=== PATIENT | male | born 1940 | race Caucasian/White ===

== ENCOUNTER → 2016-06-08 | Outpatient (CLI) | payer MEDICARE ==
[~2016-06-08] MED LIST: AC325T PO; ACET-2469 PO; ACHD5005 PO; AMOX-358 PO; ART3.5OO OU; ASCO-262 PO; ASCO500T5 PO; ASP81TEC PO; ASPI-983 PO; Aspirin PO; BSC10SU PR; CARV12.53 PO; CARV3.122 PO; CARV6.252 PO; CEFD300C PO; CEPH250C PO; CETI10TA20 PO; CHOL100045 PO; CLPD75T PO; CRV6.25T PO; DCS100C PO; DICL75TA2 PO; DIPH25TA29 PO; Diphenhydramine Hcl PO; ENXP40I.4 SC; FAMO1TAB21 PO; FLUT9.9S NS; FRSM40T PO; FURO10VI IV; FURO80TA3 PO; Fentanyl Citrate IV; HCA25SU PR; HCT25T PO; HYDR-34 PO; HYDR-3714 PO; INSR1U SC; IPRA3AMP11 IH; IPRA3AMP11 INH; KCL10CCR PO; KCL20TCR PO; LACT1CAP57 PO; LATA2.5D5 OU; LISI10TA PO; LISI10TA2 PO; LORA0.5T PO; LOSA25TA2 PO; Latanoprost OU; MAGN400T39 PO; MENT71OI TOP; METO5TAB2 PO; MISO200T4 PO; Magnesium Oxide PO; Melatonin PO; Non Medication Item PO; ONDA2VIA IV; OXYC-12 PO; OXYC-465 PO; PNT40TEC PO; POLY17PO23 PO; POTA10TA17 PO; POTA20TA8 PO; Polyethylene Glycol PO; RANI-425 PO; Simethicone PO; Sodium Chloride IV; TRAV0.004S OU; TRAV5DRO OU; Temazepam PO
--- OUTSIDE RECORDS SUMMARY | 2016-06-08 11:33 | XMS REPORT | Continuity of Care Document ---
Author Author [facility] Organization [facility] Address Unknown Phone Unavailable Care Team Providers Care Physician'S Assistant Name Role Phone SAMUEL FERNANDEZ MD PCP Insurance Providers Payer Name Policy Number Subscriber Name Relationship Wps Medicare [id number] Jenna Ortega 16 Self / Same As Patient Blue Cross [facility] Supp [id number] Jenna Ortega 16 Self / Same As Patient Advance Directives Directive Response Recorded Date/Time Advance Directives No 05/11/16 11:14am Health Care Power of Special Education Resource Room Teacher No 05/11/16 11:14am Organ Donor Yes 05/11/16 11:14am Resuscitation Status Full Code 05/11/16 11:14am Problems Active Problems Medical Problem Onset Date Status Rupture of right plantaris tendon Unknown Acute Rupture of right plantaris tendon Unknown Acute Medications Current Home Medications Medication Dose Units Route Directions Days/Qty Instructions Start Date Latanoprost 2.5 Ml 1 Drop Each Eye Bedtime 05/11/16 Carvedilol 6.25 Mg 6.25 Mg Oral Twice A Day 05/11/16 Potassium Chloride 20 Meq 20 Meq Oral As Directed TAKES 2 TIMES PER WEEK WITH FUROSEMIDE 05/11/16 Losartan Potassium 25 Mg 25 Mg Oral Daily 05/11/16 Furosemide 80 Mg 80 Mg Oral As Directed TAKES TWICE WEEKLY WITH KLOR- CON AND MAGNESIUM 05/11/16 Magnesium Oxide 400 Mg 400 Mg Oral As Directed TAKES TWICE WEEKLY WITH FUROSEMIDE AND KLOR-CON 05/11/16 Ascorbate Calcium 500 Mg 500 Mg Oral Bedtime 05/11/16 Aspirin 81 Mg 81 Mg Oral Daily 05/11/16 Oxycodone Hcl/Acetaminophen 1 Each 0.5 Tab Oral Twice A Day as needed for Pain 05/11/16 Diphenhydramine Hcl 25 Mg 25-50 Mg Oral Bedtime as needed for Sleep TAKES 1-2 (25 MG) TABLETS 05/11/16 Past Home Medications Medication Directions Ordered Status Potassium Citrate 10 Meq Tablet.sa, 10 Meq Oral Daily 03/29/12 Discontinued Lisinopril 10 Mg Tablet, 10 Mg Oral Daily 03/29/12 Discontinued Hydrochlorothiazide 25 Mg Tablet, 25 Mg Oral Daily 03/29/12 Discontinued Diclofenac Sodium 75 Mg Tablet.dr, 75 Mg Oral as needed 03/29/12 Discontinued Misoprostol 200 Mcg Tablet, 200 Mcg Oral Daily 03/29/12 Discontinued Travoprost 2.5 Ml Drops, 1 Drop Each Eye Bedtime 03/29/12 Discontinued Oxycodone Hcl/Acetaminophen 1 Each Tablet, 1 - 2 Tab Oral Every 4HRS Discontinued Famotidine/Calcium Carb/Mag 1 Each Tab.chew, 1 Tab.chew Oral Bedtime Discontinued Aspirin 81 Mg Tabec, 81 Mg Oral Daily 11/27/12 Discontinued Carvedilol (Coreg) 3.125 Mg Tablet, 3.125 Mg Oral Twice A Day 11/27/12 Discontinued Carvedilol (Coreg) 12.5 Mg Tablet, 12.5 Mg Oral Twice A Day 06/14/14 Discontinued Lisinopril 10 Mg Tablet, 10 Mg Oral Twice A Day 06/14/14 Discontinued Travoprost 5 Ml Drops, 1 Drop Each Eye Bedtime 06/14/14 Discontinued Acetaminophen/Hydrocodone Bitart 1 Each Tablet, 1 Tab Oral Every 4HRS as needed for Pain 06/20/14 Discontinued Docusate Sodium 100 Mg Cap, 200 Mg Oral Daily as needed for Constipation Discontinued Polyethylene Glycol 17 Gm Pack, 17 Gm Oral Daily as needed for Constipation 06/20/14 Discontinued Acetaminophen 325 Mg Tab, 650 Mg Oral Give Every 6 Hr On Schedule as needed for Temperature Greater Than 101 07/21/14 Discontinued Albuterol/Ipratropium 3 Ml Nebu, 3 Ml Inhalation Respiratory Every Six Hours 07/21/14 Discontinued [Aspirin] 81 Mg Tabec, 81 Mg Oral Daily 07/21/14 Discontinued Carvedilol 6.25 Mg Tab, 6.25 Mg Oral Twice A Day 07/21/14 Discontinued Cefdinir 300 Mg Capsule, 300 Mg Oral Twice A Day 07/21/14 Discontinued Clopidogrel Bisulfate 75 Mg Tab, 75 Mg Oral Daily 07/21/14 Discontinued Docusate Sodium 100 Mg Cap, 200 Mg Oral Daily as needed for Constipation Discontinued Docusate Sodium 100 Mg Cap, 100 Mg Oral Twice A Day 07/21/14 Discontinued Enoxaparin Sodium 40 Mg/0.4 Ml Soln, 40 Mg Subcutaneously Every 24 Hours Discontinued [Fentanyl Citrate] 100 Mcg/2 Ml Soln, 25 Mcg Intraven Every 30 Minutes as needed for Pain 07/21/14 Discontinued Furosemide 40 Mg/4 Ml Soln, 40 Mg Intraven Daily 07/21/14 Discontinued Acetaminophen/Hydrocodone Bitart ([place]) 1 Ea Tablet, 1 Ea Oral Every 4HRS as needed for Pain 07/21/14 Discontinued Acetaminophen/Hydrocodone Bitart (Hydrocodone/Apap 5/325MG) 1 Tab Tab, 1 Tab Oral Every 4HRS as needed for Pain 07/21/14 Discontinued Hydrocortisone Acetate 1 Ea Supp, 1 Ea Rectal Every 8HRS as needed for Pain 07/21/14 Discontinued [Latanoprost] 1 Drop Soln, 0 Drop Each Eye Bedtime 07/21/14 Discontinued Metoclopramide Hcl 5 Mg Tab, 5 Mg Oral Twice A Day 07/21/14 Discontinued Mineral Oil/Petrolatum,White 3.5 Gm Oint, 0 Gm Each Eye Three Times A Day as needed for Dry Eyes 07/21/14 Discontinued [Magnesium Oxide] 400 Mg Tab, 400 Mg Oral Daily@0700 07/21/14 Discontinued Menthol/Lanolin/Calamine/Znox 113 Gm Oint, 0 Gm Topically Twice A Day Discontinued [Non Medication Item] 1 Each Misc, 0 Each Oral As Directed 07/21/14 Discontinued Ondansetron Hcl 4 Mg/2 Ml Soln, 4 Mg Intraven Every 8HRS as needed for Nausea/ Vomiting 07/21/14 Discontinued Pantoprazole Sod 40 Mg Tab, 40 Mg Oral Daily@0700 07/21/14 Discontinued [Polyethylene Glycol] 17 Gm Pack, 17 Gm Oral Daily as needed for Constipation 07/21/14 Discontinued Potassium Chloride 20 Meq Tab, 20 Meq Oral Daily@0700 07/21/14 Discontinued Acetaminophen 325 Mg Tab, 650 Mg Oral Give Every 6 Hr On Schedule as needed for Temperature Greater Than 101 08/01/14 Discontinued Albuterol/Ipratropium 3 Ml Nebu, 3 Ml Inhalation Respiratory Every Six Hours 08/01/14 Discontinued [Aspirin] 81 Mg Tabec, 81 Mg Oral Daily 08/01/14 Discontinued Bisacodyl 10 Mg Supp, 10 Mg Rectal Daily 08/01/14 Discontinued Carvedilol 6.25 Mg Tab, 6.25 Mg Oral Twice A Day 08/01/14 Discontinued [Diphenhydramine Hcl] 25 Mg Tab, 25 Mg Oral Every 6 Hours as needed for Sleep 08/01/14 Discontinued Docusate Sodium 100 Mg Cap, 200 Mg Oral Daily as needed for Constipation Discontinued Enoxaparin Sodium 40 Mg/0.4 Ml Soln, 40 Mg Subcutaneously Daily@0900 Discontinued [Fentanyl Citrate] 100 Mcg/2 Ml Soln, 25 Mcg Intraven Every 30 Minutes as needed for Severe Pain 08/01/14 Discontinued Furosemide 40 Mg/4 Ml Soln, 40 Mg Intraven Twice A Day 08/01/14 Discontinued Acetaminophen/Hydrocodone Bitart (Hydrocodone/Apap 5/325MG) 1 Tab Tab, 1 Tab Oral Every 4HRS as needed for Pain 08/01/14 Discontinued Insulin Human Regular 1 Unit/0.01 Ml Soln, 0 Unit Subcutaneously Fasting & 2 Hrs Post Prandial 08/01/14 Discontinued [Latanoprost] 1 Drop Soln, 0 Drop Each Eye Bedtime 08/01/14 Discontinued Metoclopramide Hcl 5 Mg Tab, 5 Mg Oral Twice A Day 08/01/14 Discontinued Mineral Oil/Petrolatum,White 3.5 Gm Oint, 0 Gm Each Eye Three Times A Day as needed for Dry Eyes 08/01/14 Discontinued [Magnesium Oxide] 400 Mg Tab, 400 Mg Oral Twice A Day 08/01/14 Discontinued [Melatonin] 3 Mg Tablet, 6 Mg Oral Bedtime as needed for Sleep 08/01/14 Discontinued Menthol/Lanolin/Calamine/Znox 113 Gm Oint, 0 Gm Topically Twice A Day Discontinued Pantoprazole Sod 40 Mg Tab, 40 Mg Oral Daily@0700 08/01/14 Discontinued Potassium Chloride 10 Meq Capcr, 20 Meq Oral Twice A Day With Meals 08/01/14 Discontinued [Simethicone] 80 Mg Chew, 80 Mg Oral After Meals And At Bedtime 08/01/14 Discontinued [Sodium Chloride] 10 Ml Soln, 10-40 Ml Intraven As Needed as needed for Line Flush 08/01/14 Discontinued [Temazepam] 7.5 Mg Capsule, 7.5 Mg Oral Bedtime as needed for Sleep 08/01/14 Discontinued Cephalexin Monohydrate 250 Mg Cap, 500 Mg Oral Four Times Daily 08/22/14 Discontinued Furosemide 40 Mg Tab, 80 Mg Oral Daily 08/22/14 Discontinued Potassium Chloride 10 Meq Capcr, 20 Meq Oral Twice A Day With Meals 08/22/14 Discontinued Social History Social History Problem Response Recorded Date/Time Alcohol Use Denies Use 08/01/2014 4:00pm Recreational Drug Use No 08/01/2014 4:00pm Recent Foreign Travel No 07/12/2012 8:45am Recent Infectious Disease Exposure No 07/12/2012 8:45am Hospitalization with Isolation Denies 07/15/2012 1:45pm Sexually Transmitted Disease No 08/01/2014 4:00pm HIV/AIDS No 08/01/2014 4:00pm Sexually Transmitted Disease No 08/01/2014 4:00pm Hospitalization with Isolation Denies 07/15/2012 1:45pm Hospital Discharge Instructions Patient Instructions Physician Instructions Follow Up/Plan F/u with Dr oHpkins next week CARDIAC CATH DISCHARGE INSTRUCTIONS *Hold Metformin for 48 hours post heart cath. ACTIVITY * Go Home directly and rest. * Limit activity of the leg (or wrist if it was used) for 7 days including aerobics, swimming, jogging, bicycling, etc. * Restrict stair-climbing for 7 days if possible, if not, climb up with your non-cath leg, then bring together on the same step. * Avoid lifting, pushing, pulling or excessive movement of the affected extremity for 7 days. * Customary sexual activity may be resumed after 2 days-use caution not to use a position that strains or causes pain to the affected extremity. * No driving for 24 hours. * NO SMOKING. * Avoid straining for bowel movements for 7 days. * Gentle walking on level ground is allowed. * Returning to work will depend on the type of procedure and the results. Your doctor will discuss this with you. CALL YOUR DOCTOR FOR ANY OF THE FOLLOWING: *If bleeding from the puncture site occurs- Apply gentle pressure to site with clean cloth and call your doctor or EMS. * If a knot or lump forms under the skin, increases in size, or causes pain. * If bruising appears to be worsening or moving further down your leg instead of disappearing. * Temperature above 101 F. CARE OF YOUR GROIN INCISION; * Bruising or purple discoloration of the skin near the puncture site is common. * You may shower only, no bathtub bathing for 5 days. Be careful to avoid slipping as your leg may feel stiff. * If a closure device was used on your femoral artery, please see the attached guide regarding care of the device and your leg. * REMOVE the dressing from your groin the next day after your procedure in the shower. CARE OF YOUR WRIST INCISION; * Bruising or purple discoloration of the skin near the puncture site is common. * You may shower. * DO NOT submerge wrist. * Remove dressing in 24 hours. Plan of Care Discharge Date 05/11/16 5:35pm Instructions/Education Provided CARDIAC CATH DISCHARGE INSTRUC Prescriptions See Medication Section Functional Status Query Response Date Recorded Patient Orientation Person Place Time Situation Eyes Open May 11, 2016 5:44pm Allergies, Adverse Reactions, Alerts No known allergies. Immunizations Name Given Type FLU TRIvalent 5 years - Adult 05/11/16 Administered Vital Signs Acute Vital Signs Vital Response Date/Time Temperature (Fahrenheit) 96.9 degrees F (97.6 - 99.5) 05/11/2016 3:10pm Temperature (Calculated Celsius) 36.98646 degrees C (36.4 - 37.5) 05/11/2016 3:10pm Temperature Source Tympanic 05/11/2016 3:10pm Pulse Rate (adult) 75 bpm (60 - 90) 05/11/2016 5:15pm Respiratory Rate 18 bpm (12 - 24) 05/11/2016 5:15pm O2 Sat by Pulse Oximetry 98 % (88 - 100) 05/11/2016 5:15pm Blood Pressure 148/93 mm Hg 05/11/2016 5:15pm Blood Pressure Mean 111 mm Hg 05/11/2016 5:15pm Pain Numeric Pain Scale 0-No Pain 05/11/2016 5:35pm Height (Feet) 6 feet 05/11/2016 11:13am Height (Inches) 0.00 inches 05/11/2016 11:13am Height (Calculated Centimeters) 182.248778 cm 05/11/2016 11:13am Weight (Pounds) 256 pounds 05/11/2016 11:13am Weight (Ounces) 0.0 oz 05/11/2016 11:13am Weight (Calculated Grams) 666857.65 gm 05/11/2016 11:13am Weight (Calculated Kilograms) 116.208584 kilograms 05/11/2016 11:13am Calculated BMI 34.7 05/11/2016 11:13am Results Pending Laboratory Results Test Name Collection Date/Time Procedures Procedure Status Date Provider(s) Color Doppler echocardiography Active 04/22/16 ROSA HOPKINS MDP FACC CCDS Encounters Encounter Location Arrival/Admit Date Discharge/Depart Date Attending Provider Departed [facility] 05/11/16 10:44am 05/11/16 5:35pm JOEL VILLALPANDO Registered Recurring [facility] 05/10/16 11:08am SAMUEL FERNANDEZ MD Registered Clinic [facility] 04/22/16 7:50am ROSA HOPKINS FACP, MD, FACC Registered Clinic [facility] 04/21/16 1:58pm ROSA HOPKINS FACP, MD, FACC
--- NOTE | 2016-06-08 12:18 | Diagnostic Imaging Report ---
PROCEDURE: CT chest without contrast. TECHNIQUE: Multiple contiguous axial images were obtained through the chest without the use of intravenous contrast. INDICATION: Followup pulmonary nodule. Shortness of breath. COMPARISON: CT chest of 05/05/2015. FINDINGS: Lungs and airway: Stable 3 mm nodule in the right lung apex. No additional and/or new pulmonary nodules. No pulmonary mass or consolidation. No endoluminal lesion within the trachea or central bronchi. Pleura: No pleural effusion or pneumothorax. Heart and mediastinum: Visualized thyroid is normal. No supraclavicular or axillary lymphadenopathy. No mediastinal, hilar, or juxtaphrenic lymphadenopathy. Normal heart size without pericardial effusion. Coronary artery calcifications and/or stents are unchanged. Thoracic aorta is normal in caliber with mild atherosclerotic disease. Stable small hiatus hernia. Upper abdomen: Visualized upper abdomen is grossly normal by non contrast imaging, which limits evaluation of the abdominal viscera. There are atherosclerotic calcifications of the upper abdominal aorta and its branches. Musculoskeletal: No concerning osseous lesions. IMPRESSION: 1. Stable 4 mm nodule in the right upper lobe. Given small size and stability, this is of benign etiology and requires no additional followup imaging. 2. No acute cardiopulmonary process. 3. No intrathoracic lymphadenopathy. 4. Stable small hiatus hernia. Dictated by: Dictated on workstation # [id number]
== END ==
LOC: RAD 11:30
PROVIDERS: ATTEND Nurse Practitioner Family
DX: R06.02 Shortness of breath (principal); R91.1 Solitary pulmonary nodule; R09.89 Other specified symptoms and signs involving the circulatory and respiratory systems; E66.9 Obesity, unspecified; Z82.49 Family history of ischemic heart disease and other diseases of the circulatory system
CPT/HCPCS: 71250

== ENCOUNTER 2016-06-17 01:37 | Inpatient (IN) | payer MEDICARE ==
[~2016-06-17] VITALS: Ht 182.9 cm; Wt 108.9 kg
[~2016-06-17 01:37] MED LIST changes: -ACET-2469 PO; -AMOX-358 PO; -ASCO500T5 PO; -CETI10TA20 PO; -CHOL100045 PO; -FLUT9.9S NS; -LACT1CAP57 PO; -LORA0.5T PO; -RANI-425 PO
--- OUTSIDE RECORDS SUMMARY | 2016-06-17 01:43 | XMS REPORT | Continuity of Care Document ---
Author Author [facility] Organization [facility] Address Unknown Phone Unavailable Care Team Providers Care Machine Clothing Replacer Name Role Phone SAMUEL FERNANDEZ MD PCP Insurance Providers Payer Name Policy Number Subscriber Name Relationship Wps Medicare [id number] Jenna Ortega 16 Self / Same As Patient Blue Cross [facility] Supp [id number] Jenna Ortega 16 Self / Same As Patient Advance Directives Directive Response Recorded Date/Time Advance Directives No 05/11/16 11:14am Health Care Power of Writing Tutor No 05/11/16 11:14am Organ Donor Yes 05/11/16 [...] Mg Intraven Daily 07/21/14 Discontinued Acetaminophen/Hydrocodone Bitart ([place]) 1 Ea Tablet, 1 Ea Oral Every [...] Physician Instructions Follow Up/Plan F/u with Dr Hopkins next week CARDIAC CATH DISCHARGE INSTRUCTIONS *Hold [...] - 99.5) 05/11/2016 3:10pm Temperature (Calculated Celsius) 36.84944 degrees C (36.4 - 37.5) 05/11/2016 3:10pm [...] 0.00 inches 05/11/2016 11:13am Height (Calculated Centimeters) 182.327905 cm 05/11/2016 11:13am Weight (Pounds) 256 pounds 05/11/2016 11:13am Weight (Ounces) 0.0 oz 05/11/2016 11:13am Weight (Calculated Grams) 041234.65 gm 05/11/2016 11:13am Weight (Calculated Kilograms) 116.251457 kilograms 05/11/2016 11:13am Calculated BMI 34.7 05/11/2016 11:13am Results Pending Laboratory Results Test Name Collection Date/Time Procedures Procedure Status Date Provider(s) Color Doppler echocardiography Active 04/22/16 ROSA HOPKINS MDP FACC CCDS Encounters Encounter Location Arrival/Admit Date Discharge/Depart Date Attending Provider Departed [facility] 05/11/16 10:44am 05/11/16 5:35pm JOEL VILLALPANDO Registered Recurring [facility] 05/10/16 11:08am SAMUEL FERNANDEZ MD Registered Clinic [facility] 04/22/16 7:50am ROSA HOPKINS FACP, MD, FACC Registered Clinic [facility] 04/21/16 1:58pm ROSA HOPKINS FACP, MD, FACC
[2016-06-17] MEDS ORDERED: fentaNYL INJECTION 100 MCG/2 ML AMP IVP STA ×3 (02:26→04:04)
[2016-06-17] MEDS ORDERED: NS IV 1000 ML 1,000 ML IV ONE (02:26)
--- NOTE | 2016-06-17 02:28 | ED Abdominal Pain ---
General Chief Complaint: Abdominal/GI Problems Stated Complaint: ABD PAIN Nursing Triage Note: LOWER ABD PAIN SINCE 2100, HAS HAD A COUPLE BM'S ON 06/16/16 Sepsis Screen: No Definite Risk Source of Information: Patient Exam Limitations: No Limitations History of Present Illness Time Seen By Provider: 02:10 Initial Comments Here with report of lower abdominal pain since about 9 p.m. last night. Denies vomiting or diarrhea but has been belching. He did have a bowel movement yesterday. Denies blood in vomit or stool. Denies fever or chills. Pain seems more related to left lower quadrant. Timing/Duration: 12-24 Hours Severity/Quality: Moderate, Aching, Cramping Location: RLQ, LLQ Radiation: No Radiation Activities at Onset: None Modifying Factors: Worsens With Eating, Worsens With Movement Associated Symptoms: No Back Pain, No Chest Pain, No Fever/Chills Allergies and Home Medications Allergies Coded Allergies: No Known Drug Allergies (Unverified , 03/29/12) Home Medications Ascorbate Calcium 500 Mg Tablet 500 MG PO HS (Reported) Aspirin 81 Mg Tablet.dr 81 MG PO DAILY (Reported) Carvedilol 6.25 Mg Tablet 6.25 MG PO BID (Reported) Diphenhydramine HCl 25 Mg Tablet 25-50 MG PO HS PRN PRN SLEEP (Reported) TAKES 1-2 (25 MG) TABLETS Furosemide 80 Mg Tablet 80 MG PO UD (Reported) TAKES TWICE WEEKLY WITH KLOR-CON AND MAGNESIUM Latanoprost 2.5 Ml Drops 1 DROP OU HS (Reported) Losartan Potassium 25 Mg Tablet 25 MG PO DAILY (Reported) Magnesium Oxide 400 Mg Tablet 400 MG PO UD (Reported) TAKES TWICE WEEKLY WITH FUROSEMIDE AND KLOR-CON Oxycodone HCl/Acetaminophen 1 Each Tablet 0.5 TAB PO BID PRN PRN PAIN (Reported ) Potassium Chloride 20 Meq Tab.er.prt 20 MEQ PO UD (Reported) TAKES 2 TIMES PER WEEK WITH FUROSEMIDE Review of Systems Constitutional: see HPINo chills, No fever EENTM: No Symptoms Reported Respiratory: No Symptoms ReportedDenies Cough, Denies SOA at Rest Cardiovascular: No Symptoms ReportedDenies Chest Pain, Denies Edema Gastrointestinal: Abdominal PainDenies Diarrhea, NauseaDenies Rectal Bleeding , Denies Vomiting Genitourinary: No Symptoms Reported Musculoskeletal: no symptoms reported Skin: no symptoms reported All Other Systems Reviewed Negative Unless Noted: Yes Past Wtoyhsm-Hbjkcm-Kkyaew Hx Patient Social History Alcohol Use: Past History Recreational Drug Use: No Smoking Status: Never a Smoker Recent Foreign Travel: No Contact w/Someone Who Travel: No Recent Infectious Disease Expo: No Recent Hopitalizations: Yes (KIDNEY STONES [place] 1982) Physical Abuse Screen: No Sexual Abuse: No Immunizations Up To Date Tetanus Booster (TDap): Less than 5yrs Date of Pneumonia Vaccine: Jun 01, 2016 Date of Influenza Vaccine: Jun 01, 2016 Seasonal Allergies Seasonal Allergies: No Surgeries HX Surgeries: Yes (TOTAL KNEE, HERNIA, CATARACTS, R AKA) Surgeries: Abdominal, Amputation, Joint Replacement, Orthopedic, Tonsillectomy Respiratory Hx Respiratory Disorders: No Cardiovascular Hx Cardiac Disorders: Yes Cardiac Disorders: Hypertension Neurological Hx Neurological Disorders: No Reproductive System Hx Reproductive Disorders: No Sexually Transmitted Disease: No HIV/AIDS: No Genitourinary Hx Genitourinary Disorders: Yes (HX OF RENAL ) Genitourinary Disorders: Renal Failure Gastrointestinal Hx Gastrointestinal Disorders: No Gastrointestinal Disorders: Gastroesophageal Reflux, Hemorrhoids Musculoskeletal Hx Musculoskeletal Disorders: Yes (LEFT KNEE OSTEOARTHRITIS, 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) Musculoskeletal Disorders: Arthritis Endocrine Hx Endocrine Disorders: No HEENT HX ENT Disorders: Yes (READING GLASSES) HEENT Disorders: Cataract, Glaucoma Loss of Vision: Denies Hearing Impairment: Hard of Hearing Cancer Hx Cancer: No Psychosocial Hx Psychiatric Problems: No Integumentary Skin/Integumentary Disorders: Recent Skin Changes Blood Transfusions Hx Blood Disorders: No Adverse Reaction to a Blood Tr: No Family Medical History Family Medial History: Alcoholism 19 FATHER, , Age:48, Onset:Unknown Bone cancer G8 BROTHER, , Onset:Unknown Colon cancer G8 SISTER, Onset:Unknown Heart valve abnormality 19 MOTHER, , Age:95, Onset:Unknown G8 SISTER, Onset:Unknown Physical Exam Vital Signs VS - Last 72 Hours, by Label 06/17/16 06/17/16 06/17/16 01:44 02:32 03:02 Temp 97.1 97.1 97.1 Pulse 53 Resp 20 B/P 179/89 Pulse Ox 96 O2 Delivery Room Air Capillary Refill : Less Than 3 Seconds General Appearance: WD/WN no apparent distress Neck: full range of motion supple Respiratory: lungs clear normal breath sounds Cardiovascular: regular rate, rhythm no murmur Gastrointestinal: soft tenderness (left lower quadrant and midabdomen) Extremities: non-tender other (right lower extremity amputation) Back: normal inspection no CVA tenderness no vertebral tenderness Neurologic/Psychiatric: alert oriented x 3 Skin: normal color warm/dry Progress/Results/Core Measures Results/Orders Lab Results Laboratory Tests Test 06/17/16 02:23 06/17/16 03:34 Range/Units Alanine Aminotransferase (ALT/SGPT) 23 0-55 U/L Albumin 4.0 3.2-4.5 G/DL Alkaline Phosphatase 86 40-136 U/L Anion Gap 12 5-14 MMOL/L Aspartate Amino Transf (AST/SGOT) 23 5-34 U/L BUN/Creatinine Ratio 20 Basophils # (Auto) 0.1 0.0-0.1 10^3/uL Basophils (%) (Auto) 1 0-10 % Blood Urea Nitrogen 26 H 7-18 MG/DL Calcium Level 9.3 8.5-10.1 MG/DL Carbon Dioxide Level 19 L 21-32 MMOL/L Chloride Level 111 H 98-107 MMOL/L Creatinine 1.33 H 0.60-1.30 MG/DL Eosinophils # (Auto) 0.1 0.0-0.3 10^3/uL Eosinophils (%) (Auto) 1 0-10 % Estimat Glomerular Filtration Rate 52 Glucose Level 117 H 70-105 MG/DL Hematocrit 43 40-54 % Hemoglobin 14.8 13.3-17.7 G/DL Lymphocytes # (Auto) 1.6 1.0-4.0 X 10^3 Lymphocytes (%) (Auto) 19 12-44 % Magnesium Level 2.1 1.8-2.4 MG/DL Mean Corpuscular Hemoglobin 30 25-34 PG Mean Corpuscular Hemoglobin Concent 34 32-36 G/DL Mean Corpuscular Volume 86 80-99 FL Mean Platelet Volume 10.0 7.4-10.4 FL Monocytes # (Auto) 0.6 0.0-1.0 X 10^3 Monocytes (%) (Auto) 7 0-12 % Neutrophils # (Auto) 6.1 1.8-7.8 X 10^3 Neutrophils (%) (Auto) 72 42-75 % Platelet Count 137 130-400 10^3/uL Potassium Level 3.9 3.6-5.0 MMOL/L Red Blood Count 4.99 4.35-5.85 10^6/uL Red Cell Distribution Width 12.9 10.0-14.5 % Sodium Level 142 135-145 MMOL/L Total Bilirubin 0.7 0.1-1.0 MG/DL Total Protein 6.7 6.4-8.2 G/DL White Blood Count 8.5 4.3-11.0 10^3/uL Urine Bacteria NEGATIVE /HPF Urine Bilirubin NEGATIVE NEGATIVE Urine Casts NONE /LPF Urine Clarity CLEAR Urine Color YELLOW Urine Crystals NONE /LPF Urine Culture Indicated NO Urine Glucose (UA) NEGATIVE NEGATIVE Urine Ketones 3+ H NEGATIVE Urine Leukocyte Esterase NEGATIVE NEGATIVE Urine Mucus NEGATIVE /LPF Urine Nitrite NEGATIVE NEGATIVE Urine Protein NEGATIVE NEGATIVE Urine RBC NONE /HPF Urine RBC (Auto) 1+ H NEGATIVE Urine Specific [place] 1.010 L 1.016-1.022 Urine Squamous Epithelial Cells 0-2 /HPF Urine Urobilinogen NORMAL NORMAL MG/DL Urine WBC NONE /HPF Urine pH 6 5-9 My Orders Orders-GENA VELASCO MD Cbc With Automated Diff (06/17/16 02:26) Comprehensive Metabolic Panel (06/17/16 02:26) Magnesium (06/17/16 02:26) Ua Culture If Indicated (06/17/16 02:26) Fentanyl Injection (Sublimaze Injection (06/17/16 02:26) Saline Lock/Iv-Start (06/17/16 02:26) Ns Iv 1000 Ml (Sodium Chloride 0.9%) (06/17/16 02:26) Ct Abdomen/Pelvis W (06/17/16 02:54) Fentanyl Injection (Sublimaze Injection (06/17/16 02:58) Iohexol Injection (Omnipaque 350 Mg/Ml 1 (06/17/16 03:30) Ns (Ivpb) (Sodium Chloride 0.9% Ivpb Bag (06/17/16 03:30) Fentanyl Injection (Sublimaze Injection (06/17/16 04:04) Blood Culture (06/17/16 04:18) Lactic Acid Analyzer (06/17/16 04:18) Levofloxacin 750 Mg/150 Ml Iv (Levaquin (06/17/16 04:18) Medications Given in ED Current Medications Medications Dose Ordered Sig/Lillian Route Start Time Stop Time Status Last Admin Dose Admin Iohexol 100 ml ONCE ONCE IV 06/17/16 03:30 06/17/16 03:31 DC 06/17/16 03:19 100 ML Sodium Chloride 100 ml ONCE ONCE IV 06/17/16 03:30 06/17/16 03:31 DC 06/17/16 03:19 80 ML Sodium Chloride 1,000 ml @ 0 mls/hr Q0M ONCE IV 06/17/16 02:26 06/17/16 02:29 DC 06/17/16 02:32 999 MLS/HR Vital Signs/I&O Vital Sign - Last 12Hours 06/17/16 06/17/16 06/17/16 01:44 02:32 03:02 Temp 97.1 97.1 97.1 Pulse 53 Resp 20 B/P 179/89 Pulse Ox 96 O2 Delivery Room Air Blood Pressure Mean: 119 Progress Note : Progress Note Seen and evaluated. IV, labs, normal saline 1 L bolus and fentanyl [address] abdomen and pelvis. Repeat fentanyl [address] abdomen pelvis ordered. CT abdomen and pelvis shows diverticulitis. Patient has persistent pain. 0407: Fentanyl 75 g IV ordered. I did discuss case with Dr. Yan Fernandez. Patient will get blood cultures and lactic acid and then have Levaquin initiated for the diverticulitis. Patient to be admitted due to persistent pain. Patient and agreement with plan. Admit, inpatient status. Diagnostic Imaging Diagonstic Imaging: CT Plain Films/CT/US/NM/MRI: abdomen, pelvis Comments Very mild increased density of fat adjacent to the diverticulum at the distal descending colon suggesting possible mild diverticulitis. Extensive sigmoid colon diverticulosis with likely muscular hypertrophy. Hypodensity of the gallbladder fundus likely calcified gallstone. Borderline splenomegaly. Small sliding hiatal hernia. Moderate compression deformity of L1 with large Schmorl' s node at its superior endplate, age indeterminate but no findings to suggest acute fracture. Multilevel degenerative changes of the lumbar spine. Atherosclerotic calcification of the aorta and its branches. Large uterine enlargement. Right renal cyst. Minimal dependent atelectasis at lung bases. Fat filled umbilical hernia. Reviewed: Reviewed [place] Study, Reviewed by Me Departure Communication Time/Spoke to Admitting Phy: 04:07 Impression Impression: Primary Impression: Diverticulitis of intestine Qualified Code: K57.32 - Diverticulitis of large intestine without perforation or abscess without bleeding Disposition: 09 ADMITTED INPATIENT Condition: Stable Decision to Admit Reason: Admit from ER (General) Decision to Admit/Date: Jun 17, 2016 Time/Decision to Admit Time: 04:07 Departure-Patient Inst. Referrals: YAN FERNANDEZ MD (PCP/Family) Primary Care Physician GENA VELASCO MD Jun 17, 2016 02:28
[2016-06-17 02:32] LABS: BASOPHILS # (AUTO) 0.1 10^3/uL (0.0-0.1); BASOPHILS % (AUTO) 1 % (0-10); EOSINOPHILS # (AUTO) 0.1 10^3/uL (0.0-0.3); EOSINOPHILS % (AUTO) 1 % (0-10); LYMPHOCYTES # (AUTO) 1.6 X 10^3 (1.0-4.0); LYMPHOCYTES % (AUTO) 19 % (12-44); MEAN CORPUSCULAR HEMOGLOBIN 30 PG (25-34); MEAN CORPUSCULAR HGB CONC 34 G/DL (32-36); MEAN CORPUSCULAR VOLUME 86 FL (80-99); MONOCYTES # (AUTO) 0.6 X 10^3 (0.0-1.0); MONOCYTES % (AUTO) 7 % (0-12); NEUTROPHILS # (AUTO) 6.1 X 10^3 (1.8-7.8); NEUTROPHILS % (AUTO) 72 % (42-75); PLATELET COUNT 137 10^3/uL (130-400); RED BLOOD COUNT 4.99 10^6/uL (4.35-5.85); RED CELL DISTRIBUTION WIDTH 12.9 % (10.0-14.5); WHITE BLOOD COUNT 8.5 10^3/uL (4.3-11.0)
[2016-06-17 02:48] LABS: BILIRUBIN,TOTAL 0.7 MG/DL (0.1-1.0); CALCIUM 9.3 MG/DL (8.5-10.1); CREATININE SERUM 1.33 MG/DL (0.60-1.30); MAGNESIUM 2.1 MG/DL (1.8-2.4); POTASSIUM 3.9 MMOL/L (3.6-5.0); TOTAL PROTEIN 6.7 G/DL (6.4-8.2)
[2016-06-17] MEDS ORDERED: IOHEXOL 350 MG/ML 100 ML (OMNIPAQUE 350) VIAL IV ONE (03:30)
[2016-06-17] MEDS ORDERED: NS 100 ML (IVPB) BAG IV ONE (03:30)
[2016-06-17 03:42] LABS: BILIRUBIN,URINE NEGATIVE (NEGATIVE); KETONES,URINE 3+ (NEGATIVE); LEUKOCYTE ESTERASE ,URINE NEGATIVE (NEGATIVE); NITRITE,URINE NEGATIVE (NEGATIVE); PH,URINE 6 (5-9); PROTEIN,URINE NEGATIVE (NEGATIVE); UROBILINOGEN,URINE NORMAL (NORMAL)
[2016-06-17 03:51] LABS: SQUAMOUS EPITHELIAL CELL,UR 0-2 /HPF
[2016-06-17] MEDS ORDERED: LEVOFLOXACIN 750 MG/150 ML IV 150 ML IV STA (04:18)
[2016-06-17 05:20] VITALS: BP 139/95
[2016-06-17] MEDS ORDERED: fentaNYL INJECTION 100 MCG/2 ML AMP IV PRN (06:00)
[2016-06-17] MEDS ORDERED: CATHETER FLUSH 10 ML SYR IV PRN (06:15)
[2016-06-17] MEDS: metroNIDAZOLE 500 MG/100 ML IVPB (PRE-MIX) IV SCH ×4 (06:18→23:35)
[2016-06-17] MEDS: NS IV 1000 ML 1,000 ML IV SCH ×3 (06:18→16:55)
--- NOTE | 2016-06-17 07:18 | Diagnostic Imaging Report ---
PROCEDURE: CT abdomen and pelvis with contrast. TECHNIQUE: Multiple contiguous axial images were obtained through the abdomen and pelvis after administration of intravenous contrast. INDICATION: Left lower quadrant abdominal pain Comparison is made to study of 06/13/2014. There is mild low-density throughout the liver indicating fatty infiltration. Note is made of high-density material within the lumen of the gallbladder which may represent cholelithiasis, however, no associated inflammation is identified. No pancreatic, splenic or adrenal gland lesion is detected. Several exophytic cysts are present in the right kidney. There is no evidence of renal calculus, solid mass or hydronephrosis. Gallbladder has a normal appearance. There is fat-containing umbilical hernia similar to previous study. Numerous sigmoid diverticula are noted. There is mild localized pericolonic inflammation at the junction of descending colon and sigmoid colon which may represent mild developing focal diverticulitis. No abscess is identified. Partially opacified urinary bladder is unremarkable. No other significant change is detected. IMPRESSION: Sigmoid diverticular disease with possible focal developing diverticulitis without evidence of abscess or perforation. Dictated by: Dictated on workstation # [id number]
[2016-06-17 08:00] VITALS: BP 166/83
--- NOTE | 2016-06-17 08:10 | History & Physicial ---
History of Present Illness History of Present Illness Reason for visit/HPI 75-year-old male admitted overnight for abdominal pain. Patient reports he went to taoist last night and afterwards ate some peanuts around 2100 hours started having abdominal pain. He reports about a week ago he had a similar episode. He sat at home and monitored the abdominal pain which resolved within 30 minutes to 1 hour. Of note he mentioned it was very similar to this current abdominal pain. But this abdominal pain did not go away. Last bowel movement was earlier in the day he did have 3, none of which were constipation or diarrhea. Patient denies any issues breathing. He denies any fevers or headaches. he reports been doing pretty well. Patient has even recently been discharged from physical therapy and is not even using a cane or a walker. Has new right leg prosthesis is feeling great. This a.m. patient's abdominal pain is mostly gone as the fentanyl is working. Patient would like to try to transition to by mouth Percocet. Patient also complains of not sleeping well and has tried a 0.5 mg lorazepam in the past and would like to try this for insomnia. Patient has no other issues to address at this time. ER course CT of the abdomen was obtained demonstrating diverticulitis. Patient was put on clear liquid diet and started on IV fluids. He also was started on Levaquin and metronidazole. Blood cultures were obtained. White blood cells are not elevated and patient has been afebrile. Admitted for further evaluation and treatment. Date of Admission Jun 17, 2016 at 04:10 I consulted on this patient on 06/17/16 08:05 Attending Physician Yan Fernandez MD Admitting Physician Yan Fernandez MD Consult Allergies and Home Medications Allergies Coded Allergies: No Known Drug Allergies (Unverified , 03/29/12) Home Medications Ascorbate Calcium 500 Mg Tablet 500 MG PO HS (Reported) Aspirin 81 Mg Tablet.dr 81 MG PO DAILY (Reported) Carvedilol 6.25 Mg Tablet 6.25 MG PO BID (Reported) Diphenhydramine HCl 25 Mg Tablet 25-50 MG PO HS PRN PRN SLEEP (Reported) TAKES 1-2 (25 MG) TABLETS Furosemide 80 Mg Tablet 80 MG PO UD (Reported) TAKES TWICE WEEKLY WITH KLOR-CON AND MAGNESIUM Latanoprost 2.5 Ml Drops 1 DROP OU HS (Reported) Losartan Potassium 25 Mg Tablet 25 MG PO DAILY (Reported) Magnesium Oxide 400 Mg Tablet 400 MG PO UD (Reported) TAKES TWICE WEEKLY WITH FUROSEMIDE AND KLOR-CON Oxycodone HCl/Acetaminophen 1 Each Tablet 0.5 TAB PO BID PRN PRN PAIN (Reported ) Potassium Chloride 20 Meq Tab.er.prt 20 MEQ PO UD (Reported) TAKES 2 TIMES PER WEEK WITH FUROSEMIDE Past Yrpuwwk-Gruvid-Nezkxi Hx Patient Social History Marrital Status: Alcohol Use: Past History Recreational Drug Use: No Smoking Status: Never a Smoker Physical Abuse Screen: No Sexual Abuse: No Recent Foreign Travel: No Contact w/other who traveled: No Recent Hopitalizations: No Recent Infectious Disease Expo: No Immunizations Up To Date Tetanus Booster (TDap): Less than 5yrs Date of Pneumonia Vaccine: Jun 01, 2016 Date of Influenza Vaccine: Jun 01, 2016 Seasonal Allergies Seasonal Allergies: No Surgeries HX Surgeries: Yes (TOTAL KNEE, HERNIA, CATARACTS, R AKA) Surgeries: Abdominal, Amputation, Joint Replacement, Orthopedic, Tonsillectomy Respiratory Hx Respiratory Disorders: No Cardiovascular Hx Cardiovascular Disorders: Yes Cardiac Disorders: Hypertension Neurological Hx Neurological Disorders: No Reproductive System Hx Reproductive Disorders: No Sexually Transmitted Disease: No HIV/AIDS: No Genitourinary Hx Genitourinary Disorders: Yes (HX OF RENAL ) Genitourinary Disorders: Renal Failure Gastrointestinal Hx Gastrointestinal Disorders: No Gastrointestinal Disorders: Gastroesophageal Reflux, Hemorrhoids Musculoskeletal Hx Musculoskeletal Disorders: Yes (LEFT KNEE OSTEOARTHRITIS, 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) Musculoskeletal Disorders: Arthritis Endocrine Hx Endocrine Disorders: No HEENT HX ENT Disorders: Yes (READING GLASSES) HEENT Disorders: Cataract, Glaucoma Loss of Vision: Denies Hearing Impairment: Hard of Hearing Cancer Hx Cancer: No Cancer: Skin Psychosocial Hx Psychiatric Problems: No Integumentary Skin/Integumentary Disorders: Recent Skin Changes Blood Transfusions Hx Blood Disorders: No Adverse Reaction to a Blood Tr: No Family Medical History Family Hx: Alcoholism 19 FATHER, , Age:48, Onset:Unknown Bone cancer G8 BROTHER, , Onset:Unknown Colon cancer G8 SISTER, Onset:Unknown Heart valve abnormality 19 MOTHER, , Age:95, Onset:Unknown G8 SISTER, Onset:Unknown No Family History of: AIDS Abdominal aortic aneurysm [place]'s disease Alzheimer's disease Aphasia Arthritis Asthma Cancer of mouth Cardiovascular disease Cataracts Completed stroke Congenital disease Congenital heart disease Coronary thrombosis Cystic fibrosis Deafness or hearing loss Dementia Diabetes mellitus Drug abuse Dysphasia Fibrocystic disease of breast Gastroenteritis Glaucoma Headache disorder Hypercholesterolemia Hypertension Infertility Kidney disease Myocardial infarction Neoplasm Not obtainable due to adoption Osteoporosis Parkinson's disease Prostate cancer Psychosocial problem Respiratory disorder Seizure disorder Severe allergy Thyroid disease Tuberculosis Visual disorder Constitutional: No chills, No diaphoresis, No fever EENTM: No blurred vision (he will), No ear pain, No hearing loss Respiratory: No cough, No dyspnea on exertion Gastrointestinal: RUQ LUQ RLQ LLQ abdominal painNo constipation, No diarrhea, No hematemesis, No heartburn, No loss of appetite, No nausea, No vomiting Genitourinary: No dysuria, No frequency, No hematuria Musculoskeletal: No back pain, joint pain Skin: No change in color, No change in hair/nails Psychiatric/Neurological: Denies Anxiety, Denies Depressed, Other (difficulty sleeping) Physical Exam Vital Signs Vital Sign - Last 12Hours 06/17/16 01:44 Temp 97.1 Pulse 53 Resp 20 B/P 179/89 Pulse Ox 96 O2 Delivery Room Air Capillary Refill : Less Than 3 Seconds General Appearance: No Apparent Distress WD/WN HEENT: PERRL/EOMI Neck: Full Range of Motion Non Tender Supple Respiratory: Chest Non Tender Lungs Clear Normal Breath Sounds No Accessory Muscle Use No Respiratory Distress Cardiovascular: Regular Rate, Rhythm No Edema Gastrointestinal: Normal Bowel Sounds Non Tender Soft Rectal: Deferred Back: No CVA Tenderness No Vertebral Tenderness Extremity: Other (moves both lower extremities- Right below knee stump- looks good. no skin breakdown) Neurologic/Psychiatric: Alert Oriented x3 No Motor/Sensory Deficits Normal Mood/Affect Skin: Warm/Dry Assessment/Plan Assessment and Plan 75 yo M * abdominal pain- due to diverticulitis, will switch fentanyl to po percocet- monitor for worsening abdominal pain adding stool softner. *diverticulitis- levofloxacin, metronidazole - monitor abdominal exam. *chronic kidney disease- at baseline Cr level- IVF, avoid contrast, NSAIDS *Insomnia- will add 0.5mg lorazepam qhs DVT ppx: SCDs Dispo: may advance diet this afternoon. Continue flagyl levofloxacin x 14 days - switch to po 06/18/16. Plan to d/c to home 06/18/16 Clinical Quality Measures DVT/VTE Risk/Contraindication: Risk Factor Score Per Nursin RFS Level Per Nursing on Admit: 4+=Very High YAN FERNANDEZ MD Jun 17, 2016 08:10
[2016-06-17] MEDS ORDERED: oxyCODONE/APAP 5/325MG (PERCOCET 5) TABLET PO PRN (08:15)
[2016-06-17] MEDS: DOCUSATE SODIUM 100 MG (COLACE) CAP PO SCH ×2 (08:38→20:14)
[2016-06-17] MEDS ORDERED: ASCO500T5 PO (09:10)
[2016-06-17] MEDS ORDERED: ACET-2469 PO (09:10)
[2016-06-17 12:00] VITALS: BP 134/68
[2016-06-17] MEDS ORDERED: MAGNESIUM OXIDE (MAG-OX)400 MG TAB PO SCH (12:00)
[2016-06-17] MEDS ORDERED: oxyCODONE/APAP 10/325MG (PERCOCET 10) TABLET PO PRN ×2 (12:00→14:00)
[2016-06-17] MEDS ORDERED: NON-FORMULARY MEDICATION 1 EA EA (Furosemide 80 MG) PO SCH (12:00)
[2016-06-17] MEDS ORDERED: KCL 20 MEQ TAB (K-DUR) PO SCH (12:00)
[2016-06-17] MEDS: fentaNYL INJECTION 100 MCG/2 ML AMP IV PRN (12:25)
[2016-06-17] MEDS ORDERED: PATIENT MAY USE OWN MEDS, ALL MC SCH (13:30)
[2016-06-17] MEDS: CATHETER FLUSH 10 ML SYR IV SCH ×2 (14:00→20:16)
[2016-06-17 16:00] VITALS: BP 126/64
[2016-06-17] MEDS: ONDANSETRON 4 MG/2 ML (SDV) Z0FRAN IV PRN (18:53)
[2016-06-17 19:52] VITALS: BP 136/65
[2016-06-17] MEDS: LORazepam 0.5 MG (ATIVAN) TABLET PO SCH (20:14)
[2016-06-17] MEDS: CARVEDILOL 6.25 MG (COREG) TAB PO SCH (20:14)
[2016-06-17] MEDS: LATANOPROST 0.005% (XALATAN) OPHTH SOLN 2.5 ML OU SCH (20:15)
[2016-06-18] VITALS: BP 117/59
[2016-06-18] MEDS: fentaNYL INJECTION 100 MCG/2 ML AMP IV PRN (00:20)
[2016-06-18] MEDS: ONDANSETRON 4 MG/2 ML (SDV) Z0FRAN IV PRN ×2 (02:10→15:10)
[2016-06-18] MEDS: NS IV 1000 ML 1,000 ML IV SCH ×4 (02:10→21:35)
[2016-06-18 04:00] VITALS: BP 129/64
[2016-06-18] MEDS ORDERED: PROMETHAZINE INJ 25 MG/ML (PHENERGAN) AMP IVP PRN (04:30)
[2016-06-18] MEDS: CATHETER FLUSH 10 ML SYR IV SCH ×3 (04:59→21:35)
[2016-06-18] MEDS ORDERED: LEVOFLOXACIN 750 MG/D5W 150 ML PRE-MIX IV SCH (05:00)
[2016-06-18 05:05] LABS: BASOPHILS % (AUTO) 0 % (0-10); EOSINOPHILS % (AUTO) 0 % (0-10); LYMPHOCYTES # (AUTO) 1.1 X 10^3 (1.0-4.0); LYMPHOCYTES % (AUTO) 8 % (12-44); MEAN CORPUSCULAR HEMOGLOBIN 30 PG (25-34); MEAN CORPUSCULAR HGB CONC 35 G/DL (32-36); MEAN CORPUSCULAR VOLUME 87 FL (80-99); MEAN PLATELET VOLUME 10.6 FL (7.4-10.4); MONOCYTES # (AUTO) 1.1 X 10^3 (0.0-1.0); MONOCYTES % (AUTO) 8 % (0-12); NEUTROPHILS # (AUTO) 11.3 X 10^3 (1.8-7.8); NEUTROPHILS % (AUTO) 83 % (42-75); PLATELET COUNT 114 10^3/uL (130-400); RED BLOOD COUNT 4.38 10^6/uL (4.35-5.85); WHITE BLOOD COUNT 13.5 10^3/uL (4.3-11.0)
[2016-06-18 05:31] LABS: ALBUMIN 3.4 G/DL (3.2-4.5); ANION GAP 12 MMOL/L (5-14); BLOOD UREA NITROGEN 18 MG/DL (7-18); BUN/CREATININE RATIO 16; CALCIUM 8.2 MG/DL (8.5-10.1); CARBON DIOXIDE 18 MMOL/L (21-32); CHLORIDE 109 MMOL/L (98-107); CREATININE SERUM 1.14 MG/DL (0.60-1.30); GFR ESTIMATED > 60; GLUCOSE 124 MG/DL (70-105); PHOSPHORUS 2.8 MG/DL (2.3-4.7); POTASSIUM 3.7 MMOL/L (3.6-5.0); SODIUM 139 MMOL/L (135-145)
[2016-06-18] MEDS ORDERED: PIPERACILLIN SODIUM/TAZOBACTAM 4.5 GM in NORMAL SALINE (BAXTER MINI) 100 ML IV ONE ×2 (06:00→18:45)
[2016-06-18] MEDS ORDERED: PIPERACILLIN/TAZO 4.5 GM VIAL (ZOSYN) IV ONE (06:05)
[2016-06-18] MEDS ORDERED: NORMAL SALINE (BAXTER MINI) 100 ML IV ONE (06:05)
--- NOTE | 2016-06-18 06:43 | Progress Note (SOAP) ---
Subjective Subjective/Events-last exam 75 yo M- last night pt reported feeling well and was hoping to go home today before weather got to bad- Overnight though 1 episode of emesis- Had 1 fever 100.4F- Phenergan given with improvement in nausea, Pt fell asleep thereafter. This AM pt endorses lower abdominal pain- feeling better from last night after vomiting. He would like to try eating breakfast this AM. Endorses belching and passing gas. No bowel movements Review of Systems General: No Chills, No Night Sweats, Fatigue Malaise HEENT: No Head Aches, No Visual Changes Pulmonary: No Dyspnea, No Cough Cardiovascular: No: Chest Pain, Palpitations Gastrointestinal: : Abdominal Pain: Nausea: Vomiting Genitourinary: No Dysuria, No Frequency Musculoskeletal: No: neck pain Neurological: No: Weakness Objective Exam Vital Signs Date Time Temp Pulse Resp B/P Pulse Ox O2 Delivery O2 Flow Rate FiO2 06/18/16 04:00 99.9 83 17 129/64 94 Room Air 06/18/16 00:00 99.6 82 18 117/59 94 Room Air 06/17/16 19:52 100.4 89 20 136/65 97 Room Air 06/17/16 16:00 100.2 85 20 126/64 98 Room Air 06/17/16 12:00 98.8 90 20 134/68 96 Room Air 06/17/16 08:00 97.0 63 20 166/83 98 Room Air I & O 06/18/16 06:59 Intake Total 3675 ml Output Total 575 ml Balance 3100 ml Capillary Refill : Less Than 3 Seconds General Appearance: No Apparent Distress WD/WN HEENT: Other (EOMI) Neck: Supple Respiratory: Chest Non Tender Lungs Clear Normal Breath Sounds No Accessory Muscle Use No Respiratory Distress Cardiovascular: Other (regular rate- irregular rhythm- skipped beats.) Gastrointestinal: normal bowel sounds soft Extremity: Normal Inspection Non Tender Other (R below knee amp) Neurologic/Psychiatric: Alert Oriented x3 No Motor/Sensory Deficits Skin: Warm/Dry Results Lab Laboratory Tests 06/18/16 04:48: Albumin 3.4, Anion Gap 12, BUN/Creatinine Ratio 16, Basophils # (Auto) 0.0, Basophils (%) (Auto) 0, Blood Urea Nitrogen 18, Calcium Level 8.2L, Carbon Dioxide Level 18L, Chloride Level 109H, Creatinine 1.14, Eosinophils # (Auto) 0.0, Eosinophils (%) (Auto) 0, Estimat Glomerular Filtration Rate > 60, Glucose Level 124H, Hematocrit 38L, Hemoglobin 13.3, Lymphocytes # (Auto) 1.1, Lymphocytes (%) (Auto) 8L, Mean Corpuscular Hemoglobin 30, Mean Corpuscular Hemoglobin Concent 35, Mean Corpuscular Volume 87, Mean Platelet Volume 10.6H, Monocytes # (Auto) 1.1H, Monocytes (%) (Auto) 8, Neutrophils # (Auto) 11.3H, Neutrophils (%) (Auto) 83H, Phosphorus Level 2.8, Platelet Count 114L, Potassium Level 3.7, Red Blood Count 4.38, Red Cell Distribution Width 13.0, Sodium Level 139, White Blood Count 13.5H Assessment/Plan Assessment/Plan Assess & Plan/Chief Complaint 75 yo M * abdominal pain- due to diverticulitis, pain control with po percocet- monitor for worsening abdominal pain adding stool softner. -pt to request opioid prn- *sepsis secondary to diverticulitis- levofloxacin, metronidazole d/c'd 06/18/16 - stepped up abx- zosyn q6hr iv - monitor abdominal exam. *chronic kidney disease stage III- monitor Cr- IVF, avoid contrast, NSAIDS *nausea/vomiting- zofran, phenergan *Insomnia- 0.5mg lorazepam qhs DVT ppx: SCDs Dispo: Obtained blood cultures- monitor today- pt has worsened with fever, leukocytosis, nausea/vomiting- Will not be going home today. Changed abx to zosyn. Diagnosis/Problems: Clinical Quality Measures DVT/VTE Risk/Contraindication: Risk Factor Score Per Nursin RFS Level Per Nursing on Admit: 4+=Very High SAMUEL FERNANDEZ MD Jun 18, 2016 06:43
[2016-06-18] MEDS ORDERED: METOCLOPRAMIDE INJ 10 MG/2 ML (REGLAN) IV NR (07:00)
[2016-06-18 08:00] VITALS: BP 116/58
[2016-06-18] MEDS: CARVEDILOL 6.25 MG (COREG) TAB PO SCH ×2 (08:42→21:34)
[2016-06-18] MEDS: LOSARTAN 25 MG (COZAAR) TAB PO SCH (08:43)
[2016-06-18] MEDS: ASPIRIN E.C. 81 MG (ECOTRIN) TAB PO SCH (08:44)
[2016-06-18] MEDS: DOCUSATE SODIUM 100 MG (COLACE) CAP PO SCH ×2 (08:48→21:33)
[2016-06-18 12:00] VITALS: BP 140/64
[2016-06-18 16:38] VITALS: BP 138/70
[2016-06-18] MEDS: ACETAMINOPHEN 500 MG TAB (TYLENOL) PO PRN (16:48)
[2016-06-18] MEDS ORDERED: PIPERACILLIN SODIUM/TAZOBACTAM 4.5 GM in NORMAL SALINE (BAXTER MINI) 100 ML IV NR (18:45)
[2016-06-18 20:12] VITALS: BP 115/67
[2016-06-18] MEDS: LATANOPROST 0.005% (XALATAN) OPHTH SOLN 2.5 ML OU SCH (21:33)
[2016-06-18] MEDS: LORazepam 0.5 MG (ATIVAN) TABLET PO SCH (21:33)
[2016-06-19 00:03] VITALS: BP 148/70
[2016-06-19] MEDS: ACETAMINOPHEN 500 MG TAB (TYLENOL) PO PRN (00:14)
[2016-06-19] MEDS: PIPERACILLIN SODIUM/TAZOBACTAM 4.5 GM in NORMAL SALINE (BAXTER MINI) 100 ML IV SCH ×2 (00:15→08:28)
[2016-06-19 04:05] VITALS: BP 135/65
[2016-06-19 05:25] LABS: BASOPHILS % (AUTO) 0 % (0-10); EOSINOPHILS % (AUTO) 0 % (0-10); LYMPHOCYTES # (AUTO) 0.9 X 10^3 (1.0-4.0); LYMPHOCYTES % (AUTO) 8 % (12-44); MEAN CORPUSCULAR HEMOGLOBIN 30 PG (25-34); MEAN CORPUSCULAR HGB CONC 34 G/DL (32-36); MEAN CORPUSCULAR VOLUME 88 FL (80-99); MEAN PLATELET VOLUME 10.9 FL (7.4-10.4); MONOCYTES # (AUTO) 0.9 X 10^3 (0.0-1.0); MONOCYTES % (AUTO) 8 % (0-12); NEUTROPHILS % (AUTO) 84 % (42-75); PLATELET COUNT 110 10^3/uL (130-400); RED BLOOD COUNT 4.31 10^6/uL (4.35-5.85); RED CELL DISTRIBUTION WIDTH 13.2 % (10.0-14.5); WHITE BLOOD COUNT 10.8 10^3/uL (4.3-11.0)
[2016-06-19 05:44] LABS: ANION GAP 8 MMOL/L (5-14); BLOOD UREA NITROGEN 18 MG/DL (7-18); BUN/CREATININE RATIO 17; CARBON DIOXIDE 19 MMOL/L (21-32); CHLORIDE 111 MMOL/L (98-107); CREATININE SERUM 1.06 MG/DL (0.60-1.30); GFR ESTIMATED > 60; GLUCOSE 116 MG/DL (70-105); PHOSPHORUS 1.7 MG/DL (2.3-4.7); POTASSIUM 3.4 MMOL/L (3.6-5.0); SODIUM 138 MMOL/L (135-145)
[2016-06-19] MEDS: NS IV 1000 ML 1,000 ML IV SCH (05:49)
[2016-06-19] MEDS: CATHETER FLUSH 10 ML SYR IV SCH (05:50)
[2016-06-19 08:00] VITALS: BP 129/77
[2016-06-19] MEDS: LOSARTAN 25 MG (COZAAR) TAB PO SCH (08:27)
[2016-06-19] MEDS: CARVEDILOL 6.25 MG (COREG) TAB PO SCH (08:27)
[2016-06-19] MEDS: ASPIRIN E.C. 81 MG (ECOTRIN) TAB PO SCH (08:27)
[2016-06-19] MEDS: DOCUSATE SODIUM 100 MG (COLACE) CAP PO SCH (08:28)
[2016-06-19] MEDS ORDERED: AMOX-358 PO (08:33)
[2016-06-19] MEDS ORDERED: LORA0.5T PO (08:33)
[2016-06-19] MEDS ORDERED: LACT1CAP57 PO (08:34)
--- NOTE | 2016-06-19 08:38 | Discharge Inst-Simple/Standard ---
Discharge Inst-Standard Discharge Medications New, Converted or Re-Newed RX: Other (lorazepam on chart, augmentin, probiotics at [facility]) Patient Instructions/Follow Up Plan of Care/Instructions/FU: Advance diet as tolerated- minimal residual diet- bland to start and advance. Consider colonoscopy in 6 weeks from resolution of diverticulitis. High fiber diet 20-30grams/day Activity as Tolerated: Yes Discharge Diet: Eat Small Frequent Meals (see above) Return to [facility] For: reoccurence, fever, new concerns. SAMUEL FERNANDEZ MD Jun 19, 2016 08:38
--- NOTE | 2016-06-20 08:29 | Discharge Summary ---
Diagnosis/Chief Complaint Date of Admission Jun 18, 2016 at 11:10 am Date of Discharge Jun 19, 2016 at 1:05 pm Discharge Date: Jun 19, 2016 Admission Diagnosis Admission Diagnosis 75 yo M * abdominal pain- due to diverticulitis, will switch fentanyl to po percocet- monitor for worsening abdominal pain adding stool softner. *diverticulitis- levofloxacin, metronidazole - monitor abdominal exam. *chronic kidney disease- at baseline Cr level- IVF, avoid contrast, NSAIDS *Insomnia- will add 0.5mg lorazepam qhs DVT ppx: SCDs Dispo: may advance diet this afternoon. Continue flagyl levofloxacin x 14 days - switch to po 06/18/16. Plan to d/c to home 06/18/16 Discharge Diagnosis * abdominal pain- due to diverticulitis. *sepsis secondary to acute sigmoidal diverticulitis without perforation or abscess- *chronic kidney disease- stable *nausea and vomiting- resolved *Insomnia- Reason Hospital Visit 75-year-old male admitted overnight for abdominal pain. Patient reports he went to [place] last night and afterwards ate some peanuts around 2100 hours started having abdominal pain. He reports about a week ago he had a similar episode. He sat at home and monitored the abdominal pain which resolved within 30 minutes to 1 hour. Of note he mentioned it was very similar to this current abdominal pain. But this abdominal pain did not go away. Last bowel movement was earlier in the day he did have 3, none of which were constipation or diarrhea. Patient denies any issues breathing. He denies any fevers or headaches. he reports been doing pretty well. Patient has even recently been discharged from physical therapy and is not even using a cane or a walker. Has new right leg prosthesis is feeling great. This a.m. patient's abdominal pain is mostly gone as the fentanyl is working. Patient would like to try to transition to by mouth Percocet. Patient also complains of not sleeping well and has tried a 0.5 mg lorazepam in the past and would like to try this for insomnia. Patient has no other issues to address at this time. ER course CT of the abdomen was obtained demonstrating diverticulitis. Patient was put on clear liquid diet and started on IV fluids. He also was started on Levaquin and metronidazole. Blood cultures were obtained. White blood cells are not elevated and patient has been afebrile. Admitted for further evaluation and treatment. Discharge Summary Hospital Course Hospital Course 75 yo male admitted for abdominal pain caused form diverticulitis- supported by physical exam and CT abdomen. Patient was started on Levaquin and metronidazole. On day 2 patient developed fever nausea and vomiting with elevation of leukocytes. Patient was switched to Zosyn IV and steadily improved throughout his hospital stay. Patient was given IV fluids and started on a clear liquid diet and was able to be advanced as tolerated. This is patient's first occurrence of diverticulitis. As for patient's chronic kidney disease stage III, his creatinine was at baseline and actually improved with IV fluids. For patient's nausea and vomiting he was given Zofran and a one-time dose of Reglan. Patient was also given Phenergan a few times that seemed to be more effective than the Zofran. Patient was deemed stable for discharge on June 19, 2016. Patient was switched to po Augmentin and tolerated his first dose. Patient complained of insomnia so he was started on 0.5 mg of lorazepam. I do not plan on this being a long-term solution. Patient will follow up in 1 -2 weeks with [facility]. He is to continue low residual diet and advance as tolerated with small meals. Patient also to increase his fiber 20- 30 g per day and also while on antibiotics he should be taking a probiotic. We' ll consider a colonoscopy 6 weeks after this diverticulitis episode is over. Labs Laboratory Tests 06/18/16 04:48: Calcium Level 8.2L, Carbon Dioxide Level 18L, Chloride Level 109H, Glucose Level 124H, Hematocrit 38L, Lymphocytes (%) (Auto) 8L, Mean Platelet Volume 10.6H, Monocytes # (Auto) 1.1H, Neutrophils # (Auto) 11.3H, Neutrophils (%) ( Auto) 83H, Platelet Count 114L, White Blood Count 13.5H 06/19/16 04:25: Calcium Level 8.0L, Carbon Dioxide Level 19L, Chloride Level 111H, Glucose Level 116H, Hematocrit 38L, Lymphocytes (%) (Auto) 8L, Mean Platelet Volume 10.9H, Neutrophils # (Auto) 9.0H, Neutrophils (%) (Auto) 84H, Platelet Count 110L, Albumin 3.0L, Hemoglobin 12.9L, Lymphocytes # (Auto) 0.9L, Phosphorus Level 1.7L, Potassium Level 3.4L, Red Blood Count 4.31L Procedures None. 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 Clinical Quality Measures DVT/VTE Risk/Contraindication: Risk Factor Score Per Nursin RFS Level Per Nursing on Admit: 4+=Very High SAMUEL FERNANDEZ MD Jun 20, 2016 8:29 am
== END 2016-06-19 13:05 | disposition home or self-care (01) | DRG 872 ==
LOC: EDUNIT# 01:37 → ER 01:39 → UNDOADMOB 04:10 → 4TH 04:10 → INTOOBSV 04:10 → 4TH 10:20 → INTOOBSV 11:14 → OBSVTOIN 11:14
PROVIDERS: ADMIT Family Medicine; ATTEND Family Medicine
DX: A41.9 Sepsis, unspecified organism (principal); K57.32 Diverticulitis of large intestine without perforation or abscess without bleeding; I12.9 Hypertensive chronic kidney disease with stage 1 through stage 4 chronic kidney disease, or unspecified chronic kidney disease; N18.3 Chronic kidney disease, stage 3 (moderate); G47.00 Insomnia, unspecified; K21.9 Gastro-esophageal reflux disease without esophagitis; H40.9 Unspecified glaucoma; Z89.611 Acquired absence of right leg above knee; Z96.652 Presence of left artificial knee joint
CPT/HCPCS: 36415; 74177; 80053; 80069; 81000; 83605; 83735; 85025; 87040; 94760; 96361; 96374; 96375; 96376; G0378

== ENCOUNTER 2016-07-26 05:51 | Outpatient (CLI) | payer MEDICARE ==
[~2016-07-26] VITALS: Ht 182.9 cm; Wt 108.9 kg
[~2016-07-26 05:51] MED LIST changes: +ACET-2469 PO; +AMOX-358 PO; +ASCO500T5 PO; +LACT1CAP57 PO; +LORA0.5T PO
--- OUTSIDE RECORDS SUMMARY | 2016-07-26 05:55 | XMS REPORT | Continuity of Care Document ---
Author Author [facility] Organization [facility] Address Unknown Phone Unavailable Care Team Providers Care High Speed Printer Operator Name Role Phone SAMUEL FERNANDEZ MD PCP Insurance Providers Payer Name Policy Number Subscriber Name Relationship Wps Medicare [id number] Jenna Ortega 18 Self / Same As Patient Blue Cross [facility] Supp [id number] Jenna Ortega 18 Self / Same As Patient Advance Directives Directive Response Recorded Date/Time Advance Directives No 05/11/16 11:14am Health Care Power of Minister Assistant No 05/11/16 11:14am Organ Donor Yes 05/11/16 [...] Mg Intraven Daily 07/21/14 Discontinued Acetaminophen/Hydrocodone Bitart ([place]) 1 Ea Tablet, 1 Ea Oral Every [...] - 99.5) 05/11/2016 3:10pm Temperature (Calculated Celsius) 36.82129 degrees C (36.4 - 37.5) 05/11/2016 3:10pm [...] 0.00 inches 05/11/2016 11:13am Height (Calculated Centimeters) 182.938600 cm 05/11/2016 11:13am Weight (Pounds) 256 pounds 05/11/2016 11:13am Weight (Ounces) 0.0 oz 05/11/2016 11:13am Weight (Calculated Grams) 442372.65 gm 05/11/2016 11:13am Weight (Calculated Kilograms) 116.540021 kilograms 05/11/2016 11:13am Calculated BMI 34.7 05/11/2016 11:13am Results Pending Laboratory Results Test Name Collection Date/Time Procedures Procedure Status Date Provider(s) Color Doppler echocardiography Active 04/22/16 ROSA HOPKINS MDP FACC CCDS Encounters Encounter Location Arrival/Admit Date Discharge/Depart Date Attending Provider Departed [facility] Day [facility] 05/11/16 10:44am 05/11/16 5:35pm JOEL VILLALPANDO Registered Recurring [facility] 05/10/16 11:08am SAMUEL FERNANDEZ MD Registered Clinic [facility] 04/22/16 7:50am ROSA HOPKINS FACP, MD, FACC Registered Clinic [facility] 04/21/16 1:58pm ROSA HOPKINS FACP, MD, FACC
[2016-07-26] MEDS ORDERED: FLUT9.9S NS (10:35)
[2016-07-26] MEDS ORDERED: CETI10TA20 PO (10:35)
[2016-07-26] MEDS ORDERED: CHOL100045 PO (10:35)
[2016-07-26] MEDS ORDERED: RANI-425 PO (10:39)
== END 2016-07-26 10:42 ==
LOC: PREOP 05:51
PROVIDERS: ATTEND Surgery Pediatric Surgery
DX: Z01.818 Encounter for other preprocedural examination (principal); K57.92 Diverticulitis of intestine, part unspecified, without perforation or abscess without bleeding

== ENCOUNTER 2016-07-28 09:14 | Day surgery (SDC) | payer MEDICARE ==
[~2016-07-28] VITALS: Ht 182.9 cm; Wt 108.9 kg
[~2016-07-28 09:14] MED LIST changes: +CETI10TA20 PO; +CHOL100045 PO; +FLUT9.9S NS; +RANI-425 PO
--- OUTSIDE RECORDS SUMMARY | 2016-07-28 09:18 | XMS REPORT | Continuity of Care Document ---
Author Author [facility] Organization [facility] Address Unknown Phone Unavailable Care Team Providers Care Tank Stave Assembler Name Role Phone SAMUEL FERNANDEZ MD PCP Insurance Providers Payer Name Policy Number Subscriber Name Relationship Wps Medicare [id number] Jenna Ortega 18 Self / Same As Patient Blue Cross [facility] Supp [id number] Jenna Ortega 18 Self / Same As Patient Advance Directives Directive Response Recorded Date/Time Advance Directives No 05/11/16 11:14am Health Care Power of Inside Sales Consultant No 05/11/16 11:14am Organ Donor Yes 05/11/16 [...] Mg Intraven Daily 07/21/14 Discontinued Acetaminophen/Hydrocodone Bitart ([place]) 1 Ea Tablet, 1 Ea Oral Every [...] - 99.5) 05/11/2016 3:10pm Temperature (Calculated Celsius) 36.21719 degrees C (36.4 - 37.5) 05/11/2016 3:10pm [...] 0.00 inches 05/11/2016 11:13am Height (Calculated Centimeters) 182.256398 cm 05/11/2016 11:13am Weight (Pounds) 256 pounds 05/11/2016 11:13am Weight (Ounces) 0.0 oz 05/11/2016 11:13am Weight (Calculated Grams) 777977.65 gm 05/11/2016 11:13am Weight (Calculated Kilograms) 116.809820 kilograms 05/11/2016 11:13am Calculated BMI 34.7 05/11/2016 11:13am Results Pending Laboratory Results Test Name Collection Date/Time Procedures Procedure Status Date Provider(s) Color Doppler echocardiography Active 04/22/16 ROSA HOPKINS MDP FACC CCDS Encounters Encounter Location Arrival/Admit Date Discharge/Depart Date Attending Provider Departed [facility] Day [facility] 05/11/16 10:44am 05/11/16 5:35pm JOEL VILLALPANDO Registered Recurring [facility] 05/10/16 11:08am SAMUEL FERNANDEZ MD Registered Clinic [facility] 04/22/16 7:50am ROSA HOPKINS FACP, MD, FACC Registered Clinic [facility] 04/21/16 1:58pm ROSA HOPKINS FACP, MD, FACC
--- OUTSIDE RECORDS SUMMARY | 2016-07-28 09:19 | XMS REPORT | Continuity of Care Document ---
Author Author [facility] Organization [facility] Address Unknown Phone Unavailable Care Team Providers Care Core Cutter Name Role Phone SAMUEL FERNANDEZ MD PCP Insurance Providers Payer Name Policy Number Subscriber Name Relationship Wps Medicare [id number] Jenna Ortega 18 Self / Same As Patient Blue Cross [facility] Supp [id number] Jenna Ortega 18 Self / Same As Patient Advance Directives Directive Response Recorded Date/Time Advance Directives No 05/11/16 11:14am Health Care Power of Cataloging Assistant No 05/11/16 11:14am Organ Donor Yes [...] Mg Intraven Daily 07/21/14 Discontinued Acetaminophen/Hydrocodone Bitart ([place]) 1 Ea Tablet, 1 Ea Oral Every [...] - 99.5) 05/11/2016 3:10pm Temperature (Calculated Celsius) 36.46195 degrees C (36.4 - 37.5) 05/11/2016 3:10pm [...] 0.00 inches 05/11/2016 11:13am Height (Calculated Centimeters) 182.990462 cm 05/11/2016 11:13am Weight (Pounds) 256 pounds 05/11/2016 11:13am Weight (Ounces) 0.0 oz 05/11/2016 11:13am Weight (Calculated Grams) 198049.65 gm 05/11/2016 11:13am Weight (Calculated Kilograms) 116.822627 kilograms 05/11/2016 11:13am Calculated BMI 34.7 05/11/2016 11:13am Results Pending Laboratory Results Test Name Collection Date/Time Procedures Procedure Status Date Provider(s) Color Doppler echocardiography Active 04/22/16 ROSA HOPKINS MDP FACC CCDS Encounters Encounter Location Arrival/Admit Date Discharge/Depart Date Attending Provider Departed Surgical Day [facility] 05/11/16 10:44am 05/11/16 5:35pm JOEL VILLALPANDO Registered Recurring [facility] 05/10/16 11:08am SAMUEL FERNANDEZ MD Registered Clinic [facility] 04/22/16 7:50am ROSA HOPKINS FACP, MD, FACC Registered Clinic [facility] 04/21/16 1:58pm ROSA HOPKINS FACP, MD, FACC
[2016-07-28] MEDS ORDERED: NS IV 500 ML 500 ML IV SCH (09:45)
[2016-07-28] MEDS ORDERED: LIDOCAINE JELLY 2% (XYLOCAINE) 5 ML TUBE MM PRN (09:45)
[2016-07-28] MEDS ORDERED: NALOXONE 0.4 MG/ML 1 ML (NARCAN) VIAL IVP PRN (09:45)
[2016-07-28] MEDS ORDERED: FLUMAZENIL (ROMAZICON) 0.1 MG/ML 5 ML VIAL INJ PRN (09:45)
[2016-07-28 09:54] VITALS: BP 129/82
[2016-07-28] MEDS ORDERED: fentaNYL INJECTION 100 MCG/2 ML AMP ONE ×2 (10:06)
[2016-07-28] MEDS ORDERED: MIDAZOLAM 2 MG/2 ML (VERSED) VIAL ONE ×3 (10:06)
[2016-07-28] MEDS ORDERED: LIDOCAINE JELLY 2% (XYLOCAINE) 5 ML TUBE ONE (10:07)
--- NOTE | 2016-07-28 10:14 | Progress Note-Pre Operative ---
Pre-Operative Progress Note H&P Reviewed The H&P was reviewed, patient examined and no changes noted. Date H&P Reviewed: Jul 28, 2016 Time H&P Reviewed: 09:45 Pre-Operative Diagnosis: hx diverticulitis ROSA DOMINGUEZ MD Jul 28, 2016 10:14 am
--- NOTE | 2016-07-28 10:14 | Conscious Sedation/ASA ---
Conscious Sedation Pre-Proced Time Reviewed: 09:45 ASA Class: 2 Airway Mallampati Classification: ([place] appropriate class) I. II. III, IV Lungs Heart ASA score ASA 1: a normal healthy patient ASA 2: a patient with a mild systemic disease (mid diabetes, controlled hypertension, obesity ASA 3: a patient with a severe systemic disease that limits activity (angina , COPD, prior Myocardial infarction) ASA 4: a patient with an incapacitating disease that is a constant threat to life (CHF, renal failure) ASA 5: a moribund patient not expected to survive 24 hrs. (ruptured aneurysm) ASA 6: a declared brain patient whose organs are being harvested. For emergent operations, add the letter E after the classification Grade 2 Sedation Plan: Analgesia, Amnesia, Plan communicated to team members, Discussed options with patient/fam, Discussed risks with patient/fam Note The patient is an appropriate candidate to undergo the planned procedure, sedation, and anesthesia. The patient immediately re-assessed prior to indication. ROSA DOMINGUEZ MD Jul 28, 2016 10:14 am
[2016-07-28] MEDS ORDERED: morphine INJ 10 MG/ML 1ML (SYR OR VIAL) IV PRN (10:15)
[2016-07-28] MEDS ORDERED: ONDANSETRON 4 MG/2 ML (SDV) Z0FRAN IV PRN (10:15)
[2016-07-28] MEDS ORDERED: HYDROcodone/APAP 5 MG/325 MG (LORTAB) TAB PO PRN (10:15)
[2016-07-28] MEDS ORDERED: ACETAMINOPHEN 325 MG TABLET/CAPLET (TYLENOL) PO PRN (10:15)
[2016-07-28] MEDS: fentaNYL INJECTION 100 MCG/2 ML AMP IVP PRN ×3 (10:15→10:40)
[2016-07-28] MEDS: MIDAZOLAM 2 MG/2 ML (VERSED) VIAL IVP PRN ×3 (10:17→10:44)
[2016-07-28 11:15] VITALS: BP 110/66
--- NOTE | 2016-07-28 11:15 | Progress Note-Post Operative ---
Post-Operative Progess Note Pre-Operative Diagnosis hx diverticulitis Post-Operative Diagnosis mild chronic stage 2 ext and int hemorrhoids, moderate sigmoid diverticulosis, descending colon A-V malformation. Post-Op Procedure Note Date of Procedure: Jul 28, 2016 Name of Procedure: Colonoscopy Anesthesia Type CS Estimated blood loss (mL): minimal ROSA DOMINGUEZ MD Jul 28, 2016 11:14 am
--- NOTE | 2016-07-28 11:16 | Discharge Inst-Surgical ---
D/C Lap Instructions-ANGELICA Follow Up 10 years Activity as tolerated High Fiber Diet 25g or more per day Avoid Alcohol, Caffeine, Spicy [place] and Acid foods. Drink 64 fluid oz or more of fluids per day. Symptoms to Report: Fever over 101 degree F, Nausea/Vomiting If any problems/questions: Contact your physician or go to Emergency Room ROSA DOMINGUEZ MD Jul 28, 2016 11:16 am
[2016-07-28 11:45] VITALS: BP 128/82
[2016-07-28 12:00] VITALS: BP 128/82
--- NOTE | 2016-07-29 11:24 | OPERATIVE REPORT ---
PROCEDURE PHYSICIAN: ROSA DOMINGUEZ DATE OF PROCEDURE: 07/28/2016 ATTENDING PRIMARY CARE PHYSICIAN: Dr. Yan Leon. PREOPERATIVE DIAGNOSIS: History of acute diverticulitis. POSTOPERATIVE DIAGNOSES: 1. Chronic, stage II external and internal hemorrhoids. 2. Moderate sigmoid diverticulosis with no active inflammation. 3. 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 PROCEDURE: Colonoscopy. SURGEON: Dr. Dominguez. ANESTHESIA: Conscious sedation. ESTIMATED BLOOD LOSS: Minimal. FINDINGS: 1. Chronic, stage II external and internal hemorrhoids. 2. Prostate gland was palpable and appeared normal. 3. There was a moderate sigmoid diverticulosis with no mucosal inflammatory changes to indicate any active diverticulitis. 4. There is also an arteriovenous malformation of the descending colon with no active bleeding. DISPOSITION: The patient tolerated the procedure well. Mr. Gallito Garcia is a 75-year-old male who we have seen before in the past. We had done a colonoscopy on him in 2013, which did show chronic, stage II external and internal hemorrhoids as well as mild sigmoid diverticulosis. He reports that in June 2016 he developed significant pain in the left lower abdominal quadrant. He was seen and underwent a CT scan, which was consistent with sigmoid diverticulitis. He did not report any issues with weight loss, as well as no rectal bleeding. He also does not report any family history of colon cancer. PROCEDURE: The patient was brought to the endoscopy suite, laid in the left lateral decubitus position. After adequate IV pain and sedative medications and conscious sedation anesthesia, a digital rectal examination was performed. Mild chronic stage II external and internal hemorrhoids were identified which were not actively edematous or inflamed and no bleeding. Normal sphincter tone was felt and there were no palpable masses. Prostate gland was palpable and appeared normal. The endoscope was then intubated into the anus and rectum gently insufflated. There were also no abnormal masses. We then proceeded to advance the scope through the descending colon where an arteriovenous malformation was identified, however, there was no active inflammation or bleeding. The endoscope was then advanced through the remainder of the transverse, and ascending colon of the cecum. These segments were normal. The endoscope was then slowly withdrawn while taking a second look and suctioning residual air with no additional findings. The patient tolerated the procedure well. We will have him continue with medical management with a high fiber diet with at least 30 grams of fiber per day, as well as copious amounts of water to promote soft stools on a daily basis. There were no polyps identified. He does not have any family history of colon cancer so he may wait another 10 years for his next follow-up colonoscopy; however, sooner if problems arise. Job ID: [id number] Dictated Date: 07/28/2016 11:14:41 Freezing Machine Operator Date: 07/29/2016 11:16:28 / christiano
== END 2016-07-28 12:00 | disposition home or self-care (01) ==
LOC: ENDO 09:14
PROVIDERS: ATTEND Surgery Pediatric Surgery
DX: K57.90 Diverticulosis of intestine, part unspecified, without perforation or abscess without bleeding (principal); K64.1 Second degree hemorrhoids; Q27.33 Arteriovenous malformation of digestive system vessel

== ENCOUNTER 2016-12-16 22:24 | Inpatient (IN) | payer MEDICARE ==
[~2016-12-16] VITALS: Ht 180.3 cm; Wt 108.4 kg
--- OUTSIDE RECORDS SUMMARY | 2016-12-16 22:40 | XMS REPORT | Continuity of Care Document ---
Author Author [facility] Organization 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 04/08/2012 Ot 401.9 HYPERTENSION NOS 04/08/2012 Ot 715.36 LOC OSTEOARTH NOS-L/LEG 04/08/2012 Ot V04.81 ND FOR PROPHYLACTIC VACCIN AND INOCULATI 05/18/2012 Ot V43.65 KNEE JOINT REPLACEMENT STATUS 05/18/2012 Ot V54.81 AFTERCARE FOLLOWING JOINT REPLACEMENT 05/18/2012 Ot V57.1 PHYSICAL THERAPY NEC 07/15/2012 Ot 401.9 HYPERTENSION NOS 07/15/2012 Ot 715.36 LOC OSTEOARTH NOS-L/LEG 08/25/2012 Ot V43.65 KNEE JOINT REPLACEMENT STATUS 08/25/2012 Ot V54.81 AFTERCARE FOLLOWING JOINT REPLACEMENT 08/25/2012 Ot V57.1 PHYSICAL THERAPY NEC 11/27/2012 ЕКАТЕРИНА SCHNEIDER FACC, ROSA FACP CCDS Ot 401.9 HYPERTENSION NOS 11/27/2012 ЕКАТЕРИНА SCHNEIDER FACC, ROSA FACP CCDS Ot 414.01 CORONARY ATHEROSCLEROSIS OF [place] CORON 11/27/2012 ROSA WILLAMS MD, FACCP CCDS Ot 427.69 PREMATURE BEATS NEC 11/27/2012 ЕКАТЕРИНА SCHNEIDER FACC, ROSA FACP CCDS Ot 530.81 ESOPHAGEAL REFLUX 11/27/2012 ЕКАТЕРИНА SCHNEIDER FACC, ROSA FACP CCDS Ot V13.01 PERSONAL HISTORY OF URINARY CALCULI 11/27/2012 ЕКАТЕРИНА SCHNEIDER FACC, ROSA ALLENP CCDS Ot V17.49 FAMILY HISTORY OF OTHER CARDIOVASCULAR D 11/27/2012 ROSA WILLAMS MD, FACCP CCDS Ot V43.65 KNEE JOINT REPLACEMENT STATUS 11/27/2012 ЕКАТЕРИНА SCHNEIDER [facility], ALI FACP CCDS Ot V58.69 OTH MED,LT,CURRENT USE 06/27/2013 ROSA DOMINGUEZ MD Ot 455.0 INT HEMORRHOID W/O COMPL 06/27/2013 ROSA DOMINGUEZ MD, Ot 455.3 EXT HEMORRHOID W/O COMPL 06/27/2013 ROSA DOMINGUEZ MD Ot 562.10 DIVERTICULOSIS COLON (W/O MENT OF HEMORR 06/27/2013 ROSA DOMINGUEZ MD Ot V76.51 SCREEN MAL NEOP-COLON 01/13/2014 TORY SCHNEIDER, SOL Black Ot 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 05/10/2014 ЕКАТЕРИНА SCHNEIDER FAC, [facility] FACP CCDS Ot 278.00 05/10/2014 ЕКАТЕРИНА SCHNEIDER FAC, ALI FACP CCDS Ot 414.00 05/10/2014 ЕКАТЕРИНА SCHNEIDER FAC, ALI FACP CCDS Ot 425.4 05/10/2014 ЕКАТЕРИНА SCHNEIDER [facility], ALI FACP CCDS Ot 785.9 05/10/2014 ЕКАТЕРИНА SCHNEIDER [facility], ALI FACP CCDS Ot V17.49 06/15/2014 RON CAMARENA MD Ot 365.9 GLAUCOMA NOS 06/15/2014 RON CAMARENA MD Ot 401.9 HYPERTENSION NOS 06/15/2014 RON CAMARENA MD Ot 443.9 PERIPH VASCULAR DIS NOS 06/15/2014 RON CAMARENA MD Ot 715.36 LOC OSTEOARTH NOS-L/LEG 06/15/2014 RON CAMARENA MD Ot 718.86 JT DERANGEMENT NEC-L/LEG 06/15/2014 RON CAMARENA MD Ot 844.9 SPRAIN OF KNEE LEG NOS 06/15/2014 RON CAMARENA MD Ot 924.11 CONTUSION OF KNEE 06/15/2014 RON CAMARENA MD Ot E016.1 ACTIVITIES INVOLVING GARDENING AND LANDS 06/15/2014 RNO CAMARENA MD Ot E016.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 MAINT, BUILD 06/15/2014 RON CAMARENA MD Ot E849.0 ACCIDENT IN HOME 06/15/2014 MIGUE MD, RON S Ot E883.9 FALL INTO OTHER HOLE 06/15/2014 MIGUE SCHNEIDER, RON S Ot E927.0 OVEREXERTION FROM SUDDEN STRENUOUS MOVEM 06/15/2014 MIGUE SCHNEIDER, RON S Ot V43.65 KNEE JOINT REPLACEMENT STATUS 06/28/2014 MIGUE SCHNEIDER, RON S Ot 038.9 06/28/2014 MIGUE SCHNEIDER, RON S Ot 263.9 06/28/2014 MIGUE SCHNEIDER, RON S Ot 276.0 06/28/2014 MIGUE SCHNEIDER, RON S Ot 276.50 06/28/2014 MIGUE SCHNEIDER, RON S Ot 365.9 06/28/2014 MIGUE SCHNEIDER, RON S Ot 366.9 06/28/2014 MIGUE SCHNEIDER, RON S Ot 401.9 06/28/2014 MIGUE SCHNEIDER, RON S Ot 427.69 06/28/2014 MIGUE SCHNEIDER, RON S Ot 427.89 06/28/2014 MIGUE SCHNEIDER, RON S Ot 443.29 06/28/2014 MIGUE SCHNEIDER, RON S Ot 518.81 06/28/2014 MIGUE SCHNEIDER, RON S Ot 530.81 06/28/2014 MIGUE SCHNEIDER, RON S Ot 584.9 06/28/2014 MIGUE SCHNEIDER, RON S Ot 715.36 06/28/2014 MIGUE SCHNEIDER, RON S Ot 784.7 06/28/2014 MIGUE SCHNEIDER, RON S Ot 785.52 06/28/2014 MIGUE SCHNEIDER, RON S Ot 788.20 06/28/2014 MIGUE SCHNEIDER, RON S Ot 905.8 06/28/2014 MIGUE SCHNEIDER, RON S Ot 958.92 06/28/2014 MIGUE SCHNEIDER, RON S Ot 995.92 06/28/2014 MIGUE SCHNEIDER, RON S Ot E929.3 06/28/2014 MIGUE SCHNEIDER, RON S Ot E929.8 06/29/2014 MIGUE SCHNEIDER, RON S Ot 038.9 06/29/2014 MIGUE SCHNEIDER, RON S Ot 263.9 06/29/2014 MIGUE SCHNEIDER, RON S Ot 276.0 06/29/2014 MIGUE SCHNEIDER, RON S Ot 276.50 06/29/2014 MIGUE SCHNEIDER, RON S Ot 365.9 06/29/2014 MIGUE SCHNEIDER, RON S Ot 366.9 06/29/2014 MIGUE SCHNEIDER, RON S Ot 401.9 06/29/2014 MIGUE SCHNEIDER, RON S Ot 427.69 06/29/2014 MIGUE SCHNEIDER, RON S Ot 427.89 06/29/2014 MIGUE SCHNEIDER, RON S Ot 443.29 06/29/2014 MIGUE SCHNEIDER, RON S Ot 518.81 06/29/2014 MIGUE SCHNEIDER, RON S Ot 530.81 06/29/2014 MIGUE SCHNEIDER, RON S Ot 584.9 06/29/2014 MIGUE SCHNEIDER, RON S Ot 715.36 06/29/2014 MIGUE SCHNEIDER, RON S Ot 784.7 06/29/2014 MIGUE SCHNEIDER, RON S Ot 785.52 06/29/2014 MIGUE SCHNEIDER, RON S Ot 788.20 06/29/2014 MIGUE SCHNEIDER, RON S Ot 905.8 06/29/2014 MIGUE SCHNEIDER, RON S Ot 958.92 06/29/2014 MIGUE SCHNEIDER, RON S Ot 995.92 06/29/2014 MIGUE SCHNEIDER, RON S Ot E929.3 06/29/2014 MIGUE SCHNEIDER, RON S Ot E929.8 06/30/2014 MIGUE SCHNEIDER, RON S Ot 038.9 06/30/2014 MIGUE SCHNEIDER, RON S Ot 263.9 06/30/2014 MIGUE SCHNEIDER, RON S Ot 276.0 06/30/2014 MIGUE SCHNEIDER, RON S Ot 276.50 06/30/2014 MIGUE SCHNEIDER, RON S Ot 365.9 06/30/2014 MIGUE SCHNEIDER, RON S Ot 366.9 06/30/2014 MIGUE SCHNEIDER, RON S Ot 401.9 06/30/2014 MIGUE SCHNEIDER, RON S Ot 427.69 06/30/2014 MIGUE SCHNEIDER, RON S Ot 427.89 06/30/2014 MIGUE SCHNEIDER, RON S Ot 443.29 06/30/2014 MIGUE SCHNEIDER, RON S Ot 518.81 06/30/2014 MIGUE SCHNEIDER, RON S Ot 530.81 06/30/2014 MIGUE SCHNEIDER, RON S Ot 584.9 06/30/2014 MIGUE SCHNEIDER, RON S Ot 715.36 06/30/2014 MIGUE SCHNEIDER, RON S Ot 784.7 06/30/2014 MIGUE SCHNEIDER, RNO S Ot 785.52 06/30/2014 MIGUE SCHNEIDER, RON S Ot 788.20 06/30/2014 MIGUE SCHNEIDER, RON S Ot 905.8 06/30/2014 MIGUE SCHNEIDER, RON S Ot 958.92 06/30/2014 MIGUE SCHNEIDER, RON S Ot 995.92 06/30/2014 MIGUE SCHNEIDER, RON S Ot E929.3 06/30/2014 MIGUE SCHNEIDER, RON S Ot E929.8 06/30/2014 MIGUE SCHNEIDER, RON S Ot 038.9 06/30/2014 MIGUE SCHNEIDER, RON S Ot 263.9 06/30/2014 MIGUE SCHNEIDER, RON S Ot 276.0 06/30/2014 MIGUE SCHNEIDER, RON S Ot 276.50 06/30/2014 MIGUE SCHNEIDER, RON S Ot 365.9 06/30/2014 MIGUE SCHNEIDER, RON S Ot 366.9 06/30/2014 MIGUE SCHNEIDER, RON S Ot 401.9 06/30/2014 MIGUE SCHNEIDER, RON S Ot 427.69 06/30/2014 MIGUE SCHNEIDER, RON S Ot 427.89 06/30/2014 MIGUE SCHNEIDER, RON S Ot 443.29 06/30/2014 MIGUE SCHNEIDER, RON S Ot 518.81 06/30/2014 MIGUE SCHNEIDER, RON S Ot 530.81 06/30/2014 MIGUE SCHNEIDER, RON S Ot 584.9 06/30/2014 MIGUE SCHNEIDER, RON S Ot 715.36 06/30/2014 MIGUE SCHNEIDER, RON S Ot 784.7 06/30/2014 MIGUE SCHNEIDER, RON S Ot 785.52 06/30/2014 MIGUE SCHNEIDER, RON S Ot 788.20 06/30/2014 MIGUE SCHNEIDER, RON S Ot 905.8 06/30/2014 MIGUE SCHNEIDER, RON S Ot 958.92 06/30/2014 MIGUE SCHNEIDER, RON S Ot 995.92 06/30/2014 MIGUE SCHNEIDER, RON S Ot E929.3 06/30/2014 MIGUE SCHNEIDER, RON S Ot E929.8 07/01/2014 MIGUE SCHNEIDER, RON S Ot 038.9 07/01/2014 MIGUE SCHNEIDER, RON S Ot 263.9 07/01/2014 MIGUE SCHNEIDER, RON S Ot 276.0 07/01/2014 MIGUE SCHNEIDER, RON S Ot 276.50 07/01/2014 MIGUE SCHNEIDER, RON S Ot 365.9 07/01/2014 MIGUE SCHNEIDER, RON S Ot 366.9 07/01/2014 MIGUE SCHNEIDER, RON S Ot 401.9 07/01/2014 MIGUE SCHNEIDER, RON S Ot 427.69 07/01/2014 MIGUE SCHNEIDER, RON S Ot 427.89 07/01/2014 MIGUE SCHNEIDER, RON S Ot 443.29 07/01/2014 MIGUE SCHNEIDER, RON S Ot 518.81 07/01/2014 MIGUE SCHNEIDER, RON S Ot 530.81 07/01/2014 MIGUE SCHNEIDER, RON S Ot 584.9 07/01/2014 MIGUE SCHNEIDER, RON S Ot 715.36 07/01/2014 MIGUE SCHNEIDER, RON S Ot 784.7 07/01/2014 MIGUE SCHNEIDER, RON S Ot 785.52 07/01/2014 MIGUE SCHNEIDER, RON S Ot 788.20 07/01/2014 MIGUE SCHNEIDER, RON S Ot 905.8 07/01/2014 MIGUE SCHNEIDER, RON S Ot 958.92 07/01/2014 MIGUE SCHNEIDER, RON S Ot 995.92 07/01/2014 MIGUE SCHNEIDER, RON S Ot E929.3 07/01/2014 MIGUE SCHNEIDER, RON S Ot E929.8 07/01/2014 MIGUE SCHNEIDER, RON S Ot 038.9 07/01/2014 MIGUE SCHNEIDER, RON S Ot 263.9 07/01/2014 MIGUE SCHNEIDER, RON S Ot 276.0 07/01/2014 MIGUE SCHNEIDER, RON S Ot 276.50 07/01/2014 MIGUE SCHNEIDER, RON S Ot 365.9 07/01/2014 MIGUE SCHNEIDER, RON S Ot 366.9 07/01/2014 MIGUE SCHNEIDER, RON S Ot 401.9 07/01/2014 MIGUE SCHNEIDER, RON S Ot 427.69 07/01/2014 MIGUE SCHNEIDER, RON S Ot 427.89 07/01/2014 MIGUE SCHNEIDER, RON S Ot 443.29 07/01/2014 MIGUE SCHNEIDER, RON S Ot 518.81 07/01/2014 MIGUE SCHNEIDER, RON S Ot 530.81 07/01/2014 MIGUE SCHNEIDER, RON S Ot 584.9 07/01/2014 MIGUE SCHNEIDER, RON S Ot 715.36 07/01/2014 MIGUE SCHNEIDER, RON S Ot 784.7 07/01/2014 MIGUE SCHNEIDER, RON S Ot 785.52 07/01/2014 MIGUE SCHNEIDER, RON S Ot 788.20 07/01/2014 MIGUE SCHNEIDER, RON S Ot 905.8 07/01/2014 MIGUE SCHNEIDER, RON S Ot 958.92 07/01/2014 MIGUE SCHNEIDER, RON S Ot 995.92 07/01/2014 MIGUE SCHNEIDER, RON S Ot E929.3 07/01/2014 MIGUE SCHNEIDER, RON S Ot E929.8 07/02/2014 MIGUE SCHNEIDER, RON S Ot 038.9 07/02/2014 MIGUE SCHNEIDER, RON S Ot 263.9 07/02/2014 MIGUE SCHNEIDER, RON S Ot 276.0 07/02/2014 MIGUE SCHNEIDER, RON S Ot 276.50 07/02/2014 MIGUE SCHNEIDER, RON S Ot 365.9 07/02/2014 MIGUE SCHNEIDER, RON S Ot 366.9 07/02/2014 MIGUE SCHNEIDER, RON S Ot 401.9 07/02/2014 MIGUE SCHNEIDER, RON S Ot 427.69 07/02/2014 MIGUE SCHNEIDER, RON S Ot 427.89 07/02/2014 MIGUE SCHNEIDER, RON S Ot 443.29 07/02/2014 MIGUE SCHNEIDER, RON S Ot 518.81 07/02/2014 MIGUE SCHNEIDER, RON S Ot 530.81 07/02/2014 MIGUE SCHNEIDER, RON S Ot 584.9 07/02/2014 MIGUE SCHNEIDER, RON S Ot 715.36 07/02/2014 MIGUE SCHNEIDER, RON S Ot 784.7 07/02/2014 MIGUE SCHNEIDER, RON S Ot 785.52 07/02/2014 MIGUE SCHNEIDER, RON S Ot 788.20 07/02/2014 MIGUE SCHNEIDER, RON S Ot 905.8 07/02/2014 MIGUE SCHNEIDER, RON S Ot 958.92 07/02/2014 MIGUE SCHNEIDER, RON S Ot 995.92 07/02/2014 MIGUE SCHNEIDER, RON S Ot E929.3 07/02/2014 MIGUE SCHNEIDER, RON S Ot E929.8 07/03/2014 MIGUE SCHNEIDER, RON S Ot 038.9 07/03/2014 MIGUE SCHNEIDER, RON S Ot 263.9 07/03/2014 MIGUE SCHNEIDER, RON S Ot 276.0 07/03/2014 MIGUE SCHNEIDER, RON S Ot 276.50 07/03/2014 MIGUE SCHNEIDER, RON S Ot 365.9 07/03/2014 MIGUE SCHNEIDER, RON S Ot 366.9 07/03/2014 MIGUE SCHNEIDER, RON S Ot 401.9 07/03/2014 MIGUE SCHNEIDER, RON S Ot 427.69 07/03/2014 MIGUE SCHNEIDER, RON S Ot 427.89 07/03/2014 MIGUE SCHNEIDER, RON S Ot 443.29 07/03/2014 MIGUE SCHNEIDER, RON S Ot 518.81 07/03/2014 MIGUE SCHNEIDER, RON S Ot 530.81 07/03/2014 MIGUE SCHNEIDER, RON S Ot 584.9 07/03/2014 MIGUE SCHNEIDER, RON S Ot 715.36 07/03/2014 MIGUE SCHNEIDER, RON S Ot 784.7 07/03/2014 MIGUE SCHNEIDER, RON S Ot 785.52 07/03/2014 MIGUE SCHNEIDER, RON S Ot 788.20 07/03/2014 MIGUE SCHNEIDER, RON S Ot 905.8 07/03/2014 MIGUE SCHNEIDER, RON S Ot 958.92 07/03/2014 MIGUE SCHNEIDER, RON S Ot 995.92 07/03/2014 MIGUE SCHNEIDER, RON S Ot E929.3 07/03/2014 MIGUE SCHNEIDER, RON S Ot E929.8 07/04/2014 MIGUE SCHNEIDER, RON S Ot 038.9 07/04/2014 MIGUE SCHNEIDER, RON S Ot 263.9 07/04/2014 MIGUE SCHNEIDER, RON S Ot 276.0 07/04/2014 MIGUE SCHNEIDER, RON S Ot 276.50 07/04/2014 MIGUE SCHNEIDER, RON S Ot 365.9 07/04/2014 MIGUE SCHNEIDER, RON S Ot 366.9 07/04/2014 MIGUE SCHNEIDER, RON S Ot 401.9 07/04/2014 MIGUE SCHNEIDER, RON S Ot 427.69 07/04/2014 MIGUE SCHNEIDER, RON S Ot 427.89 07/04/2014 MIGUE SCHNEIDER, RON S Ot 443.29 07/04/2014 MIGUE SCHNEIDER, RON S Ot 518.81 07/04/2014 MIGUE SCHNEIDER, RON S Ot 530.81 07/04/2014 MIGUE SCHNEIDER, RON S Ot 584.9 07/04/2014 MIGUE SCHNEIDER, RON S Ot 715.36 07/04/2014 MIGUE SCHNEIDER, RON S Ot 784.7 07/04/2014 MIGUE SCHNEIDER, RON S Ot 785.52 07/04/2014 MIGUE SCHNEIDER, RON S Ot 788.20 07/04/2014 MIGUE SCHNEIDER, RON S Ot 905.8 07/04/2014 MIGUE SCHNEIDER, RON S Ot 958.92 07/04/2014 MIGUE SCHNEIDER, RON S Ot 995.92 07/04/2014 MIGUE SCHNEIDER, RON S Ot E929.3 07/04/2014 MIGUE SCHNEIDER, RON S Ot E929.8 07/05/2014 MIGUE SCHNEIDER, RON S Ot 038.9 07/05/2014 MIGUE SCHNEIDER, RON S Ot 263.9 07/05/2014 MIGUE SCHNEIDER, RON S Ot 276.0 07/05/2014 MIGUE SCHNEIDER, RON S Ot 276.50 07/05/2014 MIGUE SCHNEIDER, RON S Ot 365.9 07/05/2014 MIGUE SCHNEIDER, RON S Ot 366.9 07/05/2014 MIGUE SCHNEIDER, RON S Ot 401.9 07/05/2014 MIGUE SCHNEIDER, RON S Ot 427.69 07/05/2014 MIGUE SCHNEIDER, RON S Ot 427.89 07/05/2014 MIGUE SCHNEIDER, RON S Ot 443.29 07/05/2014 MIGUE SCHNEIDER, RON S Ot 518.81 07/05/2014 MIGUE SCHNEIDER, RON S Ot 530.81 07/05/2014 MIGUE SCHNEIDER, RON S Ot 584.9 07/05/2014 MIGUE SCHNEIDER, RON S Ot 715.36 07/05/2014 MIGUE SCHNEIDER, RON S Ot 784.7 07/05/2014 MIGUE SCHNEIDER, RON S Ot 785.52 07/05/2014 MIGUE SCHNEIDER, RON S Ot 788.20 07/05/2014 MIGUE SCHNEIDER, RON S Ot 905.8 07/05/2014 MIGUE SCHNEIDER, RON S Ot 958.92 07/05/2014 MIGUE SCHNEIDER, RON S Ot 995.92 07/05/2014 MIGUE SCHNEIDER, RON S Ot E929.3 07/05/2014 MIGUE SCHNEIDER, RON S Ot E929.8 07/05/2014 MIGUE SCHNEIDER, RON S Ot 038.9 07/05/2014 MIGUE SCHNEIDER, RON S Ot 263.9 07/05/2014 MIGUE SCHNEIDER, RON S Ot 276.0 07/05/2014 MIGUE SCHNEIDER, RON S Ot 276.50 07/05/2014 MIGUE SCHNEIDER, RON S Ot 365.9 07/05/2014 MIGUE SCHNEIDER, RON S Ot 366.9 07/05/2014 MIGUE SCHNEIDER, RON S Ot 401.9 07/05/2014 MIGUE SCHNEIDER, RON S Ot 427.69 07/05/2014 MIGUE SCHNEIDER, RON S Ot 427.89 07/05/2014 MIGUE SCHNEIDER, RON S Ot 443.29 07/05/2014 MIGUE SCHNEIDER, RON S Ot 518.81 07/05/2014 MIGUE SCHNEIDER, RON S Ot 530.81 07/05/2014 MIGUE SCHNEIDER, RON S Ot 584.9 07/05/2014 MIGUE SCHNEIDER, RON S Ot 715.36 07/05/2014 MIGUE SCHNEIDER, RON S Ot 784.7 07/05/2014 MIGUE SCHNEIDER, RON S Ot 785.52 07/05/2014 MIGUE SCHNEIDER, RON S Ot 788.20 07/05/2014 MIGUE SCHNEIDER, RON S Ot 905.8 07/05/2014 MIGUE SCHNEIDER, RON S Ot 958.92 07/05/2014 MIGUE SCHNEIDER, RON S Ot 995.92 07/05/2014 MIGUE SCHNEIDER, RON S Ot E929.3 07/05/2014 MIGUE SCHNEIDER, RON S Ot E929.8 07/06/2014 MIGUE SCHNEIDER, RON S Ot 038.9 07/06/2014 MIGUE SCHNEIDER, RON S Ot 263.9 07/06/2014 MIGUE SCHENIDER, RON S Ot 276.0 07/06/2014 MIGUE SCHNEIDER, RNO S Ot 276.50 07/06/2014 MIGUE SCHNEIDER, RON S Ot 365.9 07/06/2014 MIGUE SCHNEIDER, RON S Ot 366.9 07/06/2014 MIGUE SCHNEIDER, RON S Ot 401.9 07/06/2014 MIGUE SCHNEIDER, RON S Ot 427.69 07/06/2014 MIGUE SCHNEIDER, RON S Ot 427.89 07/06/2014 MIGUE SCHNEIDER, RON S Ot 443.29 07/06/2014 MIGUE SCHNEIDER, RON S Ot 518.81 07/06/2014 MIGUE SCHNEIDER, RON S Ot 530.81 07/06/2014 MIGUE SCHNEIDER, RON S Ot 584.9 07/06/2014 MIGUE SCHNEIDER, RON S Ot 715.36 07/06/2014 MIGUE SCHNEIDER, RON S Ot 784.7 07/06/2014 MIGUE SCHNEIDER, RON S Ot 785.52 07/06/2014 MIGUE SCHNEIDER, RON S Ot 788.20 07/06/2014 MIGUE SCHNEIDER, RON S Ot 905.8 07/06/2014 MIGUE SCHNEIDER, RON S Ot 958.92 07/06/2014 MIGUE SCHNEIDER, RON S Ot 995.92 07/06/2014 MIGUE SCHNEIDER, RON S Ot E929.3 07/06/2014 MIGUE SCHNEIDER, RON S Ot E929.8 07/07/2014 MIGUE SCHNEIDER, RON S Ot 038.9 07/07/2014 MIGUE SCHNEIDER, RON S Ot 263.9 07/07/2014 MIGUE SCHNEIDER, RON S Ot 276.0 07/07/2014 MIGUE SCHNEIDER, RON S Ot 276.50 07/07/2014 MIGUE SCHNEIDER, RON S Ot 365.9 07/07/2014 MIGUE SCHNEIDER, RON S Ot 366.9 07/07/2014 MIGUE SCHNEIDER, RON S Ot 401.9 07/07/2014 MIGUE SCHNEIDER, RON S Ot 427.69 07/07/2014 MIGUE SCHNEIDER, RON S Ot 427.89 07/07/2014 MIGUE SCHNEIDER, RON S Ot 443.29 07/07/2014 MIGUE SCHNEIDER, RON S Ot 518.81 07/07/2014 MIGUE SCHNEIDER, RON S Ot 530.81 07/07/2014 MIGUE SCHNEIDER, RON S Ot 584.9 07/07/2014 MIGUE SCHNEIDER, RON S Ot 715.36 07/07/2014 MIGUE SCHNEIDER, RON S Ot 784.7 07/07/2014 MIGUE SCHNEIDER, RON S Ot 785.52 07/07/2014 MIGUE SCHNEIDER, RON S Ot 788.20 07/07/2014 MIGUE SCHNEIDER, RON S Ot 905.8 07/07/2014 MIGUE SCHNEIDER, RON S Ot 958.92 07/07/2014 MIGUE SCHNEIDER, RON S Ot 995.92 07/07/2014 MIGUE SCHNEIDER, RON S Ot E929.3 07/07/2014 MIGUE SCHNEIDER, RON S Ot E929.8 07/08/2014 MIGUE SCHNEIDER, RON S Ot 038.9 07/08/2014 MIGUE SCHNEIDER, RON S Ot 263.9 07/08/2014 MIGUE SCHNEIDER, RON S Ot 276.0 07/08/2014 MIGUE SCHNEIDER, RON S Ot 276.50 07/08/2014 MIGUE SCHNEIDER, RON S Ot 365.9 07/08/2014 MIGUE SCHNEIDER, RON S Ot 366.9 07/08/2014 MIGUE SCHNEIDER, RON S Ot 401.9 07/08/2014 MIGUE SCHNEIDER, RON S Ot 427.69 07/08/2014 MIGUE SCHNEIDER, RON S Ot 427.89 07/08/2014 MIGUE SCHNEIDER, RON S Ot 443.29 07/08/2014 MIGUE SCHNEIDER, RON S Ot 518.81 07/08/2014 MIGUE SCHNEIDER, RON S Ot 530.81 07/08/2014 MIGUE SCHNEIDER, RON S Ot 584.9 07/08/2014 MIGUE SCHNEIDER, RON S Ot 715.36 07/08/2014 MIGUE SCHNEIDER, RON S Ot 784.7 07/08/2014 MIGUE SCHNEIDER, RON S Ot 785.52 07/08/2014 MIGUE SCHNEIDER, RON S Ot 788.20 07/08/2014 MIGUE SCHNEIDER, RON S Ot 905.8 07/08/2014 MIGUE SCHNEIDER, RON S Ot 958.92 07/08/2014 MIGUE SCHNEIDER, RON S Ot 995.92 07/08/2014 MIGUE SCHNEIDER, RON S Ot E929.3 07/08/2014 MIGUE SCHNEIDER, RON S Ot E929.8 07/08/2014 MIGUE SCHNEIDER, RON S Ot 038.9 07/08/2014 MIGUE SCHNEIDER, RON S Ot 263.9 07/08/2014 MIGUE SCHNEIDER, RON S Ot 276.0 07/08/2014 MIGUE SCHNEIDER, RON S Ot 276.50 07/08/2014 MIGUE SCHNEIDER, RON S Ot 365.9 07/08/2014 MIGUE SCHNEIDER, RON S Ot 366.9 07/08/2014 MIGUE SCHNEIDER, RON S Ot 401.9 07/08/2014 MIGUE SCHNEIDER, RON S Ot 427.69 07/08/2014 MIGUE SCHNEIDER, RON S Ot 427.89 07/08/2014 MIGUE SCHNEIDER, RON S Ot 443.29 07/08/2014 MIGUE SCHNEIDER, RON S Ot 518.81 07/08/2014 MIGUE SCHNEIDER, RON S Ot 530.81 07/08/2014 MIGUE SCHNEIDER, RON S Ot 584.9 07/08/2014 MIGUE SCHNEIDER, RON S Ot 715.36 07/08/2014 MIGUE SCHNEIDER, RON S Ot 784.7 07/08/2014 MIGUE SCHNEIDER, RON S Ot 785.52 07/08/2014 MIGUE SCHNEIDER, RON S Ot 788.20 07/08/2014 MIGUE SCHNEIDER, RON S Ot 905.8 07/08/2014 MIGUE SCHNEIDER, RON S Ot 958.92 07/08/2014 MIGUE SCHNEIDER, RON S Ot 995.92 07/08/2014 MIGUE SCHNEIDER, RON S Ot E929.3 07/08/2014 MIGUE SCHNEIDER, RON S Ot E929.8 07/08/2014 MIGUE SCHNEIDER, RON S Ot 038.9 07/08/2014 MIGUE SCHNEIDER, RON S Ot 263.9 07/08/2014 MIGUE SCHNEIDER, RON S Ot 276.0 07/08/2014 MIGUE SCHNEIDER, RON S Ot 276.50 07/08/2014 MIGUE SCHNEIDER, RON S Ot 365.9 07/08/2014 MIGUE SCHNEIDER, RON S Ot 366.9 07/08/2014 MIGUE SCHNEIDER, RON S Ot 401.9 07/08/2014 MIGUE SCHNEIDER, RON S Ot 427.69 07/08/2014 MIGUE SCHNEIDER, RON S Ot 427.89 07/08/2014 MIGUE SCHNEIDER, RON S Ot 443.29 07/08/2014 MIGUE SCHNEIDER, RON S Ot 518.81 07/08/2014 MIGUE SCHNEIDER, RON S Ot 530.81 07/08/2014 MIGUE SCHNEIDER, RON S Ot 584.9 07/08/2014 MIGUE SCHNEIDER, RON S Ot 715.36 07/08/2014 MIGUE SCHNEIDER, RON S Ot 784.7 07/08/2014 MIGUE SCHNEIDER, RON S Ot 785.52 07/08/2014 MIGUE SCHNEIDER, RON S Ot 788.20 07/08/2014 MIGUE SCHNEIDER, RON S Ot 905.8 07/08/2014 MIGUE SCHNEIDER, RON S Ot 958.92 07/08/2014 MIGUE SCHNEIDER, RON S Ot 995.92 07/08/2014 MIGUE SCHNEIDER, RON S Ot E929.3 07/08/2014 MIGUE SCHNEIDER, RON S Ot E929.8 07/08/2014 MIGUE SCHNEIDER, RON S Ot 038.9 07/08/2014 MIGUE SCHNEIDER, RON S Ot 263.9 07/08/2014 MIGUE SCHNEIDER, RON S Ot 276.0 07/08/2014 MIGUE SCHNEIDER, RON S Ot 276.50 07/08/2014 MIGUE SCHNEIDER, RON S Ot 365.9 07/08/2014 MIGUE SCHNEIDER, RON S Ot 366.9 07/08/2014 MIGUE SCHNEIDER, RON S Ot 401.9 07/08/2014 MIGUE SCHNEIDER, RON S Ot 427.69 07/08/2014 MIGUE SCHNEIDER, RON S Ot 427.89 07/08/2014 MIGUE SCHNEIDER, RON S Ot 443.29 07/08/2014 MIGUE SCHNEIDER, RON S Ot 518.81 07/08/2014 MIGUE SCHNEIDER, RON S Ot 530.81 07/08/2014 MIGUE SCHNEIDER, RON S Ot 584.9 07/08/2014 MIGUE SCHNEIDER, RON S Ot 715.36 07/08/2014 MIGUE SCHNEIDER, RON S Ot 784.7 07/08/2014 MIGUE SCHNEIDER, RON S Ot 785.52 07/08/2014 MIGUE SCHNEIDER, RON S Ot 788.20 07/08/2014 MIGUE SCHNEIDER, RON S Ot 905.8 07/08/2014 MIGUE SCHNEIDER, RON S Ot 958.92 07/08/2014 MIGUE SCHNEIDER, RON S Ot 995.92 07/08/2014 MIGUE SCHNEIDER, RON S Ot E929.3 07/08/2014 MIGUE SCHNEIDER, RON S Ot E929.8 07/09/2014 MIGUE SCHNEIDER, RON S Ot 038.9 07/09/2014 MIGUE SCHNEIDER, RON S Ot 263.9 07/09/2014 MIGUE SCHNEIDER, RON S Ot 276.0 07/09/2014 MIGUE SCHNEIDER, RON S Ot 276.50 07/09/2014 MIGUE SCHNEIDER, RON S Ot 365.9 07/09/2014 MIGUE SCHNEIDER, RON S Ot 366.9 07/09/2014 MIGUE SCHNEIDER, RON S Ot 401.9 07/09/2014 MIGUE SCHNEIDER, RON S Ot 427.69 07/09/2014 MIGUE SCHNEIDER, RON S Ot 427.89 07/09/2014 MIGUE SCHNEIDER, RON S Ot 443.29 07/09/2014 MIGUE SCHNEIDER, RON S Ot 518.81 07/09/2014 MIGUE SCHNEIDER, RON S Ot 530.81 07/09/2014 MIGUE SCHNEIDER, RON S Ot 584.9 07/09/2014 MIGUE SCHNEIDER, RON S Ot 715.36 07/09/2014 MIGUE SCHNEIDER, RON S Ot 784.7 07/09/2014 MIGUE SCHNEIDER, RON S Ot 785.52 07/09/2014 MIGUE SCHNEIDER, RON S Ot 788.20 07/09/2014 MIGUE SCHNEIDER, RON S Ot 905.8 07/09/2014 MIGUE SCHNEIDER, RON S Ot 958.92 07/09/2014 MIGUE SCHNEIDER, RON S Ot 995.92 07/09/2014 MIGUE SCHNEIDER, RON S Ot E929.3 07/09/2014 MIGUE SCHNEIDER, RON S Ot E929.8 07/10/2014 MIGUE SCHNEIDER, RON S Ot 038.9 07/10/2014 MIGUE SCHNEIDER, RON S Ot 263.9 07/10/2014 MIGUE SCHNEIDER, RON S Ot 276.0 07/10/2014 MIGUE SCHNEIDER, RON S Ot 276.50 07/10/2014 MIGUE SCHNEIDER, RON S Ot 365.9 07/10/2014 MIGUE SCHNEIDER, RON S Ot 366.9 07/10/2014 MIGUE SCHNEIDER, RON S Ot 401.9 07/10/2014 MIGUE SCHNEIDER, RON S Ot 427.69 07/10/2014 MIGUE SCHNEIDER, RON S Ot 427.89 07/10/2014 MIGUE SCHNEIDER, RON S Ot 443.29 07/10/2014 MIGUE SCHNEIDER, RON S Ot 518.81 07/10/2014 MIGUE SCHNEIDER, RON S Ot 530.81 07/10/2014 MIGUE SCHNEIDER, RON S Ot 584.9 07/10/2014 MIGUE SCHNEIDER, RON S Ot 715.36 07/10/2014 MIGUE SCHNEIDER, RON S Ot 784.7 07/10/2014 MIGUE SCHNEIDER, RON S Ot 785.52 07/10/2014 MIGUE SCHNEIDER, RON S Ot 788.20 07/10/2014 MIGUE SCHNEIDER, RON S Ot 905.8 07/10/2014 MIGUE SCHNEIDER, RON S Ot 958.92 07/10/2014 MIGUE SCHNEIDER, RON S Ot 995.92 07/10/2014 MIGUE SCHNEIDER, RON S Ot E929.3 07/10/2014 MIGUE SCHNEIDER, RON S Ot E929.8 07/10/2014 MIGUE SCHNEIDER, RON S Ot 038.9 07/10/2014 MIGUE SCHNEIDER, RON S Ot 263.9 07/10/2014 MIGUE SCHNEIDER, RON S Ot 276.0 07/10/2014 MIGUE SCHNEIDER, RON S Ot 276.50 07/10/2014 MIGUE SCHNEIDER, RON S Ot 365.9 07/10/2014 MIGUE SCHNEIDER, RON S Ot 366.9 07/10/2014 MIGUE SCHNEIDER, RON S Ot 401.9 07/10/2014 MIGUE SCHNEIDER, RON S Ot 427.69 07/10/2014 MIGUE SCHNEIDER, RON S Ot 427.89 07/10/2014 MIGUE SCHNEIDER, RON S Ot 443.29 07/10/2014 MIGUE SCHNEIDER, RON S Ot 518.81 07/10/2014 MIGUE SCHNEIDER, RON S Ot 530.81 07/10/2014 MIGUE SCHNEIDER, RON S Ot 584.9 07/10/2014 MIGUE SCHNEIDER, RON S Ot 715.36 07/10/2014 MIGUE SCHNEIDER, RON S Ot 784.7 07/10/2014 MIGUE SCHNEIDER, RON S Ot 785.52 07/10/2014 MIGUE SCHNEIDER, RON S Ot 788.20 07/10/2014 MIGUE SCHNEIDER, RON S Ot 905.8 07/10/2014 MIGUE SCHNEIDER, RON S Ot 958.92 07/10/2014 MIGUE SCHNEIDER, RON S Ot 995.92 07/10/2014 MIGUE SCHNEIDER, RON S Ot E929.3 07/10/2014 MIGUE SCHNEIDER, RON S Ot E929.8 07/11/2014 MIGUE SCHNEIDER, RON S Ot 038.9 07/11/2014 MIGUE SCHNEIDER, RON S Ot 263.9 07/11/2014 MIGUE SCHNEIDER, RON S Ot 276.0 07/11/2014 MIGUE SCHNEIDER, RON S Ot 276.50 07/11/2014 MIGUE SCHNEIDER, RON S Ot 365.9 07/11/2014 MIGUE SCHNEIDER, RON S Ot 366.9 07/11/2014 MIGUE SCHNEIDER, RON S Ot 401.9 07/11/2014 MIGUE SCHNEIDER, RON S Ot 427.69 07/11/2014 MIGUE SCHNEIDER, RON S Ot 427.89 07/11/2014 MIGUE SCHNEIDER, RON S Ot 443.29 07/11/2014 MIGUE SCHNEIDER, RON S Ot 518.81 07/11/2014 MIGUE SCHNEIDER, RON S Ot 530.81 07/11/2014 MIGUE SCHNEIDER, RON S Ot 584.9 07/11/2014 MIGUE SCHNEIDER, RON S Ot 715.36 07/11/2014 MIGUE SCHNEIDER, RON S Ot 784.7 07/11/2014 MIGUE SCHNEIDER, RON S Ot 785.52 07/11/2014 MIGUE SCHNEIDER, RON S Ot 788.20 07/11/2014 MIGUE SCHNEIDER, RON S Ot 905.8 07/11/2014 MIGUE SCHNEIDER, RON S Ot 958.92 07/11/2014 MIGUE SCHNEIDER, RON S Ot 995.92 07/11/2014 MIGUE SCHNEIDER, RON S Ot E929.3 07/11/2014 MIGUE SCHNEIDER, RON S Ot E929.8 07/12/2014 MIGUE SCHNEIDER, RON S Ot 038.9 07/12/2014 MIGUE SCHNEIDER, RON S Ot 263.9 07/12/2014 MIGUE SCHNEIDER, RON S Ot 276.0 07/12/2014 MIGUE SCHNEIDER, RON S Ot 276.50 07/12/2014 MIGUE SCHNEIDER, RON S Ot 365.9 07/12/2014 MIGUE SCHNEIDER, RON S Ot 366.9 07/12/2014 MIGUE SCHNEIDER, RON S Ot 401.9 07/12/2014 MIGUE SCHNEIDER, RON S Ot 427.69 07/12/2014 MIGUE SCHNEIDER, RON S Ot 427.89 07/12/2014 MIGUE SCHNEIDER, RON S Ot 443.29 07/12/2014 MIGUE SCHNEIDER, RON S Ot 518.81 07/12/2014 MIGUE SCHNEIDER, RON S Ot 530.81 07/12/2014 MIGUE SCHNEIDER, RON S Ot 584.9 07/12/2014 MIGUE SCHNEIDER, RON S Ot 715.36 07/12/2014 MIGUE SCHNEIDER, RON S Ot 784.7 07/12/2014 MIGUE SCHNEIDER, RON S Ot 785.52 07/12/2014 MIGUE SCHNEIDER, RON S Ot 788.20 07/12/2014 MIGUE SCHNEIDER, RON S Ot 905.8 07/12/2014 MIGUE SCHNEIDER, RON S Ot 958.92 07/12/2014 MIGUE SCHNEIDER, RON S Ot 995.92 07/12/2014 MIGUE SCHNEIDER, RON S Ot E929.3 07/12/2014 MIGUE SCHNEIDER, RON S Ot E929.8 07/13/2014 MIGUE SCHNEIDER, RON S Ot 038.9 07/13/2014 MIGUE SCHNEIDER, RON S Ot 263.9 07/13/2014 MIGUE SCHNEIDER, RON S Ot 276.0 07/13/2014 MIGUE SCHNEIDER, RON S Ot 276.50 07/13/2014 MIGUE SCHNEIDER, RON S Ot 365.9 07/13/2014 MIGUE SCHNEIDER, RON S Ot 366.9 07/13/2014 MIGUE SCHNEIDER, RON S Ot 401.9 07/13/2014 MIGUE SCHNEIDER, RON S Ot 427.69 07/13/2014 MIGUE SCHNEIDER, RON S Ot 427.89 07/13/2014 MIGUE SCHNEIDER, RON S Ot 443.29 07/13/2014 MIGUE SCHNEIDER, RON S Ot 518.81 07/13/2014 MIGUE SCHNEIDER, RON S Ot 530.81 07/13/2014 MIGUE SCHNEIDER, RON S Ot 584.9 07/13/2014 MIGUE SCHNEIDER, RON S Ot 715.36 07/13/2014 MIGUE SCHNEIDER, RON S Ot 784.7 07/13/2014 MIGUE SCHNEIDER, RON S Ot 785.52 07/13/2014 MIGUE SCHNEIDER, RON S Ot 788.20 07/13/2014 MIGUE SCHNEIDER, RON S Ot 905.8 07/13/2014 MIGUE SCHNEIDER, RON S Ot 958.92 07/13/2014 MIGUE SCHNEIDER, RON S Ot 995.92 07/13/2014 MIGUE SCHNEIDER, RON S Ot E929.3 07/13/2014 MIGUE SCHNEIDER, RON S Ot E929.8 07/13/2014 MIGUE SCHNEIDER, RON S Ot 038.9 07/13/2014 MIGUE SCHNEIDER, RON S Ot 263.9 07/13/2014 MIGUE SCHNEIDER, RON S Ot 276.0 07/13/2014 MIGUE SCHNEIDRE, RON S Ot 276.50 07/13/2014 MIGUE SCHNEIDER, RON S Ot 365.9 07/13/2014 MIGUE SCHNEIDER, RON S Ot 366.9 07/13/2014 MIGUE SCHNEIDER, RON S Ot 401.9 07/13/2014 MIGUE SCHNEIDER, RON S Ot 427.69 07/13/2014 MIGUE SCHNEIDER, RON S Ot 427.89 07/13/2014 MIGUE SCHNEIDER, RON S Ot 443.29 07/13/2014 MIGUE SCHNEIDER, RON S Ot 518.81 07/13/2014 MIGUE SCHNEIDER, RON S Ot 530.81 07/13/2014 MIGUE SCHNEIDER, RON S Ot 584.9 07/13/2014 MIGUE SCHNEIDER, RON S Ot 715.36 07/13/2014 MIGUE SCHNEIDER, RON S Ot 784.7 07/13/2014 MIGUE SCHNEIDER, RON S Ot 785.52 07/13/2014 MIGUE SCHNEIDER, RON S Ot 788.20 07/13/2014 MIGUE SCHNEIDER, RON S Ot 905.8 07/13/2014 MIGUE SCHNEIDER, RON S Ot 958.92 07/13/2014 MIGUE SCHNEIDER, RON S Ot 995.92 07/13/2014 MIGUE SCHNEIDER, RON S Ot E929.3 07/13/2014 MIGUE SCHNEIDER, RON S Ot E929.8 07/14/2014 MIGUE SCHNEIDER, RON S Ot 038.9 07/14/2014 MIGUE SCHNEIDER, RON S Ot 263.9 07/14/2014 MIGUE SCHNEIDER, RON S Ot 276.0 07/14/2014 MIGUE SCHNEIDER, RON S Ot 276.50 07/14/2014 MIGUE SCHNEIDER, RON S Ot 365.9 07/14/2014 MIGUE SCHNEIDER, RON S Ot 366.9 07/14/2014 MIGUE SCHNEIDER, RON S Ot 401.9 07/14/2014 MIGUE SCHNEIDER, RON S Ot 427.69 07/14/2014 MIGUE SCHNEIDER, RON S Ot 427.89 07/14/2014 MIGUE SCHNEIDER, RON S Ot 443.29 07/14/2014 MIGUE SCHNEIDER, RON S Ot 518.81 07/14/2014 MIGUE SCHNEIDER, RON S Ot 530.81 07/14/2014 MIGUE SCHNEIDER, RON S Ot 584.9 07/14/2014 MIGUE SCHNEIDER, RON S Ot 715.36 07/14/2014 MIGUE SCHNEIDER, RON S Ot 784.7 07/14/2014 MIGUE SCHNEIDER, RON S Ot 785.52 07/14/2014 MIGUE SCHNEIDER, RON S Ot 788.20 07/14/2014 MIGUE SCHNEIDER, RON S Ot 905.8 07/14/2014 MIGUE SCHNEIDER, RON S Ot 958.92 07/14/2014 MIGUE SCHNEIDER, RON S Ot 995.92 07/14/2014 MIGUE SCHNEIDER, RON S Ot E929.3 07/14/2014 MIGUE SCHNEIDER, RON S Ot E929.8 07/15/2014 MIGUE SCHNEIDER, RON S Ot 038.9 07/15/2014 MIGUE SCHNEIDER, RON S Ot 263.9 07/15/2014 MIGUE SCHNEIDER, RON S Ot 276.0 07/15/2014 MIGUE SCHNEIDER, RON S Ot 276.50 07/15/2014 MIGUE SCHNEIDER, RON S Ot 365.9 07/15/2014 MIGUE SCHNEIDER, RON S Ot 366.9 07/15/2014 MIGUE SCHNEIDER, RON S Ot 401.9 07/15/2014 MIGUE SCHNEIDER, RON S Ot 427.69 07/15/2014 MIGUE SCHNEIDER, RON S Ot 427.89 07/15/2014 MIGUE SCHNEIDER, RON S Ot 443.29 07/15/2014 MIGUE SCHNEIDER, RON S Ot 518.81 07/15/2014 MIGUE SCHNEIDER, RON S Ot 530.81 07/15/2014 MIGUE SCHNEIDER, RON S Ot 584.9 07/15/2014 MIGUE SCHNEIDER, RON S Ot 715.36 07/15/2014 MIGUE SCHNEIDER, RON S Ot 784.7 07/15/2014 MIGUE SCHNEIDER, RON S Ot 785.52 07/15/2014 MIGUE SCHNEIDER, RON S Ot 788.20 07/15/2014 MIGUE SCHNEIDER, RON S Ot 905.8 07/15/2014 MIGUE SCHNEIDER, RON S Ot 958.92 07/15/2014 MIGUE SCHNEIDER, RON S Ot 995.92 07/15/2014 MIGUE SCHNEIDER, RON S Ot E929.3 07/15/2014 MIGUE SCHNEIDER, RON S Ot E929.8 07/16/2014 MIGUE SCHNEIDER, RON S Ot 038.9 07/16/2014 MIGUE SCHNEIDER, RON S Ot 263.9 07/16/2014 MIGUE SCHNEIDER, RON S Ot 276.0 07/16/2014 MIGUE SCHNEIDER, RON S Ot 276.50 07/16/2014 MIGUE SCHNEIDER, RON S Ot 365.9 07/16/2014 MIGUE SCHNEIDER, RON S Ot 366.9 07/16/2014 MIGUE SCHNEIDER, RON S Ot 401.9 07/16/2014 MIGUE SCHNEIDER, RON S Ot 427.69 07/16/2014 MIGUE SCHNEIDER, RON S Ot 427.89 07/16/2014 MIGUE SCHNEIDER, RON S Ot 443.29 07/16/2014 MIGUE SCHNEIDER, RON S Ot 518.81 07/16/2014 MIGUE SCHNEIDER, RON S Ot 530.81 07/16/2014 MIGUE SCHNEIDER, RON S Ot 584.9 07/16/2014 MIGUE SCHNEIDER, RON S Ot 715.36 07/16/2014 MIGUE SCHNEIDER, RON S Ot 784.7 07/16/2014 MIGUE SCHNEIDER, RON S Ot 785.52 07/16/2014 MIGUE SCHNEIDER, RON S Ot 788.20 07/16/2014 MIGUE SCHNEIDER, RON S Ot 905.8 07/16/2014 MIGUE SCHNEIDER, RON S Ot 958.92 07/16/2014 MIGUE SCHNEIDER, RON S Ot 995.92 07/16/2014 MIGUE SCHNEIDER, RON S Ot E929.3 07/16/2014 MIGUE SCHNEIDER, RON S Ot E929.8 07/17/2014 MIGUE SCHNEIDER, RON S Ot 038.9 07/17/2014 MIGUE SCHNEIDER, RON S Ot 263.9 07/17/2014 MIGUE SCHNEIDER, RON S Ot 276.0 07/17/2014 MIGUE SCHNEIDER, RON S Ot 276.50 07/17/2014 MIGUE SCHNEIDER, RON S Ot 365.9 07/17/2014 MIGUE SCHNEIDER, RON S Ot 366.9 07/17/2014 MIGUE SCHNEIDER, RON S Ot 401.9 07/17/2014 MIGUE SCHNEIDER, RON S Ot 427.69 07/17/2014 MIGUE SCHNEIDER, RON S Ot 427.89 07/17/2014 MIGUE SCHNEIDER, RON S Ot 443.29 07/17/2014 MIGUE SCHNEIDER, RON S Ot 518.81 07/17/2014 MIGUE SCHNEIDER, RON S Ot 530.81 07/17/2014 MIGUE SCHNEIDER, RON S Ot 584.9 07/17/2014 MIGUE SCHNEIDER, RON S Ot 715.36 07/17/2014 MIGUE SCHNEIDER, RON S Ot 784.7 07/17/2014 MIGUE SCHNEIDER, RON S Ot 785.52 07/17/2014 MIGUE SCHNEIDER, RON S Ot 788.20 07/17/2014 MIGUE SCHNEIDER, RON S Ot 905.8 07/17/2014 MIGUE SCHNEIDER, RON S Ot 958.92 07/17/2014 MIGUE SCHNEIDER, RON S Ot 995.92 07/17/2014 MIGUE SCHNEIDER, RON S Ot E929.3 07/17/2014 MIGUE SCHNEIDER, RON S Ot E929.8 07/18/2014 MIGUE SCHNEIDER, RON S Ot 038.9 07/18/2014 MIGUE SCHNEIDER, RON S Ot 263.9 07/18/2014 MIGUE SCHNEIDER, RON S Ot 276.0 07/18/2014 MIGUE SCHNEIDER, RON S Ot 276.50 07/18/2014 MIGUE SCHNEIDER, RON S Ot 365.9 07/18/2014 MIGUE SCHNEIDER, RON S Ot 366.9 07/18/2014 MIGUE SCHNEIDER, RON S Ot 401.9 07/18/2014 MIGUE SCHNEIDER, RON S Ot 427.69 07/18/2014 MIGUE SCHNEIDER, RON S Ot 427.89 07/18/2014 MIGUE SCHNEIDER, RON S Ot 443.29 07/18/2014 MIGUE SCHNEIDER, RON S Ot 518.81 07/18/2014 MIGUE SCHNEIDER, RON S Ot 530.81 07/18/2014 MIGUE SCHNEIDER, RON S Ot 584.9 07/18/2014 MIGUE SCHNEIDER, RON S Ot 715.36 07/18/2014 MIGUE SCHNEIDER, RON S Ot 784.7 07/18/2014 MIGUE SCHNEIDER, RON S Ot 785.52 07/18/2014 MIGUE SCHNEIDER, RON S Ot 788.20 07/18/2014 MIGUE SCHNEIDER, RON S Ot 905.8 07/18/2014 MIGUE SCHNEIDER, RON S Ot 958.92 07/18/2014 MIGUE SCHNEIDER, RON S Ot 995.92 07/18/2014 MIGUE SCHNEIDER, RON S Ot E929.3 07/18/2014 MIGUE SCHNEIDER, RON S Ot E929.8 07/18/2014 MIGUE SCHNEIDER, RON S Ot 038.9 07/18/2014 MIGUE SCHNEIDER, RON S Ot 263.9 07/18/2014 MIGUE SCHNEIDER, RON S Ot 276.0 07/18/2014 MIGUE SCHNEIDER, RON S Ot 276.50 07/18/2014 MIGUE SCHNEIDER, RON S Ot 365.9 07/18/2014 MIGUE SCHNEIDER, RON S Ot 366.9 07/18/2014 MIGUE SCHNEIDER, RON S Ot 401.9 07/18/2014 MIGUE SCHNEIDER, RON S Ot 427.69 07/18/2014 MIGUE SCHNEIDER, RON S Ot 427.89 07/18/2014 MIGUE SCHNEIDER, RON S Ot 443.29 07/18/2014 MIGUE SCHNEIDER, RON S Ot 518.81 07/18/2014 MIGUE SCHNEIDER, RON S Ot 530.81 07/18/2014 MIGUE SCHNEIDER, RON S Ot 584.9 07/18/2014 MIGUE SCHNEIDER, RON S Ot 715.36 07/18/2014 MIGUE SCHNEIDER, RON S Ot 784.7 07/18/2014 MIGUE SCHNEIDER, RON S Ot 785.52 07/18/2014 MIGUE SCHNEIDER, RON S Ot 788.20 07/18/2014 MIGUE SCHNEIDER, RON S Ot 905.8 07/18/2014 MIGUE SCHNEIDER, RON S Ot 958.92 07/18/2014 MIGUE SCHNEIDER, RON S Ot 995.92 07/18/2014 MIGUE SCHNEIDER, RON S Ot E929.3 07/18/2014 MIGUE SCHNEIDER, RON S Ot E929.8 07/19/2014 MIGUE SCHNEIDER, RON S Ot 038.9 07/19/2014 MIGUE SCHNEIDER, RON S Ot 263.9 07/19/2014 MIGUE SCHNEIDER, RON S Ot 276.0 07/19/2014 MIGUE SCHNEIDER, RON S Ot 276.50 07/19/2014 MIGUE SCHNEIDER, RON S Ot 365.9 07/19/2014 MIGUE SCHNEIDER, RON S Ot 366.9 07/19/2014 MIGUE SCHNEIDER, RON S Ot 401.9 07/19/2014 MIGUE SCHNEIDER, RON S Ot 427.69 07/19/2014 MIGUE SCHNEIDER, RON S Ot 427.89 07/19/2014 MIGUE SCHNEIDER, RON S Ot 443.29 07/19/2014 MIGUE SCHNEIDER, RON S Ot 518.81 07/19/2014 MIGUE SCHNEIDER, RON S Ot 530.81 07/19/2014 MIGUE SCHNEIDER, RON S Ot 584.9 07/19/2014 MIGUE SCHNEIDER, RON S Ot 715.36 07/19/2014 MIGUE SCHNEIDER, RON S Ot 784.7 07/19/2014 MIGUE SCHNEIDER, RON S Ot 785.52 07/19/2014 MIGUE SCHNEIDER, RON S Ot 788.20 07/19/2014 MIGUE SCHNEIDER, RON S Ot 905.8 07/19/2014 MIGUE SCHNEIDER, RON S Ot 958.92 07/19/2014 MIGUE SCHNEIDER, RON S Ot 995.92 07/19/2014 MIGUE SCHNEIDER, RON S Ot E929.3 07/19/2014 MIGUE SCHNEIDER, RON S Ot E929.8 07/20/2014 MIGUE SCHNEIDER, RON S Ot 038.9 07/20/2014 MIGUE SCHNEIDER, RON S Ot 263.9 07/20/2014 MIGUE SCHNEIDER, RON S Ot 276.0 07/20/2014 MIGUE SCHNEIDER, RON S Ot 276.50 07/20/2014 MIGUE SCHNEIDER, RON S Ot 365.9 07/20/2014 MIGUE SCHNEIDER, RON S Ot 366.9 07/20/2014 MIGUE SCHNEIDER, RON S Ot 401.9 07/20/2014 MIGUE SCHNEIDER, RON S Ot 427.69 07/20/2014 MIGUE SCHNEIDER, RON S Ot 427.89 07/20/2014 MIGUE SCHNEIDER, RON S Ot 443.29 07/20/2014 MIGUE SCHNEIDER, RON S Ot 518.81 07/20/2014 MIGUE SCHNEIDER, RON S Ot 530.81 07/20/2014 MIGUE SCHNEIDER, RON S Ot 584.9 07/20/2014 MIGUE SCHNEIDER, RON S Ot 715.36 07/20/2014 MIGUE SCHNEIDER, RON S Ot 784.7 07/20/2014 MIGUE SCHNEIDER, RON S Ot 785.52 07/20/2014 MIGUE SCHNEIDER, RON S Ot 788.20 07/20/2014 MIGUE SCHNEIDER, RON S Ot 905.8 07/20/2014 MIGUE SCHNEIDER, RON S Ot 958.92 07/20/2014 MIGUE SCHNEIDER, RON S Ot 995.92 07/20/2014 MIGUE SCHNEIDER, RON S Ot E929.3 07/20/2014 MIGUE SCHNEIDER, RON S Ot E929.8 07/21/2014 MIGUE SCHNEIDER, RON S Ot 038.9 07/21/2014 MIGUE SCHNEIDER, RON S Ot 263.9 07/21/2014 MIGUE SCHNEIDER, RON S Ot 276.0 07/21/2014 MIGUE SCHNEIDER, RON S Ot 276.50 07/21/2014 MIGUE SCHNEIDER, RON S Ot 365.9 07/21/2014 MIGUE SCHNEIDER, RON S Ot 366.9 07/21/2014 MIGUE SCHNEIDER, RON S Ot 401.9 07/21/2014 MIGUE SCHNEIDER, RON S Ot 427.69 07/21/2014 MIGUE SCHNEIDER, RON S Ot 427.89 07/21/2014 MIGUE SCHNEIDER, RON S Ot 443.29 07/21/2014 MIGUE SCHNEIDER, RON S Ot 518.81 07/21/2014 MIGUE SCHNEIDER, RON S Ot 530.81 07/21/2014 MIGUE SCHNEIDER, RON S Ot 584.9 07/21/2014 MIGUE SCHNEIDER, RON S Ot 715.36 07/21/2014 MIGUE SCHNEIDER, RON S Ot 784.7 07/21/2014 MIGUE SCHNEIDER, RON S Ot 785.52 07/21/2014 MIGUE SCHNEIDER, RON S Ot 788.20 07/21/2014 MIGUE SCHNEIDER, RON S Ot 905.8 07/21/2014 MIGUE SCHNEIDER, RON S Ot 958.92 07/21/2014 MIGUE SCHNEIDER, RON S Ot 995.92 07/21/2014 MIGUE SCHNEIDER, RON S Ot E929.3 07/21/2014 MIGUE SCHNEIDER, RON S Ot E929.8 07/21/2014 IMGUE SCHNEIDER, RON S Ot 038.9 07/21/2014 MIGUE SCHNEIDER, RON S Ot 263.9 07/21/2014 MIGUE SCHNEIDER, RON S Ot 276.0 07/21/2014 MIGUE SCHNEIDER, RON S Ot 276.50 07/21/2014 MIGUE SCHNEIDER, RON S Ot 365.9 07/21/2014 MIGUE SCHNEIDER, RON S Ot 366.9 07/21/2014 MIGUE SCHNEIDER, RON S Ot 401.9 07/21/2014 MIGUE SCHNEIDER, RON S Ot 427.69 07/21/2014 MIGUE SCHNEIDER, RON S Ot 427.89 07/21/2014 MIGUE SCHNEIDER, RON S Ot 443.29 07/21/2014 MIGUE SCHNEIDER, RON S Ot 518.81 07/21/2014 MIGUE SCHNEIDER, RON S Ot 530.81 07/21/2014 MIGUE SCHNEIDER, RON S Ot 584.9 07/21/2014 MIGUE SCHNEIDER, RON S Ot 715.36 07/21/2014 MIGUE SCHNEIDER, RON S Ot 784.7 07/21/2014 MIGUE SCHNEIDER, RON S Ot 785.52 07/21/2014 MIGUE SCHNEIDER, RON S Ot 788.20 07/21/2014 MIGUE SCHNEIDER, RON S Ot 905.8 07/21/2014 MIGUE SCHNEIDER, RON S Ot 958.92 07/21/2014 MIGUE SCHNEIDER, RON S Ot 995.92 07/21/2014 MIGUE SCHNEIDER, RON S Ot E929.3 07/21/2014 MIGUE SCHNEIDER, RON S Ot E929.8 07/21/2014 MIGUE SCHNEIDER, RON S Ot 038.9 SEPTICEMIA NOS 07/21/2014 MIGUE SCHNEIDER, RON Rasheed Ot 263.9 PROTEIN-ORLY MALNUTR NOS 07/21/2014 MIGUE SCHNEIDER, RON S Ot 276.0 HYPEROSMOLALITY 07/21/2014 MIGUE SCHNEIDER, RON S Ot 276.50 VOLUME DEPLETION, UNSPECIFIED 07/21/2014 MIGUE SCHNEIDER, RON S Ot 280.0 CHR BLOOD LOSS ANEMIA 07/21/2014 MIGUE SCHNEIDER, RON S Ot 365.9 GLAUCOMA NOS 07/21/2014 MIGUE SCHNEIDER, RON S Ot 366.9 CATARACT NOS 07/21/2014 MIGUE SCHNEIDER, RON S Ot 401.9 HYPERTENSION NOS 07/21/2014 MIGUE SCHNEIDER, RON S Ot 427.69 PREMATURE BEATS NEC 07/21/2014 MIGUE SCHNEIDER, RON S Ot 427.89 CARDIAC DYSRHYTHMIAS NEC 07/21/2014 MIGUE SCHNEIDER, RON S Ot 443.29 07/21/2014 MIGUE SCHNEIDER, RON Rasheed Ot 444.22 LOWER EXTREMITY EMBOLISM 07/21/2014 MIGUE SCHNEIDER, RON S Ot 447.1 STRICTURE OF ARTERY 07/21/2014 MIGUE SCHNEIDER, RON S Ot 507.0 FOOD/VOMIT PNEUMONITIS 07/21/2014 MIGUE SCHNEIDER, RON S Ot 518.0 PULMONARY COLLAPSE 07/21/2014 MIGUE SCHNEIDER, RON S Ot 518.81 ACUTE RESPIRATORY FAILURE 07/21/2014 MIGUE SCHNEIDER, RON S Ot 530.81 ESOPHAGEAL REFLUX 07/21/2014 MIGUE SCHNEIDER, RON S Ot 536.8 STOMACH FUNCTION DIS NEC 07/21/2014 MIGUE SCHNEIDER, RON S Ot 584.9 ACUTE RENAL FAILURE, UNSPECIFIED 07/21/2014 MIGUE SCHNEIDER, RON S Ot 599.0 URIN TRACT INFECTION NOS 07/21/2014 RON ACMARENA MD S Ot 715.36 LOC OSTEOARTH NOS-L/LEG 07/21/2014 RON CAMARENA MD S Ot 784.7 EPISTAXIS 07/21/2014 RON CAMARENA MD S Ot 785.4 GANGRENE 07/21/2014 RON CAMARENA MD S Ot 785.52 SEPTIC SHOCK 07/21/2014 RON CAMARENA MD S Ot 788.20 RETENTION OF URINE NOS 07/21/2014 RON CAMARENA MD S Ot 904.41 INJURY POPLITEAL ARTERY 07/21/2014 RON CAMARENA MD S Ot 905.8 LATE EFFEC TENDON INJURY 07/21/2014 MIGUE SCHNEIDER, RON S Ot 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 07/21/2014 MIGUE SCHNEIDER, RON S Ot 995.92 SEVERE SEPSIS 07/21/2014 MIGUE SCHNEIDER, RON S Ot E929.3 LATE EFF ACCIDENTAL FALL 07/21/2014 MIGUE SCHNEIDER, RON S Ot E929.8 LATE EFF ACCIDENT NEC 07/23/2014 SHANNON SCHNEIDER, PHAM E Ot 285.9 ANEMIA NOS 07/23/2014 SHANNON SCHNEIDER, PHAM E Ot 365.9 GLAUCOMA NOS 07/23/2014 SHANNON SCHNEIDER, PHAM E Ot 401.9 HYPERTENSION NOS 07/23/2014 SHANNON SCHNEIDER, PHAM E Ot 444.22 LOWER EXTREMITY EMBOLISM 07/23/2014 SHANNON SCHNEIDER, PHAM E Ot 447.1 STRICTURE OF ARTERY 07/23/2014 SHANNON SCHNEIDER, PHAM E Ot 536.8 STOMACH FUNCTION DIS NEC 07/23/2014 SHANNON SHCNEIDER, PHAM E Ot 564.00 UNSPEC CONSTIPATION 07/23/2014 SHANNON SCHNEIDER, PHAM E Ot 709.8 SKIN DISORDERS NEC 07/23/2014 SHANNON SCHNEIDER, PHAM E Ot 785.4 GANGRENE 07/23/2014 SHANNON SCHNEIDER, PHAM E Ot 904.41 INJURY POPLITEAL ARTERY 07/23/2014 SHANNON SCHNEIDER, PHAM E Ot 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 07/23/2014 SHANNON SCHNEIDER, PHAM E Ot V43.65 KNEE JOINT REPLACEMENT STATUS 07/23/2014 SHANNON SCHNEIDER, PHAM E Ot V57.89 REHABILITATION PROC NEC 07/23/2014 SHANNON SCHNEIDER, PHAM E Ot V58.73 AFTERCARE POST SURGERY CIRULATORY SYSTEM 07/24/2014 MIGUE SCHNEIDER, RON S Ot 458.9 07/24/2014 MIGUE SCHNEIDER, RON S Ot 785.4 07/25/2014 MIGUE SCHNEIDER, RON S Ot 458.9 07/25/2014 MIGUE SCHNEIDER, RON S Ot 785.4 07/25/2014 MIGUE SCHNEIDER, RON S Ot 458.9 07/25/2014 MIGUE SCHNEIDER, RON S Ot 785.4 07/26/2014 MIGUE SCHNEIDER, RON S Ot 280.0 07/26/2014 MIGUE SCHNEIDER, RON S Ot 287.5 07/26/2014 MIGUE SCHNEIDER, RON S Ot 365.9 07/26/2014 MIGUE SCHNEIDER, RON S Ot 401.9 07/26/2014 MIGUE SCHNEIDER, RON S Ot 425.4 07/26/2014 MIGUE SCHNEIDER, RON S Ot 428.0 07/26/2014 MIGUE SCHNEIDER, RON S Ot 428.30 07/26/2014 MIGUE SCHNEIDER, RON S Ot 458.9 07/26/2014 MIGUE SCHNEIDER, RON S Ot 715.90 07/26/2014 MIGUE SCHNEIDER, RON S Ot 785.4 07/26/2014 MIGUE SCHNEIDER, RON S Ot 905.8 07/26/2014 MIGUE SCHNEIDER, RON S Ot E929.3 07/26/2014 MIGUE SCHNEIDER, RON S Ot V43.65 07/26/2014 MIGUE SCHNEIDER, RON S Ot V45.89 07/27/2014 MIGUE SCHNEIDER, RON S Ot 285.1 07/27/2014 MIGUE SCHNEIDER, RON S Ot 287.5 07/27/2014 MIGUE SCHNEIDER, RON S Ot 365.9 07/27/2014 MIGUE SCHNEIDER, RON S Ot 401.9 07/27/2014 MIGUE SCHNEIDER, RON S Ot 425.4 07/27/2014 MIGUE SCHNEIDER, RON S Ot 428.0 07/27/2014 MIGUE SCHNEIDER, RON S Ot 428.30 07/27/2014 MIGUE SCHNEIDER, RON S Ot 458.9 07/27/2014 MIGUE SCHNEIDER, RON S Ot 715.90 07/27/2014 MIGUE SCHNEIDER, RON S Ot 785.4 07/27/2014 MIGUE SCHNEIDER, RON S Ot 905.8 07/27/2014 MIGUE SCHNEIDER, RON S Ot E929.3 07/27/2014 MIGUE SCHNEIDER, RON S Ot V43.65 07/27/2014 MIGUE SCHNEIDER, RON S Ot V45.89 07/27/2014 MIGUE SCHNEIDER, RON S Ot 285.1 07/27/2014 MIGUE SCHNEIDER, RON S Ot 287.5 07/27/2014 MIUGE SCHNEIDER, RON S Ot 365.9 07/27/2014 MIGUE SCHNEIDER, RON S Ot 401.9 07/27/2014 MIGUE SCHNEIDER, RON S Ot 425.4 07/27/2014 MIGUE SCHNEIDER, RON S Ot 428.0 07/27/2014 MIGUE SCHNEIDER, RON S Ot 428.30 07/27/2014 MIGUE SCHNEIDER, RON S Ot 458.9 07/27/2014 MIGUE SCHNEIDER, RON S Ot 715.90 07/27/2014 MIGUE SCHNEIDER, RON S Ot 785.4 07/27/2014 MIGUE SCHNEIDER, RON S Ot 905.8 07/27/2014 MIGUE SCHNEIDER, RON S Ot E929.3 07/27/2014 MIGUE SCHNEIDER, RON S Ot V43.65 07/27/2014 MIGUE SCHNEIDER, RON S Ot V45.89 07/28/2014 MIGUE SCHNEIDER, RON S Ot 285.1 07/28/2014 MIGUE SCHNEIDER, RON S Ot 287.5 07/28/2014 MIGUE SCHNEIDER, RON S Ot 365.9 07/28/2014 MIGUE SCHNEIDER, RON S Ot 401.9 07/28/2014 MIGUE SCHNEIDER, RON S Ot 425.4 07/28/2014 MIGUE SCHNEIDER, RON S Ot 428.0 07/28/2014 MIGUE SCHNEIDER, RON S Ot 428.30 07/28/2014 MIGUE SCHNEIDER, RON S Ot 458.9 07/28/2014 IMGUE SCHNEIDER, RON S Ot 715.90 07/28/2014 MIGUE SCHNEIDER, RON S Ot 785.4 07/28/2014 MIGUE SCHNEIDER, RON S Ot 905.8 07/28/2014 MIGUE SCHNEIDER, RON S Ot E929.3 07/28/2014 MIGUE SCHNEIDER, RON S Ot V43.65 07/28/2014 MIGUE SCHNEIDER, RON S Ot V45.89 07/29/2014 MGIUE SCHNEIDER, RON S Ot 285.1 07/29/2014 MIGUE SCHNEIDER, RON S Ot 287.5 07/29/2014 MIGUE SCHNEIDER, RON S Ot 365.9 07/29/2014 MIGUE SCHNEIDER, RON S Ot 401.9 07/29/2014 MIGUE SCHNEIDER, RON S Ot 425.4 07/29/2014 MIGUE SCHNEIDER, RON S Ot 428.0 07/29/2014 MIGUE SCHNEIDER, RON S Ot 428.30 07/29/2014 MIGUE SCHNEIDER, RON S Ot 458.9 07/29/2014 MIGUE SCHNEIDER, RON S Ot 715.90 07/29/2014 MIGUE SCHNEIDER, RON S Ot 785.4 07/29/2014 MGIUE SCHNEIDER, RON S Ot 905.8 07/29/2014 MIGUE SCHNEIDER, RON S Ot E929.3 07/29/2014 MIGUE SCHNEIDER, RON S Ot V43.65 07/29/2014 MIGUE SCHNEIDER, RON S Ot V45.89 07/30/2014 MIGUE SCHNEIDER, RON S Ot 285.1 07/30/2014 MIGUE SCHNEIDER, RON S Ot 287.5 07/30/2014 MIGUE SCHNEIDER, RON S Ot 365.9 07/30/2014 MIGUE SCHNEIDER, RON S Ot 401.9 07/30/2014 MIGUE SCHNEIDER, RON S Ot 425.4 07/30/2014 MIGUE SCHNEIDER, RON S Ot 428.0 07/30/2014 MIGUE SCHNEIDER, RON S Ot 428.30 07/30/2014 MIGUE SCHNEIDER, RON S Ot 458.9 07/30/2014 MIGUE SCHNEIDER, RON S Ot 715.90 07/30/2014 MIGUE SCHNEIDER, RON S Ot 785.4 07/30/2014 MIGUE SCHNEIDER, RON S Ot 905.8 07/30/2014 MIGUE SCHNEIDER, RON S Ot E929.3 07/30/2014 MIGUE SCHNEIDER, RON S Ot V43.65 07/30/2014 MIGUE SCHNEIDER, RON S Ot V45.89 07/31/2014 MIGUE SCHNEIDER, RON S Ot 275.2 07/31/2014 MIGUE SCHNEIDER, RON S Ot 276.8 07/31/2014 MIGUE SCHNEIDER, RON S Ot 285.1 07/31/2014 MIGUE SCHNEDIER, RON S Ot 287.5 07/31/2014 MIGUE SCHNEIDER, RON S Ot 365.9 07/31/2014 MIGUE SCHNEIDER, RON S Ot 401.9 07/31/2014 MIGUE SCHNEIDER, RON S Ot 425.4 07/31/2014 MIGUE SCHNEIDER, RON S Ot 428.0 07/31/2014 MIGUE SCHNEIDER, RON S Ot 428.30 07/31/2014 MIGUE SCHNEIDER, RON S Ot 458.9 07/31/2014 MIGUE SCHNEIDER, RON S Ot 608.86 07/31/2014 MIGUE SCHNEIDER, RON S Ot 715.90 07/31/2014 MIGUE SCHNEIDER, RON S Ot 785.4 07/31/2014 MIGUE SCHNEIDER, RON S Ot 905.8 07/31/2014 MIGUE SCHNEIDER, RON S Ot 908.3 07/31/2014 MIGUE SCHNEIDER, RON S Ot E929.3 07/31/2014 MIGUE SCHNEIDER, RON S Ot V43.65 07/31/2014 MIGUE SCHNEIDER, RON S Ot V45.89 08/01/2014 MIGUE SCHNEIDER, RON S Ot 275.2 08/01/2014 MIGUE SCHNEIDER, RON S Ot 276.8 08/01/2014 MIGUE SCHNEIDER, RON S Ot 285.1 08/01/2014 MIGUE SCHNEIDER, RON S Ot 287.5 08/01/2014 MIGUE SCHNEIDER, RON S Ot 365.9 08/01/2014 MIGUE SCHNEIDER, RON S Ot 401.9 08/01/2014 MIGUE SCHNEIDER, RON S Ot 425.4 08/01/2014 MIGUE SCHNEIDER, RON S Ot 428.0 08/01/2014 MIGUE SCHNEIDER, RON S Ot 428.33 08/01/2014 MIGUE SCHNEIDER, RON S Ot 458.9 08/01/2014 MIGUE SCHNEIDER, RON S Ot 584.9 08/01/2014 MIGUE SCHNEIDER, RON S Ot 608.86 08/01/2014 MIGUE SCHNEIDER, RON S Ot 715.90 08/01/2014 MIGUE SCHNEIDER, RON S Ot 785.4 08/01/2014 MIGUE SCHNEIDER, RON S Ot 905.8 08/01/2014 MIGUE SCHNEIDER, ORN S Ot 908.3 08/01/2014 MIGUE SCHNEIDER, RON S Ot E929.3 08/01/2014 MIGUE SCHNEIDER, RON S Ot V43.65 08/01/2014 MIGUE SCHNEIDER, RON Rasheed Ot V45.89 08/01/2014 MIGUE SCHNEIDER, RON Rasheed Ot 275.2 DIS MAGNESIUM METABOLISM 08/01/2014 MIGUE SCHNEIDER, RON S Ot 276.8 HYPOPOTASSEMIA 08/01/2014 MIGUE SCHNEIDER, RON Rasheed Ot 285.1 AC POSTHEMORRHAG ANEMIA 08/01/2014 MIGUE SCHNEIDER, RON Rasheed Ot 287.5 THROMBOCYTOPENIA NOS 08/01/2014 MIGUE SCHNEIDER, RON Rasheed Ot 365.9 GLAUCOMA NOS 08/01/2014 MIGUE SCHNEIDER, RON Rasheed Ot 401.9 HYPERTENSION NOS 08/01/2014 MIGUE SCHNEIDER, RON Rasheed Ot 425.4 PRIM CARDIOMYOPATHY NEC 08/01/2014 MIGUE SCHNEIDER, RON Rasheed Ot 428.0 CONGESTIVE HEART FAILURE NOS 08/01/2014 MIGUE SCHNEIDER, RON Rasheed Ot 428.33 ACUTE CHRONIC DIASTOLIC HRT FAILURE 08/01/2014 MIGUE SCHNEIDER, RON Rasheed Ot 458.9 HYPOTENSION NOS 08/01/2014 MIGUE SCHNEIDER, RON Rasheed Ot 584.9 ACUTE RENAL FAILURE, UNSPECIFIED 08/01/2014 MIGUE SCHNEIDER, RON Rasheed Ot 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, 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 08/01/2014 MIGUE SCHNEIDER, RON Rasheed Ot 715.90 OSTEOARTHROS NOS-UNSPEC 08/01/2014 MIGUE SCHNEIDER, RON Rasheed Ot 785.4 GANGRENE 08/01/2014 MIGUE SCHNEIDER, RON Rasheed Ot 905.8 LATE EFFEC TENDON INJURY 08/01/2014 MIGUE SCHNEIDER, RON Rasheed Ot 908.3 LATE EFF INJ PERIPH VESS 08/01/2014 RON CAMARENA MD Ot E929.3 LATE EFF ACCIDENTAL FALL 08/01/2014 MIGUE SCHNEIDER, RON Rasheed Ot V43.65 KNEE JOINT REPLACEMENT STATUS 08/01/2014 MIGUE SCHNEIDER, RON Rasheed Ot V45.89 POSTSURGICAL STATES NEC 08/23/2014 Ot 008.45 INTESTINAL INFECTION DUE TO CLOSTRIDIUM 08/23/2014 Ot 273.8 DIS PLAS PROTEIN MET NEC 08/23/2014 Ot 280.0 CHR BLOOD LOSS ANEMIA 08/23/2014 Ot 285.9 08/23/2014 Ot 365.9 GLAUCOMA NOS 08/23/2014 Ot 388.01 PRESBYACUSIS 08/23/2014 Ot 401.9 HYPERTENSION NOS 08/23/2014 Ot 425.4 PRIM CARDIOMYOPATHY NEC 08/23/2014 Ot 428.0 CONGESTIVE HEART FAILURE NOS 08/23/2014 Ot 428.31 ACUTE DIASTOLIC HRT FAILURE 08/23/2014 Ot 530.81 ESOPHAGEAL REFLUX 08/23/2014 Ot 726.10 BURSAE TENDONS DIS SHLDER NOS 08/23/2014 Ot 788.20 RETENTION OF URINE NOS 08/23/2014 Ot V43.65 KNEE JOINT REPLACEMENT STATUS 08/23/2014 Ot V49.76 ABOVE KNEE AMPUTATION STATUS 08/23/2014 Ot V57.89 REHABILITATION PROC NEC 08/23/2014 Ot V58.43 AFTERCARE POST SURGERY INJURY/TRAUMA 11/03/2014 MIGUE SCHNEIDER, RON S Ot 709.8 11/03/2014 MIGUE SCHNEIDER, RON S Ot V49.76 12/11/2014 TORY SCHNEIDER, SOL Black Ot V54.89 12/11/2014 TORY SCHNEIDER, SOL Black Ot V57.1 12/16/2014 Ot 715.96 12/16/2014 Ot V57.1 12/16/2014 Ot V57.21 12/16/2014 Ot V72.63 12/16/2014 Ot V72.81 12/16/2014 Ot V72.83 12/16/2014 Ot V74.8 12/16/2014 Ot 715.36 12/16/2014 Ot V72.63 12/16/2014 Ot V72.83 12/16/2014 Ot V74.8 12/16/2014 ROSA DOMINGUEZ MD Ot V72.84 12/16/2014 ЕКАТЕРИНА SCHNEIDER FACC, ALI FACP CCDS Ot 278.00 12/16/2014 ЕКАТЕРИНА SCHNEIDER FACC, ALI FACP CCDS Ot 414.00 12/16/2014 ЕКАТЕРИНА SCHNEIDER FACC, ALI FACP CCDS Ot 425.4 12/16/2014 ЕКАТЕРИНА SCHNEIDER FACC, ALI FACP CCDS Ot 530.81 12/16/2014 ЕКАТЕРИНА SCHNEIDER FACC, ALI FACP CCDS Ot 719.40 12/16/2014 ЕКАТЕРИНА SCHNEIDER FACC, ALI FACP CCDS Ot 785.9 12/16/2014 ЕКАТЕРИНА SCHNEIDER FACC, ALI FACP CCDS Ot 278.00 12/16/2014 ЕКАТЕРИНА SCHNEIDER FACC, ALI FACP CCDS Ot 414.00 12/16/2014 ЕКАТЕРИНА SCHNEIDER FACC, ALI FACP CCDS Ot 425.4 12/16/2014 ЕКАТЕРИНА SCHNEIDER FACC, ALI FACP CCDS Ot 530.81 12/16/2014 ЕКАТЕРИНА SCHNEIDER FACC, ALI FACP CCDS Ot 719.40 12/16/2014 ЕКАТЕРИНА SCHNEIDER FACC, ALI FACP CCDS Ot 785.9 12/16/2014 ЕКАТЕРИНА SCHNEIDER FACC, ALI FACP CCDS Ot V17.49 12/16/2014 Ot 275.1 12/16/2014 ЕКАТЕРИНА ALLENC, ALI FACP CCDS Ot 278.00 12/16/2014 ЕКАТЕРИНА SCHNEIDER [facility], ALI FACP CCDS Ot 414.00 12/16/2014 ЕКАТЕРИНА SCHNEIDER [facility], ALI FACP CCDS Ot 425.4 12/16/2014 ЕКАТЕРИНА SCHNEIDER [facility], ALI FACP CCDS Ot 785.9 12/16/2014 ЕКАТЕРИНА SCHNEIDER [facility], ALI FACP CCDS Ot V17.49 12/16/2014 MIGUE SCHNEIDER, RON S Ot 787.91 12/16/2014 MIGUE SCHNEIDER, RON S Ot 709.8 12/16/2014 MIGUE SCHNEIDER, RON S Ot V49.76 12/16/2014 TORY SCHNEIDER, SOL Black Ot V54.89 12/16/2014 TORY SCHNEIDER, SOL Black Ot V57.1 12/16/2014 TORY SCHNEIDER, SOL Black Ot V54.89 12/16/2014 TORY SCHNEIDER, SOL Black Ot V57.1 12/27/2014 TORY SCHNEIDER, SOL Black Ot V54.89 12/27/2014 TORY SCHNEIDER, SOL Black Ot V57.1 02/03/2015 TORY SCHNEIDER, SOL Black Ot V54.89 02/03/2015 TORY SCHNEIDER, SOL Black Ot V57.1 02/06/2015 TORY SCHNEIDER, SOL Black Ot V54.89 02/06/2015 TORY SCHNEIDER, SOL Black Ot V57.1 03/05/2015 TORY SCHNEIDER, SOL Black Ot V54.89 OTHER ORTHOPEDIC AFTERCARE 03/05/2015 TORY SCHNEIDER, SOL Black Ot V57.1 PHYSICAL THERAPY NEC 03/06/2015 TORY SCHNEIDER, SOL Black Ot V49.76 ABOVE KNEE AMPUTATION STATUS 03/06/2015 TORY SCHNEIDER, SOL Black Ot 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 04/02/2015 Ot 715.96 04/02/2015 Ot V57.1 04/02/2015 Ot V57.21 04/02/2015 Ot V72.63 04/02/2015 Ot V72.81 04/02/2015 Ot V72.83 04/02/2015 Ot V74.8 04/02/2015 Ot 715.36 04/02/2015 Ot V72.63 04/02/2015 Ot V72.83 04/02/2015 Ot V74.8 04/02/2015 ROSA DOMINGUEZ MD Ot V72.84 04/02/2015 ЕКАТЕРИНА SCHNEIDER FACC, ALI FACP CCDS Ot 278.00 04/02/2015 ЕКАТЕРИНА SCHNEIDER FACC, ALI FACP CCDS Ot 414.00 04/02/2015 ЕКАТЕРИНА SCHNEIDER FACC, ALI FACP CCDS Ot 425.4 04/02/2015 ЕКАТЕРИНА SCHNEIDER FACC, ALI FACP CCDS Ot 530.81 04/02/2015 ЕКАТЕРИНА SCHNEIDER FACC, ALI FACP CCDS Ot 719.40 04/02/2015 ЕКАТЕРИНА SCHNEIDER FACC, ALI FACP CCDS Ot 785.9 04/02/2015 ЕКАТЕРИНА SCHNEIDER FACC, ALI FACP CCDS Ot 278.00 04/02/2015 ЕКАТЕРИНА SCHNEIDER FACC, ALI FACP CCDS Ot 414.00 04/02/2015 ЕКАТЕРИНА SCHNEIDER FACC, ALI FACP CCDS Ot 425.4 04/02/2015 ЕКАТЕРИНА SCHNEIDER FACC, ALI FACP CCDS Ot 530.81 04/02/2015 ЕКАТЕРИНА SCHNEIDER FACC, ALI FACP CCDS Ot 719.40 04/02/2015 ЕКАТЕРИНА SCHNEIDER FACC, ALI FACP CCDS Ot 785.9 04/02/2015 ЕКАТЕРИНА SCHNEIDER FACC, ALI FACP CCDS Ot V17.49 04/02/2015 Ot 275.1 04/02/2015 ЕКАТЕРИНА SCHNEIDER FACC, ALI FACP CCDS Ot 278.00 04/02/2015 ЕКАТЕРИНА SCHNEIDER FACC, ALI FACP CCDS Ot 414.00 04/02/2015 ЕКАТЕРИНА SCHNEIDER FACC, ALI FACP CCDS Ot 425.4 04/02/2015 ЕКАТЕРИНА SCHNEIDER FACC, ALI FACP CCDS Ot 785.9 04/02/2015 ЕКАТЕРИНА SCHNEIDER FACC, ALI FACP CCDS Ot V17.49 04/02/2015 RON CAMARENA MD Ot 787.91 04/02/2015 RON CAMARENA MD Ot 709.8 04/02/2015 RON CAMARENA MD Ot V49.76 04/07/2015 ЕКАТЕРИНА SCHNEIDER FACC, ALI FACP CCDS Ot I25.10 04/07/2015 ЕКАТЕРИНА SCHNEIDER FACC, ALI FACP CCDS Ot I42.9 04/07/2015 ЕКАТЕРИНА SCHNEIDER FACC, ALI FACP CCDS Ot K21.9 04/07/2015 ЕКАТЕРИНА SCHNEIDER FACC, ALI FACP CCDS Ot M25.50 04/07/2015 ЕКАТЕРИНА SCHNEIDER FACC, ALI FACP CCDS Ot Z82.49 04/23/2015 ЕКАТЕРИНА SCHNEIDER FACC, ALI FACP CCDS Ot I25.10 04/23/2015 ЕКАТЕРИНА SCHNEIDER FACC, ALI FACP CCDS Ot I42.9 04/23/2015 ЕКАТЕРИНА SCHNEIDER FACC, ALI FACP CCDS Ot K21.9 04/23/2015 ЕКАТЕРИНА SCHNEIDER FACC, ALI FACP CCDS Ot M25.50 04/23/2015 ЕКАТЕРИНА SCHNEIDER FAC, ALI FACP CCDS Ot Z82.49 05/06/2015 ЕКАТЕРИНА SCHNEIDER FACC, ALI FACP CCDS Ot I25.10 05/06/2015 ЕКАТЕРИНА SCHNEIDER [facility], ALI FACP CCDS Ot I42.9 05/06/2015 ЕКАТЕРИНА SCHNEIDER FAC, ALI FACP CCDS Ot K21.9 05/06/2015 ЕКАТЕРИНА SCHNEIDER [facility], ALI FACP CCDS Ot M25.50 05/06/2015 ЕКАТЕРИНА SCHNEIDER [facility], ALI FACP CCDS Ot Z82.49 05/22/2015 TORY SCHNEIDER, SOL Black Ot Z09 ENCNTR FOR F/U EXAM AFT TRTMT FOR COND O 05/22/2015 SOL SPEARS MD Ot Z89.619 ACQUIRED ABSENCE OF UNSPECIFIED LEG ABOV 05/29/2015 ЕКАТЕРИНА SCHNEIDER FACC, ALI FACP CCDS Ot I25.10 05/29/2015 ЕКАТЕРИНА SCHNEIDER [facility], [facility] FACP CCDS Ot I42.0 05/29/2015 ЕКАТЕРИНА ALLEN, ALI FACP CCDS Ot R06.02 06/09/2015 ЕКАТЕРИНА SCHNEIDER FACC, ALI FACP CCDS Ot I25.10 06/09/2015 ЕКАТЕРИНА ALLENC, ALI FACP CCDS Ot I42.0 06/09/2015 ЕКАТЕРИНА ALLEN, ALI FACP CCDS Ot R06.02 08/06/2015 ADELAIDA PRETTY DO Ot E66.9 08/06/2015 ADELAIDA PRETTY DO Ot R06.02 08/06/2015 AEDLAIDA PRETTY DO Ot R09.89 08/14/2015 ADELAIDA PRETTY DO Ot E66.9 08/14/2015 ADELAIDA PRETTY DO Ot R06.02 08/14/2015 ADELAIDA PRETTY DO Ot R09.89 09/26/2015 BRYANLITO ALVARADO MANAGER LOGISTIC Ot E66.9 OBESITY, UNSPECIFIED 09/26/2015 BRYANLITO ALVARADO MANAGER LOGISTIC Ot R06.02 SHORTNESS OF BREATH 09/26/2015 BRYANLITO ALVARADO MANAGER LOGISTIC Ot R09.89 OTH SYMPTOMS AND SIGNS INVOLVING THE CIR 09/26/2015 BRYANLITO ALVARADO MANAGER LOGISTIC Ot Z82.49 FAMILY HX OF ISCHEM HEART DIS AND OTH DI 10/02/2015 BRYANLITO ALVARADO MANAGER LOGISTIC Ot E66.9 OBESITY, UNSPECIFIED 10/02/2015 BRYANLITO ALVARADO MANAGER LOGISTIC Ot R06.02 SHORTNESS OF BREATH 10/02/2015 BRYANLITO ALVARADO MANAGER LOGISTIC Ot R09.89 OTH SYMPTOMS AND SIGNS INVOLVING THE CIR 10/02/2015 BRYANLITO ALVARADO MANAGER LOGISTIC Ot Z82.49 FAMILY HX OF ISCHEM HEART DIS AND OTH DI 11/23/2015 BRYANLITO ALVARADO MANAGER LOGISTIC Ot E66.9 OBESITY, UNSPECIFIED 11/23/2015 BRYANLITO ALVARADO MANAGER LOGISTIC Ot R06.02 SHORTNESS OF BREATH 11/23/2015 BRYANLITO ALVARADO MANAGER LOGISTIC Ot R09.89 OTH SYMPTOMS AND SIGNS INVOLVING THE CIR 11/23/2015 BRYANLITO ALVARADO MANAGER LOGISTIC Ot Z82.49 FAMILY HX OF ISCHEM HEART DIS AND OTH DI 04/21/2016 Ot 715.96 OSTEOARTHROS NOS-L/LEG 04/21/2016 Ot V57.1 PHYSICAL THERAPY NEC 04/21/2016 Ot V57.21 ENCOUNTER FOR OCCUPATIONAL THERAPY 04/21/2016 Ot V72.63 PRE-PROCEDURAL LABORATORY EXAMINATION 04/21/2016 Ot V72.81 [id number] CARDIOVASCULAR 04/21/2016 Ot V72.83 EXAM PRE-OPERATIVE NEC 04/21/2016 Ot V74.8 SCREEN-BACTERIAL DIS NEC 04/21/2016 Ot 715.36 LOC OSTEOARTH NOS-L/LEG 04/21/2016 Ot V72.63 PRE-PROCEDURAL LABORATORY EXAMINATION 04/21/2016 Ot V72.83 EXAM PRE-OPERATIVE NEC 04/21/2016 Ot V74.8 SCREEN-BACTERIAL DIS NEC 04/21/2016 ROSA DOMINGUEZ MD Ot V72.84 EXAM PRE-OPERATIVE NOS 04/21/2016 ЕКАТЕРИНА ALLENC, ALI FACP CCDS Ot 278.00 OBESITY, NOS 04/21/2016 ЕКАТЕРИНА SCHNEIDER FACC, ALI FACP CCDS Ot 414.00 CORON ATHEROSCLER NOS TYPE VESSEL, NATIV 04/21/2016 ЕКАТЕРИНА SCHNEIDER FACC, ALI FACP CCDS Ot 425.4 PRIM CARDIOMYOPATHY NEC 04/21/2016 ЕКАТЕРИНА SCHNEIDER FACC, ALI FACP CCDS Ot 530.81 ESOPHAGEAL REFLUX 04/21/2016 ЕКАТЕРИНА SCHNEIDER FACC, ALI FACP CCDS Ot 719.40 JOINT PAIN-UNSPEC 04/21/2016 ЕКАТЕРИНА SCHNEIDER FACC, ALI FACP CCDS Ot 785.9 CARDIOVAS SYS SYMP NEC 04/21/2016 ЕКАТЕРИНА ALLENC, ALI FACP CCDS Ot 278.00 OBESITY, NOS 04/21/2016 ЕКАТЕРИНА SCHNEIDER FACC, ALI FACP CCDS Ot 414.00 CORON ATHEROSCLER NOS TYPE VESSEL, NATIV 04/21/2016 ЕКАТЕРИНА ALLENC, ALI FACP CCDS Ot 425.4 PRIM CARDIOMYOPATHY NEC 04/21/2016 ЕКАТЕРИНА ALLENC, ALI FACP CCDS Ot 530.81 ESOPHAGEAL REFLUX 04/21/2016 ЕКАТЕРИНА SCHNEIDER FACC, ALI FACP CCDS Ot 719.40 JOINT PAIN-UNSPEC 04/21/2016 ЕКАТЕРИНА ALLENC, ALI FACP CCDS Ot 785.9 CARDIOVAS SYS SYMP NEC 04/21/2016 ЕКАТЕРИНА SCHNEIDER FACC, ALI FACP CCDS Ot V17.49 FAMILY HISTORY OF OTHER CARDIOVASCULAR D 04/21/2016 Ot 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 04/21/2016 ЕКАТЕРИНА ALLENC, ALI FACP CCDS Ot 278.00 OBESITY, NOS 04/21/2016 ЕКАТЕРИНА SCHNEIDER FACC, ALI FACP CCDS Ot 414.00 CORON ATHEROSCLER NOS TYPE VESSEL, NATIV 04/21/2016 ЕКАТЕРИНА ALLENC, ALI FACP CCDS Ot 425.4 PRIM CARDIOMYOPATHY NEC 04/21/2016 ЕКАТЕРИНА ALLENC, ALI FACP CCDS Ot 785.9 CARDIOVAS SYS SYMP NEC 04/21/2016 ЕКАТЕРИНА ALLENC, ALI FACP CCDS Ot V17.49 FAMILY HISTORY OF OTHER CARDIOVASCULAR D 04/21/2016 RON CAMARENA MD Ot 787.91 DIARRHEA 04/21/2016 RON CAMARENA MD Ot 709.8 SKIN DISORDERS NEC 04/21/2016 RON CAMARENA MD Ot V49.76 ABOVE KNEE AMPUTATION STATUS 04/21/2016 ЕКАТЕРИНА SCHNEIDER FACC, ALI FACP CCDS Ot I25.10 ATHSCL HEART DISEASE OF [place] CORONARY 04/21/2016 ЕКАТЕРИНА SCHNEIDER FACC, ALI FACP CCDS Ot I42.9 CARDIOMYOPATHY, UNSPECIFIED 04/21/2016 ЕКАТЕРИНА SCHNEIDER FACC, ALI FACP CCDS Ot K21.9 GASTRO-ESOPHAGEAL REFLUX DISEASE WITHOUT 04/21/2016 ЕКАТЕРИНА SCHNEIDER FACC, ALI FACP CCDS Ot M25.50 PAIN IN UNSPECIFIED JOINT 04/21/2016 ЕКАТЕРИНА SCHNEIDER FACC, ALI FACP CCDS Ot Z82.49 FAMILY HX OF ISCHEM HEART DIS AND OTH DI 04/21/2016 ЕКАТЕРИНА SCHNEIDER FACC, ALI FACP CCDS Ot I25.10 ATHSCL HEART DISEASE OF [place] CORONARY 04/21/2016 ЕКАТЕРИНА SCHNEIDER FACC, ALI FACP CCDS Ot I42.0 DILATED CARDIOMYOPATHY 04/21/2016 ЕКАТЕРИНА SCHNEIDER FACC, ALI FACP CCDS Ot R06.02 SHORTNESS OF BREATH 04/21/2016 ADELAIDA PRETTY DO Ot E66.9 OBESITY, UNSPECIFIED 04/21/2016 ADELAIDA PRETTY DO Ot R06.02 SHORTNESS OF BREATH 04/21/2016 ADELAIDA PRETTY DO Ot R09.89 OTH SYMPTOMS AND SIGNS INVOLVING THE CIR 04/21/2016 Ot E66.9 OBESITY, UNSPECIFIED 04/21/2016 Ot R06.02 SHORTNESS OF BREATH 04/21/2016 Ot R09.89 OTH SYMPTOMS AND SIGNS INVOLVING THE CIR 04/21/2016 Ot Z82.49 FAMILY HX OF ISCHEM HEART DIS AND OTH DI 04/21/2016 SAMUEL FERNANDEZ MD Ot Z47.81 ENCOUNTER FOR ORTHOPEDIC AFTERCARE FOLLO 04/21/2016 SAMUEL FERNANDEZ MD Ot 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 04/22/2016 Ot 715.96 OSTEOARTHROS NOS-L/LEG 04/22/2016 Ot V57.1 PHYSICAL THERAPY NEC 04/22/2016 Ot V57.21 ENCOUNTER FOR OCCUPATIONAL THERAPY 04/22/2016 Ot V72.63 PRE-PROCEDURAL LABORATORY EXAMINATION 04/22/2016 Ot V72.81 [id number] CARDIOVASCULAR 04/22/2016 Ot V72.83 EXAM PRE-OPERATIVE NEC 04/22/2016 Ot V74.8 SCREEN-BACTERIAL DIS NEC 04/22/2016 Ot 715.36 LOC OSTEOARTH NOS-L/LEG 04/22/2016 Ot V72.63 PRE-PROCEDURAL LABORATORY EXAMINATION 04/22/2016 Ot V72.83 EXAM PRE-OPERATIVE NEC 04/22/2016 Ot V74.8 SCREEN-BACTERIAL DIS NEC 04/22/2016 ROSA DOMINGUEZ MD Ot V72.84 EXAM PRE-OPERATIVE NOS 04/22/2016 ЕКАТЕРИНА ALLENC, ALI FACP CCDS Ot 278.00 OBESITY, NOS 04/22/2016 ЕКАТЕРИНА SCHNEIDER FACC, ALI FACP CCDS Ot 414.00 CORON ATHEROSCLER NOS TYPE VESSEL, NATIV 04/22/2016 ЕКАТЕРИНА SCHNEIDER FACC, ALI FACP CCDS Ot 425.4 PRIM CARDIOMYOPATHY NEC 04/22/2016 ЕКАТЕРИНА ALLENC, ALI FACP CCDS Ot 530.81 ESOPHAGEAL REFLUX 04/22/2016 ЕКАТЕРИНА SCHNEIDER FACC, ALI FACP CCDS Ot 719.40 JOINT PAIN-UNSPEC 04/22/2016 ЕКАТЕРИНА SCHNEIDER FACC, ALI FACP CCDS Ot 785.9 CARDIOVAS SYS SYMP NEC 04/22/2016 ЕКАТЕРИНА SCHNEIDER FACC, ALI FACP CCDS Ot 278.00 OBESITY, NOS 04/22/2016 ЕКАТЕРИНА SCHNEIDER FACC, ALI FACP CCDS Ot 414.00 CORON ATHEROSCLER NOS TYPE VESSEL, NATIV 04/22/2016 ЕКАТЕРИНА SCHNEIDER FACC, ALI FACP CCDS Ot 425.4 PRIM CARDIOMYOPATHY NEC 04/22/2016 ЕКАТЕРИНА SCHNEIDER FACC, ALI FACP CCDS Ot 530.81 ESOPHAGEAL REFLUX 04/22/2016 ЕКАТЕРИНА SCHNEIDER FACC, ALI FACP CCDS Ot 719.40 JOINT PAIN-UNSPEC 04/22/2016 ЕКАТЕРИНА SCHNEIDER FACC, ALI FACP CCDS Ot 785.9 CARDIOVAS SYS SYMP NEC 04/22/2016 ЕКАТЕРИНА SCHNEIDER FACC, ALI FACP CCDS Ot V17.49 FAMILY HISTORY OF OTHER CARDIOVASCULAR D 04/22/2016 Ot 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 04/22/2016 ЕКАТЕРИНА SCHNEIDER FACC, ALI FACP CCDS Ot 278.00 OBESITY, NOS 04/22/2016 ЕКАТЕРИНА SCHNEIDER FACC, ALI FACP CCDS Ot 414.00 CORON ATHEROSCLER NOS TYPE VESSEL, NATIV 04/22/2016 ЕКАТЕРИНА ALLENC, ALI FACP CCDS Ot 425.4 PRIM CARDIOMYOPATHY NEC 04/22/2016 ЕКАТЕРИНА SCHNEIDER FACC, ALI FACP CCDS Ot 785.9 CARDIOVAS SYS SYMP NEC 04/22/2016 ЕКАТЕРИНА SCHNEIDER FACC, ALI FACP CCDS Ot V17.49 FAMILY HISTORY OF OTHER CARDIOVASCULAR D 04/22/2016 RON CAMARENA MD Ot 787.91 DIARRHEA 04/22/2016 RON CAMARENA MD Ot 709.8 SKIN DISORDERS NEC 04/22/2016 RON CAMARENA MD Ot V49.76 ABOVE KNEE AMPUTATION STATUS 04/22/2016 ЕКАТЕРИНА SCHNEIDER FACC, ALI FACP CCDS Ot I25.10 ATHSCL HEART DISEASE OF [place] CORONARY 04/22/2016 ЕКАТЕРИНА SCHNEIDER FACC, ALI FACP CCDS Ot I42.9 CARDIOMYOPATHY, UNSPECIFIED 04/22/2016 ЕКАТЕРИНА SCHNEIDER FACC, ALI FACP CCDS Ot K21.9 GASTRO-ESOPHAGEAL REFLUX DISEASE WITHOUT 04/22/2016 ЕКАТЕРИНА SCHNEIDER FACC, ALI FACP CCDS Ot M25.50 PAIN IN UNSPECIFIED JOINT 04/22/2016 ЕКАТЕРИНА SCHNEIDER FACC, ALI FACP CCDS Ot Z82.49 FAMILY HX OF ISCHEM HEART DIS AND OTH DI 04/22/2016 ЕКАТЕРИНА SCHNEIDER FACC, ALI FACP CCDS Ot I25.10 ATHSCL HEART DISEASE OF [place] CORONARY 04/22/2016 ЕКАТЕРИНА SCHNEIDER FACC, ALI FACP CCDS Ot I42.0 DILATED CARDIOMYOPATHY 04/22/2016 ЕКАТЕРИНА SCHNEIDER FACC, ALI FACP CCDS Ot R06.02 SHORTNESS OF BREATH 04/22/2016 ADELAIDA PRETTY DO Ot E66.9 OBESITY, UNSPECIFIED 04/22/2016 ADELAIDA PRETTY DO Ot R06.02 SHORTNESS OF BREATH 04/22/2016 ADELAIDA PRETTY DO Ot R09.89 OTH SYMPTOMS AND SIGNS INVOLVING THE CIR 04/22/2016 Ot E66.9 OBESITY, UNSPECIFIED 04/22/2016 Ot R06.02 SHORTNESS OF BREATH 04/22/2016 Ot R09.89 OTH SYMPTOMS AND SIGNS INVOLVING THE CIR 04/22/2016 Ot Z82.49 FAMILY HX OF ISCHEM HEART DIS AND OTH DI 04/22/2016 SAMUEL FERNANDEZ MD Ot Z47.81 ENCOUNTER FOR ORTHOPEDIC AFTERCARE FOLLO 04/22/2016 SAMUEL FERNANDEZ MD Ot 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 04/22/2016 ЕКАТЕРИНА SCHNEIDER FACC, ALI FACP CCDS Ot R06.02 SHORTNESS OF BREATH 04/22/2016 ЕКАТЕРИНА SCHNEIDER FACC, ALI FACP CCDS Ot I25.10 ATHSCL HEART DISEASE OF [place] CORONARY 04/22/2016 ЕКАТЕРИНА ALLENC, ALI FACP CCDS Ot I42.0 DILATED CARDIOMYOPATHY 04/22/2016 ЕКАТЕРИНА SCHNEIDER FACC, ALI FACP CCDS Ot M79.89 OTHER SPECIFIED SOFT TISSUE DISORDERS 04/22/2016 ЕКАТЕРИНА SCHNEIDER FACC, ALI FACP CCDS Ot N18.3 CHRONIC KIDNEY DISEASE, STAGE 3 ( MODERAT 04/22/2016 ЕКАТЕРИНА ALLENC, ALI FACP CCDS Ot R06.02 SHORTNESS OF BREATH 04/23/2016 ЕКАТЕРИНА SCHNEIDER FACC, ALI FACP CCDS Ot I25.10 ATHSCL HEART DISEASE OF [place] CORONARY 04/23/2016 ЕКАТЕРИНА ALLENC, ALI FACP CCDS Ot I42.0 DILATED CARDIOMYOPATHY 04/23/2016 ЕКАТЕРИНА ALLENC, ALI FACP CCDS Ot M79.89 OTHER SPECIFIED SOFT TISSUE DISORDERS 04/23/2016 ЕКАТЕРИНА SCHNEIDER FACC, ALI FACP CCDS Ot N18.3 CHRONIC KIDNEY DISEASE, STAGE 3 ( MODERAT 04/23/2016 ЕКАТЕРИНА SCHNEIDER FACC, ALI FACP CCDS Ot R06.02 SHORTNESS OF BREATH 04/23/2016 ЕКАТЕРИНА SCHNEIDER FACC, ALI FACP CCDS Ot I25.10 ATHSCL HEART DISEASE OF [place] CORONARY 04/23/2016 ЕКАТЕРИНА SCHNEIDER FACC, ALI FACP CCDS Ot I42.0 DILATED CARDIOMYOPATHY 04/23/2016 ЕКАТЕРИНА ALLENC, ALI FACP CCDS Ot M79.89 OTHER SPECIFIED SOFT TISSUE DISORDERS 04/23/2016 ЕКАТЕРИНА SCHNEIDER FACC, ALI FACP CCDS Ot N18.3 CHRONIC KIDNEY DISEASE, STAGE 3 ( MODERAT 04/23/2016 ЕКАТЕРИНА SCHNEIDER FACC, ALI FACP CCDS Ot R06.02 SHORTNESS OF BREATH 04/28/2016 ЕКАТЕРИНА SCHNEIDER FACC, ALI FACP CCDS Ot I25.10 ATHSCL HEART DISEASE OF [place] CORONARY 04/28/2016 ЕКАТЕРИНА SCHNEIDER FACC, ALI FACP CCDS Ot I42.0 DILATED CARDIOMYOPATHY 04/28/2016 ЕКАТЕРИНА SCHNEIDER FACC, ALI FACP CCDS Ot M79.89 OTHER SPECIFIED SOFT TISSUE DISORDERS 04/28/2016 ЕКАТЕРИНА SCHNEIDER FACC, ALI FACP CCDS Ot N18.3 CHRONIC KIDNEY DISEASE, STAGE 3 ( MODERAT 04/28/2016 ЕКАТЕРИНА SCHNEIDER FACC, ALI FACP CCDS Ot R06.02 SHORTNESS OF BREATH 04/28/2016 Ot 715.96 OSTEOARTHROS NOS-L/LEG 04/28/2016 Ot V57.1 PHYSICAL THERAPY NEC 04/28/2016 Ot V57.21 ENCOUNTER FOR OCCUPATIONAL THERAPY 04/28/2016 Ot V72.63 PRE-PROCEDURAL LABORATORY EXAMINATION 04/28/2016 Ot V72.81 [id number] CARDIOVASCULAR 04/28/2016 Ot V72.83 EXAM PRE-OPERATIVE NEC 04/28/2016 Ot V74.8 SCREEN-BACTERIAL DIS NEC 04/28/2016 Ot 715.36 LOC OSTEOARTH NOS-L/LEG 04/28/2016 Ot V72.63 PRE-PROCEDURAL LABORATORY EXAMINATION 04/28/2016 Ot V72.83 EXAM PRE-OPERATIVE NEC 04/28/2016 Ot V74.8 SCREEN-BACTERIAL DIS NEC 04/28/2016 ROSA DOMINGUEZ MD Ot V72.84 EXAM PRE-OPERATIVE NOS 04/28/2016 ЕКАТЕРИНА SCHNEIDER FACC, ROSA FACP CCDS Ot 278.00 OBESITY, NOS 04/28/2016 ЕКАТЕРИНА SCHNEIDER FACC, ALI FACP CCDS Ot 414.00 CORON ATHEROSCLER NOS TYPE VESSEL, NATIV 04/28/2016 ЕКАТЕРИНА SCHNEIDER FACC, ALI FACP CCDS Ot 425.4 PRIM CARDIOMYOPATHY NEC 04/28/2016 ЕКАТЕРИНА SCHNEIDER FACC, ALI FACP CCDS Ot 530.81 ESOPHAGEAL REFLUX 04/28/2016 ЕКАТЕРИНА SCHNEIDER FACC, ALI FACP CCDS Ot 719.40 JOINT PAIN-UNSPEC 04/28/2016 ЕКАТЕРИНА SCHNEIDER FACC, ALI FACP CCDS Ot 785.9 CARDIOVAS SYS SYMP NEC 04/28/2016 ЕКАТЕРИНА SCHNEIDER FACC, ALI FACP CCDS Ot 278.00 OBESITY, NOS 04/28/2016 ЕКАТЕРИНА SCHNEIDER FACC, ALI FACP CCDS Ot 414.00 CORON ATHEROSCLER NOS TYPE VESSEL, NATIV 04/28/2016 ЕКАТЕРИНА SCHNEIDER FACC, ROSA FACP CCDS Ot 425.4 PRIM CARDIOMYOPATHY NEC 04/28/2016 ЕКАТЕРИНА SCHNEIDER FACC, ALI FACP CCDS Ot 530.81 ESOPHAGEAL REFLUX 04/28/2016 ЕКАТЕРИНА SCHNEIDER FACC, ALI FACP CCDS Ot 719.40 JOINT PAIN-UNSPEC 04/28/2016 ЕКАТЕРИНА SCHNEIDER FACC, ALI FACP CCDS Ot 785.9 CARDIOVAS SYS SYMP NEC 04/28/2016 ЕКАТЕРИНА SCHNEIDER FACC, ALI FACP CCDS Ot V17.49 FAMILY HISTORY OF OTHER CARDIOVASCULAR D 04/28/2016 Ot 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 04/28/2016 ЕКАТЕРИНА SCHNEIDER FACC, ROSA FACP CCDS Ot 278.00 OBESITY, NOS 04/28/2016 ЕКАТЕРИНА SCHNEIDER FACC, ROSA FACP CCDS Ot 414.00 CORON ATHEROSCLER NOS TYPE VESSEL, NATIV 04/28/2016 ЕКАТЕРИНА SCHNEIDER FACC, ALI FACP CCDS Ot 425.4 PRIM CARDIOMYOPATHY NEC 04/28/2016 ЕКАТЕРИНА SCHNEIDER FACC, ALI FACP CCDS Ot 785.9 CARDIOVAS SYS SYMP NEC 04/28/2016 ЕКАТЕРИНА SCHNEIDER FACC, ALI FACP CCDS Ot V17.49 FAMILY HISTORY OF OTHER CARDIOVASCULAR D 04/28/2016 MIGUE SCHNEIDER, RON Rasheed Ot 787.91 DIARRHEA 04/28/2016 MIGUE SCHNEIDER, RON Rasheed Ot 709.8 SKIN DISORDERS NEC 04/28/2016 RON CAMARENA MD Ot V49.76 ABOVE KNEE AMPUTATION STATUS 04/28/2016 ЕКАТЕРИНА SCHNEIDER FACC, ROSA FACP CCDS Ot I25.10 ATHSCL HEART DISEASE OF [place] CORONARY 04/28/2016 ЕКАТЕРИНА SCHNEIDER FACC, ROSA FACP CCDS Ot I42.9 CARDIOMYOPATHY, UNSPECIFIED 04/28/2016 ЕКАТЕРИНА SCHNEIDER FACC, ROSA FACP CCDS Ot K21.9 GASTRO-ESOPHAGEAL REFLUX DISEASE WITHOUT 04/28/2016 ЕКАТЕРИНА SCHNEIDER FACC, ALI FACP CCDS Ot M25.50 PAIN IN UNSPECIFIED JOINT 04/28/2016 ЕКАТЕРИНА SCHNEIDER FACC, ALI FACP CCDS Ot Z82.49 FAMILY HX OF ISCHEM HEART DIS AND OTH DI 04/28/2016 ЕКАТЕРИНА SCHNEIDER FACC, ALI FACP CCDS Ot I25.10 ATHSCL HEART DISEASE OF [place] CORONARY 04/28/2016 ЕКАТЕРИНА SCHNEIDER FACC, ALI FACP CCDS Ot I42.0 DILATED CARDIOMYOPATHY 04/28/2016 ЕКАТЕРИНА SCHNEIDER FACC, ALI FACP CCDS Ot R06.02 SHORTNESS OF BREATH 04/28/2016 ADELAIDA PRETTY DO Ot E66.9 OBESITY, UNSPECIFIED 04/28/2016 ADELAIDA PRETTY DO Ot R06.02 SHORTNESS OF BREATH 04/28/2016 ADELAIDA PRETTY DO Ot R09.89 OTH SYMPTOMS AND SIGNS INVOLVING THE CIR 04/28/2016 Ot E66.9 OBESITY, UNSPECIFIED 04/28/2016 Ot R06.02 SHORTNESS OF BREATH 04/28/2016 Ot R09.89 OTH SYMPTOMS AND SIGNS INVOLVING THE CIR 04/28/2016 Ot Z82.49 FAMILY HX OF ISCHEM HEART DIS AND OTH DI 04/28/2016 JIM SCHNEIDER, SAMUEL Moreno Ot Z47.81 ENCOUNTER FOR ORTHOPEDIC AFTERCARE FOLLO 04/28/2016 SAMUEL FERNANDEZ MD Ot 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 04/28/2016 ЕКАТЕРИНА SCHNEIDER FACC, ALI FACP CCDS Ot I25.10 ATHSCL HEART DISEASE OF [place] CORONARY 04/28/2016 ЕКАТЕРИНА SCHNEIDER FACC, ROSA FACP CCDS Ot I42.0 DILATED CARDIOMYOPATHY 04/28/2016 ЕКАТЕРИНА SCHNEIDER FACC, ALI FACP CCDS Ot M79.89 OTHER SPECIFIED SOFT TISSUE DISORDERS 04/28/2016 ЕКАТЕРИНА SCHNEIDER FACC, ALI FACP CCDS Ot N18.3 CHRONIC KIDNEY DISEASE, STAGE 3 ( MODERAT 04/28/2016 ЕКАТЕРИНА SCHNEIDER FACC, ALI FACP CCDS Ot R06.02 SHORTNESS OF BREATH 04/28/2016 ЕКАТЕРИНА SCHNEIDER FACC, ALI FACP CCDS Ot I25.10 ATHSCL HEART DISEASE OF [place] CORONARY 04/28/2016 ЕКАТЕРИНА SCHNEIDER FACC, ALI FACP CCDS Ot I42.0 DILATED CARDIOMYOPATHY 04/28/2016 ЕКТАЕРИНА SCHNEIDER FACC, ALI FACP CCDS Ot M79.89 OTHER SPECIFIED SOFT TISSUE DISORDERS 04/28/2016 ЕКАТЕРИНА SCHNEIDER FACC, ALI FACP CCDS Ot N18.3 CHRONIC KIDNEY DISEASE, STAGE 3 ( MODERAT 04/28/2016 ЕКАТЕРИНА SCHNEIDER FACC, ALI FACP CCDS Ot R06.02 SHORTNESS OF BREATH 04/29/2016 ЕКАТЕРИНА SCHNEIDER FACC, ALI FACP CCDS Ot I25.10 ATHSCL HEART DISEASE OF [place] CORONARY 04/29/2016 ЕКАТЕРИНА SCHNEIDER FACC, ROSA FACP CCDS Ot I42.0 DILATED CARDIOMYOPATHY 04/29/2016 ЕКАТЕРИНА SCHNEIDER FACC, ROSA FACP CCDS Ot M79.89 OTHER SPECIFIED SOFT TISSUE DISORDERS 04/29/2016 ЕКАТЕРИНА SCHNEIDER FACC, ALI FACP CCDS Ot N18.3 CHRONIC KIDNEY DISEASE, STAGE 3 ( MODERAT 04/29/2016 ЕКАТЕРИНА SCHNEIDER FACC, ROSA FACP CCDS Ot R06.02 SHORTNESS OF BREATH 05/10/2016 Ot 715.96 OSTEOARTHROS NOS-L/LEG 05/10/2016 Ot V57.1 PHYSICAL THERAPY NEC 05/10/2016 Ot V57.21 ENCOUNTER FOR OCCUPATIONAL THERAPY 05/10/2016 Ot V72.63 PRE-PROCEDURAL LABORATORY EXAMINATION 05/10/2016 Ot V72.81 LEDO-KZS-CIBCZCCKR CARDIOVASCULAR 05/10/2016 Ot V72.83 EXAM PRE-OPERATIVE NEC 05/10/2016 Ot V74.8 SCREEN-BACTERIAL DIS NEC 05/10/2016 Ot 715.36 LOC OSTEOARTH NOS-L/LEG 05/10/2016 Ot V72.63 PRE-PROCEDURAL LABORATORY EXAMINATION 05/10/2016 Ot V72.83 EXAM PRE-OPERATIVE NEC 05/10/2016 Ot V74.8 SCREEN-BACTERIAL DIS NEC 05/10/2016 ROSA DOMINGUEZ MD Ot V72.84 EXAM PRE-OPERATIVE NOS 05/10/2016 ЕКАТЕРИНА SCHNEIDER FACC, ROSA FACP CCDS Ot 278.00 OBESITY, NOS 05/10/2016 ЕКАТЕРИНА SCHNEIDER FACC, ROSA FACP CCDS Ot 414.00 CORON ATHEROSCLER NOS TYPE VESSEL, NATIV 05/10/2016 ЕКАТЕРИНА SCHNEIDER FACC, ROSA FACP CCDS Ot 425.4 PRIM CARDIOMYOPATHY NEC 05/10/2016 ЕКАТЕРИНА SCHNEIDER FACC, ROSA FACP CCDS Ot 530.81 ESOPHAGEAL REFLUX 05/10/2016 ЕКАТЕРИНА SCHNEIDER FACC, ROSA FACP CCDS Ot 719.40 JOINT PAIN-UNSPEC 05/10/2016 ЕКАТЕРИНА SCHNEIDER FACC, ROSA FACP CCDS Ot 785.9 CARDIOVAS SYS SYMP NEC 05/10/2016 ЕКАТЕРИНА SCHNEIDER FACC, ROSA FACP CCDS Ot 278.00 OBESITY, NOS 05/10/2016 ЕКАТЕРИНА SCHNEIDER FACC, ROSA FACP CCDS Ot 414.00 CORON ATHEROSCLER NOS TYPE VESSEL, NATIV 05/10/2016 ЕКАТЕРИНА SCHNEIDER FACC, ROSA FACP CCDS Ot 425.4 PRIM CARDIOMYOPATHY NEC 05/10/2016 ЕКАТЕРИНА SCHNEIDER FACC, ALI FACP CCDS Ot 530.81 ESOPHAGEAL REFLUX 05/10/2016 ЕКАТЕРИНА SCHNEIDER FACC, ALI FACP CCDS Ot 719.40 JOINT PAIN-UNSPEC 05/10/2016 ЕКАТЕРИНА SCHNEIDER FACC, ALI FACP CCDS Ot 785.9 CARDIOVAS SYS SYMP NEC 05/10/2016 ЕКАТЕРИНА SCHNEIDER FACC, ALI FACP CCDS Ot V17.49 FAMILY HISTORY OF OTHER CARDIOVASCULAR D 05/10/2016 Ot 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 05/10/2016 ЕКАТЕРИНА SCHNEIDER FACC, ALI FACP CCDS Ot 278.00 OBESITY, NOS 05/10/2016 ЕКАТЕРИНА SCHNEIDER FACC, ALI FACP CCDS Ot 414.00 CORON ATHEROSCLER NOS TYPE VESSEL, NATIV 05/10/2016 ЕКАТЕРИНА SCHNEIDER FACC, ALI FACP CCDS Ot 425.4 PRIM CARDIOMYOPATHY NEC 05/10/2016 ЕКАТЕРИНА SCHNEIDER FACC, ALI FACP CCDS Ot 785.9 CARDIOVAS SYS SYMP NEC 05/10/2016 ЕКАТЕРИНА SCHNEIDER FACC, ALI FACP CCDS Ot V17.49 FAMILY HISTORY OF OTHER CARDIOVASCULAR D 05/10/2016 RON CAMARENA MD Ot 787.91 DIARRHEA 05/10/2016 RON CAMARENA MD Ot 709.8 SKIN DISORDERS NEC 05/10/2016 RON CAMARENA MD Ot V49.76 ABOVE KNEE AMPUTATION STATUS 05/10/2016 ЕКАТЕРИНА SCHNEIDER FACC, ROSA FACP CCDS Ot I25.10 ATHSCL HEART DISEASE OF [place] CORONARY 05/10/2016 ЕКАТЕРИНА SCHNEIDER FACC, ROSA FACP CCDS Ot I42.9 CARDIOMYOPATHY, UNSPECIFIED 05/10/2016 ЕКАТЕРИНА SCHNEIDER FACC, ALI FACP CCDS Ot K21.9 GASTRO-ESOPHAGEAL REFLUX DISEASE WITHOUT 05/10/2016 ЕКАТЕРИНА SCHNEIDER FACC, ALI FACP CCDS Ot M25.50 PAIN IN UNSPECIFIED JOINT 05/10/2016 ЕКАТЕРИНА SCHNEIDER FACC, ALI FACP CCDS Ot Z82.49 FAMILY HX OF ISCHEM HEART DIS AND OTH DI 05/10/2016 ROSA WILLAMS MD, FACC FACP CCDS Ot I25.10 ATHSCL HEART DISEASE OF [place] CORONARY 05/10/2016 ЕКАТЕРИНА SCHNEIDER FACC, ROSA FACP CCDS Ot I42.0 DILATED CARDIOMYOPATHY 05/10/2016 ЕКАТЕРИНА SCHNEIDER FACC, ALI FACP CCDS Ot R06.02 SHORTNESS OF BREATH 05/10/2016 ADELAIDA PRETTY DO Ot E66.9 OBESITY, UNSPECIFIED 05/10/2016 ADELAIDA PRETTY DO Ot R06.02 SHORTNESS OF BREATH 05/10/2016 ADELAIDA PRETTY DO Ot R09.89 OTH SYMPTOMS AND SIGNS INVOLVING THE CIR 05/10/2016 Ot E66.9 OBESITY, UNSPECIFIED 05/10/2016 Ot R06.02 SHORTNESS OF BREATH 05/10/2016 Ot R09.89 OTH SYMPTOMS AND SIGNS INVOLVING THE CIR 05/10/2016 Ot Z82.49 FAMILY HX OF ISCHEM HEART DIS AND OTH DI 05/10/2016 JIM SCHNEIDER, SAMUEL Moreno Ot Z47.81 ENCOUNTER FOR ORTHOPEDIC AFTERCARE FOLLO 05/10/2016 SAMUEL FERNANDEZ MD Ot 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 05/10/2016 ЕКАТЕРИНА SCHNEIDER FACC, ROSA FACP CCDS Ot I25.10 ATHSCL HEART DISEASE OF [place] CORONARY 05/10/2016 ЕКАТЕРИНА SCHNEIDER FACC, ROSA FACP CCDS Ot I42.0 DILATED CARDIOMYOPATHY 05/10/2016 ЕКАТЕРИНА SCHNEIDER FACC, ALI FACP CCDS Ot M79.89 OTHER SPECIFIED SOFT TISSUE DISORDERS 05/10/2016 ЕКАТЕРИНА SCHNEIDER FACC, ALI FACP CCDS Ot N18.3 CHRONIC KIDNEY DISEASE, STAGE 3 ( MODERAT 05/10/2016 ЕКАТЕРИНА SCHNEIDER FACC, ROSA FACP CCDS Ot R06.02 SHORTNESS OF BREATH 05/10/2016 ЕКАТЕРИНА SCHNEIDER FACC, ALI FACP CCDS Ot I25.10 ATHSCL HEART DISEASE OF [place] CORONARY 05/10/2016 ЕКАТЕРИНА SCHNEIDER FACC, ALI FACP CCDS Ot I42.0 DILATED CARDIOMYOPATHY 05/10/2016 ЕКАТЕРИНА SCHNEIDER FACC, ALI FACP CCDS Ot M79.89 OTHER SPECIFIED SOFT TISSUE DISORDERS 05/10/2016 ЕКАТЕРИНА SCHNEIDER FACC, ALI FACP CCDS Ot N18.3 CHRONIC KIDNEY DISEASE, STAGE 3 ( MODERAT 05/10/2016 ЕКАТЕРИНА SCHNEIDER FACC, ALI FACP CCDS Ot R06.02 SHORTNESS OF BREATH 05/11/2016 BAIMA, JOEL L INSPECTOR HANDBAG FRAMES Ot I25.10 ATHSCL HEART DISEASE OF [place] CORONARY 05/11/2016 JOEL VILLALPANDO INSPECTOR HANDBAG FRAMES Ot 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 05/11/2016 JOEL VILLALPANDO INSPECTOR HANDBAG FRAMES Ot I42.9 CARDIOMYOPATHY, UNSPECIFIED 05/11/2016 JOEL VILLALPANDO INSPECTOR HANDBAG FRAMES Ot I50.22 CHRONIC SYSTOLIC (CONGESTIVE) HEART FAIL 05/11/2016 JOEL VILLALPANDO INSPECTOR HANDBAG FRAMES Ot N18.3 CHRONIC KIDNEY DISEASE, STAGE 3 ( MODERAT 05/11/2016 JOEL VILLALPANDO INSPECTOR HANDBAG FRAMES Ot R06.02 SHORTNESS OF BREATH 05/11/2016 JOEL VILLALPANDO INSPECTOR HANDBAG FRAMES Ot Z79.899 OTHER USP (CURRENT) DRUG THERAPY 05/11/2016 JOEL VILLALPANDO INSPECTOR HANDBAG FRAMES Ot 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 05/12/2016 ЕКАТЕРИНА SCHNEIDER FACC, ALI FACP CCDS Ot I25.10 ATHSCL HEART DISEASE OF [place] CORONARY 05/12/2016 ЕКАТЕРИНА SCHNEIDER FACC, ROSA FACP CCDS Ot I42.0 DILATED CARDIOMYOPATHY 05/12/2016 ЕКАТЕРИНА SCHNEIDER FACC, ALI FACP CCDS Ot M79.89 OTHER SPECIFIED SOFT TISSUE DISORDERS 05/12/2016 ROSA WILLAMS MD, FACC FACP CCDS Ot N18.3 CHRONIC KIDNEY DISEASE, STAGE 3 ( MODERAT 05/12/2016 ЕКАТЕРИНА SCHNEIDER FACC, ALI FACP CCDS Ot R06.02 SHORTNESS OF BREATH 05/14/2016 ЕКАТЕРИНА SCHNEIDER FACC, ALI FACP CCDS Ot I25.10 ATHSCL HEART DISEASE OF [place] CORONARY 05/14/2016 ЕКАТЕРИНА SCHNEIDER FACC, ROSA FACP CCDS Ot I42.0 DILATED CARDIOMYOPATHY 05/14/2016 ЕКАТЕРИНА SCHNEIDER FACC, ALI FACP CCDS Ot M79.89 OTHER SPECIFIED SOFT TISSUE DISORDERS 05/14/2016 ROSA WILLAMS MD, FACC FACP CCDS Ot N18.3 CHRONIC KIDNEY DISEASE, STAGE 3 ( MODERAT 05/14/2016 ЕКАТЕРИНА SCHNEIDER FACC, ALI FACP CCDS Ot R06.02 SHORTNESS OF BREATH 05/15/2016 ЕКАТЕРИНА SCHNEIDER FACC, ALI FACP CCDS Ot I25.10 ATHSCL HEART DISEASE OF [place] CORONARY 05/15/2016 ЕКАТЕРИНА SCHNEIDER FACC, ALI FACP CCDS Ot I42.0 DILATED CARDIOMYOPATHY 05/15/2016 ЕКАТЕРИНА SCHNEIDER FACC, ALI FACP CCDS Ot M79.89 OTHER SPECIFIED SOFT TISSUE DISORDERS 05/15/2016 ЕКАТЕРИНА SCHNEIDER FACC, ALI FACP CCDS Ot N18.3 CHRONIC KIDNEY DISEASE, STAGE 3 ( MODERAT 05/15/2016 ЕКАТЕРИНА SCHNEIDER FACC, ALI FACP CCDS Ot R06.02 SHORTNESS OF BREATH 05/19/2016 ЕКАТЕРИНА SCHNEIDER FACC, ALI FACP CCDS Ot I25.10 ATHSCL HEART DISEASE OF [place] CORONARY 05/19/2016 ЕКАТЕРИНА SCHNEIDER FACC, ALI FACP CCDS Ot I42.0 DILATED CARDIOMYOPATHY 05/19/2016 ЕКАТЕРИНА SCHNEIDER FACC, ALI FACP CCDS Ot M79.89 OTHER SPECIFIED SOFT TISSUE DISORDERS 05/19/2016 ЕКАТЕРИНА SCHENIDER FACC, ALI FACP CCDS Ot N18.3 CHRONIC KIDNEY DISEASE, STAGE 3 ( MODERAT 05/19/2016 ЕКАТЕРИНА SCHNEIDER FACC, ALI FACP CCDS Ot R06.02 SHORTNESS OF BREATH 05/19/2016 ЕКАТЕРИНА SCHNEIDER FACC, ALI FACP CCDS Ot I25.10 ATHSCL HEART DISEASE OF [place] CORONARY 05/19/2016 ЕКАТЕРИНА SCHNEIDER FACC, ALI FACP CCDS Ot I42.0 DILATED CARDIOMYOPATHY 05/19/2016 ЕКАТЕРИНА SCHNEIDER FACC, ALI FACP CCDS Ot M79.89 OTHER SPECIFIED SOFT TISSUE DISORDERS 05/19/2016 ЕКАТЕРИНА SCHNEIDER FACC, ALI FACP CCDS Ot N18.3 CHRONIC KIDNEY DISEASE, STAGE 3 ( MODERAT 05/19/2016 ЕКАТЕРИНА SCHNEIDER FACC, ALI FACP CCDS Ot R06.02 SHORTNESS OF BREATH 06/03/2016 Ot 715.96 OSTEOARTHROS NOS-L/LEG 06/03/2016 Ot V57.1 PHYSICAL THERAPY NEC 06/03/2016 Ot V57.21 ENCOUNTER FOR OCCUPATIONAL THERAPY 06/03/2016 Ot V72.63 PRE-PROCEDURAL LABORATORY EXAMINATION 06/03/2016 Ot V72.81 [id number] CARDIOVASCULAR 06/03/2016 Ot V72.83 EXAM PRE-OPERATIVE NEC 06/03/2016 Ot V74.8 SCREEN-BACTERIAL DIS NEC 06/03/2016 Ot 715.36 LOC OSTEOARTH NOS-L/LEG 06/03/2016 Ot V72.63 PRE-PROCEDURAL LABORATORY EXAMINATION 06/03/2016 Ot V72.83 EXAM PRE-OPERATIVE NEC 06/03/2016 Ot V74.8 SCREEN-BACTERIAL DIS NEC 06/03/2016 ROSA DOMINGUEZ MD Ot V72.84 EXAM PRE-OPERATIVE NOS 06/03/2016 ЕКАТЕРИНА SCHNEIDER FACC, ALI FACP CCDS Ot 278.00 OBESITY, NOS 06/03/2016 ЕКАТЕРИНА ALLENC, ALI FACP CCDS Ot 414.00 CORON ATHEROSCLER NOS TYPE VESSEL, NATIV 06/03/2016 ЕКАТЕРИНА ALLENC, ALI FACP CCDS Ot 425.4 PRIM CARDIOMYOPATHY NEC 06/03/2016 ЕКАТЕРИНА SCHNEIDER FACC, ALI FACP CCDS Ot 530.81 ESOPHAGEAL REFLUX 06/03/2016 ЕКАТЕРИНА SCHNEIDER FACC, ALI FACP CCDS Ot 719.40 JOINT PAIN-UNSPEC 06/03/2016 ЕКАТЕРИНА ALLENC, ALI FACP CCDS Ot 785.9 CARDIOVAS SYS SYMP NEC 06/03/2016 ЕКАТЕРИНА SCHNEIDER FACC, ALI FACP CCDS Ot 278.00 OBESITY, NOS 06/03/2016 ЕКАТЕРИНА SCHNEIDER FACC, ALI FACP CCDS Ot 414.00 CORON ATHEROSCLER NOS TYPE VESSEL, NATIV 06/03/2016 ЕКАТЕРИНА SCHNEIDER FACC, ALI FACP CCDS Ot 425.4 PRIM CARDIOMYOPATHY NEC 06/03/2016 ЕКАТЕРИНА SCHNEIDER FACC, ALI FACP CCDS Ot 530.81 ESOPHAGEAL REFLUX 06/03/2016 ЕКАТЕРИНА SCHNEIDER FACC, ALI FACP CCDS Ot 719.40 JOINT PAIN-UNSPEC 06/03/2016 ЕКАТЕРИНА ALLENC, ALI FACP CCDS Ot 785.9 CARDIOVAS SYS SYMP NEC 06/03/2016 ЕКАТЕРИНА SCHNEIDER FACC, ALI FACP CCDS Ot V17.49 FAMILY HISTORY OF OTHER CARDIOVASCULAR D 06/03/2016 Ot 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 06/03/2016 ЕКАТЕРИНА SCHNEIDER FACC, ALI FACP CCDS Ot 278.00 OBESITY, NOS 06/03/2016 ЕКАТЕРИНА SCHNEIDER FACC, ALI FACP CCDS Ot 414.00 CORON ATHEROSCLER NOS TYPE VESSEL, NATIV 06/03/2016 ЕКАТЕРИНА SCHNEIDER FACC, ALI FACP CCDS Ot 425.4 PRIM CARDIOMYOPATHY NEC 06/03/2016 ЕКАТЕРИНА ALLENC, ALI FACP CCDS Ot 785.9 CARDIOVAS SYS SYMP NEC 06/03/2016 ЕКАТЕРИНА SCHNEIDER FACC, ALI FACP CCDS Ot V17.49 FAMILY HISTORY OF OTHER CARDIOVASCULAR D 06/03/2016 RON CAMARENA MD Ot 787.91 DIARRHEA 06/03/2016 RON CAMARENA MD Ot 709.8 SKIN DISORDERS NEC 06/03/2016 RON CAMARENA MD Ot V49.76 ABOVE KNEE AMPUTATION STATUS 06/03/2016 ЕКАТЕРИНА SCHNEIDER FACC, ALI FACP CCDS Ot I25.10 ATHSCL HEART DISEASE OF [place] CORONARY 06/03/2016 ЕКАТЕРИНА SCHNEIDER FACC, ALI FACP CCDS Ot I42.9 CARDIOMYOPATHY, UNSPECIFIED 06/03/2016 ЕКАТЕРИНА SCHNEIDER FACC, ALI FACP CCDS Ot K21.9 GASTRO-ESOPHAGEAL REFLUX DISEASE WITHOUT 06/03/2016 ЕКАТЕРИНА SCHNEIDER FACC, ALI FACP CCDS Ot M25.50 PAIN IN UNSPECIFIED JOINT 06/03/2016 ЕКАТЕРИНА SCHNEIDER FACC, ALI FACP CCDS Ot Z82.49 FAMILY HX OF ISCHEM HEART DIS AND OTH DI 06/03/2016 ЕКАТЕРИНА SCHNEIDER FACC, ALI FACP CCDS Ot I25.10 ATHSCL HEART DISEASE OF [place] CORONARY 06/03/2016 ЕКАТЕРИНА SCHNEIDER FACC, ALI FACP CCDS Ot I42.0 DILATED CARDIOMYOPATHY 06/03/2016 ЕКАТЕРИНА SCHNEIDER FACC, ALI FACP CCDS Ot R06.02 SHORTNESS OF BREATH 06/03/2016 ADELAIDA PRETTY DO Ot E66.9 OBESITY, UNSPECIFIED 06/03/2016 ADELAIDA PRETTY DO Ot R06.02 SHORTNESS OF BREATH 06/03/2016 ADELAIDA PRETTY DO Ot R09.89 OTH SYMPTOMS AND SIGNS INVOLVING THE CIR 06/03/2016 Ot E66.9 OBESITY, UNSPECIFIED 06/03/2016 Ot R06.02 SHORTNESS OF BREATH 06/03/2016 Ot R09.89 OTH SYMPTOMS AND SIGNS INVOLVING THE CIR 06/03/2016 Ot Z82.49 FAMILY HX OF ISCHEM HEART DIS AND OTH DI 06/03/2016 SAMEUL FERNANDEZ MD Ot Z47.81 ENCOUNTER FOR ORTHOPEDIC AFTERCARE FOLLO 06/03/2016 SAMUEL FERNANDEZ MD Ot 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 06/03/2016 ЕКАТЕРИНА SCHNEIDER FACC, ALI FACP CCDS Ot I25.10 ATHSCL HEART DISEASE OF [place] CORONARY 06/03/2016 ЕКАТЕРИНА MD FACC, ALI FACP CCDS Ot I42.0 DILATED CARDIOMYOPATHY 06/03/2016 ЕКАТЕРИНА SCHNEIDER FACC, ALI FACP CCDS Ot M79.89 OTHER SPECIFIED SOFT TISSUE DISORDERS 06/03/2016 ЕКАТЕРИНА ALLENC, ALI FACP CCDS Ot N18.3 CHRONIC KIDNEY DISEASE, STAGE 3 ( MODERAT 06/03/2016 ЕКАТЕРИНА SCHNEIDER FACC, ALI FACP CCDS Ot R06.02 SHORTNESS OF BREATH 06/03/2016 ЕКАТЕРИНА SCHNEIDER FACTiffanie, ALI FACP CCDS Ot I25.10 ATHSCL HEART DISEASE OF [place] CORONARY 06/03/2016 ЕКАТЕРИНА SCHNEIDER FACC, ALI FACP CCDS Ot I42.0 DILATED CARDIOMYOPATHY 06/03/2016 ЕКАТЕРИНА SCHNEIDER FACC, ALI FACP CCDS Ot M79.89 OTHER SPECIFIED SOFT TISSUE DISORDERS 06/03/2016 ЕКАТЕРИНА SCHNEIDER FACC, ALI FACP CCDS Ot N18.3 CHRONIC KIDNEY DISEASE, STAGE 3 ( MODERAT 06/03/2016 ЕКАТЕРИНА SCHNEIDER FACC, ALI FACP CCDS Ot R06.02 SHORTNESS OF BREATH 06/03/2016 SAMUEL FERNANDEZ MD Ot Z47.81 ENCOUNTER FOR ORTHOPEDIC AFTERCARE FOLLO 06/03/2016 SAMUEL FERNANDEZ MD Ot 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 06/03/2016 Ot 715.96 OSTEOARTHROS NOS-L/LEG 06/03/2016 Ot V57.1 PHYSICAL THERAPY NEC 06/03/2016 Ot V57.21 ENCOUNTER FOR OCCUPATIONAL THERAPY 06/03/2016 Ot V72.63 PRE-PROCEDURAL LABORATORY EXAMINATION 06/03/2016 Ot V72.81 [id number] CARDIOVASCULAR 06/03/2016 Ot V72.83 EXAM PRE-OPERATIVE NEC 06/03/2016 Ot V74.8 SCREEN-BACTERIAL DIS NEC 06/03/2016 Ot 715.36 LOC OSTEOARTH NOS-L/LEG 06/03/2016 Ot V72.63 PRE-PROCEDURAL LABORATORY EXAMINATION 06/03/2016 Ot V72.83 EXAM PRE-OPERATIVE NEC 06/03/2016 Ot V74.8 SCREEN-BACTERIAL DIS NEC 06/03/2016 ROSA DOMINGUEZ MD Ot V72.84 EXAM PRE-OPERATIVE NOS 06/03/2016 ЕКАТЕРИНА SCHNEIDER FACC, ROSA FACP CCDS Ot 278.00 OBESITY, NOS 06/03/2016 ЕКАТЕРИНА MD FACC, ALI FACP CCDS Ot 414.00 CORON ATHEROSCLER NOS TYPE VESSEL, NATIV 06/03/2016 ЕКАТЕРИНА ALLENC, ALI FACP CCDS Ot 425.4 PRIM CARDIOMYOPATHY NEC 06/03/2016 ЕКАТЕРИНА ALLENC, ALI FACP CCDS Ot 530.81 ESOPHAGEAL REFLUX 06/03/2016 ЕКАТЕРИНА ALLENC, ALI FACP CCDS Ot 719.40 JOINT PAIN-UNSPEC 06/03/2016 ЕКАТЕРИНА SCHNEIDER FACC, ALI FACP CCDS Ot 785.9 CARDIOVAS SYS SYMP NEC 06/03/2016 ЕКАТЕРИНА ALLENC, ALI FACP CCDS Ot 278.00 OBESITY, NOS 06/03/2016 ЕКАТЕРИНА SCHNEIDER FACTiffanie, ALI FACP CCDS Ot 414.00 CORON ATHEROSCLER NOS TYPE VESSEL, NATIV 06/03/2016 ЕКАТЕРИНА SCHNEIDER FACC, ALI FACP CCDS Ot 425.4 PRIM CARDIOMYOPATHY NEC 06/03/2016 ЕКАТЕРИНА SCHNEIDER FACC, ALI FACP CCDS Ot 530.81 ESOPHAGEAL REFLUX 06/03/2016 ЕКАТЕРИНА SCHNEIDER FACC, ALI FACP CCDS Ot 719.40 JOINT PAIN-UNSPEC 06/03/2016 ЕКАТЕРИНА SCHNEIDER FACC, ALI FACP CCDS Ot 785.9 CARDIOVAS SYS SYMP NEC 06/03/2016 ЕКАТЕРИНА SCHNEIDER FACC, ALI FACP CCDS Ot V17.49 FAMILY HISTORY OF OTHER CARDIOVASCULAR D 06/03/2016 Ot 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 06/03/2016 ЕКАТЕРИНА SCHNEIDER FACC, ALI FACP CCDS Ot 278.00 OBESITY, NOS 06/03/2016 ЕКАТЕРИНА SCHNEIDER FACC, ALI FACP CCDS Ot 414.00 CORON ATHEROSCLER NOS TYPE VESSEL, NATIV 06/03/2016 ЕКАТЕРИНА SCHNEIDER FACC, ALI FACP CCDS Ot 425.4 PRIM CARDIOMYOPATHY NEC 06/03/2016 ЕКАТЕРИНА SCHNEIDER FACC, ALI FACP CCDS Ot 785.9 CARDIOVAS SYS SYMP NEC 06/03/2016 ЕКАТЕРИНА SCHNEIDER FACC, ALI FACP CCDS Ot V17.49 FAMILY HISTORY OF OTHER CARDIOVASCULAR D 06/03/2016 RON CAMARENA MD Ot 787.91 DIARRHEA 06/03/2016 RON CAMARENA MD Ot 709.8 SKIN DISORDERS NEC 06/03/2016 RON CAMARENA MD Ot V49.76 ABOVE KNEE AMPUTATION STATUS 06/03/2016 ЕКАТЕРИНА MD FACC, ALI FACP CCDS Ot I25.10 ATHSCL HEART DISEASE OF [place] CORONARY 06/03/2016 ЕКАТЕРИНА SCHNEIDER FACC, ALI FACP CCDS Ot I42.9 CARDIOMYOPATHY, UNSPECIFIED 06/03/2016 ЕКАТЕРИНА SCHNEIDER FACTiffanie, ALI FACP CCDS Ot K21.9 GASTRO-ESOPHAGEAL REFLUX DISEASE WITHOUT 06/03/2016 ЕКАТЕРИНА SCHNEIDER FACC, ALI FACP CCDS Ot M25.50 PAIN IN UNSPECIFIED JOINT 06/03/2016 ЕКАТЕРИНА SCHNEIDER FACC, ALI FACP CCDS Ot Z82.49 FAMILY HX OF ISCHEM HEART DIS AND OTH DI 06/03/2016 ЕКАТЕРИНА SCHNEIDER FACC, ALI FACP CCDS Ot I25.10 ATHSCL HEART DISEASE OF [place] CORONARY 06/03/2016 ЕКАТЕРИНА SCHNEIDER FACC, ALI FACP CCDS Ot I42.0 DILATED CARDIOMYOPATHY 06/03/2016 ЕКАТЕРИНА SCHNEIDER FACC, ALI FACP CCDS Ot R06.02 SHORTNESS OF BREATH 06/03/2016 ADELAIDA PRETTY DO Ot E66.9 OBESITY, UNSPECIFIED 06/03/2016 ADELAIDA PRETTY DO Ot R06.02 SHORTNESS OF BREATH 06/03/2016 ADELAIDA PRETTY DO Ot R09.89 OTH SYMPTOMS AND SIGNS INVOLVING THE CIR 06/03/2016 Ot E66.9 OBESITY, UNSPECIFIED 06/03/2016 Ot R06.02 SHORTNESS OF BREATH 06/03/2016 Ot R09.89 OTH SYMPTOMS AND SIGNS INVOLVING THE CIR 06/03/2016 Ot Z82.49 FAMILY HX OF ISCHEM HEART DIS AND OTH DI 06/03/2016 ЕКАТЕРИНА SCHNEIDER FACC, ALI FACP CCDS Ot I25.10 ATHSCL HEART DISEASE OF [place] CORONARY 06/03/2016 ЕКАТЕРИНА SCHNEIDER FACC, ALI FACP CCDS Ot I42.0 DILATED CARDIOMYOPATHY 06/03/2016 ЕКАТЕРИНА SCHNEIDER FACC, ALI FACP CCDS Ot M79.89 OTHER SPECIFIED SOFT TISSUE DISORDERS 06/03/2016 ЕКАТЕРИНА SCHNEIDER FACC, ALI FACP CCDS Ot N18.3 CHRONIC KIDNEY DISEASE, STAGE 3 ( MODERAT 06/03/2016 ЕКАТЕРИНА SCHNEIDER FACC, ALI FACP CCDS Ot R06.02 SHORTNESS OF BREATH 06/03/2016 ЕКАТЕРИНА SCHNEIDER FACC, ALI FACP CCDS Ot I25.10 ATHSCL HEART DISEASE OF [place] CORONARY 06/03/2016 ЕКАТЕРИНА SCHNEIDER FACC, ROSA FACP CCDS Ot I42.0 DILATED CARDIOMYOPATHY 06/03/2016 ЕКАТЕРИНА SCHNEIDER FACC, ALI FACP CCDS Ot M79.89 OTHER SPECIFIED SOFT TISSUE DISORDERS 06/03/2016 ЕКАТЕРИНА SCHNEIDER FACC, ALI FACP CCDS Ot N18.3 CHRONIC KIDNEY DISEASE, STAGE 3 ( MODERAT 06/03/2016 ЕКАТЕРИНА SCHNEIDER FACC, ALI FACP CCDS Ot R06.02 SHORTNESS OF BREATH 06/08/2016 Ot 715.96 OSTEOARTHROS NOS-L/LEG 06/08/2016 Ot V57.1 PHYSICAL THERAPY NEC 06/08/2016 Ot V57.21 ENCOUNTER FOR OCCUPATIONAL THERAPY 06/08/2016 Ot V72.63 PRE-PROCEDURAL LABORATORY EXAMINATION 06/08/2016 Ot V72.81 [id number]-BSOBCRERO CARDIOVASCULAR 06/08/2016 Ot V72.83 EXAM PRE-OPERATIVE NEC 06/08/2016 Ot V74.8 SCREEN-BACTERIAL DIS NEC 06/08/2016 Ot 715.36 LOC OSTEOARTH NOS-L/LEG 06/08/2016 Ot V72.63 PRE-PROCEDURAL LABORATORY EXAMINATION 06/08/2016 Ot V72.83 EXAM PRE-OPERATIVE NEC 06/08/2016 Ot V74.8 SCREEN-BACTERIAL DIS NEC 06/08/2016 ROSA DOMINGUEZ MD Ot V72.84 EXAM PRE-OPERATIVE NOS 06/08/2016 ЕКАТЕРИНА SCHNEIDER FACC, ROSA FACP CCDS Ot 278.00 OBESITY, NOS 06/08/2016 ЕКАТЕРИНА SCHNEIDER FACC, ALI FACP CCDS Ot 414.00 CORON ATHEROSCLER NOS TYPE VESSEL, NATIV 06/08/2016 ЕКАТЕРИНА SCHNEIDER FACC, ROSA FACP CCDS Ot 425.4 PRIM CARDIOMYOPATHY NEC 06/08/2016 ЕКАТЕРИНА SCHNEIDER FACC, ALI FACP CCDS Ot 530.81 ESOPHAGEAL REFLUX 06/08/2016 ЕКАТЕРИНА SCHNEIDER FACC, ALI FACP CCDS Ot 719.40 JOINT PAIN-UNSPEC 06/08/2016 ЕКАТЕРИНА SCHNEIDER FACC, ALI FACP CCDS Ot 785.9 CARDIOVAS SYS SYMP NEC 06/08/2016 ЕКАТЕРИНА SCHNEIDER FACC, ALI FACP CCDS Ot 278.00 OBESITY, NOS 06/08/2016 ЕКАТЕРИНА SCHNEIDER FACC, ALI FACP CCDS Ot 414.00 CORON ATHEROSCLER NOS TYPE VESSEL, NATIV 06/08/2016 ЕКАТЕРИНА SCHNEIDER FACC, ROSA FACP CCDS Ot 425.4 PRIM CARDIOMYOPATHY NEC 06/08/2016 ЕКАТЕРИНА SCHNEIDER FACC, ALI FACP CCDS Ot 530.81 ESOPHAGEAL REFLUX 06/08/2016 ЕКАТЕРИНА SCHNEIDER FACC, ALI FACP CCDS Ot 719.40 JOINT PAIN-UNSPEC 06/08/2016 ЕКАТЕРИНА SCHNEIDER FACC, ALI FACP CCDS Ot 785.9 CARDIOVAS SYS SYMP NEC 06/08/2016 ЕКАТЕРИНА SCHNEIDER FACC, ALI FACP CCDS Ot V17.49 FAMILY HISTORY OF OTHER CARDIOVASCULAR D 06/08/2016 Ot 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 06/08/2016 ЕКАТЕРИНА SCHNEIDER FACC, ROSA FACP CCDS Ot 278.00 OBESITY, NOS 06/08/2016 ЕКАТЕРИНА SCHNEIDER FACC, ROSA FACP CCDS Ot 414.00 CORON ATHEROSCLER NOS TYPE VESSEL, NATIV 06/08/2016 ЕКАТЕРИНА SCHNEIDER FACC, ALI FACP CCDS Ot 425.4 PRIM CARDIOMYOPATHY NEC 06/08/2016 ЕКАТЕРИНА SCHNEIDER FACC, ALI FACP CCDS Ot 785.9 CARDIOVAS SYS SYMP NEC 06/08/2016 ЕКАТЕРИНА SCHNEIDER FACC, ALI FACP CCDS Ot V17.49 FAMILY HISTORY OF OTHER CARDIOVASCULAR D 06/08/2016 MIGUE SCHNEIDER, RON Rasheed Ot 787.91 DIARRHEA 06/08/2016 RON CAMARENA MD Ot 709.8 SKIN DISORDERS NEC 06/08/2016 RON CAMARENA MD Ot V49.76 ABOVE KNEE AMPUTATION STATUS 06/08/2016 ЕКАТЕРИНА SCHNEIDER FACC, ALI FACP CCDS Ot I25.10 ATHSCL HEART DISEASE OF [place] CORONARY 06/08/2016 ЕКАТЕРИНА SCHNEIDER FACC, ROSA FACP CCDS Ot I42.9 CARDIOMYOPATHY, UNSPECIFIED 06/08/2016 ЕКАТЕРИНА SCHNEIDER FACC, ROSA FACP CCDS Ot K21.9 GASTRO-ESOPHAGEAL REFLUX DISEASE WITHOUT 06/08/2016 ЕКАТЕРИНА SCHNEIDER FACC, ROSA FACP CCDS Ot M25.50 PAIN IN UNSPECIFIED JOINT 06/08/2016 ЕКАТЕРИНА SCHNEIDER FACC, ALI FACP CCDS Ot Z82.49 FAMILY HX OF ISCHEM HEART DIS AND OTH DI 06/08/2016 ЕКАТЕРИНА SCHNEIDER FACC, ALI FACP CCDS Ot I25.10 ATHSCL HEART DISEASE OF [place] CORONARY 06/08/2016 ЕКАТЕРИНА SCHNEIDER FACC, ROSA FACP CCDS Ot I42.0 DILATED CARDIOMYOPATHY 06/08/2016 ЕКАТЕРИНА ALLEN, ALI FACP CCDS Ot R06.02 SHORTNESS OF BREATH 06/08/2016 ADELAIDA PRETTY DO Ot E66.9 OBESITY, UNSPECIFIED 06/08/2016 ADELAIDA PRETTY DO Ot R06.02 SHORTNESS OF BREATH 06/08/2016 ADELAIDA PRETTY DO Ot R09.89 OTH SYMPTOMS AND SIGNS INVOLVING THE CIR 06/08/2016 LITO ADAMS APRN Ot R06.02 SHORTNESS OF BREATH 06/08/2016 Ot E66.9 OBESITY, UNSPECIFIED 06/08/2016 Ot R06.02 SHORTNESS OF BREATH 06/08/2016 Ot R09.89 OTH SYMPTOMS AND SIGNS INVOLVING THE CIR 06/08/2016 Ot Z82.49 FAMILY HX OF ISCHEM HEART DIS AND OTH DI 06/08/2016 ЕКАТЕРИНА SCHNEIDER FACC, ALI FACP CCDS Ot I25.10 ATHSCL HEART DISEASE OF [place] CORONARY 06/08/2016 ЕКАТЕРИНА SCHNEIDER FACC, ROSA FACP CCDS Ot I42.0 DILATED CARDIOMYOPATHY 06/08/2016 ЕКАТЕРИНА SCHNEIDER FACC, ALI FACP CCDS Ot M79.89 OTHER SPECIFIED SOFT TISSUE DISORDERS 06/08/2016 ЕКАТЕРИНА SCHNEIDER FACC, ALI FACP CCDS Ot N18.3 CHRONIC KIDNEY DISEASE, STAGE 3 ( MODERAT 06/08/2016 ЕКАТЕРИНА SCHNEIDER FACC, ALI FACP CCDS Ot R06.02 SHORTNESS OF BREATH 06/08/2016 ЕКАТЕРИНА SCHNEIDER FACTiffanie, ALI FACP CCDS Ot I25.10 ATHSCL HEART DISEASE OF [place] CORONARY 06/08/2016 ЕКАТЕРИНА SCHNEIDER FACC, ROSA FACP CCDS Ot I42.0 DILATED CARDIOMYOPATHY 06/08/2016 ЕКАТЕРИНА SCHNEIDER FACC, ALI FACP CCDS Ot M79.89 OTHER SPECIFIED SOFT TISSUE DISORDERS 06/08/2016 ЕКАТЕРИНА SCHNEIDER FACC, ALI FACP CCDS Ot N18.3 CHRONIC KIDNEY DISEASE, STAGE 3 ( MODERAT 06/08/2016 ЕКАТЕРИНА SCHNEIDER FACC, ALI FACP CCDS Ot R06.02 SHORTNESS OF BREATH 06/09/2016 LITO ADAMS MANAGER LOGISTIC Ot R06.02 SHORTNESS OF BREATH 06/09/2016 LITO ADAMS MANAGER LOGISTIC Ot E66.9 OBESITY, UNSPECIFIED 06/09/2016 BRYAN, LITO Rouse MANAGER LOGISTIC Ot R06.02 SHORTNESS OF BREATH 06/09/2016 BRYAN, LITO Rouse MANAGER LOGISTIC Ot R09.89 OTH SYMPTOMS AND SIGNS INVOLVING THE CIR 06/09/2016 BRYAN LITO Padma MANAGER LOGISTIC Ot R91.1 SOLITARY PULMONARY NODULE 06/09/2016 BRYAN, LITO Rouse MANAGER LOGISTIC Ot Z82.49 FAMILY HX OF ISCHEM HEART DIS AND OTH DI 06/14/2016 LITO ADAMS MANAGER LOGISTIC Ot E66.9 OBESITY, UNSPECIFIED 06/14/2016 BRYAN, LITO Rouse MANAGER LOGISTIC Ot R06.02 SHORTNESS OF BREATH 06/14/2016 BRIDGETTE ADAMSINE Padma MANAGER LOGISTIC Ot R09.89 OTH SYMPTOMS AND SIGNS INVOLVING THE CIR 06/14/2016 BRYAN, LITO Rouse MANAGER LOGISTIC Ot R91.1 SOLITARY PULMONARY NODULE 06/14/2016 BRYAN, LITO Rouse MANAGER LOGISTIC Ot Z82.49 FAMILY HX OF ISCHEM HEART DIS AND OTH DI 06/16/2016 JOEL VILLALPANDO INSPECTOR HANDBAG FRAMES Ot I25.10 ATHSCL HEART DISEASE OF [place] CORONARY 06/16/2016 JOEL VILLALPANDO INSPECTOR HANDBAG FRAMES Ot 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 06/16/2016 JOEL VILLALPANDO INSPECTOR HANDBAG FRAMES Ot I42.9 CARDIOMYOPATHY, UNSPECIFIED 06/16/2016 JOEL VILLALPANDO INSPECTOR HANDBAG FRAMES Ot I50.22 CHRONIC SYSTOLIC (CONGESTIVE) HEART FAIL 06/16/2016 JOEL VILLALPANDO INSPECTOR HANDBAG FRAMES Ot N18.3 CHRONIC KIDNEY DISEASE, STAGE 3 ( MODERAT 06/16/2016 JOEL VILLALPANDO INSPECTOR HANDBAG FRAMES Ot R06.02 SHORTNESS OF BREATH 06/16/2016 JOEL VILLALPANDO INSPECTOR HANDBAG FRAMES Ot Z79.899 OTHER USP (CURRENT) DRUG THERAPY 06/16/2016 JOEL VILLALPANDO INSPECTOR HANDBAG FRAMES Ot 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 06/17/2016 JIM SCHNEIDER, SAMUEL Moreno Ot G47.00 INSOMNIA, UNSPECIFIED 06/17/2016 SAMUEL FERNANDEZ MD Ot H40.9 UNSPECIFIED GLAUCOMA 06/17/2016 SAMUEL FERNANDEZ MD Ot I12.9 HYPERTENSIVE CHRONIC KIDNEY DISEASE W ST 06/17/2016 SAMUEL FERNANDEZ MD Ot K21.9 GASTRO-ESOPHAGEAL REFLUX DISEASE WITHOUT 06/17/2016 SAMUEL FERNANDEZ MD Ot K57.32 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 06/17/2016 SAMUEL FERNANDEZ MD Ot N18.9 CHRONIC KIDNEY DISEASE, UNSPECIFIED 06/17/2016 SAMUEL FERNANDEZ MD Ot 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 06/17/2016 SAMUEL FERNANDEZ MD Ot Z96.652 PRESENCE OF LEFT ARTIFICIAL KNEE JOINT 06/17/2016 SAMUEL FERNANDEZ MD Ot G47.00 INSOMNIA, UNSPECIFIED 06/17/2016 SAMUEL FERNANDEZ MD Ot H40.9 UNSPECIFIED GLAUCOMA 06/17/2016 SAMUEL FERNANDEZ MD Ot I12.9 HYPERTENSIVE CHRONIC KIDNEY DISEASE W ST 06/17/2016 SAMUEL FERNANDEZ MD Ot K21.9 GASTRO-ESOPHAGEAL REFLUX DISEASE WITHOUT 06/17/2016 SAMUEL FERNANDEZ MD Ot K57.32 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 06/17/2016 SAMUEL FERNANDEZ MD Ot N18.9 CHRONIC KIDNEY DISEASE, UNSPECIFIED 06/17/2016 SAMUEL FERNANDEZ MD Ot 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 06/17/2016 SAMUEL FERNANDEZ MD Ot Z96.652 PRESENCE OF LEFT ARTIFICIAL KNEE JOINT 06/18/2016 SAMUEL FERNANDEZ MD Ot G47.00 INSOMNIA, UNSPECIFIED 06/18/2016 SAMUEL FERNANDEZ MD Ot H40.9 UNSPECIFIED GLAUCOMA 06/18/2016 SAMUEL FERNANDEZ MD Ot I12.9 HYPERTENSIVE CHRONIC KIDNEY DISEASE W ST 06/18/2016 SAMUEL FERNANDEZ MD Ot K21.9 GASTRO-ESOPHAGEAL REFLUX DISEASE WITHOUT 06/18/2016 SAMUEL FERNANDEZ MD Ot K57.32 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 06/18/2016 SAMUEL FERNANDEZ MD Ot N18.9 CHRONIC KIDNEY DISEASE, UNSPECIFIED 06/18/2016 SAMUEL FERNANDEZ MD Ot 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 06/18/2016 SAMUEL FERNANDEZ MD Ot Z96.652 PRESENCE OF LEFT ARTIFICIAL KNEE JOINT 06/18/2016 SAMUEL FERNANDEZ MD Ot G47.00 INSOMNIA, UNSPECIFIED 06/18/2016 SAMUEL FERNANDEZ MD Ot H40.9 UNSPECIFIED GLAUCOMA 06/18/2016 SAMUEL FERNANDEZ MD Ot I12.9 HYPERTENSIVE CHRONIC KIDNEY DISEASE W ST 06/18/2016 SAMUEL FERNANDEZ MD Ot K21.9 GASTRO-ESOPHAGEAL REFLUX DISEASE WITHOUT 06/18/2016 SAMUEL FERNANDEZ MD Ot K57.32 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 06/18/2016 SAMUEL FERNANDEZ MD Ot N18.9 CHRONIC KIDNEY DISEASE, UNSPECIFIED 06/18/2016 SAMUEL FERNANDEZ MD Ot 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 06/18/2016 SAMUEL FERNANDEZ MD Ot Z96.652 PRESENCE OF LEFT ARTIFICIAL KNEE JOINT 06/18/2016 SAMUEL FERNANDEZ MD Ot A41.9 SEPSIS, UNSPECIFIED ORGANISM 06/18/2016 SAMUEL FERNANDEZ MD Ot G47.00 INSOMNIA, UNSPECIFIED 06/18/2016 SAMUEL FERNANDEZ MD Ot H40.9 UNSPECIFIED GLAUCOMA 06/18/2016 SAMUEL FERNANDEZ MD Ot I12.9 HYPERTENSIVE CHRONIC KIDNEY DISEASE W ST 06/18/2016 SAMUEL FERNANDEZ MD Ot K21.9 GASTRO-ESOPHAGEAL REFLUX DISEASE WITHOUT 06/18/2016 SAMUEL FERNANDEZ MD Ot K57.32 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 06/18/2016 SAMUEL FERNANDEZ MD Ot N18.3 CHRONIC KIDNEY DISEASE, STAGE 3 (MODERAT 06/18/2016 SAMUEL FERNANDEZ MD Ot 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 06/18/2016 SAMUEL FERNANDEZ MD Ot Z96.652 PRESENCE OF LEFT ARTIFICIAL KNEE JOINT 06/19/2016 SAMUEL FERNANDEZ MD Ot A41.9 SEPSIS, UNSPECIFIED ORGANISM 06/19/2016 SAMUEL FERNANDEZ MD Ot G47.00 INSOMNIA, UNSPECIFIED 06/19/2016 SAMUEL FERNANDEZ MD Ot H40.9 UNSPECIFIED GLAUCOMA 06/19/2016 SAMUEL FERNANDEZ MD Ot I12.9 HYPERTENSIVE CHRONIC KIDNEY DISEASE W ST 06/19/2016 SAMUEL FERNANDEZ MD Ot K21.9 GASTRO-ESOPHAGEAL REFLUX DISEASE WITHOUT 06/19/2016 SAMUEL FERNANDEZ MD Ot K57.32 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 06/19/2016 SAMUEL FERNANDEZ MD Ot N18.3 CHRONIC KIDNEY DISEASE, STAGE 3 (MODERAT 06/19/2016 SAMUEL FERNANDEZ MD Ot 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 06/19/2016 SAMUEL FERNANDEZ MD Ot Z96.652 PRESENCE OF LEFT ARTIFICIAL KNEE JOINT 07/02/2016 LITO ADAMS APRN Ot E66.9 OBESITY, UNSPECIFIED 07/02/2016 LITO ADAMS APRN Ot R06.02 SHORTNESS OF BREATH 07/02/2016 LITO ADAMS APRN Ot R09.89 OTH SYMPTOMS AND SIGNS INVOLVING THE CIR 07/02/2016 LITO ADAMS MANAGER LOGISTIC Ot R91.1 SOLITARY PULMONARY NODULE 07/02/2016 LITO ADAMS MANAGER LOGISTIC Ot Z82.49 FAMILY HX OF ISCHEM HEART DIS AND OTH DI 07/08/2016 LITO ADAMS APRN Ot E66.9 OBESITY, UNSPECIFIED 07/08/2016 LITO ADAMS APRN Ot R06.02 SHORTNESS OF BREATH 07/08/2016 LITO ADAMS APRN Ot R09.89 OTH SYMPTOMS AND SIGNS INVOLVING THE CIR 07/08/2016 LITO ADAMS APRN Ot R91.1 SOLITARY PULMONARY NODULE 07/08/2016 LITO ADAMS MANAGER LOGISTIC Ot Z82.49 FAMILY HX OF [place]HE[place] HEART DIS AND OTH DI 07/26/2016 Ot 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 07/26/2016 Ot E66.9 OBESITY, UNSPECIFIED 07/26/2016 Ot R06.02 SHORTNESS OF BREATH 07/26/2016 Ot R09.89 OTH SYMPTOMS AND SIGNS INVOLVING THE CIR 07/26/2016 Ot Z82.49 FAMILY HX OF ISCHEM HEART DIS AND OTH DI 07/27/2016 ROSA DOMINGUEZ MD Ot K57.92 DVTRCLI OF INTEST, PART UNSP, W/O PERF O 07/27/2016 ROSA DOMINGUEZ MD Ot Z01.818 ENCOUNTER FOR OTHER PREPROCEDURAL EXAMIN 07/28/2016 ROSA DOMINGUEZ MD, Ot K57.90 DVRTCLOS OF INTEST, PART UNSP, W/O PERF 07/28/2016 ROSA DOMINGUEZ MD Ot K64.1 SECOND DEGREE HEMORRHOIDS 07/28/2016 ROSA DOMINGUEZ MD, Ot Q27.33 ARTERIOVENOUS MALFORMATION OF DIGESTIVE Procedures Code Description Performed By Performed On 81.54 TOTAL KNEE REPLACEMENT 04/05/2012 81.54 TOTAL KNEE REPLACEMENT 07/12/2012 38.91 ARTERIAL CATHETERIZATION 06/20/2014 39.97 OTHER PERFUSION 06/20/2014 88.42 CONTRAST AORTOGRAM 06/20/2014 88.48 CONTRAST ARTERIOGRAM-LEG 06/20/2014 00.40 PROCEDURE ON SINGLE VESSEL 06/21/2014 39.50 ANGIOPLASTY OF OTHER NON-CORONARY VESSEL 06/21/2014 39.90 INSEJ SDE-[id number] PERIPHERAL NON-CO 06/21/2014 88.48 CONTRAST ARTERIOGRAM-LEG 06/21/2014 38.93 VENOUS CATHETERIZATION NEC 06/22/2014 96.72 CONTINUOUS INVASIVE MECHANICAL VENTILATI 06/22/2014 00.43 PROCEDURE ON FOUR OR MORE VESSELS 06/27/2014 00.44 PROCEDURE ON VESSEL BIFURCATION 06/27/2014 00.48 INSERTION OF FOUR OR MORE VASCULAR STENT 06/27/2014 00.55 INSEJ OF DRUG-ELUTING STENT(S) OF OTH PE 06/27/2014 39.50 ANGIOPLASTY OF OTHER NON-CORONARY VESSEL 06/27/2014 39.90 INSEJ ZLY-[id number] PERIPHERAL NON-CO 06/27/2014 88.48 CONTRAST ARTERIOGRAM-LEG 06/27/2014 83.45 OTHER MYECTOMY 38.93 VENOUS CATHETERIZATION NEC 07/23/2014 84.17 ABOVE KNEE AMPUTATION 07/23/2014 Results Test Result Range Automated blood complete blood count (hemogram) panel - 05/11/16 11:53 Blood leukocytes automated count (number/volume) 5.1 10*3/ uL 4.3-11.0 Blood erythrocytes automated count (number/volume) 5.41 10*6 /uL 4.35-5.85 Venous blood hemoglobin measurement (mass/volume) 16.2 g/dL 13.3-17.7 Blood hematocrit (volume fraction) 47 % 40-54 Automated erythrocyte mean corpuscular volume 86 [foz_us] 80-99 Automated erythrocyte mean corpuscular hemoglobin (mass per erythrocyte) 30 pg 25-34 Automated erythrocyte mean corpuscular hemoglobin concentration measurement ( mass/volume) 35 g/dL 32-36 Automated erythrocyte distribution width ratio 13.0 % 10.0-14.5 Automated blood platelet count (count/volume) 149 10*3/uL 130-400 Automated blood platelet mean volume measurement 10.7 [foz_ us] 7.4-10.4 PT panel in platelet poor plasma by coagulation assay - 05/11/16 11:53 Prothrombin time (PT) in platelet poor plasma by coagulation assay 13.0 s 12.2-14.7 INR in platelet poor plasma or blood by coagulation assay 1.0 0.8-1.4 Activated partial thromboplastin time (aPTT) in platelet poor plasma bycoagulation assay - 05/11/16 11:53 Activated partial thromboplastin time (aPTT) in platelet poor plasma bycoagulation assay 31 s 24-35 Comprehensive metabolic panel - 05/11/16 11:53 Serum or plasma sodium measurement (moles/volume) 144 mmol/ L 135-145 Serum or plasma potassium measurement (moles/volume) 4.1 mmol/L 3.6-5.0 Serum or plasma chloride measurement (moles/volume) 112 mmol /L 98-107 Carbon dioxide 23 mmol/L 21-32 Serum or plasma anion gap determination (moles/volume) 9 mmol/L 5-14 Serum or plasma urea nitrogen measurement (mass/volume) 28 mg/dL 7-18 Serum or plasma creatinine measurement (mass/volume) 1.36 mg /dL 0.60-1.30 Serum or plasma urea nitrogen/creatinine mass ratio 21 NRG Serum or plasma creatinine measurement with calculation of estimated glomerular filtration rate 51 NRG Serum or plasma glucose measurement (mass/volume) 101 mg/dL 70-105 Serum or plasma calcium measurement (mass/volume) 9.6 mg/dL 8.5-10.1 Serum or plasma total bilirubin measurement (mass/volume) 1.4 mg/dL 0.1-1.0 Serum or plasma alkaline phosphatase measurement (enzymatic activity/volume) 88 U/L 40-136 Serum or plasma aspartate aminotransferase measurement (enzymatic activity/ volume) 22 U/L 5-34 Serum or plasma alanine aminotransferase measurement (enzymatic activity/volume ) 22 U/L 0-55 Serum or plasma protein measurement (mass/volume) 7.1 g/dL 6.4-8.2 Serum or plasma albumin measurement (mass/volume) 4.3 g/dL 3.2-4.5 Lipid 1996 panel - 05/11/16 11:53 Serum or plasma triglyceride measurement (mass/volume) 171 mg/dL <150 Serum or plasma cholesterol measurement (mass/volume) 182 mg /dL < 200 Serum or plasma cholesterol in HDL measurement (mass/volume) 34 mg/dL 40-60 Cholesterol in LDL [mass/volume] in serum or plasma by direct assay 124 mg/dL 1-129 Serum or plasma cholesterol in VLDL measurement (mass/volume) 34 mg/dL 5-40 Methicillin resistant Staphylococcus aureus (MRSA) screening culture - 11:53 Methicillin resistant Staphylococcus aureus (MRSA) screening culture NEG NRG Complete blood count (CBC) with automated white blood cell (WBC) differential - 06/17/16 02:23 Blood leukocytes automated count (number/volume) 8.5 10*3/ uL 4.3-11.0 Blood erythrocytes automated count (number/volume) 4.99 10*6 /uL 4.35-5.85 Venous blood hemoglobin measurement (mass/volume) 14.8 g/dL 13.3-17.7 Blood hematocrit (volume fraction) 43 % 40-54 Automated erythrocyte mean corpuscular volume 86 [foz_us] 80-99 Automated erythrocyte mean corpuscular hemoglobin (mass per erythrocyte) 30 pg 25-34 Automated erythrocyte mean corpuscular hemoglobin concentration measurement ( mass/volume) 34 g/dL 32-36 Automated erythrocyte distribution width ratio 12.9 % 10.0-14.5 Automated blood platelet count (count/volume) 137 10*3/uL 130-400 Automated blood platelet mean volume measurement 10.0 [foz_ us] 7.4-10.4 Automated blood neutrophils/100 leukocytes 72 % 42-75 Automated blood lymphocytes/100 leukocytes 19 % 12-44 Blood monocytes/100 leukocytes 7 % 0-12 Automated blood eosinophils/100 leukocytes 1 % 0-10 Automated blood basophils/100 leukocytes 1 % 0-10 Blood neutrophils automated count (number/volume) 6.1 10*3 1.8-7.8 Blood lymphocytes automated count (number/volume) 1.6 10*3 1.0-4.0 Blood monocytes automated count (number/volume) 0.6 10*3 0.0-1.0 Automated eosinophil count 0.1 10*3/uL 0.0-0.3 Automated blood basophil count (count/volume) 0.1 10*3/uL 0.0-0.1 Comprehensive metabolic panel - 06/17/16 02:23 Serum or plasma sodium measurement (moles/volume) 142 mmol/ L 135-145 Serum or plasma potassium measurement (moles/volume) 3.9 mmol/L 3.6-5.0 Serum or plasma chloride measurement (moles/volume) 111 mmol /L 98-107 Carbon dioxide 19 mmol/L 21-32 Serum or plasma anion gap determination (moles/volume) 12 mmol/L 5-14 Serum or plasma urea nitrogen measurement (mass/volume) 26 mg/dL 7-18 Serum or plasma creatinine measurement (mass/volume) 1.33 mg /dL 0.60-1.30 Serum or plasma urea nitrogen/creatinine mass ratio 20 NRG Serum or plasma creatinine measurement with calculation of estimated glomerular filtration rate 52 NRG Serum or plasma glucose measurement (mass/volume) 117 mg/dL 70-105 Serum or plasma calcium measurement (mass/volume) 9.3 mg/dL 8.5-10.1 Serum or plasma total bilirubin measurement (mass/volume) 0.7 mg/dL 0.1-1.0 Serum or plasma alkaline phosphatase measurement (enzymatic activity/volume) 86 U/L 40-136 Serum or plasma aspartate aminotransferase measurement (enzymatic activity/ volume) 23 U/L 5-34 Serum or plasma alanine aminotransferase measurement (enzymatic activity/volume ) 23 U/L 0-55 Serum or plasma protein measurement (mass/volume) 6.7 g/dL 6.4-8.2 Serum or plasma albumin measurement (mass/volume) 4.0 g/dL 3.2-4.5 Magnesium - 06/17/16 02:23 Magnesium 2.1 mg/dL 1.8-2.4 Complete urinalysis with reflex to culture - 06/17/16 03:34 Urine color determination YELLOW NRG Urine clarity determination CLEAR NRG Urine pH measurement by test strip 6 5- 9 Specific gravity of urine by test strip 1.010 1.016-1.022 Urine protein assay by test strip, semi-quantitative NEGATIVE NEGATIVE Urine glucose detection by automated test strip NEGATIVE NEGATIVE Erythrocytes detection in urine sediment by light microscopy 1+ NEGATIVE Urine ketones detection by automated test strip 3+ NEGATIVE Urine nitrite detection by test strip NEGATIVE NEGATIVE Urine total bilirubin detection by test strip NEGATIVE NEGATIVE Urine urobilinogen measurement by automated test strip (mass/volume) NORMAL NORMAL Urine leukocyte esterase detection by dipstick NEGATIVE NEGATIVE Automated urine sediment erythrocyte count by microscopy (number/high power field) NONE NRG Automated urine sediment leukocyte count by microscopy (number/high power field ) NONE NRG Bacteria detection in urine sediment by light microscopy NEGATIVE NRG Squamous epithelial cells detection in urine sediment by light microscopy 0-2 NRG Crystals detection in urine sediment by light microscopy NONE NRG Casts detection in urine sediment by light microscopy NONE NRG Mucus detection in urine sediment by light microscopy NEGATIVE NRG Complete urinalysis with reflex to culture NO NRG Bacterial blood culture - 06/17/16 04:32 Bacterial blood culture NG NRG Blood lactic acid measurement (moles/volume) - 06/17/16 04:55 Blood lactic acid measurement (moles/volume) 1.9 mmol/L 0.5-2.0 Bacterial blood culture - 06/17/16 04:55 Bacterial blood culture NG NRG Complete blood count (CBC) with automated white blood cell (WBC) differential - 06/18/16 04:48 Blood leukocytes automated count (number/volume) 13.5 10*3/ uL 4.3-11.0 Blood erythrocytes automated count (number/volume) 4.38 10*6 /uL 4.35-5.85 Venous blood hemoglobin measurement (mass/volume) 13.3 g/dL 13.3-17.7 Blood hematocrit (volume fraction) 38 % 40-54 Automated erythrocyte mean corpuscular volume 87 [foz_us] 80-99 Automated erythrocyte mean corpuscular hemoglobin (mass per erythrocyte) 30 pg 25-34 Automated erythrocyte mean corpuscular hemoglobin concentration measurement ( mass/volume) 35 g/dL 32-36 Automated erythrocyte distribution width ratio 13.0 % 10.0-14.5 Automated blood platelet count (count/volume) 114 10*3/uL 130-400 Automated blood platelet mean volume measurement 10.6 [foz_ us] 7.4-10.4 Automated blood neutrophils/100 leukocytes 83 % 42-75 Automated blood lymphocytes/100 leukocytes 8 % 12-44 Blood monocytes/100 leukocytes 8 % 0-12 Automated blood eosinophils/100 leukocytes 0 % 0-10 Automated blood basophils/100 leukocytes 0 % 0-10 Blood neutrophils automated count (number/volume) 11.3 10*3 1.8-7.8 Blood lymphocytes automated count (number/volume) 1.1 10*3 1.0-4.0 Blood monocytes automated count (number/volume) 1.1 10*3 0.0-1.0 Automated eosinophil count 0.0 10*3/uL 0.0-0.3 Automated blood basophil count (count/volume) 0.0 10*3/uL 0.0-0.1 Serum or plasma renal function panel (Na, K, Cl, CO2, BUN, Cr, glucose,Ca, phos , alb) - 06/18/16 04:48 Serum or plasma sodium measurement (moles/volume) 139 mmol/ L 135-145 Serum or plasma potassium measurement (moles/volume) 3.7 mmol/L 3.6-5.0 Serum or plasma chloride measurement (moles/volume) 109 mmol /L 98-107 Carbon dioxide 18 mmol/L 21-32 Serum or plasma anion gap determination (moles/volume) 12 mmol/L 5-14 Serum or plasma urea nitrogen measurement (mass/volume) 18 mg/dL 7-18 Serum or plasma creatinine measurement (mass/volume) 1.14 mg /dL 0.60-1.30 Serum or plasma urea nitrogen/creatinine mass ratio 16 NRG Serum or plasma creatinine measurement with calculation of estimated glomerular filtration rate > NRG Serum or plasma glucose measurement (mass/volume) 124 mg/dL 70-105 Serum or plasma calcium measurement (mass/volume) 8.2 mg/dL 8.5-10.1 Serum or plasma albumin measurement (mass/volume) 3.4 g/dL 3.2-4.5 Serum or plasma phosphate measurement (mass/volume) 2.8 mg/ dL 2.3-4.7 Bacterial blood culture - 06/18/16 06:22 Bacterial blood culture NG [facility] Bacterial blood culture - 06/18/16 06:29 Bacterial blood culture NG [facility] Complete blood count (CBC) with automated white blood cell (WBC) differential - 06/19/16 04:25 Blood leukocytes automated count (number/volume) 10.8 10*3/ uL 4.3-11.0 Blood erythrocytes automated count (number/volume) 4.31 10*6 /uL 4.35-5.85 Venous blood hemoglobin measurement (mass/volume) 12.9 g/dL 13.3-17.7 Blood hematocrit (volume fraction) 38 % 40-54 Automated erythrocyte mean corpuscular volume 88 [foz_us] 80-99 Automated erythrocyte mean corpuscular hemoglobin (mass per erythrocyte) 30 pg 25-34 Automated erythrocyte mean corpuscular hemoglobin concentration measurement ( mass/volume) 34 g/dL 32-36 Automated erythrocyte distribution width ratio 13.2 % 10.0-14.5 Automated blood platelet count (count/volume) 110 10*3/uL 130-400 Automated blood platelet mean volume measurement 10.9 [foz_ us] 7.4-10.4 Automated blood neutrophils/100 leukocytes 84 % 42-75 Automated blood lymphocytes/100 leukocytes 8 % 12-44 Blood monocytes/100 leukocytes 8 % 0-12 Automated blood eosinophils/100 leukocytes 0 % 0-10 Automated blood basophils/100 leukocytes 0 % 0-10 Blood neutrophils automated count (number/volume) 9.0 10*3 1.8-7.8 Blood lymphocytes automated count (number/volume) 0.9 10*3 1.0-4.0 Blood monocytes automated count (number/volume) 0.9 10*3 0.0-1.0 Automated eosinophil count 0.0 10*3/uL 0.0-0.3 Automated blood basophil count (count/volume) 0.0 10*3/uL 0.0-0.1 Serum or plasma renal function panel (Na, K, Cl, CO2, BUN, Cr, glucose,Ca, phos , alb) - 06/19/16 04:25 Serum or plasma sodium measurement (moles/volume) 138 mmol/ L 135-145 Serum or plasma potassium measurement (moles/volume) 3.4 mmol/L 3.6-5.0 Serum or plasma chloride measurement (moles/volume) 111 mmol /L 98-107 Carbon dioxide 19 mmol/L 21-32 Serum or plasma anion gap determination (moles/volume) 8 mmol/L 5-14 Serum or plasma urea nitrogen measurement (mass/volume) 18 mg/dL 7-18 Serum or plasma creatinine measurement (mass/volume) 1.06 mg /dL 0.60-1.30 Serum or plasma urea nitrogen/creatinine mass ratio 17 NRG Serum or plasma creatinine measurement with calculation of estimated glomerular filtration rate > NRG Serum or plasma glucose measurement (mass/volume) 116 mg/dL 70-105 Serum or plasma calcium measurement (mass/volume) 8.0 mg/dL 8.5-10.1 Serum or plasma albumin measurement (mass/volume) 3.0 g/dL 3.2-4.5 Serum or plasma phosphate measurement (mass/volume) 1.7 mg/ dL 2.3-4.7 Encounters ACCT No. Visit Date/Time Discharge Status Pt. Type Provider Facility Loc./Unit Complaint [id number] 07/28/2016 09:14:00 2016 12:00:00 DIS Outpatient ROSA DOMINGUEZ MD [facility] ENDO DIVERTICULITIS [id number] 07/26/2016 05:51:00 2016 10:42:00 DIS Outpatient ROSA DOMINGUEZ MD [facility] PREOP DIVERTICULITIS [id number] 06/18/2016 11:10:00 2016 13:05:00 DIS Inpatient SAMUEL FERNANDEZ MD [facility] 4TH DIVERTICULITIS [id number] 06/03/2016 11:11:00 2015 13:31:00 DIS Outpatient SAMUEL FERNANDEZ MD [facility] REHAB BKA [id number] 05/11/2016 10:44:00 2015 17:35:00 DIS Outpatient JOEL VILLALPANDO [facility] CATH CAD,ABNORMAL STRESS TEST, DYSPNEA ON EXERTION [id number] 05/22/2015 09:59:00 2014 11:05:00 DIS Outpatient SOL SPEARS MD [facility] REHAB S/P R AKA [id number] 05/05/2015 08:01:00 2014 23:59:59 CLS Outpatient ROSA WILLAMS MD, FACC, FACP CCDS [facility] RAD SOB,CARDIOMYOPATHY,CAD [id number] 04/02/2015 09:28:00 2014 23:59:59 CLS Outpatient ROSA WILLAMS MD, FACC, FACP CCDS [facility] CARD NONISCHEMIC CARDIOMYOPATHY, CAD [id number] 03/06/2015 12:52:00 2014 13:43:00 DIS Outpatient SOL SPEARS MD [facility] REHAB LEG AMPUTATION; NEW PROSTHESIS [id number] 03/04/2015 13:15:00 2014 00:01:00 DIS Outpatient SOL SPEARS MD [facility] REHAB LEG AMPUTATION; NEW PROSTHESIS [id number] 09/17/2014 10:05:00 2014 23:59:59 CLS Outpatient RON CAMARENA MD [facility] POSSIBLE WOUND INFECTION, DRAINING WOUND (R) STUMP [id number] 09/05/2014 11:45:00 2014 23:59:59 CLS Outpatient RON CAMARENA MD [facility] LOOSE STOOLS, DIARRHEA [id number] 07/21/2014 15:30:00 2014 13:05:00 DIS Inpatient PHAM ORTEGA MD [facility] IRF DEBILITY; GANGRENOUS RIGHT LEG [id number] 06/22/2014 12:18:00 2014 16:47:00 DIS Inpatient RON CAMARENA MD [facility] SURGICAL POPLITEAL OCCLUSION; GANGRENOUS WOUND [id number] 06/13/2014 21:16:00 2014 14:25:00 DIS Inpatient RON CAMARENA MD [facility] ICU RUPTURED PLANTARIS TENDON [id number] 04/08/2014 08:34:00 2013 23:59:59 CLS Outpatient ROSA WILLAMS MD, FACC, FACP CCDS [facility] LAB OBESITY,CAD, [id number] 10/18/2013 08:33:00 2013 00:01:00 DIS Outpatient SOL SPEASR MD [facility] LAB LOW CERELOLASMIN LEVEL,WILSONS DX [id number] 09/18/2013 08:37:00 2013 23:59:59 CLS Outpatient ROSA WILLAMS MD, FACC, FACP CCDS [facility] LAB CAD,EJECTION FRACTION [id number] 07/03/2013 09:13:00 2013 23:59:59 CLS Outpatient ROSA WILLAMS MD, FACC, FACP CCDS [facility] LAB CAD,NI CARDIOMYAPATHY, OBESITY,ER,GERD, [id number] 06/27/2013 07:43:00 2013 11:05:00 DIS Outpatient ROSA DOMINGUEZ MD [facility] SDC SCREENING [id number] 06/20/2013 07:37:00 2013 23:59:59 CLS Outpatient ROSA DOMINGUEZ MD [facility] PREOP SCREENING [id number] 11/27/2012 09:55:00 2012 17:10:00 DIS Outpatient ЕКАТЕРИНА SCHNEIDER FACTiffanie, ALI FACP CCDS [facility] CATH FREQUENT PVC,HTN [id number] 11/23/2012 09:39:00 2012 23:59:59 CLS Outpatient [id number] 06/08/2016 11:30:00 ACT Outpatient LITO ADAMS APRN [facility] RAD SOB,LUNG NODULE [id number] 04/22/2016 07:50:00 ACT Outpatient ЕКАТЕРИНА SCHNEIDER FACC, ROSA FACP CCDS [facility] CARD LEG SWELLING,CAD,SOB [id number] 04/21/2016 13:58:00 ACT Outpatient ЕКАТЕРИНА SCHNEIDER FACC, ROSA FACP CCDS [facility] RT SOB,CAD [id number] 11/24/2015 08:15:00 Document Registration [id number] 08/25/2015 07:59:00 ACT Outpatient LITO ADAMS APRN [facility] PULM SOB,LUNG NODULE [id number] 07/16/2015 11:22:00 ACT Outpatient ADELAIDA PRETTY DO [facility] RT RT PFT [id number] 12/16/2014 09:58:00 Document Registration [id number] 12/16/2014 09:57:00 Document Registration [id number] 08/01/2014 09:30:00 Document Registration [id number] 07/23/2014 08:45:00 ACT Inpatient RON CAMARENA MD [facility] SURGICAL RT ABOVE KNEE AMPUTATION [id number] 08/25/2012 08:20:00 Document Registration [id number] 07/12/2012 08:47:00 Document Registration [id number] 07/05/2012 11:48:00 Document Registration [id number] 05/18/2012 12:46:00 Document Registration [id number] 03/29/2012 09:47:00 Document Registration
--- NOTE | 2016-12-16 22:54 | ED Abdominal Pain ---
General Chief Complaint: Abdominal/GI Problems Stated Complaint: ABDOMINAL PAIN Nursing Triage Note: Patient reports bilateral upper abdomen pain, denies, n/v Sepsis Screen: No Definite Risk (DEMARCUS TOMPKINS MEDICAL STUDENT) History of Present Illness Time Seen By Provider: 22:30 Initial Comments Mr. Garcia is a 75 year old male presenting with abdominal pain. The pain began at 6:00 pm today and is located in the LLQ and RLQ; it is described as a "pressure" pain at 5/10 severity. He has a history of intermittent "gas episodes " in which he experiences similar pain, but subsequently passes gas within an hour and the pain is relieved. Today, after four hours and taking a Gas-Ex the pain has not improved. He reports that the pain is better with standing than laying down; there are no other aggravating or alleviating factors. He has not eaten since noon today but has drank water in the last 2 hours. His most recent bowel movement was 2-3 hours ago and was described as small and more solid than usual. There is no nausea, vomiting, diarrhea, constipation, fever, or other systemic symptoms. He also has a history of acute diverticulitis in June and has been consuming more fiber per Dr. Hernandez since then. (DEMARCUS TOMPKINS MEDICAL STUDENT) Allergies and Home Medications Allergies Coded Allergies: No Known Drug Allergies (Unverified , 07/26/16) Home Medications Acetaminophen/Diphenhydramine 1 Each Tablet, 1 TAB PO HS PRN for SLEEP, ( Reported) Ascorbic Acid 500 Mg Tab.chew, 1,000 MG PO HS, (Reported) Aspirin 81 Mg Tablet.dr, 81 MG PO DAILY, (Reported) Carvedilol 6.25 Mg Tablet, 6.25 MG PO BID, (Reported) Cetirizine HCl 10 Mg Tablet, 10 MG PO DAILY, (Reported) Cholecalciferol (Vitamin D3) 1,000 Unit Tablet, 1,000 UNIT PO DAILY, (Reported) Fluticasone Propionate 9.9 Ml [place].susp, 2 SPRAYS NS DAILY, (Reported) Furosemide 80 Mg Tablet, 80 MG PO UD, (Reported) TAKES TWICE WEEKLY WITH KLOR-CON AND MAGNESIUM Lactobac Cmb #3/Fos/Pantethine 1 Each Capsule, 1 EACH PO BID, #20 Ref 1 Prescribed by: SAMUEL FERNANDEZ on 06/19/16 0834 Latanoprost 2.5 Ml Drops, 1 DROP OU HS, (Reported) Lorazepam 0.5 Mg Tablet, 0.5 MG PO HS, #30 Prescribed by: SAMUEL FERNANDEZ on 06/19/16 0833 Losartan Potassium 25 Mg Tablet, 25 MG PO DAILY, (Reported) Magnesium Oxide 400 Mg Tablet, 400 MG PO UD, (Reported) TAKES TWICE WEEKLY WITH FUROSEMIDE AND KLOR-CON Oxycodone HCl/Acetaminophen 1 Each Tablet, 0.5 TAB PO BID PRN for PAIN, ( Reported) Potassium Chloride 20 Meq Tab.er.prt, 20 MEQ PO UD, (Reported) TAKES 2 TIMES PER WEEK WITH FUROSEMIDE Ranitidine HCl 75 Mg Tablet, 75 MG PO DAILY, (Reported) Review of Systems Constitutional: no symptoms reported EENTM: No Symptoms Reported Respiratory: No Symptoms Reported Cardiovascular: No Symptoms Reported Gastrointestinal: See HPI Genitourinary: No Symptoms Reported Musculoskeletal: no symptoms reported (DEMARCUS TOMPKINS MEDICAL STUDENT) Past Pcxfhfe-Kinkht-Wlewhg Hx Patient Social History Alcohol Use: Denies Use Recreational Drug Use: No Smoking Status: Never a Smoker Recent Foreign Travel: No Contact w/Someone Who Travel: No Recent Infectious Disease Expo: No Recent Hopitalizations: No (JUN 2015 DIVERTICULITIS) (DEMARCUS TOMPKINS MEDICAL STUDENT) Immunizations Up To Date Tetanus Booster (TDap): Less than 5yrs Date of Pneumonia Vaccine: Jun 01, 2016 Date of Influenza Vaccine: Mar 06, 2016 (DEMARCUS TOMPKINS MEDICAL STUDENT) Seasonal Allergies Seasonal Allergies: Yes (DEMARCUS TOMPKINS MEDICAL STUDENT) Surgeries HX Surgeries: Yes (ROSITA TOTAL KNEE, HERNIA, CATARACTS, R AKA) Surgeries: Abdominal, Amputation, Joint Replacement, Orthopedic, Tonsillectomy (DEMARCUS TOMPKINS MEDICAL STUDENT) Respiratory Hx Respiratory Disorders: No (DEMARCUS TOMPKINS MEDICAL STUDENT) Cardiovascular Hx Cardiac Disorders: Yes ("SKIPS A BEAT") Cardiac Disorders: Hypertension, Irregular Heartbeat (DEMARCUS TOMPKINS MEDICAL STUDENT) Neurological Hx Neurological Disorders: No (DEMARCUS TOMPKINS MEDICAL STUDENT) Reproductive System Hx Reproductive Disorders: No Sexually Transmitted Disease: No HIV/AIDS: No (DEMARCUS TOMPKINS MEDICAL STUDENT) Genitourinary Hx Genitourinary Disorders: Yes (HX OF RENAL RELATED) Genitourinary Disorders: Renal Failure (DEMARCUS TOMPKINS MEDICAL STUDENT) Gastrointestinal Hx Gastrointestinal Disorders: No Gastrointestinal Disorders: Gastroesophageal Reflux, Diverticulosis, Hemorrhoids (DEMARCUS TOMPKINS MEDICAL STUDENT) Musculoskeletal Hx Musculoskeletal Disorders: Yes (LEFT KNEE OSTEOARTHRITIS, 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) Musculoskeletal Disorders: Arthritis (DEMARCUS TOMPKINS MEDICAL STUDENT) Endocrine Hx Endocrine Disorders: No (DEMARCUS TOMPKINS MEDICAL STUDENT) HEENT HX ENT Disorders: Yes (READING GLASSES) HEENT Disorders: Glaucoma Loss of Vision: Bilateral Hearing Impairment: Hard of Hearing (DEMARCUS TOMPKINS MEDICAL STUDENT) Cancer Hx Cancer: No Cancer: Skin (DEMARCUS TOMPKINS MEDICAL STUDENT) Psychosocial Hx Psychiatric Problems: No (DEMARCUS TOMPKINS MEDICAL ERICK) Integumentary HX Skin/Integumentary Disorder: Yes (RED DRY AREAS ON NECK) Skin/Integumentary Disorders: Recent Skin Changes (DEMARCUS TOMPKINS MEDICAL STUDENT) Blood Transfusions Hx Blood Disorders: No Adverse Reaction to a Blood Tr: No (HAS HAD BLOOD WITH NO REACTION) (DEMARCUS TOMPKINS MEDICAL ERICK) Family Medical History Family Medial History: Alcoholism 19 FATHER, , Age:48, Onset:Unknown Bone cancer G8 BROTHER, , Onset:Unknown Colon cancer G8 SISTER, Onset:Unknown Heart valve abnormality 19 MOTHER, , Age:95, Onset:Unknown G8 SISTER, Onset:Unknown No Family History of: AIDS Abdominal aortic aneurysm [place]'s disease Alzheimer's disease Aphasia Arthritis Asthma Cancer of mouth Cardiovascular disease Cataracts Completed stroke Congenital disease Congenital heart disease Coronary thrombosis Cystic fibrosis Deafness or hearing loss Dementia Diabetes mellitus Drug abuse Dysphasia Fibrocystic disease of breast Gastroenteritis Glaucoma Headache disorder Hypercholesterolemia Hypertension Infertility Kidney disease Myocardial infarction Neoplasm Not obtainable due to adoption Osteoporosis Parkinson's disease Prostate cancer Psychosocial problem Respiratory disorder Seizure disorder Severe allergy Thyroid disease Tuberculosis Visual disorder (DEMARCSU TOMPKINS MEDICAL STUDENT) Family Medial History: Alcoholism 19 FATHER, , Age:48, Onset:Unknown Bone cancer G8 BROTHER, , Onset:Unknown Colon cancer G8 SISTER, Onset:Unknown Heart valve abnormality 19 MOTHER, , Age:95, Onset:Unknown G8 SISTER, Onset:Unknown No Family History of: AIDS Abdominal aortic aneurysm [place]'s disease Alzheimer's disease Aphasia Arthritis Asthma Cancer of mouth Cardiovascular disease Cataracts Completed stroke Congenital disease Congenital heart disease Coronary thrombosis Cystic fibrosis Deafness or hearing loss Dementia Diabetes mellitus Drug abuse Dysphasia Fibrocystic disease of breast Gastroenteritis Glaucoma Headache disorder Hypercholesterolemia Hypertension Infertility Kidney disease Myocardial infarction Neoplasm Not obtainable due to adoption Osteoporosis Parkinson's disease Prostate cancer Psychosocial problem Respiratory disorder Seizure disorder Severe allergy Thyroid disease Tuberculosis Visual disorder (JENIFER DOBSON MD) Physical Exam Vital Signs VS - Last 72 Hours, by Label 12/16/16 22:29 Temp 97.0 Pulse 71 Resp 18 B/P (MAP) 169/103 Pulse Ox 95 (JENIFER DOBSNO MD) Vital Signs Capillary Refill : Less Than 3 Seconds (DEMARCUS TOMPKINS MEDICAL STUDENT) General Appearance: WD/WN, no apparent distress HEENT: PERRL/EOMI, normal ENT inspection, pharynx normal Respiratory: chest non-tender, lungs clear, normal breath sounds, no respiratory distress, no accessory muscle use Cardiovascular: regular rate, rhythm, no edema, no murmur Gastrointestinal: normal bowel sounds, soft, distended, tenderness (tenderness to palpation throughout bilateral lower abdomen), hernia Neurologic/Psychiatric: alert, normal mood/affect, oriented x 3 Skin: normal color, warm/dry (DEMARCUS TOMPKINS MEDICAL STUDENT) Gastrointestinal: other (patient had soft reducible umbilical hernia. On my evaluation patient's tenderness was located centrally superior to the umbilicus. 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 external II-XII nml as tested, no motor/sensory deficits ( JENIFER DOBSON MD) Progress/Results/Core Measures Results/Orders Lab Results Laboratory Tests Test 12/16/16 23:10 12/16/16 23:15 Range/Units White Blood Count 6.1 4.3-11.0 10^3/uL Red Blood Count 5.36 4.35-5.85 10^6/uL Hemoglobin 15.5 13.3-17.7 G/DL Hematocrit 46 40-54 % Mean Corpuscular Volume 86 80-99 FL Mean Corpuscular Hemoglobin 29 25-34 PG Mean Corpuscular Hemoglobin Concent 34 32-36 G/DL Red Cell Distribution Width 13.4 10.0-14.5 % Platelet Count 151 130-400 10^3/uL Mean Platelet Volume 10.7 H 7.4-10.4 FL Neutrophils (%) (Auto) 62 42-75 % Lymphocytes (%) (Auto) 25 12-44 % Monocytes (%) (Auto) 11 0-12 % Eosinophils (%) (Auto) 1 0-10 % Basophils (%) (Auto) 0 0-10 % Neutrophils # (Auto) 3.8 1.8-7.8 X 10^3 Lymphocytes # (Auto) 1.6 1.0-4.0 X 10^3 Monocytes # (Auto) 0.7 0.0-1.0 X 10^3 Eosinophils # (Auto) 0.1 0.0-0.3 10^3/uL Basophils # (Auto) 0.0 0.0-0.1 10^3/uL Sodium Level 139 135-145 MMOL/L Potassium Level 3.9 3.6-5.0 MMOL/L Chloride Level 103 98-107 MMOL/L Carbon Dioxide Level 24 21-32 MMOL/L Anion Gap 12 5-14 MMOL/L Blood Urea Nitrogen 25 H 7-18 MG/DL Creatinine 1.39 H 0.60-1.30 MG/DL Estimat Glomerular Filtration Rate 50 BUN/Creatinine Ratio 18 Glucose Level 115 H 70-105 MG/DL Calcium Level 9.6 8.5-10.1 MG/DL Total Bilirubin 2.5 H 0.1-1.0 MG/DL Aspartate Amino Transf (AST/SGOT) 250 H 5-34 U/L Alanine Aminotransferase (ALT/SGPT) 252 H 0-55 U/L Alkaline Phosphatase 397 H 40-136 U/L C-Reactive Protein High Sensitivity 0.50 0.00-0.50 MG/DL Total Protein 7.3 6.4-8.2 GM/DL Albumin 3.9 3.2-4.5 GM/DL Lipase 241 H 8-78 U/L Urine Color YELLOW Urine Clarity CLEAR Urine pH 5 5-9 Urine Specific [place] 1.025 H 1.016-1.022 Urine Protein 1+ H NEGATIVE Urine Glucose (UA) NEGATIVE NEGATIVE Urine Ketones NEGATIVE NEGATIVE Urine Nitrite NEGATIVE NEGATIVE Urine Bilirubin NEGATIVE NEGATIVE Urine Urobilinogen 8 H NORMAL MG/DL Urine Leukocyte Esterase 1+ H NEGATIVE Urine RBC (Auto) NEGATIVE NEGATIVE Urine RBC NONE /HPF Urine WBC RARE /HPF Urine Crystals NONE /LPF Urine Bacteria NEGATIVE /HPF Urine Casts NONE /LPF Urine Mucus SMALL H /LPF Urine Culture Indicated NO (JENIFER DOBSON MD) My Orders Orders - JENIFER DOBSON MD Cbc With Automated Diff (12/16/16 23:02) Comprehensive Metabolic Panel (12/16/16 23:02) Hs C Reactive Protein (12/16/16 23:02) Ua Culture If Indicated (12/16/16 23:02) Saline Lock/Iv-Start (12/16/16 23:02) Abdomen/Kub 1view (12/16/16 23:02) Lipase (12/16/16 23:43) Fentanyl Injection (Sublimaze Injection (12/16/16 23:45) Ns Iv 1000 Ml (Sodium Chloride 0.9%) (12/16/16 23:45) Iohexol Injection (Omnipaque 350 Mg/Ml 1 (12/17/16 00:00) Ns (Ivpb) (Sodium Chloride 0.9% Ivpb Bag (12/17/16 00:00) Ondansetron Injection (Zofran Injectio (12/17/16 00:00) Ct Abd/Pelv W (Appendicitis) (12/17/16 23:45) Us Gallbladder [id number] (12/17/16 00:58) Fentanyl Injection (Sublimaze Injection (12/17/16 01:30) Famotidine Injection (Pepcid Injection) (12/17/16 02:45) Ciprofloxacin Iv 400mg/200ml (Cipro Iv S (12/17/16 02:45) (JENIFER DOBSON MD) Medications Given in ED Current Medications Medications Dose Ordered Sig/Lillian Route Start Time Stop Time Status Last Admin Dose Admin Ciprofloxacin/ Dextrose 200 ml @ 200 mls/hr ONCE ONCE IV 12/17/16 02:45 12/17/16 03:44 DC 12/17/16 02:48 200 MLS/HR Famotidine 20 mg ONCE ONCE IVP 12/17/16 02:45 12/17/16 02:46 DC 12/17/16 02:48 20 MG Fentanyl Citrate 50 mcg ONCE ONCE IVP 12/16/16 23:45 12/16/16 23:46 DC 12/16/16 23:53 50 MCG Fentanyl Citrate 50 mcg ONCE ONCE IVP 12/17/16 01:30 12/17/16 01:31 DC 12/17/16 01:32 50 MCG Iohexol 100 ml ONCE ONCE IV 12/17/16 00:00 12/17/16 00:01 DC 12/17/16 00:17 100 ML Ondansetron HCl 8 mg ONCE ONCE IVP 12/17/16 00:00 12/17/16 00:01 DC 12/16/16 23:53 8 MG Sodium Chloride 80 ml ONCE ONCE IV 12/17/16 00:00 12/17/16 00:01 DC 12/17/16 00:17 80 ML Sodium Chloride 1,000 ml @ 0 mls/hr Q0M ONCE IV 12/16/16 23:45 12/16/16 23:46 DC 12/16/16 23:53 0 MLS/HR (JENIFER DOBSON MD) Vital Signs/I&O Vital Sign - Last 12Hours 12/16/16 22:29 Temp 97.0 Pulse 71 Resp 18 B/P (MAP) 169/103 Pulse Ox 95 (JENIFER DOBSON MD) Blood Pressure Mean: 125 Progress Note #1: Time: 23:30 Progress Note Mr. Garcia's pain is slightly increased to 6-7/10 in severity. KUB normal; CMP showed elevated AST and ALT and alkaline phosphatase elevated at 397. Will order abdominal CT. Progress Note #2: Time: 01:[address] abdomen & pelvis shows cholelithiasis, irregular thickening of the gallbladder suggesting atypical cholecystitis with phlegmon. CT also demonstrates colonic diverticula without diverticulitis and an unremarkable appendix. Will order gallbladder ultrasound. Progress Note #3: Time: 02:30 Progress Note Gallbladder ultrasound showed intra-hepatic and extrahepatic biliary ductal dilation. Common bile duct is up to 9 mm. Gallbladder appears to be filled with small stones; wall is mildly thickened to 3.[address] Hernandez; he recommended inpatient admission due to acute on chronic cholecystitis. Will continue maintenance IV fluids and NPO. These findings and plan from Dr. Hernandez were discussed with the patient; he voiced understanding. (DEMARCUS TOMPKINS MEDICAL STUDENT) Progress Note : Progress Note This gentleman was seen and examined with Demarcus Tompkins, MS4. I agree with his history, exam, assessment, and plan with noted additions. Patient was found to have notably elevated transaminases, bilirubin, and lipase. CT of the abdomen and pelvis with contrast was ordered. There is evidence of gallbladder abnormalities including mild gallbladder wall thickening and evidence of sludge/ cholelithiasis. A follow-up ultrasound was obtained with similar results. Patient was treated with fentanyl and Zofran for management of his symptoms. He was given a bolus of IV fluids. Case was reviewed with Dr. Hernandez who requested admission with IV hydration and antibiotics with Cipro and Flagyl. He will monitor labs to help determine disposition. Consideration will be given for ERCP if not improving on repeat lab assessment. Cipro was initiated in the ER. (JENIFER DOBSON MD) Diagnostic Imaging Diagonstic Imaging: Xray Plain Films/CT/US/NM/MRI: abdomen, pelvis Comments X-ray of the abdomen and pelvis viewed by me. Report not yet available. No acute abnormalities appreciated. Diagonstic Imaging: CT Plain Films/CT/US/NM/MRI: abdomen, pelvis Comments CT abdomen and pelvis with contrast viewed by me and [employer] report reviewed. There is cholelithiasis/debris within the gallbladder. Abnormal gallbladder with irregular thickening in the fundal region. This could be probed atypical cholecystitis with phlegmon. Differential includes neoplasm. Mild biliary ductal dilatation is present. Cannot exclude debris in the common bile duct. Diagonstic Imaging: Ultrasound Plain Films/CT/US/NM/MRI: abdomen Comments Gallbladder ultrasound discussed with certified master safe technician and [employer] report reviewed. There is intrahepatic and extrahepatic biliary ductal dilatation. Common bile duct measures up to 9 mm. Gallbladder is filled with heterogeneous material likely representing sludge and small stones. Gallbladder wall mildly thickened up to 3.5 mm. No associated blood flow. Heterogeneous density between gallbladder fundus wall and adjacent liver seen on CT is without definite correlate on ultrasound. (JENIFER DOBSON MD) Departure Communication Time/Spoke to Admitting Phy: 02:[address] Hernandez; he recommended inpatient admission due to acute on chronic cholecystitis. Will continue maintenance IV fluids and NPO. (DEMARCUS TOMPKINS MEDICAL STUDENT) Pneumonia Admission Pseudomonal Risk: No known risk (DEMARCUS TOMPKINS MEDICAL STUDENT) Impression Impression: Primary Impression: Acute and chronic cholecystitis Additional Impressions: Abdominal pain Qualified Codes: R10.9 - Unspecified abdominal pain Pancreatitis Qualified Codes: K85.10 - Biliary acute pancreatitis without necrosis or infection Renal insufficiency Elevated transaminase level Disposition: ADMITTED INPATIENT Condition: Improved Decision to Admit Reason: Admit from ER (General) Decision to Admit/Date: Dec 17, 2016 Time/Decision to Admit Time: 02:35 (DEMARCUS TOMPKINS MEDICAL STUDENT) Departure-Patient Inst. Referrals: SAMUEL FERNANDEZ MD (PCP/Family) Primary Care Physician DEMARCUS TOMPKINS MEDICAL STUDENT Dec 16, 2016 22:54 JENIFER DOBSON MD Dec 17, 2016 03:44
[2016-12-16 23:16] LABS: BASOPHILS % (AUTO) 0 % (0-10); EOSINOPHILS # (AUTO) 0.1 10^3/uL (0.0-0.3); EOSINOPHILS % (AUTO) 1 % (0-10); LYMPHOCYTES # (AUTO) 1.6 X 10^3 (1.0-4.0); LYMPHOCYTES % (AUTO) 25 % (12-44); MEAN CORPUSCULAR HEMOGLOBIN 29 PG (25-34); MEAN CORPUSCULAR HGB CONC 34 G/DL (32-36); MEAN CORPUSCULAR VOLUME 86 FL (80-99); MEAN PLATELET VOLUME 10.7 FL (7.4-10.4); MONOCYTES # (AUTO) 0.7 X 10^3 (0.0-1.0); MONOCYTES % (AUTO) 11 % (0-12); NEUTROPHILS # (AUTO) 3.8 X 10^3 (1.8-7.8); NEUTROPHILS % (AUTO) 62 % (42-75); PLATELET COUNT 151 10^3/uL (130-400); RED BLOOD COUNT 5.36 10^6/uL (4.35-5.85); RED CELL DISTRIBUTION WIDTH 13.4 % (10.0-14.5); WHITE BLOOD COUNT 6.1 10^3/uL (4.3-11.0)
[2016-12-16 23:20] LABS: BILIRUBIN,URINE NEGATIVE (NEGATIVE); KETONES,URINE NEGATIVE (NEGATIVE); LEUKOCYTE ESTERASE ,URINE 1+ (NEGATIVE); NITRITE,URINE NEGATIVE (NEGATIVE); PH,URINE 5 (5-9); PROTEIN,URINE 1+ (NEGATIVE); UROBILINOGEN,URINE 8 MG/DL (NORMAL)
[2016-12-16 23:28] LABS: WBC,URINE RARE /HPF
[2016-12-16 23:38] LABS: ALBUMIN 3.9 GM/DL (3.2-4.5); BILIRUBIN,TOTAL 2.5 MG/DL (0.1-1.0); CALCIUM 9.6 MG/DL (8.5-10.1); CREATININE SERUM 1.39 MG/DL (0.60-1.30); POTASSIUM 3.9 MMOL/L (3.6-5.0); TOTAL PROTEIN 7.3 GM/DL (6.4-8.2); hs C REACTIVE PROTEIN 0.5 MG/DL (0.00-0.50)
[2016-12-16] MEDS ORDERED: NS IV 1000 ML 1,000 ML IV ONE (23:45)
[2016-12-16] MEDS ORDERED: fentaNYL INJECTION 100 MCG/2 ML AMP IVP ONE (23:45)
[2016-12-17] MEDS ORDERED: ONDANSETRON 4 MG/2 ML (SDV) Z0FRAN IVP ONE
[2016-12-17] MEDS ORDERED: NS 100 ML (IVPB) BAG IV ONE
[2016-12-17] MEDS ORDERED: IOHEXOL 350 MG/ML 100 ML (OMNIPAQUE 350) VIAL IV ONE
[2016-12-17] MEDS ORDERED: fentaNYL INJECTION 100 MCG/2 ML AMP IVP ONE (01:30)
[2016-12-17] MEDS ORDERED: CIPROFLOXACIN IV 400MG/200ML 200 ML IV ONE (02:45)
[2016-12-17] MEDS ORDERED: FAMOTIDINE 20MG/2ML IV (PEPCID) IVP ONE (02:45)
[2016-12-17 04:00] VITALS: BP 140/78
[2016-12-17] MEDS: metroNIDAZOLE 500 MG/100 ML IVPB (PRE-MIX) IV SCH ×4 (05:46→23:10)
[2016-12-17] MEDS: D5 NS 1000 ML IV SOLUTION 1,000 ML IV SCH ×3 (05:46→17:48)
[2016-12-17] MEDS: fentaNYL INJECTION 100 MCG/2 ML AMP IV PRN (05:46)
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
[2016-12-17 06:58] LABS: BASOPHILS % (AUTO) 1 % (0-10); EOSINOPHILS % (AUTO) 1 % (0-10); LYMPHOCYTES # (AUTO) 0.9 X 10^3 (1.0-4.0); LYMPHOCYTES % (AUTO) 16 % (12-44); MEAN CORPUSCULAR HEMOGLOBIN 29 PG (25-34); MEAN CORPUSCULAR HGB CONC 34 G/DL (32-36); MEAN CORPUSCULAR VOLUME 87 FL (80-99); MEAN PLATELET VOLUME 10.5 FL (7.4-10.4); MONOCYTES # (AUTO) 0.6 X 10^3 (0.0-1.0); MONOCYTES % (AUTO) 10 % (0-12); NEUTROPHILS # (AUTO) 4.3 X 10^3 (1.8-7.8); NEUTROPHILS % (AUTO) 74 % (42-75); PLATELET COUNT 127 10^3/uL (130-400); RED BLOOD COUNT 5.06 10^6/uL (4.35-5.85); RED CELL DISTRIBUTION WIDTH 13.5 % (10.0-14.5); WHITE BLOOD COUNT 5.8 10^3/uL (4.3-11.0)
[2016-12-17 07:16] LABS: ALANINE AMINOTRANSFERASE 314 U/L (0-55); ALBUMIN 3.5 GM/DL (3.2-4.5); ANION GAP 9 MMOL/L (5-14); ASPARTATE AMINO TRANSFERASE 335 U/L (5-34); BILIRUBIN,TOTAL 3.4 MG/DL (0.1-1.0); BLOOD UREA NITROGEN 21 MG/DL (7-18); BUN/CREATININE RATIO 18; CARBON DIOXIDE 22 MMOL/L (21-32); CHLORIDE 107 MMOL/L (98-107); CREATININE SERUM 1.16 MG/DL (0.60-1.30); GFR ESTIMATED > 60; GLUCOSE 112 MG/DL (70-105); LIPASE 135 U/L (8-78); POTASSIUM 3.9 MMOL/L (3.6-5.0); SODIUM 138 MMOL/L (135-145); TOTAL PROTEIN 6.4 GM/DL (6.4-8.2)
--- NOTE | 2016-12-17 07:28 | Diagnostic Imaging Report ---
PROCEDURE: US Gallbladder. TECHNIQUE: Multiple real-time grayscale images were obtained over the right upper quadrant in various projections. INDICATION: Right lower quadrant pain. Abnormal findings on CT scan of the gallbladder fundus area. FINDINGS: The pancreas is largely obscured. The liver is fairly homogeneous with no focal lesion seen. There is however intrahepatic biliary dilatation with also dilated CBD up to 9 mm in size. The gallbladder demonstrates abnormal hypoechoic content within it. This does not have internal vascularity. This appears to be within the lumen of the gallbladder and does not have shadowing which may relate to sludge. It is uncertain if this in part relates to the abnormality seen on CT scan. The right kidney is 8.9 cm in length with a 2.5 x 3.5 x 3.2-cm simple-appearing cyst seen. No hydronephrosis. No fluid collection or ascites is seen in the upper right abdomen. Sonographic Hutchinson sign reportedly negative. IMPRESSION: 1. Gallbladder hypoechoic content could relate to sludge. No definitive stones. The abnormality seen on CT scan along the wall of the gallbladder and involving the adjacent aspect of the liver is not well seen on this study. Consider MRI of the abdomen, liver mass protocol, to further evaluate. 2. Dilated intra-and extrahepatic bile ducts. Dictated by: Dictated on workstation # [id number]
--- NOTE | 2016-12-17 07:34 | Diagnostic Imaging Report ---
Supine view of the abdomen. INDICATION: Right lower quadrant pain. FINDINGS: There are moderate amounts of fecal material in the colon mostly in the cecum and ascending colon. Nonspecific focal calcification in the upper left abdomen could be in the upper pole of the left kidney or vascular. Prominent degenerative changes are seen. IMPRESSION: No acute process. Dictated by: Dictated on workstation # [id number]
--- NOTE | 2016-12-17 07:53 | Diagnostic Imaging Report ---
PROCEDURE: CT abdomen and pelvis with contrast, rule out appendicitis. TECHNIQUE: Multiple contiguous axial images were obtained through the abdomen and pelvis after the administration of intravenous contrast. INDICATION: Abdominal pain. 100 mL of Omnipaque 350 is administered intravenously. FINDINGS: There is minimal atelectasis in the lung bases. The liver demonstrates moderate intra-and extrahepatic biliary dilatation, a new finding when compared to 06/17/2016, exam. The CBD is up to 1.3 cm in caliber. No definitive obstructive lesion is seen. A slight nonspecific hyperdensity near the distal aspect of the CBD inseparable from the duodenal wall could potentially relate to small amount of debris or a noncalcified stone. The gallbladder demonstrates abnormal thickening of its wall near the fundus region inseparable from the liver. The findings are concerning for possible underlying neoplastic mass arising from the gallbladder. The spleen is 15 cm in length, mildly enlarged. The adrenal glands appear unremarkable. The pancreatic parenchyma demonstrates mild atrophy with no focal abnormality. The kidneys have symmetric enhancement and contrast excretion. No hydronephrosis. Simple cysts in the right kidney are seen measuring up to 3.1 cm. The abdominal aorta is normal in caliber. No para-aortic significantly enlarged lymph node is seen. There is a fat-containing small/ moderate-sized umbilical ventral hernia seen. There is also a fat-containing left inguinal hernia with direct and indirect components. This may include a spigelian hernia component as some of the hernia contents also extend superiorly although the defect is at the level of the internal ring. There is diverticulosis without findings of diverticulitis. The prostate is mildly enlarged measuring 4.8 cm in transverse dimension. It is also heterogeneous with nonspecific calcification seen. The urinary bladder appears unremarkable. No bowel obstruction. The appendix is normal. The osseous structures demonstrate advanced degenerative changes and mild left convexity scoliosis in the lumbar spine. There is a sclerotic lesion seen in the left ischium measuring 1.2 cm in size. This is stable from 06/13/2014, exam and is likely a bony island. IMPRESSION: 1. 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 This can be further evaluated with liver mass protocol MRI. 2. Intra and extrahepatic biliary dilatation with question of distal CBD debris or noncalcified stone. Correlate with MRCP or ERCP. 3. Diverticulosis, no diverticulitis. 4. Fat-containing umbilical and left inguinal hernias as described above. 5. Heterogeneous mildly enlarged prostate gland. This reading agrees with the [facility] report. Dictated by: Dictated on workstation # [id number]
[2016-12-17 08:00] VITALS: BP 122/68
[2016-12-17] MEDS: FAMOTIDINE 20MG/2ML IV (PEPCID) IVP SCH ×2 (09:37→20:44)
[2016-12-17] MEDS ORDERED: IBUP-2055 PO (11:37)
[2016-12-17] MEDS ORDERED: FAMO1TAB21 PO (11:37)
[2016-12-17] MEDS ORDERED: LORA0.5T PO (11:37)
[2016-12-17 12:00] VITALS: BP 135/74
--- NOTE | 2016-12-17 12:41 | HISTORY AND PHYSICAL ---
DATE OF ADMISSION: 12/17/2016 PRIMARY CARE PHYSICIAN: Dr. Yan Leon Mr. Gallito Garcia is a 75-year-old male known to us. We will see him in the past for skin lesions. He also had an episode of diverticulitis at June 2016 and was admitted and placed on IV antibiotics for approximately 3 days. This was uncomplicated. He did have a follow-up colonoscopy done on 07/28/2016 which showed chronic, stage II external and internal hemorrhoids as well as a moderate sigmoid diverticulosis with no active inflammation. 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 He presented to [facility] emergency department late last night with pain in the right upper abdominal quadrant. He reports that he has had similar episodes. However not near as severe or prolonged in the past [address] scan was performed, as well as ultrasound, which did show gallbladder wall thickening, as well as gallstones and gallbladder sludge as well as a dilated extra hepatic and intrahepatic duct. He also was found to have an elevated total bilirubin as well as a slight elevation of pancreatic enzymes. PAST MEDICAL HISTORY: 1. Hypertension. 2. Osteoarthritis. PAST SURGERIES: 1. Tonsillectomy. 2. Vasectomy. 3. Cataract surgery. 4. Right inguinal hernia repair. 5. Right hand carpal tunnel release, 2011. 6. Right total knee arthroplasty 2011. 7. Left total knee arthroplasty, 2012. 8. 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 ALLERGIES: No known drug allergies. MEDICATIONS: 1. Carvedilol 6.25 mg b.i.d. 2. Losartin 25 mg daily. 3. Furosemide 80 mg daily. 4. Potassium 20 mEq daily. 5. Travatan eye drops daily. 6. Magnesium 400 mg daily. 7. Aspirin 81 mg daily. 8. Prilosec 20 mg b.i.d. 9. Cetirzine 10 mg daily. 10. Fluticasone propionate 850 mcg 3 sprays daily. 11. Oxycodone p.r.n. SOCIAL HISTORY: Negative smoke. Negative alcohol. FAMILY HISTORY: Brother lung cancer. Mother, heart disease. VITAL SIGNS: Temperature 95.8, blood pressure 122/68, pulse 62, respirations 20, pulse oximetry 96% on room air. REVIEW OF SYSTEMS: This is a well-nourished male, currently in no acute distress. He is not experiencing shortness of breath or difficulty breathing. No chest pain, palpitations, diaphoresis. Intermittent nausea. No vomiting. Pain in the right upper abdominal quadrant on an intermittent basis. No red blood per rectum. No dark tarry stools. No diarrhea, constipation. No fever, chills, no recent inadvertent weight loss. PHYSICAL EXAMINATION: CHEST: Good breath sounds bilaterally clear. HEART: Regular. No murmurs. EXTREMITIES: No lower extremity edema. Negative Homans sign.. HEENT: No scleral icterus. No cervical lymphadenopathy. ABDOMEN: Soft, nondistended. There is pain in the right upper abdominal quadrant with a positive Hutchinson. No peritoneal signs. SKIN: Warm and dry. LABS: WBC 5.8, hemoglobin 14.7, hematocrit 44, platelets 127, total bilirubin 3.4, elevated from 2.5, AST 335, ALT 314, alkaline phosphatase 346, lipase 135 down from 241. ASSESSMENT AND PLAN: This is a 75-year-old male with choledocholithiasis and mild pancreatitis. The natural history of this disease process was explained to the patient and our recommendation is that he proceed ERCP and removal of debris or stone as well as possible stent placement and/or papillotomy. Once his liver function enzymes normalized. He does not show any signs of worsening pancreatitis. We will then proceed with an interval cholecystectomy; laparoscopic cholecystectomy/ Job ID: [id number] Dictated Date: 12/17/2016 11:09:58 Marine Designer Date: 12/17/2016 12:24:11/christiano ALFORD
[2016-12-17] MEDS ORDERED: ENOXAPARIN 40 MG/0.4 ML (LOVENOX) SYR SC SCH (14:30)
[2016-12-17] MEDS: CIPROFLOXACIN 400 MG/D5W 200 ML (PRE-MIX) IV SCH (14:52)
--- NOTE | 2016-12-17 15:45 | Consultation ---
History of Present Illness History of Present Illness Patient Consulted On(lucia/time) 12/17/16 15:44 Date Seen by Provider: Dec 17, 2016 Time Seen by Provider: 15:50 Reason for Visit: RUQ abdominal pain History of Present Illness 75 yo M with history of hypertension, right above knee amputation, acute kidney injury- admitted overnight with right upper quadrant pain due to choledocholithiasis. It was found on CT, U/S some biliary sludge, gallbladder inflammation and biliary/hepatic duct dilatation. Mild pancreatitis also noted. I am patient's PCP and I was consulted for medical management of comorbidities- currently htn as the main one. Pt currently on coreg and losartan with good blood pressure control. He did undergo a CT with contrast. Pt reports his abdominal pain started to worsen on 12/16/16 so he proceeded to the ER. He reports this abdominal discomfort for a few months but this is the worst it has been which is why he felt the need to go to the ER. Currently this afternoon pt reports improvement in his pain. Repeat LFTs and bilirubin levels have increased compared to the prior evening. Last admission was in June 2016 for diverticulitis, successfully treated. Allergies and Home Medications Allergies Coded Allergies: No Known Drug Allergies (Unverified , 07/26/16) Home Medications Ascorbic Acid 500 Mg Tab.chew, 1,000 MG PO HS, (Reported) Aspirin 81 Mg Tablet.dr, 81 MG PO DAILY, (Reported) Carvedilol 6.25 Mg Tablet, 6.25 MG PO BID, (Reported) Cetirizine HCl 10 Mg Tablet, 10 MG PO DAILY, (Reported) Cholecalciferol (Vitamin D3) 1,000 Unit Tablet, 1,000 UNIT PO HS, (Reported) Famotidine/Ca Carb/Mag Hydrox 1 Each Tab.chew, 1 TAB PO DAILY, (Reported) Fluticasone Propionate 9.9 Ml [place].susp, 2 SPRAYS NS DAILY, (Reported) Furosemide 80 Mg Tablet, 80 MG PO UD PRN for FLUID RETENTION, (Reported) TAKES APPROXIMATELY TWICE WEEKLY WITH KLOR-CON AND MAGNESIUM / LAST FILLED #90 Ibuprofen 200 Mg Tablet, 400 MG PO BID PRN for PAIN-MILD, (Reported) TAKES 2 (200 MG) TABLETS Latanoprost 2.5 Ml Drops, 1 DROP OU HS, (Reported) Lorazepam 0.5 Mg Tablet, 0.5 MG PO HS PRN for INSOMNIA, (Reported) Losartan Potassium 25 Mg Tablet, 25 MG PO DAILY, (Reported) Magnesium Oxide 400 Mg Tablet, 400 MG PO UD, (Reported) TAKES APPROXIMATELY TWICE WEEKLY WITH FUROSEMIDE AND KLOR-CON Oxycodone HCl/Acetaminophen 1 Each Tablet, 1 TAB PO Q12H PRN for PAIN, (Reported ) Potassium Chloride 20 Meq Tab.er.prt, 20 MEQ PO UD, (Reported) TAKES APPROXIMATELY 2 TIMES PER WEEK WITH FUROSEMIDE / LAST FILLED 05/2016 # 25 Past Uotpvqf-Toodep-Nnbrqc Hx Patient Social History Alcohol Use: Denies Use Recreational Drug Use: No Smoking Status: Never a Smoker Recent Foreign Travel: No Contact w/Someone Who Travel: No Recent Infectious Disease Expo: No Recent Hopitalizations: No (JUN 2015 DIVERTICULITIS) Physical Abuse Screen: No Sexual Abuse: No Immunizations Up To Date Tetanus Booster (TDap): Less than 5yrs Date of Pneumonia Vaccine: Jun 01, 2016 Date of Influenza Vaccine: Mar 06, 2016 Seasonal Allergies Seasonal Allergies: Yes Surgeries HX Surgeries: Yes (ROSITA TOTAL KNEE, HERNIA, CATARACTS, R AKA) Surgeries: Abdominal, Amputation, Joint Replacement, Orthopedic, Tonsillectomy Respiratory Hx Respiratory Disorders: No Cardiovascular Hx Cardiac Disorders: Yes ("SKIPS A BEAT") Cardiac Disorders: Hypertension, Irregular Heartbeat Neurological Hx Neurological Disorders: No Reproductive System Hx Reproductive Disorders: No Sexually Transmitted Disease: No HIV/AIDS: No Genitourinary Hx Genitourinary Disorders: Yes (HX OF RENAL RELATED) Genitourinary Disorders: Renal Failure Gastrointestinal Hx Gastrointestinal Disorders: No Gastrointestinal Disorders: Gastroesophageal Reflux, Diverticulosis, Hemorrhoids Musculoskeletal Hx Musculoskeletal Disorders: Yes (LEFT KNEE OSTEOARTHRITIS, 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) Musculoskeletal Disorders: Arthritis Endocrine Hx Endocrine Disorders: No HEENT HX ENT Disorders: Yes (READING GLASSES) HEENT Disorders: Glaucoma Loss of Vision: Bilateral Hearing Impairment: Hard of Hearing Cancer Hx Cancer: No Cancer: Skin Psychosocial Hx Psychiatric Problems: No Integumentary HX Skin/Integumentary Disorder: Yes (RED DRY AREAS ON NECK) Skin/Integumentary Disorders: Recent Skin Changes Blood Transfusions Hx Blood Disorders: No Adverse Reaction to a Blood Tr: No (HAS HAD BLOOD WITH NO REACTION) Family Medical History Family Medial History: Alcoholism 19 FATHER, , Age:48, Onset:Unknown Bone cancer G8 BROTHER, , Onset:Unknown Colon cancer G8 SISTER, Onset:Unknown Heart valve abnormality 19 MOTHER, , Age:95, Onset:Unknown G8 SISTER, Onset:Unknown No Family History of: AIDS Abdominal aortic aneurysm [place]'s disease Alzheimer's disease Aphasia Arthritis Asthma Cancer of mouth Cardiovascular disease Cataracts Completed stroke Congenital disease Congenital heart disease Coronary thrombosis Cystic fibrosis Deafness or hearing loss Dementia Diabetes mellitus Drug abuse Dysphasia Fibrocystic disease of breast Gastroenteritis Glaucoma Headache disorder Hypercholesterolemia Hypertension Infertility Kidney disease Myocardial infarction Neoplasm Not obtainable due to adoption Osteoporosis Parkinson's disease Prostate cancer Psychosocial problem Respiratory disorder Seizure disorder Severe allergy Thyroid disease Tuberculosis Visual disorder Review of Systems Review of Systems General: No Chills, No Night Sweats, Malaise HEENT: No Head Aches, No Eye Pain, No Dysphasia, No Post Nasal Drip, No Sore Throat Cardiovascular: Edema, No: Chest Pain, Orthopnea, Palpitations Gastrointestinal: Abdominal Pain (RUQ ), Nausea, No: Diarrhea, Vomiting Genitourinary: No Dysuria, No Frequency Musculoskeletal: leg pain (phantom right leg), No: neck pain, shoulder pain Neurological: Weakness, No: Confusion Physical Exam Vital Signs Vital Sign - Last 12Hours 12/16/16 12/17/16 22:29 04:00 Temp 97.0 Pulse 71 Resp 18 B/P (MAP) 169/103 Pulse Ox 95 O2 Delivery Room Air Capillary Refill : Less Than 3 Seconds General Appearance: No Apparent Distress, WD/WN Eyes: Bilateral Eye Normal Inspection HEENT: PERRL/EOMI Neck: Normal Inspection, Non Tender, Supple Respiratory: Chest Non Tender, Lungs Clear, Normal Breath Sounds, No Accessory Muscle Use Cardiovascular: Regular Rate, Rhythm, Other (right leg amputation) Gastrointestinal: Normal Bowel Sounds, Soft, Tenderness (RUQ) Rectal: Deferred Extremity: Swelling (R>L leg), Other Neurologic/Psychiatric: Alert, Oriented x3, No Motor/Sensory Deficits Skin: Warm/Dry Assessment/Plan Assessment/Plan Assessment/Plan 75 yo Male acute abdominal pain, RUQ- secondary to choledocholithiasis- improved- continue IVFs. choledocholithiasis- IVF, NPO at midnight- going to [facility] for ERCP- at 10am 12/18/16 will return and follow closely- David Moeller managing. acute kidney injury- creatinine improved with IVF- avoid nephrotoxic agents. Continue to monitor HTN- stable, good control- we are holding losartan and continued coreg- will resume losartan on discharge- as pt had a CT abdomen/pelvis with contrast. right above knee amputation- keep stump clean elevated LFTs- acute, plan for then to trend down after interventions insomnia- has lorazepam prn qhs. Dispo: continue to monitor BP and creatinine, GFR- seems to be improving- blood pressure normal on a couple readings earlier in the day. Pt is scheduled at [facility] in [place] @10am for ERCP and interventions. Dr. Hernandez plans to do a cholecystectomy- aproximate date? Possible discharge to home this weekend. Problems: Clinical Quality Measures DVT/VTE Risk/Contraindication: Risk Factor Score Per Nursin RFS Level Per Nursing on Admit: 4+=Very High Pneumonia: Pseudomonal Risk: No known risk SAMUEL FERNANDEZ MD Dec 17, 2016 15:45
[2016-12-17] MEDS ORDERED: LORazepam 0.5 MG (ATIVAN) TABLET PO PRN (16:00)
[2016-12-17] MEDS ORDERED: FUROSEMIDE 40 MG (LASIX) TAB PO PRN (16:00)
[2016-12-17 16:05] VITALS: BP 125/76
[2016-12-17] MEDS ORDERED: PATIENT MAY USE OWN MEDS, ALL MC SCH (16:15)
[2016-12-17 20:35] VITALS: BP 147/72
[2016-12-17] MEDS: CARVEDILOL 6.25 MG (COREG) TAB PO SCH (20:42)
[2016-12-17] MEDS: LATANOPROST 0.005% (XALATAN) OPHTH SOLN 2.5 ML OU SCH (20:44)
[2016-12-17] MEDS: LORazepam 0.5 MG (ATIVAN) TABLET PO PRN (21:51)
[2016-12-18 00:23] VITALS: BP 103/57
[2016-12-18] MEDS: D5 NS 1000 ML IV SOLUTION 1,000 ML IV SCH ×3 (01:34→15:17)
[2016-12-18] MEDS: CIPROFLOXACIN 400 MG/D5W 200 ML (PRE-MIX) IV SCH ×2 (02:46→15:17)
[2016-12-18 03:57] VITALS: BP 112/56
[2016-12-18] MEDS: metroNIDAZOLE 500 MG/100 ML IVPB (PRE-MIX) IV SCH ×3 (05:16→17:17)
[2016-12-18 05:29] LABS: RED BLOOD COUNT 4.5 10^6/uL (4.35-5.85); RED CELL DISTRIBUTION WIDTH 13.5 % (10.0-14.5); WHITE BLOOD COUNT 3.2 10^3/uL (4.3-11.0)
[2016-12-18 05:48] LABS: ALBUMIN 3.1 GM/DL (3.2-4.5); CALCIUM 8.3 MG/DL (8.5-10.1); CREATININE SERUM 1.21 MG/DL (0.60-1.30); POTASSIUM 3.5 MMOL/L (3.6-5.0); TOTAL PROTEIN 5.7 GM/DL (6.4-8.2)
[2016-12-18 05:52] LABS: AMYLASE 21 U/L (25-125); LIPASE 41 U/L (8-78)
--- NOTE | 2016-12-18 07:55 | Progress Note (SOAP) ---
Subjective Time Seen by Provider: 07:30 Subjective/Events-last exam amylase and lipase now normal.patient feeling better today and not having pain in the right upper quadrant. Patient's total bilirubin increased to 4. AST decreased to 174. AST to 55 decreased. Alkaline phosphatase elevated at 333.. Patient to go over to [facility] today and have ERCP.. Patient has choledocholelithiasis. Pancreatitis resolved. Hypertension. Umbilical hernia Amputated leg Objective Exam Vital Signs Date Time Temp Pulse Resp B/P (MAP) Pulse Ox O2 Delivery O2 Flow Rate FiO2 12/18/16 03:57 96.9 77 18 112/56 97 Room Air 12/18/16 00:23 97.9 71 22 103/57 96 Room Air 12/17/16 20:35 98.6 79 20 147/72 96 Room Air 12/17/16 16:05 98.2 76 18 125/76 95 Room Air 12/17/16 12:00 98.4 79 20 135/74 96 Room Air 12/17/16 08:00 95.9 63 20 122/68 96 Room Air I & O 12/18/16 07:00 Intake Total 3000 ml Output Total 1650 ml Balance 1350 ml Capillary Refill : Less Than 3 Seconds General Appearance: No Apparent Distress, WD/WN HEENT: Normal ENT Inspection Neck: Full Range of Motion, Normal Inspection Respiratory: Chest Non Tender, Lungs Clear, Normal Breath Sounds, No Accessory Muscle Use, No Respiratory Distress Cardiovascular: Regular Rate, Rhythm, No Murmur Gastrointestinal: non tender, soft Results Lab Laboratory Tests 12/18/16 04:47: White Blood Count 3.2L, Red Blood Count 4.50, Hemoglobin 13.2L, Hematocrit 40, Mean Corpuscular Volume 88, Mean Corpuscular Hemoglobin 29, Mean Corpuscular Hemoglobin Concent 33, Red Cell Distribution Width 13.5, Platelet Count 124L, Mean Platelet Volume 11.0H, Sodium Level 141, Potassium Level 3.5L, Chloride Level 112H, Carbon Dioxide Level 21, Anion Gap 8, Blood Urea Nitrogen 16, Creatinine 1.21, Estimat Glomerular Filtration Rate 58, BUN/Creatinine Ratio 13 , Glucose Level 109H, Calcium Level 8.3L, Total Bilirubin 4.0H, Aspartate Amino Transf (AST/SGOT) 174H, Alanine Aminotransferase (ALT/SGPT) 255H, Alkaline Phosphatase 333H, Total Protein 5.7L, Albumin 3.1L, Amylase Level 21L, Lipase 41 Laboratory Tests 12/18/16 04:47 Assessment/Plan Assessment/Plan Assess & Plan/Chief Complaint choledocholithiasis. Pancreatitis resolved. Hypertension. Umbilical hernia. Amputated leg. Patient feeling better today. Patient has no pain in the right upper quadrant Clinical Quality Measures DVT/VTE Risk/Contraindication: Risk Factor Score Per Nursin RFS Level Per Nursing on Admit: 4+=Very High Pneumonia: Pseudomonal Risk: No known risk RADHA SILVA DO Dec 18, 2016 07:55
[2016-12-18 08:12] VITALS: BP 110/54
[2016-12-18] MEDS: FAMOTIDINE 20MG/2ML IV (PEPCID) IVP SCH (09:00)
[2016-12-18] MEDS: CARVEDILOL 6.25 MG (COREG) TAB PO SCH (15:17)
[2016-12-19] MEDS: CARVEDILOL 6.25 MG (COREG) TAB PO SCH ×3 (09:34→21:38)
[2016-12-19] MEDS: metroNIDAZOLE 500 MG/100 ML IVPB (PRE-MIX) IV SCH ×5 (09:34→22:59)
[2016-12-19] MEDS: D5 NS 1000 ML IV SOLUTION 1,000 ML IV SCH ×5 (09:34→20:08)
[2016-12-19] MEDS: FAMOTIDINE 20MG/2ML IV (PEPCID) IVP SCH ×3 (09:35→21:37)
[2016-12-19] MEDS: CIPROFLOXACIN 400 MG/D5W 200 ML (PRE-MIX) IV SCH ×2 (09:35→15:15)
[2016-12-19] MEDS: LATANOPROST 0.005% (XALATAN) OPHTH SOLN 2.5 ML OU SCH ×2 (09:35→21:38)
[2016-12-19 20:16] VITALS: BP 152/92
[2016-12-19 20:35] LABS: ALBUMIN 3.3 GM/DL (3.2-4.5); BILIRUBIN,TOTAL 1.1 MG/DL (0.1-1.0); CALCIUM 8.7 MG/DL (8.5-10.1); CREATININE SERUM 1.22 MG/DL (0.60-1.30); POTASSIUM 3.2 MMOL/L (3.6-5.0); TOTAL PROTEIN 6.1 GM/DL (6.4-8.2)
[2016-12-19] MEDS ORDERED: KCL 20 MEQ TAB (K-DUR) PO ONE (21:00)
[2016-12-19] MEDS: LORazepam 0.5 MG (ATIVAN) TABLET PO PRN (21:35)
[2016-12-19 23:26] VITALS: BP 130/78
[2016-12-20] MEDS: CIPROFLOXACIN 400 MG/D5W 200 ML (PRE-MIX) IV SCH ×2 (02:06→15:11)
[2016-12-20 04:00] VITALS: BP 134/84
[2016-12-20] MEDS: metroNIDAZOLE 500 MG/100 ML IVPB (PRE-MIX) IV SCH ×4 (05:34→22:31)
[2016-12-20] MEDS: D5 NS 1000 ML IV SOLUTION 1,000 ML IV SCH ×3 (05:34→20:33)
[2016-12-20 06:38] LABS: MEAN PLATELET VOLUME 10.6 FL (7.4-10.4); RED BLOOD COUNT 4.58 10^6/uL (4.35-5.85); RED CELL DISTRIBUTION WIDTH 13.5 % (10.0-14.5); WHITE BLOOD COUNT 3.7 10^3/uL (4.3-11.0)
[2016-12-20 06:54] LABS: ALBUMIN 3.1 GM/DL (3.2-4.5); CALCIUM 8.3 MG/DL (8.5-10.1); CREATININE SERUM 1.17 MG/DL (0.60-1.30); POTASSIUM 3.7 MMOL/L (3.6-5.0); TOTAL PROTEIN 5.7 GM/DL (6.4-8.2)
[2016-12-20 08:00] VITALS: BP 125/86
[2016-12-20] MEDS: FAMOTIDINE 20MG/2ML IV (PEPCID) IVP SCH ×2 (08:42→20:27)
[2016-12-20] MEDS: CARVEDILOL 6.25 MG (COREG) TAB PO SCH ×2 (09:45→20:52)
--- NOTE | 2016-12-20 10:51 | Progress Note-Pre Operative ---
Pre-Operative Progress Note H&P Reviewed The H&P was reviewed, patient examined and no changes noted. Date Seen by Provider: Dec 20, 2016 Time Seen by Provider: 10:50 Date H&P Reviewed: Dec 20, 2016 Time H&P Reviewed: 10:50 Pre-Operative Diagnosis: chronic calculous cholecystitis with hx choledocholithiasis ROSA DOMINGUEZ MD Dec 20, 2016 10:51
[2016-12-20 12:00] VITALS: BP 156/74
[2016-12-20] MEDS ORDERED: BUP/EPI 0.5% 1:200,000 (MARCAINE) 10ML VIAL IJ ONE (12:07)
[2016-12-20] MEDS ORDERED: ONDANSETRON 4 MG/2 ML (SDV) Z0FRAN ONE (12:39)
[2016-12-20] MEDS ORDERED: ROCURONIUM 50 MG/5 ML (ZEMURON) VIAL IV ONE ×2 (12:39→15:52)
[2016-12-20] MEDS ORDERED: DEXAMETHASONE PF 10 MG/ML (DECADRON) VIAL ONE (12:39)
[2016-12-20] MEDS ORDERED: fentaNYL INJECTION 100 MCG/2 ML AMP ONE (12:39)
[2016-12-20] MEDS ORDERED: LIDOCAINE PF 2% 5 ML (XYLOCAINE) VIAL ONE (12:39)
[2016-12-20] MEDS ORDERED: proPOfol 200 MG/20 ML (DIPRIVAN) VIAL IV ONE (12:39)
[2016-12-20] MEDS ORDERED: LACTATED RINGERS 1,000 ML IV ONE ×4 (12:53→18:19)
[2016-12-20] MEDS ORDERED: SEVOFLURANE (ULTANE) 15 ML INHAL SOLN ONE ×18 (12:53→18:19)
[2016-12-20] MEDS ORDERED: MIDAZOLAM 2 MG/2 ML (VERSED) VIAL ONE (12:58)
[2016-12-20] MEDS ORDERED: metroNIDAZOLE 500MG/100ML IVPB 100 ML ONE (13:51)
[2016-12-20] MEDS: LACTATED RINGERS 1,000 ML IV PRN ×2 (15:30→17:30)
[2016-12-20] MEDS ORDERED: morphine INJ 10 MG/ML 1ML (SYR OR VIAL) ONE (16:10)
[2016-12-20] MEDS ORDERED: GLYCOPYRROLATE 0.2 MG/ML (ROBINUL) 2 ML VIAL ONE (18:11)
[2016-12-20] MEDS ORDERED: NEOSTIGMINE (BLOXIVERZ ) 1 MG/1ML 10 ML VIAL ONE (18:11)
[2016-12-20] MEDS ORDERED: SUGAMMADEX 100 MG/ML 5 ML (BRIDION) IV ONE (18:29)
[2016-12-20] MEDS ORDERED: ONDANSETRON 4 MG/2 ML (SDV) Z0FRAN IVP PRN (19:00)
--- NOTE | 2016-12-20 19:13 | Progress Note-Post Operative ---
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 incarcerated umbilical hernia. Procedure & Operative Findings Date of Procedure 12/20/16 Procedure Performed/Findings laparoscopic cholecystectomy. open umbilical hernia repair with mesh. Anesthesia Type GET Estimated Blood Loss Estimated blood loss (mL): 1500ml Specimens/Packing Specimens Removed gallbladder, hernia sac. ROSA DOMINGUEZ MD Dec 20, 2016 19:13
[2016-12-20] MEDS: morphine INJ 10 MG/ML 1ML (SYR OR VIAL) IVP PRN ×2 (19:14→19:20)
[2016-12-20] MEDS ORDERED: HYDR-3816 PO (19:16)
--- NOTE | 2016-12-20 19:19 | Discharge Inst-Surgical ---
D/C Lap Instructions-ANGELICA New, Converted, or Re-Newed RX: RX on Chart Follow Up Appt in 2 weeks Activity as tolerated No driving for 24 hours No driving while on pain medications Incentive Spirometry use every 2 hours while awake Regular Diet Symptoms to Report: Fever over 101 degree F, Nausea/Vomiting Infection Signs and Symptoms to report: Increased redness, Foul odor of wound, Increased drainage Bathing instructions: May shower Operative Area Clean/Dry; Keep incision clean/dry If any problems/questions: Contact your physician or go to Emergency Room ROSA DOMINGUEZ MD Dec 20, 2016 19:19
[2016-12-20 20:13] VITALS: BP 137/79
[2016-12-20] MEDS: fentaNYL INJECTION 100 MCG/2 ML AMP IV PRN ×2 (20:25→22:04)
[2016-12-20] MEDS: LATANOPROST 0.005% (XALATAN) OPHTH SOLN 2.5 ML OU SCH (20:51)
[2016-12-20] MEDS: ONDANSETRON 4 MG/2 ML (SDV) Z0FRAN IV PRN (21:35)
[2016-12-20] MEDS: oxyCODONE/APAP 10/325MG (PERCOCET 10) TABLET PO PRN (23:03)
[2016-12-21] VITALS (7 sets, daily range): BP systolic 119–146; BP diastolic 60–85
[2016-12-21] MEDS: fentaNYL INJECTION 100 MCG/2 ML AMP IV PRN ×2 (00:34→02:41)
[2016-12-21] MEDS: CIPROFLOXACIN 400 MG/D5W 200 ML (PRE-MIX) IV SCH ×2 (02:27→14:01)
[2016-12-21] MEDS: metroNIDAZOLE 500 MG/100 ML IVPB (PRE-MIX) IV SCH ×4 (04:54→22:34)
[2016-12-21] MEDS: ONDANSETRON 4 MG/2 ML (SDV) Z0FRAN IV PRN (04:56)
[2016-12-21 05:27] LABS: BASOPHILS % (AUTO) 0 % (0-10); EOSINOPHILS % (AUTO) 0 % (0-10); LYMPHOCYTES # (AUTO) 0.6 X 10^3 (1.0-4.0); LYMPHOCYTES % (AUTO) 6 % (12-44); MEAN CORPUSCULAR HEMOGLOBIN 29 PG (25-34); MEAN CORPUSCULAR HGB CONC 33 G/DL (32-36); MEAN CORPUSCULAR VOLUME 90 FL (80-99); MEAN PLATELET VOLUME 10.7 FL (7.4-10.4); MONOCYTES # (AUTO) 0.7 X 10^3 (0.0-1.0); MONOCYTES % (AUTO) 7 % (0-12); NEUTROPHILS % (AUTO) 87 % (42-75); PLATELET COUNT 120 10^3/uL (130-400); RED BLOOD COUNT 4.39 10^6/uL (4.35-5.85); RED CELL DISTRIBUTION WIDTH 13.4 % (10.0-14.5); WHITE BLOOD COUNT 10.3 10^3/uL (4.3-11.0)
[2016-12-21 05:53] LABS: ALBUMIN 3.1 GM/DL (3.2-4.5); BILIRUBIN,TOTAL 1.2 MG/DL (0.1-1.0); CALCIUM 8.3 MG/DL (8.5-10.1); CREATININE SERUM 1.49 MG/DL (0.60-1.30); POTASSIUM 4.1 MMOL/L (3.6-5.0); TOTAL PROTEIN 5.7 GM/DL (6.4-8.2)
[2016-12-21 06:17] LABS: BAND NEUTROPHILS 4 %; LYMPHOCYTES % (MANUAL) 8 %; NEUTROPHILS % (MANUAL) 83 %
[2016-12-21] MEDS: D5 NS 1000 ML IV SOLUTION 1,000 ML IV SCH ×3 (06:53→21:09)
--- NOTE | 2016-12-21 07:49 | Anesthesia-General Post-Op ---
General Patient Condition Mental Status/LOC: Same as Preop Cardiovascular: Satisfactory Nausea/Vomiting: Absent Respiratory: Satisfactory Pain: Controlled Complications: Absent Post Op Complications Complications None Follow Up Care/Instructions Patient Instructions None needed. Anesthesia/Patient Condition Patient Condition Patient is doing well, no complaints, stable vital signs, no apparent adverse anesthesia problems. No complications reported per nursing. [place] [facility] [place] No FLAKITA MAE CRNA Dec 21, 2016 07:49
[2016-12-21] MEDS: FAMOTIDINE 20MG/2ML IV (PEPCID) IVP SCH ×2 (08:26→21:02)
[2016-12-21] MEDS: CARVEDILOL 6.25 MG (COREG) TAB PO SCH ×2 (08:26→21:03)
[2016-12-21] MEDS: oxyCODONE/APAP 10/325MG (PERCOCET 10) TABLET PO PRN ×4 (08:26→22:36)
--- NOTE | 2016-12-21 09:05 | Progress Note (SOAP) ---
Subjective Subjective Date Seen by Provider: Dec 21, 2016 Time Seen by Provider: 08:30 75 yo M with RUQ pain- s/p 1 day after lap bev and umbilical hernia repair. No overnight events- He is feeling better but not ready to go home due to just having surgery. Cr elevated likely due to low blood pressure during surgery- will rehydrate. Review of Systems General: No Chills, No Night Sweats, Malaise HEENT: No Head Aches, No Eye Pain, No Dysphasia, No Post Nasal Drip, No Sore Throat Pulmonary: No Dyspnea, No Cough Cardiovascular: Edema, No: Chest Pain, Orthopnea, Palpitations Gastrointestinal: Abdominal Pain (RUQ -improved), No: Diarrhea, Vomiting Genitourinary: No Dysuria, No Frequency Musculoskeletal: leg pain (phantom right leg), No: neck pain, shoulder pain Neurological: Weakness, No: Confusion Objective Exam Vital Signs Vital Signs Date Time Temp Pulse Resp B/P (MAP) Pulse Ox O2 Delivery O2 Flow Rate FiO2 12/22/16 07:49 97.6 89 20 111/69 92 Room Air 12/21/16 23:35 97.1 92 20 119/60 91 Room Air 12/21/16 20:00 93 Room Air 12/21/16 19:23 97.2 60 18 146/85 92 12/21/16 16:10 97.1 83 18 139/79 93 12/21/16 12:00 96.6 75 20 123/71 93 Room Air I & O 12/22/16 07:00 Intake Total 1300 ml Output Total 960 ml Balance 340 ml General Appearance: No Apparent Distress, WD/WN Eyes: Bilateral Eye Normal Inspection HEENT: Normal ENT Inspection Neck: Full Range of Motion, Normal Inspection Respiratory: Chest Non Tender, Lungs Clear, Normal Breath Sounds, No Accessory Muscle Use, No Respiratory Distress Cardiovascular: Regular Rate, Rhythm, No Murmur Gastrointestinal: Normal Bowel Sounds, Soft, Tenderness (RUQ), Other (LAVELL drain) Rectal: Deferred Extremity: Other Neurologic/Psychiatric: Alert, Oriented x3, No Motor/Sensory Deficits Skin: Warm/Dry Results Lab Laboratory Tests 12/21/16 05:08: White Blood Count 10.3, Red Blood Count 4.39, Hemoglobin 12.9L, Hematocrit 39L, Mean Corpuscular Volume 90, Mean Corpuscular Hemoglobin 29, Mean Corpuscular Hemoglobin Concent 33, Red Cell Distribution Width 13.4, Platelet Count 120L, Mean Platelet Volume 10.7H, Neutrophils (%) (Auto) 87H, Lymphocytes (%) (Auto) 6L, Monocytes (%) (Auto) 7, Eosinophils (%) (Auto) 0, Basophils (%) (Auto) 0, Neutrophils # (Auto) 9.0H, Lymphocytes # (Auto) 0.6L, Monocytes # (Auto) 0.7, Eosinophils # (Auto) 0.0, Basophils # (Auto) 0.0, Neutrophils % (Manual) 83, Lymphocytes % (Manual) 8, Monocytes % (Manual) 5, Band Neutrophils 4, Blood Morphology Comment NORMAL, Sodium Level 140, Potassium Level 4.1, Chloride Level 110H, Carbon Dioxide Level 21, Anion Gap 9, Blood Urea Nitrogen 16, Creatinine 1.49H, Estimat Glomerular Filtration Rate 46, BUN/Creatinine Ratio 11 , Glucose Level 211H, Calcium Level 8.3L, Total Bilirubin 1.2H, Aspartate Amino Transf (AST/SGOT) 287H, Alanine Aminotransferase (ALT/SGPT) 271H, Alkaline Phosphatase 190H, Total Protein 5.7L, Albumin 3.1L Assessment/Plan Assessment/Plan Assessment/Plan 75 yo Male acute abdominal pain, RUQ- secondary to choledocholithiasis- improved- continue IVFs. choledocholithiasis- s/p- [facility] for ERCP-over the weekend- s/p lap bev 12/20/16 Dr. Hernandez acute kidney injury- creatinine back up to 1.4 avoid nephrotoxic agents. Continue to monitor HTN- stable, good control- we are holding losartan and continued coreg- will resume losartan on discharge- right above knee amputation- keep stump clean elevated LFTs- acute, plan for them to trend down after interventions insomnia- has lorazepam prn qhs. Dispo: IVFs to hydrate kidneys - recheck Cr in AM Problems: Clinical Quality Measures DVT/VTE Risk/Contraindication: Risk Factor Score Per Nursin RFS Level Per Nursing on Admit: 4+=Very High Pneumonia: Pseudomonal Risk: No known risk SAMUEL FERNANDEZ MD Dec 21, 2016 09:05
--- NOTE | 2016-12-21 12:04 | OPERATIVE REPORT ---
PROCEDURE PHYSICIAN: ROSA HERNANDEZ DATE OF PROCEDURE: 12/20/2016 PREOPERATIVE DIAGNOSIS: 1. 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 2. Incarcerated umbilical hernia. POSTOPERATIVE DIAGNOSIS: 1. 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 2. Incarcerated umbilical hernia. PROCEDURE: 1. Laparoscopic cholecystectomy. 2. Open incarcerated umbilical hernia repair with mesh. SURGEON: Dr. Hernandez. REHEATER: Ajay Rowe APRN. ANESTHESIA: General endotracheal. ESTIMATED BLOOD LOSS: 1500 mL. FINDINGS: 1. Severely adherent omentum and mesentery to the chronically inflamed gallbladder. This was severely chronically inflamed and a wedge of the liver around the gallbladder was removed as well. 2. Incarcerated umbilical hernia repair with a greater omentum within the hernia sac which was incarcerated; however, no strangulation. DISPOSITION: The patient tolerated the procedure well. Mr. Gallito Garcia is a 75-year-old male who we have seen before in the past. He has a history of diverticulitis in June 2016 and was placed on IV antibiotics for approximately 3 days. This was uncomplicated and he had a follow-up colonoscopy on 07/28/2016 which showed chronic, stage II external and internal hemorrhoids as well as a moderate sigmoid diverticulosis with no active inflammation. He presented to the emergency department with pain in the right upper abdominal quadrant. He reported that he had similar episodes before however not near as severe, nor as prolonged in the past [address] scan as well as ultrasound was performed, which did show gallbladder wall thickening and gallstones, as well as gallbladder sludge as well as dilated extrahepatic and intrahepatic ducts. He was also found to have an elevated total bilirubin as well as slight elevation of pancreatic enzymes. The patient was transfer to [facility] where he underwent an ERCP. He then returned to [facility]. Labs were monitored and he did have eventual normalization of liver function enzymes as well as amylase and lipase. He also reported that his pain improved. He was also found to have an umbilical hernia which was painful to palpation, incarcerated. PROCEDURE: The patient was brought to the operating room, laid supine on the table. After adequate IV pain and sedative medications and general endotracheal intubation, the abdomen was prepped and draped in standard surgical fashion. 0.5% Marcaine with epinephrine was then used to anesthetize the overlying skin in the left upper abdominal quadrant, a small transverse skin incision made using a 15 blade. A 0 silk suture was applied to the medial aspect of the incision for retraction and a Veress needle inserted with a low opening pressure of 0 mmHg. The abdomen was insufflated to 15 mmHg pressure. The Veress needle was removed and a 5 mm Xcel trocar placed followed by a 5 mm, 45 degree angle laparoscope, visualizing the peritoneal cavity. A four-quadrant abdominal exploration was performed. There was an incarcerated umbilical hernia with a fascial defect approximately 2 cm in size with only omentum within the hernia sac which was reduced with no signs of ischemia or necrosis. Through this opening a 10 mm port was placed under direct visualization. In a similar manner, after the skin and peritoneum were anesthetized using 0.5% Marcaine and a transverse incision made using a 15 blade, right upper abdominal 5 mm ports were placed. The patient was then placed in reverse Trendelenburg position as well as planed right side up, left side down. The gallbladder was visualized and the entire gallbladder was incased in omentum as well as mesentery. We then proceeded with gentle dissection starting from the fundus using the Sonicision. This severe chronic inflammatory change encompassed the entire gallbladder. Through gentle dissection, we were then able mobilized the body and fundus of the gallbladder. This was then retracted anteriorly and superiorly. We then proceeded with continued dissection until the critical view of safety was identified including the [place] of [place] as well as the cystic duct and artery going into the gallbladder, as well as the liver behind the proximal gallbladder. A timeout was then taken and the cystic duct and artery were then clipped proximally and distally and cut with Endo Thony. Throughout this process of dissection, there was approximately 1500 mL of blood loss mainly due to venous oozing. The gallbladder was then dissected off of the liver bed. Because of the chronic inflammatory changes, a wedge of liver was included with the gallbladder, using electrocautery and the hook instrument with visualization of good hemostasis as well as no leaking ducts of Luschka. The gallbladder was removed through the 10 mm port site using an Endo Catch bag. The right subphrenic space as well as the gallbladder fossa were then copiously irrigated and suctioned out with visualization of good hemostasis. Due to the venous oozing, it was decided to place Surgicel as well as a 9-Pashto Roby-Gerber drain, which was pulled up through one of the 5 mm ports and sutured to the skin using 3-0 nylon. We then placed the patient flat. The hernia sac was identified and completely dissected out using electrocautery as well as blunt dissection. The hernia sac was then excised using electrocautery under direct visualization. Through this opening, a 6.4 cm coated polypropylene mesh was placed and the mesh was sutured in a transfascial manner to the mesh using interrupted 0 Prolene sutures. Good hemostasis was observed. The base of the umbilicus was then sutured to the mesh. The subcutaneous tissue was then reapproximated using 3-0 Vicryl interrupted sutures. Skin was closed using 4-0 Monocryl running subcuticular suture. The wounds were then cleaned, remaining ports removed and all skin incisions were closed using 4-0 Monocryl running subcuticular sutures. Wounds were then cleaned and covered with Dermabond. The umbilicus was then filled with tonsil sponges followed by 4 x 4 gauze, followed by a large OpSite, followed by an abdominal binder. The patient tolerated the procedure well. We will start IV and oral pain medication as well as a clear liquid diet and advance as tolerated. Once he is tolerating a diet, has good pain control with oral pain medications and ambulating well, we will discharge him home. Job ID: [id number] Dictated Date: 12/20/2016 19:31:13 Lokie Engineer Date: 12/21/2016 11:36:50 / tremayne
--- NOTE | 2016-12-21 12:43 | Progress Note (SOAP) ---
Subjective Date Seen by Provider: Dec 21, 2016 Time Seen by Provider: 12:00 Subjective/Events-last exam doing ok, tolerating clears. pain better controlled. labs stable Objective Exam Vital Signs Date Time Temp Pulse Resp B/P (MAP) Pulse Ox O2 Delivery O2 Flow Rate FiO2 12/21/16 08:53 Room Air 12/21/16 08:30 97.1 87 22 130/85 93 Room Air 12/21/16 08:20 93 Room Air 12/21/16 06:27 Nasal Cannula 3.50 12/21/16 03:48 97.1 70 18 124/78 96 Nasal Cannula 3.50 12/21/16 00:16 96.9 66 22 133/76 96 Nasal Cannula 3.50 12/20/16 20:13 97.1 65 24 137/79 93 Nasal Cannula 3.50 12/20/16 20:10 97 Nasal Cannula 3.50 12/20/16 19:20 97.6 12/20/16 19:14 97.6 I & O 12/21/16 07:00 Intake Total 4920 ml Output Total 1185 ml Balance 3735 ml Capillary Refill : Less Than 3 Seconds General Appearance: No Apparent Distress HEENT: PERRL/EOMI Neck: Full Range of Motion Respiratory: Chest Non Tender, Lungs Clear, Normal Breath Sounds Cardiovascular: Regular Rate, Rhythm Gastrointestinal: soft, tenderness Extremity: Normal Capillary Refill Neurologic/Psychiatric: Alert, Oriented x3 Skin: Normal Color Lymphatic: No Adenopathy Results Lab Laboratory Tests 12/21/16 05:08: White Blood Count 10.3, Red Blood Count 4.39, Hemoglobin 12.9L, Hematocrit 39L, Mean Corpuscular Volume 90, Mean Corpuscular Hemoglobin 29, Mean Corpuscular Hemoglobin Concent 33, Red Cell Distribution Width 13.4, Platelet Count 120L, Mean Platelet Volume 10.7H, Neutrophils (%) (Auto) 87H, Lymphocytes (%) (Auto) 6L, Monocytes (%) (Auto) 7, Eosinophils (%) (Auto) 0, Basophils (%) (Auto) 0, Neutrophils # (Auto) 9.0H, Lymphocytes # (Auto) 0.6L, Monocytes # (Auto) 0.7, Eosinophils # (Auto) 0.0, Basophils # (Auto) 0.0, Neutrophils % (Manual) 83, Lymphocytes % (Manual) 8, Monocytes % (Manual) 5, Band Neutrophils 4, Blood Morphology Comment NORMAL, Sodium Level 140, Potassium Level 4.1, Chloride Level 110H, Carbon Dioxide Level 21, Anion Gap 9, Blood Urea Nitrogen 16, Creatinine 1.49H, Estimat Glomerular Filtration Rate 46, BUN/Creatinine Ratio 11 , Glucose Level 211H, Calcium Level 8.3L, Total Bilirubin 1.2H, Aspartate Amino Transf (AST/SGOT) 287H, Alanine Aminotransferase (ALT/SGPT) 271H, Alkaline Phosphatase 190H, Total Protein 5.7L, Albumin 3.1L Microbiology 12/19/16 MRSA Screen - Final, Complete MRSA not isolated Assessment/Plan Assessment/Plan Assess & Plan/Chief Complaint s/p laparoscopic cholecystectomy and umbilical hernia repair. extensive chronic inflammation and scarring. 1500ml EBL intraop. labs stable now. 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 monitor labs. increase ambulation. Clinical Quality Measures DVT/VTE Risk/Contraindication: Risk Factor Score Per Nursin RFS Level Per Nursing on Admit: 4+=Very High Pneumonia: Pseudomonal Risk: No known risk ROSA DOMINGUEZ MD Dec 21, 2016 12:43 pm
[2016-12-21] MEDS: LATANOPROST 0.005% (XALATAN) OPHTH SOLN 2.5 ML OU SCH (21:04)
[2016-12-22] MEDS: CIPROFLOXACIN 400 MG/D5W 200 ML (PRE-MIX) IV SCH ×2 (02:33→15:51)
[2016-12-22] MEDS: metroNIDAZOLE 500 MG/100 ML IVPB (PRE-MIX) IV SCH ×2 (04:13→12:09)
[2016-12-22] MEDS: oxyCODONE/APAP 10/325MG (PERCOCET 10) TABLET PO PRN ×4 (04:13→23:46)
[2016-12-22 05:26] LABS: MEAN PLATELET VOLUME 11.4 FL (7.4-10.4); RED BLOOD COUNT 4.32 10^6/uL (4.35-5.85); RED CELL DISTRIBUTION WIDTH 13.5 % (10.0-14.5); WHITE BLOOD COUNT 12.2 10^3/uL (4.3-11.0)
[2016-12-22 05:47] LABS: ALBUMIN 3.1 GM/DL (3.2-4.5); BILIRUBIN,TOTAL 1.1 MG/DL (0.1-1.0); CALCIUM 8.2 MG/DL (8.5-10.1); CREATININE SERUM 1.41 MG/DL (0.60-1.30); POTASSIUM 3.9 MMOL/L (3.6-5.0); TOTAL PROTEIN 5.7 GM/DL (6.4-8.2)
[2016-12-22] MEDS ORDERED: NS IV 500 ML 500 ML IV ONE (07:15)
[2016-12-22 07:49] VITALS: BP 111/69
[2016-12-22] MEDS ORDERED: FUROSEMIDE 40 MG (LASIX) TAB PO NR (09:00)
--- NOTE | 2016-12-22 09:17 | Progress Note (SOAP) ---
Subjective Subjective Date Seen by Provider: Dec 22, 2016 Time Seen by Provider: 08:45 75 yo M with RUQ pain- no overnight events - pt reports feeling better, pain controlled. He has not urinated much so he was straight cathed this am with about 900cc or urine- tea colored. He will be getting a 500cc bolus as his Cr is still 1.4. Pt is using his incentive spirometry. Review of Systems General: No Chills, No Night Sweats, Malaise HEENT: No Head Aches, No Eye Pain, No Dysphasia, No Post Nasal Drip, No Sore Throat Cardiovascular: Edema, No: Chest Pain, Orthopnea, Palpitations Gastrointestinal: Abdominal Pain (RUQ -improved), No: Diarrhea, Vomiting Genitourinary: No Dysuria, No Frequency Musculoskeletal: leg pain (phantom right leg), No: neck pain, shoulder pain Neurological: Weakness, No: Confusion Objective Exam Vital Signs Vital Signs Date Time Temp Pulse Resp B/P (MAP) Pulse Ox O2 Delivery O2 Flow Rate FiO2 12/22/16 07:49 97.6 89 20 111/69 92 Room Air 12/21/16 23:35 97.1 92 20 119/60 91 Room Air 12/21/16 20:00 93 Room Air 12/21/16 19:23 97.2 60 18 146/85 92 12/21/16 16:10 97.1 83 18 139/79 93 12/21/16 12:00 96.6 75 20 123/71 93 Room Air I & O 12/22/16 07:00 Intake Total 1300 ml Output Total 960 ml Balance 340 ml General Appearance: No Apparent Distress Eyes: Bilateral Eye Normal Inspection HEENT: PERRL/EOMI Neck: Full Range of Motion Respiratory: Chest Non Tender, Lungs Clear, Normal Breath Sounds Cardiovascular: Regular Rate, Rhythm Gastrointestinal: Normal Bowel Sounds, Soft, Other (LAVELL drain with sanginous drainage.) Rectal: Deferred Extremity: Normal Capillary Refill Neurologic/Psychiatric: Alert, Oriented x3 Skin: Normal Color Lymphatic: No Adenopathy Results Lab Laboratory Tests 12/22/16 04:45: White Blood Count 12.2H, Red Blood Count 4.32L, Hemoglobin 12.6L, Hematocrit 38L , Mean Corpuscular Volume 88, Mean Corpuscular Hemoglobin 29, Mean Corpuscular Hemoglobin Concent 33, Red Cell Distribution Width 13.5, Platelet Count 125L, Mean Platelet Volume 11.4H, Sodium Level 137, Potassium Level 3.9, Chloride Level 107, Carbon Dioxide Level 21, Anion Gap 9, Blood Urea Nitrogen 23H, Creatinine 1.41H, Estimat Glomerular Filtration Rate 49, BUN/Creatinine Ratio 16 , Glucose Level 121H, Calcium Level 8.2L, Total Bilirubin 1.1H, Aspartate Amino Transf (AST/SGOT) 418H, Alanine Aminotransferase (ALT/SGPT) 411H, Alkaline Phosphatase 164H, Total Protein 5.7L, Albumin 3.1L 12/22/16 04:47: Glucometer 126H Microbiology 12/19/16 MRSA Screen - Final, Complete MRSA not isolated Assessment/Plan Assessment/Plan Assessment/Plan 75 yo Male acute abdominal pain, RUQ- secondary to choledocholithiasis- improved- continue IVFs. choledocholithiasis- s/p- [facility] for ERCP-over the weekend- s/p lap bev 12/20/16 Dr. Hernandez umbilical hernia- repaired 12/20/16 Dr. Hernandez acute kidney injury- Cr 1.4 avoid nephrotoxic agents. Continue to monitor . IVF. 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 Urinary retention- straight cath x1 12/22/16- will monitor UOP. Pt has history of his bladder taking a little while to wake back up after surgery. Dispo: IVFs to hydrate kidneys - recheck Cr in AM; monitor UOP. Continue incentive spirometry. Ambulation to increase- Pt has his prosthesis Problems: Clinical Quality Measures DVT/VTE Risk/Contraindication: Risk Factor Score Per Nursin RFS Level Per Nursing on Admit: 4+=Very High Pneumonia: Pseudomonal Risk: No known risk SAMUEL FERNANDEZ MD Dec 22, 2016 09:17
[2016-12-22] MEDS: CARVEDILOL 6.25 MG (COREG) TAB PO SCH ×2 (09:51→20:04)
[2016-12-22] MEDS ORDERED: RT-ALBUTEROL SULF 2.5 MG/3 ML PRE-MIX VIAL IH PRN (11:45)
[2016-12-22] MEDS: FAMOTIDINE 20 MG (PEPCID) TABLET PO SCH ×2 (12:14→20:03)
[2016-12-22] MEDS: DOCUSATE SODIUM 100 MG (COLACE) CAP PO SCH ×2 (12:14→20:03)
--- NOTE | 2016-12-22 13:46 | Diagnostic Imaging Report ---
EXAMINATION: Portable upright radiograph of the chest. INDICATION: Shortness of breath. FINDINGS: The right hemidiaphragm is slightly elevated similar to 2015 exam. There is mild bibasilar infiltrate or atelectasis in the left lung base. The heart size is slightly prominent. No effusion or pneumothorax. The mediastinum and susie appear unremarkable. IMPRESSION: Mild bibasilar infiltrates or atelectasis. Elevation of the right hemidiaphragm similar to prior exams. Dictated by: Dictated on workstation # [id number]
[2016-12-22] MEDS ORDERED: LORazepam INJ 2 MG/ML (ATIVAN) VIAL IVP PRN (15:15)
[2016-12-22] MEDS ORDERED: PIPERACILLIN/TAZOBACTAM 4.5 GM/NS 100 ML IV NR ×2 (15:30)
[2016-12-22] MEDS: D5 NS 1000 ML IV SOLUTION 1,000 ML IV SCH ×2 (15:51→23:47)
[2016-12-22 16:59] VITALS: BP 143/77
[2016-12-22] MEDS: LATANOPROST 0.005% (XALATAN) OPHTH SOLN 2.5 ML OU SCH (20:05)
--- NOTE | 2016-12-22 20:22 | Progress Note (SOAP) ---
Subjective Date Seen by Provider: Dec 22, 2016 Time Seen by Provider: 15:30 Subjective/Events-last exam doing ok from GI standpoint however developed SOB. CXR showed likely atelectasis however pt high risk pneumonia. moderate bilious drainage per LAVELL drain with may indicate leaking ducts of luschka vs. cystic duct stump leak. patient already has had ERCP, stone extraction and CBD stent placed so so leak should improve over time. will get HIDA in am to dilineate potential cause. will empirically treat for pneumonia. cont RT, IS and amublation. Objective Exam Vital Signs Date Time Temp Pulse Resp B/P (MAP) Pulse Ox O2 Delivery O2 Flow Rate FiO2 12/22/16 19:22 96 Nasal Cannula 2.50 12/22/16 16:59 98.6 77 20 143/77 95 Nasal Cannula 2.50 12/22/16 14:23 94 Room Air 12/22/16 11:57 92 Room Air 12/22/16 11:43 92 12/22/16 10:20 97.6 12/22/16 08:00 93 Room Air 12/22/16 07:49 97.6 89 20 111/69 92 Room Air 12/21/16 23:35 97.1 92 20 119/60 91 Room Air I & O 12/22/16 07:00 Intake Total 1300 ml Output Total 960 ml Balance 340 ml Capillary Refill : Less Than 3 Seconds General Appearance: No Apparent Distress HEENT: PERRL/EOMI Neck: Full Range of Motion Respiratory: Lungs Clear, Decreased Breath Sounds Cardiovascular: Regular Rate, Rhythm Gastrointestinal: normal bowel sounds, non tender, soft, other (moderate LAVELL bilious drainage) Extremity: Normal Capillary Refill Neurologic/Psychiatric: Alert, Oriented x3 Skin: Normal Color Lymphatic: No Adenopathy Results Lab Laboratory Tests 12/22/16 04:45: White Blood Count 12.2H, Red Blood Count 4.32L, Hemoglobin 12.6L, Hematocrit 38L , Mean Corpuscular Volume 88, Mean Corpuscular Hemoglobin 29, Mean Corpuscular Hemoglobin Concent 33, Red Cell Distribution Width 13.5, Platelet Count 125L, Mean Platelet Volume 11.4H, Sodium Level 137, Potassium Level 3.9, Chloride Level 107, Carbon Dioxide Level 21, Anion Gap 9, Blood Urea Nitrogen 23H, Creatinine 1.41H, Estimat Glomerular Filtration Rate 49, BUN/Creatinine Ratio 16 , Glucose Level 121H, Calcium Level 8.2L, Total Bilirubin 1.1H, Aspartate Amino Transf (AST/SGOT) 418H, Alanine Aminotransferase (ALT/SGPT) 411H, Alkaline Phosphatase 164H, Total Protein 5.7L, Albumin 3.1L 12/22/16 04:47: Glucometer 126H Microbiology 12/19/16 MRSA Screen - Final, Complete MRSA not isolated Assessment/Plan Assessment/Plan Assess & Plan/Chief Complaint s/p laparoscopic cholecystectomy and umbilical hernia repair. extensive chronic inflammation and scarring. 1500ml EBL intraop. development SOB most likely atelectasis or early pneumonia. will start zosyn. moderate LAVELL bile drainage which may be leaking duct of luschka or cytic stump leak. will get HIDA in am. biliary tree currently protected with stent. Clinical Quality Measures DVT/VTE Risk/Contraindication: Risk Factor Score Per Nursin RFS Level Per Nursing on Admit: 4+=Very High Pneumonia: Pseudomonal Risk: No known risk ROSA DOMINGUEZ MD Dec 22, 2016 8:22 pm
[2016-12-22] MEDS ORDERED: PIPERACILLIN SODIUM/TAZOBACTAM 4.5 GM in NS (IVPB) 100 ML IV SCH (21:00)
[2016-12-22] MEDS: PIPERACILLIN/TAZOBACTAM 4.5 GM/NS 100 ML IVPB IV SCH ×2 (21:36)
[2016-12-22] MEDS ORDERED: RT-IPRATROPIUM (ATROVENT) 0.5MG/2.5ML AMP IH ONE (23:45)
[2016-12-22] MEDS ORDERED: RT-ALBUTEROL SULF 2.5 MG/3 ML PRE-MIX VIAL IH ONE (23:45)
[2016-12-23] VITALS: BP 129/76
[2016-12-23 03:40] VITALS: BP 132/71
[2016-12-23] MEDS ORDERED: methylPREDNISolone 125 MG (Solu-MEDROL) VIAL IVP STA (03:42)
[2016-12-23] MEDS: ONDANSETRON 4 MG/2 ML (SDV) Z0FRAN IV PRN (03:53)
[2016-12-23 03:56] LABS: ABG BASE EXCESS -3.2 MMOL/L (-2.5-2.5); ABG HCO3 21 MMOL/L (23-27); ABG OXYGEN SATURATION 95 % (94-100); ABG PCO2 34 MMHG (35-45); ABG PO2 67 MMHG (79-93)
[2016-12-23 03:57] LABS: ALLENS TEST YES-POS; PATIENT TEMP 98.1
[2016-12-23] MEDS: PIPERACILLIN/TAZOBACTAM 4.5 GM/NS 100 ML IVPB IV SCH ×6 (05:32→22:20)
[2016-12-23 06:21] LABS: BASOPHILS % (AUTO) 0 % (0-10); EOSINOPHILS % (AUTO) 0 % (0-10); LYMPHOCYTES # (AUTO) 0.4 X 10^3 (1.0-4.0); LYMPHOCYTES % (AUTO) 4 % (12-44); MEAN CORPUSCULAR HEMOGLOBIN 29 PG (25-34); MEAN CORPUSCULAR HGB CONC 33 G/DL (32-36); MEAN CORPUSCULAR VOLUME 87 FL (80-99); MEAN PLATELET VOLUME 10.5 FL (7.4-10.4); MONOCYTES # (AUTO) 0.5 X 10^3 (0.0-1.0); MONOCYTES % (AUTO) 5 % (0-12); NEUTROPHILS # (AUTO) 9.5 X 10^3 (1.8-7.8); NEUTROPHILS % (AUTO) 91 % (42-75); PLATELET COUNT 119 10^3/uL (130-400); RED BLOOD COUNT 4.06 10^6/uL (4.35-5.85); RED CELL DISTRIBUTION WIDTH 13.5 % (10.0-14.5); WHITE BLOOD COUNT 10.5 10^3/uL (4.3-11.0)
[2016-12-23] MEDS: RT-ALBUTEROL/IPRATROPIUM 3 ML (DUONEB) VIAL INH SCH ×5 (06:31→21:47)
[2016-12-23 06:47] LABS: ALBUMIN 2.8 GM/DL (3.2-4.5); BILIRUBIN,TOTAL 1.2 MG/DL (0.1-1.0); CALCIUM 8.2 MG/DL (8.5-10.1); CREATININE SERUM 1.37 MG/DL (0.60-1.30); MAGNESIUM 1.5 MG/DL (1.8-2.4); POTASSIUM 3.4 MMOL/L (3.6-5.0); TOTAL PROTEIN 5.4 GM/DL (6.4-8.2)
--- NOTE | 2016-12-23 08:09 | Progress Note (SOAP) ---
Subjective Subjective Date Seen by Provider: Dec 23, 2016 Time Seen by Provider: 17:30 75 yo M with RUQ pain- -Overnight events- pt has developed auditory wheeze and was sating low 90s on 2.5L oxygen. He has been switched to vapor therm. He has done an hour long breathing treating to help with the wheezing- also received one dose of 125mg solumedrol. Pt has told nurses that he is breathing okay but visually not breathing as well as he reports. No fevers. Still having some urinary retention- consult ordered for Dr. Hammond. CXR from last night indicates atelectasis. Zosyn was started to cover for pneumonia. Pt reports he is doing much better- still wheezing but feels like he can take the vapotherm off and go home Tuesday. Review of Systems General: No Chills, No Night Sweats, Malaise (improving) HEENT: No Head Aches, No Eye Pain, No Dysphasia, No Post Nasal Drip, No Sore Throat Pulmonary: Dyspnea, No Cough, Other (feels like he is wheezing) Cardiovascular: Edema, No: Chest Pain, Orthopnea, Palpitations Gastrointestinal: Abdominal Pain (RUQ -improved), No: Diarrhea, Vomiting Genitourinary: No Dysuria, No Frequency Musculoskeletal: leg pain (phantom right leg), No: neck pain, shoulder pain Neurological: Weakness, No: Confusion Objective Exam Vital Signs Vital Signs Date Time Temp Pulse Resp B/P (MAP) Pulse Ox O2 Delivery O2 Flow Rate FiO2 12/23/16 06:33 94 Vapotherm 15.00 35 12/23/16 04:25 Vapotherm 15.00 30 12/23/16 03:40 97.6 86 26 132/71 91 Nasal Cannula 2.50 12/23/16 00:00 97.4 69 17 129/76 96 Room Air 12/22/16 23:53 93 Nasal Cannula 2.50 12/22/16 23:35 92 Nasal Cannula 2.50 12/22/16 20:00 93 Room Air 12/22/16 19:22 96 Nasal Cannula 2.50 12/22/16 16:59 98.6 77 20 143/77 95 Nasal Cannula 2.50 12/22/16 14:23 94 Room Air 12/22/16 11:57 92 Room Air 12/22/16 11:43 92 12/22/16 10:20 97.6 I & O 12/23/16 07:00 Intake Total 4690 ml Output Total 2470 ml Balance 2220 ml General Appearance: Mild Distress Eyes: Bilateral Eye Normal Inspection HEENT: PERRL/EOMI Neck: Full Range of Motion Respiratory: Lungs Clear, Decreased Breath Sounds, Wheezing Cardiovascular: Regular Rate, Rhythm Gastrointestinal: Normal Bowel Sounds, Soft, Tenderness (RUQ), Other (LAVELL drain) Rectal: Deferred Extremity: Normal Capillary Refill Neurologic/Psychiatric: Alert, Oriented x3 Skin: Normal Color Lymphatic: No Adenopathy Results Lab Laboratory Tests 12/23/16 03:45: Blood Gas Puncture Site R RADIAL, Blood Gas Patient Temperature 98.1, Arterial Blood pH 7.40, Arterial Blood Partial Pressure CO2 34L, Arterial Blood Partial Pressure O2 67L, Arterial Blood HCO3 21L, Arterial Blood Total CO2 22.0, Arterial Blood Oxygen Saturation 95, Arterial Blood Base Excess -3.2L, Pranay Test YES-POS, Blood Gas Ventilator Setting NO, Blood Gas Inspired Oxygen 2.5L 12/23/16 06:10: White Blood Count 10.5, Red Blood Count 4.06L, Hemoglobin 11.8L, Hematocrit 35L , Mean Corpuscular Volume 87, Mean Corpuscular Hemoglobin 29, Mean Corpuscular Hemoglobin Concent 33, Red Cell Distribution Width 13.5, Platelet Count 119L, Mean Platelet Volume 10.5H, Neutrophils (%) (Auto) 91H, Lymphocytes (%) (Auto) 4L, Monocytes (%) (Auto) 5, Eosinophils (%) (Auto) 0, Basophils (%) (Auto) 0, Neutrophils # (Auto) 9.5H, Lymphocytes # (Auto) 0.4L, Monocytes # (Auto) 0.5, Eosinophils # (Auto) 0.0, Basophils # (Auto) 0.0, Sodium Level 133L, Potassium Level 3.4L, Chloride Level 106, Carbon Dioxide Level 19L, Anion Gap 8, Blood Urea Nitrogen 20H, Creatinine 1.37H, Estimat Glomerular Filtration Rate 50, BUN/ Creatinine Ratio 15, Glucose Level 164H, Calcium Level 8.2L, Magnesium Level 1.5L, Total Bilirubin 1.2H, Aspartate Amino Transf (AST/SGOT) 253H, Alanine Aminotransferase (ALT/SGPT) 402H, Alkaline Phosphatase 137H, Total Protein 5.4L , Albumin 2.8L Microbiology 12/19/16 MRSA Screen - Final, Complete MRSA not isolated Assessment/Plan Assessment/Plan Assessment/Plan 75 yo Male acute abdominal pain, RUQ- secondary to choledocholithiasis- improved- continue IVFs. choledocholithiasis- s/p- [facility] for ERCP, stone extraction, stent placement- 12/18/16 s/p lap bev 12/20/16 Dr. Hernandez umbilical hernia- repaired 12/20/16 Dr. Hernandez Acute hypoxic respiratory distress - solumedrol 125mg x1, vapotherm, RT consulted - improving will continue dexamethasone 8mg po for 2 more days -on zosyn, could switch to augmentin on discharge to complete 7 days. acute kidney injury- Cr 1.3 avoid nephrotoxic agents. Continue to monitor . IVF. 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 Urinary retention- flomax- reed- for 2 weeks- then he'll follow up with Dr. Hammond- if still in hospital next week- Dr. Hammond may do a cystoscopy. Dispo: improving- pt will need to be off oxygen prior to discharge- he will work with PT today. Problems: Clinical Quality Measures DVT/VTE Risk/Contraindication: Risk Factor Score Per Nursin RFS Level Per Nursing on Admit: 4+=Very High Pneumonia: Pseudomonal Risk: No known risk SAMUEL FERNANDEZ MD Dec 23, 2016 08:09
[2016-12-23 09:00] VITALS: BP 137/67
--- NOTE | 2016-12-23 09:58 | Diagnostic Imaging Report ---
INDICATION: Evaluate for biliary leak. TECHNIQUE: Acquisitions were acquired over the abdomen after administration of 5.46 mCi of technetium 99m Choletec. FINDINGS: There is homogeneous uptake of isotope throughout the liver. There is accumulation of isotope along the caudal and right lateral aspect of the liver most suspect for biliary leak. No significant activity seen within the small bowel. IMPRESSION: Findings most suspect for a biliary leak with accumulation of activity along the caudal and right lateral aspect of the right lobe of the liver. Report was called and faxed to [place] at office of Dr. Hernandez @ [facility], [place] @ 9:53 AM/luciano. Dictated by: Dictated on workstation # [id number]
[2016-12-23] MEDS: PANTOPRAZOLE 40 MG/10 ML (PROTONIX) VIAL IV SCH (10:18)
[2016-12-23] MEDS: DOCUSATE SODIUM 100 MG (COLACE) CAP PO SCH ×2 (10:20→22:20)
[2016-12-23] MEDS: oxyCODONE/APAP 10/325MG (PERCOCET 10) TABLET PO PRN ×3 (10:20→22:20)
[2016-12-23] MEDS: FAMOTIDINE 20 MG (PEPCID) TABLET PO SCH ×2 (10:20→22:20)
[2016-12-23] MEDS: CARVEDILOL 6.25 MG (COREG) TAB PO SCH ×2 (10:31→22:20)
[2016-12-23 11:44] LABS: CALCIUM 8.5 MG/DL (8.5-10.1); CREATININE SERUM 1.39 MG/DL (0.60-1.30); POTASSIUM 3.4 MMOL/L (3.6-5.0)
--- NOTE | 2016-12-23 11:49 | Diagnostic Imaging Report ---
Supine view of the abdomen. INDICATION: Abdominal pain. Check location of the CBD stent. FINDINGS: There is a CBD stent seen projecting over the right side aspect of the spine at T12, L1, and upper L2 levels. The disc probably within the CBD although this cannot be completely confirmed by radiography. There is also a drain projecting over the right upper abdomen. Sutures projecting over the mid lower aspect of the abdomen are seen. Moderate amount of fecal material noted in the colon. There is mild gaseous distention of the stomach and proximal small bowel loops could relate to minimal ileus. IMPRESSION: Minimal dilatation of the stomach and proximal small bowel loops could relate to minimal ileus. Dictated by: Dictated on workstation # [id number]
[2016-12-23 12:00] VITALS: BP 115/69
--- NOTE | 2016-12-23 12:02 | CONSULTATION REPORT ---
DATE OF CONSULTATION: 12/23/2016 ATTENDING PHYSICIAN: Dr. Hernandez SUMMARY: After reviewing the patient's records. This is a 75-year-old white man who is recovering from a cholecystectomy. He was found to have urinary retention. He was first straight catheter was recovery of 800 as well as 1000 mL and then a Parr catheter was inserted with a 700 mL residual. The patient was seeing Dr. Uribe many years ago and he had what sounded like a microwave therapy for his prostate. He is off any medication for the prostate, was taking Flomax a long time ago that was apparently discontinued after the microwave. IMPRESSION: Urinary retention postoperatively, probably related to obstruction and/or neurogenic element. PLAN: No urological intervention at this point, let the patient recover from his surgery well. I will examine him later on. He will need a cystoscopy and maybe further studies. I started him on Flomax today as it is okay with Dr. Hernandez and we will leave the Parr catheter for a few days and let the bladder rest, as well as the patient and also give a chance for the Flomax to build up in his system before we discontinue the catheter. If he is to continued to be here next week, we will perform a flexible cystoscopy at bedside and give him a trial of voiding; otherwise we will do it as an outpatient. I would recommend to keep the catheter for now, until further orders by me. Job ID: [id number] Dictated Date: 12/23/2016 11:25:56 [employer]ship Date: 12/23/2016 11:55:51/[email or web address]
[2016-12-23 14:33] LABS: ALBUMIN 2.8 GM/DL (3.2-4.5); BILIRUBIN,TOTAL 1.1 MG/DL (0.1-1.0); TOTAL PROTEIN 5.6 GM/DL (6.4-8.2)
[2016-12-23 16:10] VITALS: BP 121/70
--- NOTE | 2016-12-23 16:38 | Progress Note (SOAP) ---
Subjective Date Seen by Provider: Dec 23, 2016 Time Seen by Provider: 16:00 Subjective/Events-last exam doing better today. decrease bilious output today. respiratory status improved. no fever/chills. Objective Exam Vital Signs Date Time Temp Pulse Resp B/P (MAP) Pulse Ox O2 Delivery O2 Flow Rate FiO2 12/23/16 16:10 97.5 108 24 121/70 91 Vapotherm 30.00 13.00 12/23/16 15:00 Vapotherm 13.00 35 12/23/16 14:35 94 Vapotherm 15.00 40 12/23/16 12:00 97.2 87 24 115/69 93 Nasal Cannula 2.50 12/23/16 10:37 92 Vapotherm 15.00 40 12/23/16 09:00 97.1 90 20 137/67 91 Nasal Cannula 2.50 12/23/16 06:33 94 Vapotherm 15.00 35 12/23/16 04:25 Vapotherm 15.00 30 12/23/16 03:40 97.6 86 26 132/71 91 Nasal Cannula 2.50 12/23/16 00:00 97.4 69 17 129/76 96 Room Air 12/22/16 23:53 93 Nasal Cannula 2.50 12/22/16 23:35 92 Nasal Cannula 2.50 12/22/16 20:00 93 Room Air 12/22/16 19:22 96 Nasal Cannula 2.50 12/22/16 16:59 98.6 77 20 143/77 95 Nasal Cannula 2.50 I & O 12/23/16 07:00 Intake Total 4690 ml Output Total 2470 ml Balance 2220 ml Capillary Refill : Less Than 3 Seconds General Appearance: No Apparent Distress HEENT: PERRL/EOMI Neck: Full Range of Motion Respiratory: Decreased Breath Sounds, Rhonci Cardiovascular: Regular Rate, Rhythm Gastrointestinal: normal bowel sounds, non tender, soft Extremity: Normal Capillary Refill Neurologic/Psychiatric: Alert, Oriented x3 Skin: Normal Color Lymphatic: No Adenopathy Results Lab Laboratory Tests 12/23/16 03:45: Blood Gas Puncture Site R RADIAL, Blood Gas Patient Temperature 98.1, Arterial Blood pH 7.40, Arterial Blood Partial Pressure CO2 34L, Arterial Blood Partial Pressure O2 67L, Arterial Blood HCO3 21L, Arterial Blood Total CO2 22.0, Arterial Blood Oxygen Saturation 95, Arterial Blood Base Excess -3.2L, Pranay Test YES-POS, Blood Gas Ventilator Setting NO, Blood Gas Inspired Oxygen 2.5L 12/23/16 06:10: White Blood Count 10.5, Red Blood Count 4.06L, Hemoglobin 11.8L, Hematocrit 35L , Mean Corpuscular Volume 87, Mean Corpuscular Hemoglobin 29, Mean Corpuscular Hemoglobin Concent 33, Red Cell Distribution Width 13.5, Platelet Count 119L, Mean Platelet Volume 10.5H, Neutrophils (%) (Auto) 91H, Lymphocytes (%) (Auto) 4L, Monocytes (%) (Auto) 5, Eosinophils (%) (Auto) 0, Basophils (%) (Auto) 0, Neutrophils # (Auto) 9.5H, Lymphocytes # (Auto) 0.4L, Monocytes # (Auto) 0.5, Eosinophils # (Auto) 0.0, Basophils # (Auto) 0.0, Sodium Level 133L, Potassium Level 3.4L, Chloride Level 106, Carbon Dioxide Level 19L, Anion Gap 8, Blood Urea Nitrogen 20H, Creatinine 1.37H, Estimat Glomerular Filtration Rate 50, BUN/ Creatinine Ratio 15, Glucose Level 164H, Calcium Level 8.2L, Magnesium Level 1.5L, Total Bilirubin 1.2H, Aspartate Amino Transf (AST/SGOT) 253H, Alanine Aminotransferase (ALT/SGPT) 402H, Alkaline Phosphatase 137H, Total Protein 5.4L , Albumin 2.8L 12/23/16 11:22: Sodium Level 136, Potassium Level 3.4L, Chloride Level 107, Carbon Dioxide Level 20L, Anion Gap 9, Blood Urea Nitrogen 20H, Creatinine 1.39H, Estimat Glomerular Filtration Rate 50, BUN/Creatinine Ratio 14, Glucose Level 181H, Calcium Level 8.5, Total Bilirubin 1.1H, Aspartate Amino Transf (AST/SGOT) 199H , Alanine Aminotransferase (ALT/SGPT) 380H, Alkaline Phosphatase 131, Total Protein 5.6L, Albumin 2.8L, Amylase Level 10L, Lipase < 4L Microbiology 12/23/16 Gram Stain - Final, Resulted 12/23/16 Sputum Culture - Preliminary, Resulted Usual/normal vijay isolated. Assessment/Plan Assessment/Plan Assess & Plan/Chief Complaint s/p laparoscopic cholecystectomy and umbilical hernia repair. extensive chronic inflammation and scarring. 1500ml EBL intraop. development SOB most likely atelectasis or early pneumonia. will start zosyn. moderate LAVELL bile drainage which may be leaking duct of luschka or cytic stump leak. will get HIDA in am. biliary tree currently protected with stent. lots of drainage overnight but decrease today. HIDA postitive for bile leak. no signs of biliary obstruction or cholangitis. spoke with Dr. Guerra today who feels most likely cystic duct stump leak and should be protected by stent. recommends continued monitor of drain and if decrease, should seal on own. if not then will need another ERCP and stent placed to completely divert stream of bile and allow to seal. Clinical Quality Measures DVT/VTE Risk/Contraindication: Risk Factor Score Per Nursin RFS Level Per Nursing on Admit: 4+=Very High Pneumonia: Pseudomonal Risk: No known risk ROSA DOMINGUEZ MD Dec 23, 2016 16:38
--- NOTE | 2016-12-23 16:55 | Diagnostic Imaging Report ---
CLINICAL INDICATION: Recheck exam. No changes in anything. EXAM: X-ray of the abdomen supine and upright views. COMPARISON: X-ray of the abdomen dated 12/23/2016 at 1145 hrs. FINDINGS: There is interval decreased gaseous distention of the stomach compared to the prior study. There is an air-fluid level seen within the stomach. There is slight increase in the air-distended loops of small bowel overlying the abdomen. There are no significant air-fluid levels seen. There is no significant air in the rectosigmoid region or around the colon. There is high-density material within the right colon and left colon regions which may represent stool. There is no intra-abdominal free air. There are drains overlying the right abdominal region. Biliary stent is again seen. There are surgical clips overlying the right upper quadrant. There are multiple cerclage wires overlying the pelvis. IMPRESSION: 1: There is slight decrease in the gaseous distention of the stomach with air-fluid level now present. These findings are nonspecific. 2: There is slight increased air distention of the small bowel. These findings may be related to just gaseous distention versus ileus. Early small bowel obstruction also cannot be completely excluded. Serial radiographs or CT scan would help better evaluate. 3: The remainder of this exam shows no significant interval change compared to the prior study of comparison. Dictated by: Dictated on workstation # [id number]
[2016-12-23] MEDS: ALFUZOSIN HCL 10 MG TAB (UROXATRAL) PO SCH (18:23)
[2016-12-23] MEDS ORDERED: FLUTICASONE NASAL SPRAY (FLONASE) 16 GM BTL NS PRN (18:30)
[2016-12-23] MEDS ORDERED: RT-ALBUTEROL SULF 2.5 MG/3 ML PRE-MIX VIAL IH PRN (19:00)
[2016-12-23] MEDS: D5 NS 1000 ML IV SOLUTION 1,000 ML IV SCH ×2 (20:06→20:07)
[2016-12-23] MEDS: DEXAMETHASONE 4 MG TAB (DECADRON) PO SCH (20:07)
[2016-12-23] MEDS: LATANOPROST 0.005% (XALATAN) OPHTH SOLN 2.5 ML OU SCH (22:21)
[2016-12-24] MEDS: D5 NS 1000 ML IV SOLUTION 1,000 ML IV SCH ×2 (00:15→12:33)
[2016-12-24 00:54] VITALS: BP 134/64
[2016-12-24] MEDS: RT-ALBUTEROL/IPRATROPIUM 3 ML (DUONEB) VIAL INH SCH ×6 (02:09→22:05)
[2016-12-24] MEDS: PIPERACILLIN/TAZOBACTAM 4.5 GM/NS 100 ML IVPB IV SCH ×6 (06:16→21:52)
[2016-12-24 07:05] LABS: MEAN PLATELET VOLUME 10.6 FL (7.4-10.4); RED BLOOD COUNT 3.62 10^6/uL (4.35-5.85); RED CELL DISTRIBUTION WIDTH 13.5 % (10.0-14.5); WHITE BLOOD COUNT 9.1 10^3/uL (4.3-11.0)
[2016-12-24 07:18] LABS: ALBUMIN 2.7 GM/DL (3.2-4.5); BILIRUBIN,TOTAL 0.9 MG/DL (0.1-1.0); CALCIUM 7.7 MG/DL (8.5-10.1); CREATININE SERUM 1.3 MG/DL (0.60-1.30); TOTAL PROTEIN 5.2 GM/DL (6.4-8.2)
[2016-12-24 08:00] VITALS: BP 122/67
[2016-12-24] MEDS ORDERED: MAGNESIUM 1 GM/100 ML IVPB 100 ML IV NR (08:15)
--- NOTE | 2016-12-24 08:30 | Progress Note (SOAP) ---
Subjective Subjective Date Seen by Provider: Dec 24, 2016 Time Seen by Provider: 08:41 75 yo M with RUQ pain- -pt reports he is improving- he was taking deep breaths last night and feels like he is getting air to his lung bases which he was not getting the day prior. He is concerned that his LAVELL drain is not slowing down on output. He has not had a bowel movement in 4 days- not uncomfortable- drank some prune juice this AM- on colace. He is in good spirit and wants PT ordered so he can get up and move around with his leg prosthesis. Review of Systems General: No Chills, No Night Sweats, Malaise (improving) HEENT: No Head Aches, No Eye Pain, No Dysphasia, No Post Nasal Drip, No Sore Throat Pulmonary: Dyspnea, No Cough, Other (feels like he is wheezing) Cardiovascular: Edema (trace left leg), No: Chest Pain, Orthopnea, Palpitations Gastrointestinal: Abdominal Pain (RUQ -improved), No: Diarrhea, Vomiting Genitourinary: No Dysuria, No Frequency Musculoskeletal: leg pain (phantom right leg), No: neck pain, shoulder pain Neurological: Weakness, No: Confusion Objective Exam Vital Signs Vital Signs Date Time Temp Pulse Resp B/P (MAP) Pulse Ox O2 Delivery O2 Flow Rate FiO2 12/24/16 07:33 92 Vapotherm 13.00 35 12/24/16 02:09 92 Vapotherm 13.00 35 12/24/16 00:54 97.8 97 17 134/64 92 FI02 35.00 13.00 12/23/16 21:47 91 Vapotherm 13.00 35 12/23/16 20:00 Nasal Cannula 35 12/23/16 18:56 96 Vapotherm 13.00 35 12/23/16 16:10 97.5 108 24 121/70 91 Vapotherm 30.00 13.00 12/23/16 15:00 Vapotherm 13.00 35 12/23/16 14:35 94 Vapotherm 15.00 40 12/23/16 12:00 97.2 87 24 115/69 93 Nasal Cannula 2.50 12/23/16 10:37 92 Vapotherm 15.00 40 12/23/16 09:00 97.1 90 20 137/67 91 Nasal Cannula 2.50 I & O 12/24/16 07:00 Intake Total 2260 ml Output Total 4920 ml Balance -2660 ml General Appearance: Mild Distress (respiratory) Eyes: Bilateral Eye Normal Inspection HEENT: PERRL/EOMI Neck: Full Range of Motion Respiratory: Lungs Clear, Decreased Breath Sounds (bases- improved), Wheezing Cardiovascular: Regular Rate, Rhythm Gastrointestinal: Normal Bowel Sounds, Soft, Tenderness (RUQ), Other (LAVELL drain) Rectal: Deferred Back: Normal Inspection, No CVA Tenderness Extremity: Normal Capillary Refill Neurologic/Psychiatric: Alert, Oriented x3 Skin: Normal Color Lymphatic: No Adenopathy Results Lab Laboratory Tests 12/23/16 11:22: Sodium Level 136, Potassium Level 3.4L, Chloride Level 107, Carbon Dioxide Level 20L, Anion Gap 9, Blood Urea Nitrogen 20H, Creatinine 1.39H, Estimat Glomerular Filtration Rate 50, BUN/Creatinine Ratio 14, Glucose Level 181H, Calcium Level 8.5, Total Bilirubin 1.1H, Aspartate Amino Transf (AST/SGOT) 199H , Alanine Aminotransferase (ALT/SGPT) 380H, Alkaline Phosphatase 131, Total Protein 5.6L, Albumin 2.8L, Amylase Level 10L, Lipase < 4L 12/24/16 06:40: Sodium Level 140, Potassium Level 3.0L, Chloride Level 110H, Carbon Dioxide Level 18L, Anion Gap 12, Blood Urea Nitrogen 23H, Creatinine 1.30, Estimat Glomerular Filtration Rate 53, BUN/Creatinine Ratio 18, Glucose Level 169H, Calcium Level 7.7L, Total Bilirubin 0.9, Aspartate Amino Transf (AST/SGOT) 67H, Alanine Aminotransferase (ALT/SGPT) 257H, Alkaline Phosphatase 110, Total Protein 5.2L, Albumin 2.7L, White Blood Count 9.1, Red Blood Count 3.62L, Hemoglobin 10.5L, Hematocrit 31L, Mean Corpuscular Volume 86, Mean Corpuscular Hemoglobin 29, Mean Corpuscular Hemoglobin Concent 34, Red Cell Distribution Width 13.5, Platelet Count 140, Mean Platelet Volume 10.6H Microbiology 12/23/16 Gram Stain - Final, Resulted 12/23/16 Sputum Culture - Preliminary, Resulted Usual/normal vijay isolated. Assessment/Plan Assessment/Plan Assessment/Plan 75 yo Male acute abdominal pain, RUQ- secondary to choledocholithiasis- improved- continue IVFs. choledocholithiasis- s/p- [facility]en for ERCP, stone extraction, stent placement- 12/18/16 s/p lap bev 12/20/16 Dr. Hernandez bile leak- s/p HIDA scan 12/23/16 has a stent should seal up on its own- if it does not will need another ERCP and stenting. umbilical hernia- repaired 12/20/16 Dr. Hernandez acute post-op anemia- stable, monitor hgb Acute hypoxic respiratory distress - solumedrol 125mg x1, vapotherm, RT consulted - improving will continue dexamethasone 8mg po for 2 more days -on zosyn, could switch to augmentin on discharge to complete 7 days. acute kidney injury- Cr 1.3 avoid nephrotoxic agents. Continue to monitor . IVF. PO hydration HTN- stable, good control- we are holding losartan and continued coreg- will resume losartan on discharge- h/o right above knee amputation- keep stump clean - PT elevated LFTs- acute, improving insomnia- has lorazepam prn qhs. Urinary retention- flomax- reed- for 2 weeks- then he'll follow up with Dr. Hammond- if still in hospital next week- Dr. Hammond may do a cystoscopy. hypokalemia- replacing hypomagnesemia- replacing. Dispo: improving- pt will need to be off oxygen prior to discharge- he will work with PT today -LAVELL drain is not slowing down on bilious output. may need another ERCP/stent placement. Problems: Clinical Quality Measures DVT/VTE Risk/Contraindication: Risk Factor Score Per Nursin RFS Level Per Nursing on Admit: 4+=Very High Pneumonia: Pseudomonal Risk: No known risk SAMUEL FERNANDEZ MD Dec 24, 2016 08:30
[2016-12-24] MEDS: MAGNESIUM OXIDE (MAG-OX)400 MG TAB PO SCH ×2 (09:05→18:33)
[2016-12-24] MEDS: DEXAMETHASONE 4 MG TAB (DECADRON) PO SCH (09:06)
[2016-12-24] MEDS: FAMOTIDINE 20 MG (PEPCID) TABLET PO SCH ×2 (09:06→19:57)
[2016-12-24] MEDS: DOCUSATE SODIUM 100 MG (COLACE) CAP PO SCH ×2 (09:06→19:57)
[2016-12-24] MEDS: PANTOPRAZOLE 40 MG/10 ML (PROTONIX) VIAL IV SCH (09:06)
[2016-12-24] MEDS: CARVEDILOL 6.25 MG (COREG) TAB PO SCH ×2 (09:08→19:55)
[2016-12-24] MEDS: KCL 20 MEQ TAB (K-DUR) PO SCH ×2 (09:28→16:39)
--- NOTE | 2016-12-24 10:27 | Progress Note (SOAP) ---
Subjective Date Seen by Provider: Dec 24, 2016 Time Seen by Provider: 10:00 Subjective/Events-last exam doing better. respiratory status improving. tolerating diet. LAVELL bilious drainage decreasing. no fever/chills. Objective Exam Vital Signs Date Time Temp Pulse Resp B/P (MAP) Pulse Ox O2 Delivery O2 Flow Rate FiO2 12/24/16 08:00 96.8 94 20 122/67 92 Vapotherm 30.00 13.00 12/24/16 07:33 92 Vapotherm 13.00 35 12/24/16 02:09 92 Vapotherm 13.00 35 12/24/16 00:54 97.8 97 17 134/64 92 FI02 35.00 13.00 12/23/16 21:47 91 Vapotherm 13.00 35 12/23/16 20:00 Nasal Cannula 35 12/23/16 18:56 96 Vapotherm 13.00 35 12/23/16 16:10 97.5 108 24 121/70 91 Vapotherm 30.00 13.00 12/23/16 15:00 Vapotherm 13.00 35 12/23/16 14:35 94 Vapotherm 15.00 40 12/23/16 12:00 97.2 87 24 115/69 93 Nasal Cannula 2.50 12/23/16 10:37 92 Vapotherm 15.00 40 I & O 12/24/16 07:00 Intake Total 2260 ml Output Total 4920 ml Balance -2660 ml Capillary Refill : Less Than 3 Seconds General Appearance: No Apparent Distress HEENT: PERRL/EOMI Neck: Full Range of Motion Respiratory: Chest Non Tender, Normal Breath Sounds Cardiovascular: Regular Rate, Rhythm Gastrointestinal: normal bowel sounds, non tender, soft Extremity: Normal Capillary Refill Neurologic/Psychiatric: Alert, Oriented x3 Skin: Normal Color Lymphatic: No Adenopathy Results Lab Laboratory Tests 12/23/16 11:22: Sodium Level 136, Potassium Level 3.4L, Chloride Level 107, Carbon Dioxide Level 20L, Anion Gap 9, Blood Urea Nitrogen 20H, Creatinine 1.39H, Estimat Glomerular Filtration Rate 50, BUN/Creatinine Ratio 14, Glucose Level 181H, Calcium Level 8.5, Total Bilirubin 1.1H, Aspartate Amino Transf (AST/SGOT) 199H , Alanine Aminotransferase (ALT/SGPT) 380H, Alkaline Phosphatase 131, Total Protein 5.6L, Albumin 2.8L, Amylase Level 10L, Lipase < 4L 12/24/16 06:40: Sodium Level 140, Potassium Level 3.0L, Chloride Level 110H, Carbon Dioxide Level 18L, Anion Gap 12, Blood Urea Nitrogen 23H, Creatinine 1.30, Estimat Glomerular Filtration Rate 53, BUN/Creatinine Ratio 18, Glucose Level 169H, Calcium Level 7.7L, Total Bilirubin 0.9, Aspartate Amino Transf (AST/SGOT) 67H, Alanine Aminotransferase (ALT/SGPT) 257H, Alkaline Phosphatase 110, Total Protein 5.2L, Albumin 2.7L, White Blood Count 9.1, Red Blood Count 3.62L, Hemoglobin 10.5L, Hematocrit 31L, Mean Corpuscular Volume 86, Mean Corpuscular Hemoglobin 29, Mean Corpuscular Hemoglobin Concent 34, Red Cell Distribution Width 13.5, Platelet Count 140, Mean Platelet Volume 10.6H Microbiology 12/23/16 Gram Stain - Final, Resulted 12/23/16 Sputum Culture - Preliminary, Resulted Usual/normal vijay isolated. Assessment/Plan Assessment/Plan Assess & Plan/Chief Complaint s/p laparoscopic cholecystectomy and umbilical hernia repair. extensive chronic inflammation and scarring. 1500ml EBL intraop. development SOB most likely atelectasis or early pneumonia. will start zosyn. moderate LAVELL bile drainage which may be leaking duct of luschka or cytic stump leak. will get HIDA in am. biliary tree currently protected with stent. lots of drainage overnight but decrease today. HIDA postitive for bile leak. no signs of biliary obstruction or cholangitis. spoke with Dr. Guerra today who feels most likely cystic duct stump leak and should be protected by stent. recommends continued monitor of drain and if decrease, should seal on own. if not then will need another ERCP and stent placed to completely divert stream of bile and allow to seal. has not had BM yet so will add miralax. continue conservative medical management for now. when respiratory status improved, decreased LAVELL output, ambulating well will d/c home. Clinical Quality Measures DVT/VTE Risk/Contraindication: Risk Factor Score Per Nursin RFS Level Per Nursing on Admit: 4+=Very High Pneumonia: Pseudomonal Risk: No known risk ROSA DOMINGUEZ MD Dec 24, 2016 10:27
[2016-12-24] MEDS: POLYETHYLENE GLYCOL 17 GM (MIRALAX) PACK PO SCH ×2 (10:31→19:57)
--- NOTE | 2016-12-24 10:49 | Diagnostic Imaging Report ---
EXAMINATION: Portable upright radiograph of the chest. INDICATION: Increased O2 requirement. FINDINGS: There is interstitial thickening which may relate to mild vascular congestion. There is minimal left basilar opacity, likely atelectasis. Improved right basilar atelectasis is seen. No effusion or pneumothorax. IMPRESSION: Improved bibasilar atelectasis. Mild pulmonary vascular congestion. Dictated by: Dictated on workstation # [id number]
--- NOTE | 2016-12-24 11:15 | Physical Therapy Evaluation ---
PT Evaluation-General Medical Diagnosis Admission Date Dec 22, 2016 at 11:06 Medical Diagnosis: s/p laparoscopic cholecystectomy and umbilical hernia repair Onset Date: Dec 17, 2016 Therapy Diagnosis Therapy Diagnosis: impaired mobility, strength, endurance Height/Weight Height (Feet): 5 Height (Inches): 11.00 Weight (Pounds): 239 Weight (Ounces): 0.0 Precautions Precautions/Isolations: Fall Prevention, Standard Precautions Referral Physician: Yan Leon MD Reason for Referral: Evaluation/Treatment Medical History Pertinent Medical History: Arthritis, HTN Additional Medical History surg (tonsillectomy, vasectomy, cataracts, right inguinal hernia repair, right carpal tunnel release, right TKA, left TKA, right AKA) Prior/Core FIM Prior Level of Function Functional [place] Measure 0=Not Assessed/NA 4=Minimal Assistance 1=Total Assistance 5=Supervision or Setup 2=Maximal Assistance 6=Modified [place] 3=Moderate Assistance 7=Complete [place] Bed Mobility: 6 Transfers (B,C,W/C) (FIM): 6 Gait: 6 patient has a right side prosthetic leg and uses a single point cane PT Evaluation-Current Subjective /Patient in bed pre tx, agrees to PT, has only pain in abdomen. Patient's right residual limb is swollen and he cannot get his prosthetic leg on. He will have to use a walker. Pt/Family Goals "to get my leg back on" Objective Patient Orientation: Normal For Age Attachments: Oxygen, Parr Catheter, IV ROM/Strength ROM Lower Extremities WNL Strenght Lower Extremities left hip flexion 3+/5, knee flexion 4/5, knee extension 4/5, dorsiflexion 3+/5 Neuromuscular (Tone, Coordination, Reflexes) WNL Sensory Vision: Functional Hearing: Functional Sensation Right Lower Extremit: Intact Sensation Left Lower Extremity: Impaired Sensation Lower Extremities patient has numbness in his foot but had intact light touch sensation Transfers Functional [place] Measure 0=Not Assessed/NA 4=Minimal Assistance 1=Total Assistance 5=Supervision or Setup 2=Maximal Assistance 6=Modified [place] 3=Moderate Assistance 7=Complete [place] Transfers (B, C, W/C) (FIM): 4 Scootin Rollin Supine to/from Sit: 5 Sit to/from Stand: 4 (CGA) bed t/f WC(FIM only if WC use): 4 (CGA) Needs cues for safety and positioning, he is not very aware of his attachments and tries to move quickly and gets wound up in his lines. Gait Comments/Gait Description patient declined walking, he says he cannot hop on his left leg Balance Sitting Static: Normal Sitting Dynamic: Normal Standing Static: Fair Standing Dynamic: Fair Treatment seated exercises AP, LAQ, hip flexion x15 Assessment/Needs Patient has impaired mobility, strength, endurance, his prosthetic leg won't fit at this time Rehab Potential: Fair PT Plan Problem List Problem List: Activity Tolerance, Functional Strength, Safety, Balance, Gait, Transfer, Bed Mobility, ROM Treatment/Plan Treatment Plan: Continue Plan of Care Treatment Plan: Bed Mobility, Education, Functional Activity Nikolai, Functional Strength, Gait, Safety, Therapeutic Exercise, Transfers Treatment Duration: Dec 31, 2016 Frequency: 6 times per week Estimated Hrs Per Day: .25 hour per day (15-30 min) Patient and/or Family Agrees t: Yes Safety Risks/Education Patient Education: Transfer Techniques, Correct Positioning, Safety Issues Teaching Recipient: Patient Teaching Methods: Demonstration, Discussion Response to Teaching: Reinforcement Needed Discharge Recommendations Plan Patient will perform bed mobility and transfer training, balance and endurance training, functional strengthening, stair training, gait training, and education , to improve functional mobility and independence at home. Therapy D/C Recommendations: Home w/ Family Support Time/GCodes Time In: 1050 Time Out: 1105 Total Billed Treatment Time: 15 Total Billed Treatment 1 visit EVL 15' G Codes Necessary: Yes PT/OT Therapy GCodes Therapy Functional Limitation: Physical Therapy Test(s)/Tool used to determine: Level of Assistance Scale Functional Limitation-Current Charge Code: MOBCUR Modifier: CI Functional Limitation-Goal Charge Code: OMAR Modifier: CI JOAN BLAKE PT Dec 24, 2016 11:15
[2016-12-24 16:30] VITALS: BP 160/88
[2016-12-24] MEDS: ALFUZOSIN HCL 10 MG TAB (UROXATRAL) PO SCH (18:33)
[2016-12-24] MEDS: LATANOPROST 0.005% (XALATAN) OPHTH SOLN 2.5 ML OU SCH (19:54)
[2016-12-24] MEDS: LORazepam 0.5 MG (ATIVAN) TABLET PO PRN (19:56)
[2016-12-24] MEDS ORDERED: FLUCONAZOLE 200 MG/100 ML 100 ML IV ONE (21:30)
[2016-12-25] VITALS: BP 133/79
[2016-12-25] MEDS: LORazepam 0.5 MG (ATIVAN) TABLET PO PRN (02:06)
[2016-12-25] MEDS: RT-ALBUTEROL/IPRATROPIUM 3 ML (DUONEB) VIAL INH SCH ×4 (02:08→14:59)
[2016-12-25 06:09] LABS: ALANINE AMINOTRANSFERASE 170 U/L (0-55); ALBUMIN 2.5 GM/DL (3.2-4.5); ANION GAP 8 MMOL/L (5-14); ASPARTATE AMINO TRANSFERASE 30 U/L (5-34); BASOPHILS % (AUTO) 0 % (0-10); BILIRUBIN,TOTAL 0.8 MG/DL (0.1-1.0); BLOOD UREA NITROGEN 25 MG/DL (7-18); BUN/CREATININE RATIO 22; CARBON DIOXIDE 22 MMOL/L (21-32); CHLORIDE 111 MMOL/L (98-107); CREATININE SERUM 1.14 MG/DL (0.60-1.30); EOSINOPHILS % (AUTO) 0 % (0-10); GFR ESTIMATED > 60; GLUCOSE 133 MG/DL (70-105); LYMPHOCYTES # (AUTO) 0.8 X 10^3 (1.0-4.0); LYMPHOCYTES % (AUTO) 8 % (12-44); MAGNESIUM 1.9 MG/DL (1.8-2.4); MEAN CORPUSCULAR HEMOGLOBIN 29 PG (25-34); MEAN CORPUSCULAR HGB CONC 34 G/DL (32-36); MEAN CORPUSCULAR VOLUME 87 FL (80-99); MEAN PLATELET VOLUME 10.7 FL (7.4-10.4); MONOCYTES # (AUTO) 0.7 X 10^3 (0.0-1.0); MONOCYTES % (AUTO) 7 % (0-12); NEUTROPHILS # (AUTO) 8.7 X 10^3 (1.8-7.8); NEUTROPHILS % (AUTO) 86 % (42-75); PLATELET COUNT 162 10^3/uL (130-400); POTASSIUM 3.2 MMOL/L (3.6-5.0); RED BLOOD COUNT 3.53 10^6/uL (4.35-5.85); RED CELL DISTRIBUTION WIDTH 13.6 % (10.0-14.5); SODIUM 141 MMOL/L (135-145); WHITE BLOOD COUNT 10.2 10^3/uL (4.3-11.0)
[2016-12-25] MEDS: PIPERACILLIN/TAZOBACTAM 4.5 GM/NS 100 ML IVPB IV SCH ×4 (06:24→14:23)
[2016-12-25] MEDS: KCL 20 MEQ TAB (K-DUR) PO SCH (06:57)
[2016-12-25] MEDS ORDERED: PANTOPRAZOLE 40 MG (PROTONIX) TAB PO SCH (07:00)
[2016-12-25 08:00] VITALS: BP 129/79
[2016-12-25] MEDS: DEXAMETHASONE 4 MG TAB (DECADRON) PO SCH (08:42)
[2016-12-25] MEDS: FAMOTIDINE 20 MG (PEPCID) TABLET PO SCH (08:42)
[2016-12-25] MEDS: DOCUSATE SODIUM 100 MG (COLACE) CAP PO SCH (08:42)
[2016-12-25] MEDS: POLYETHYLENE GLYCOL 17 GM (MIRALAX) PACK PO SCH (08:42)
[2016-12-25] MEDS: MAGNESIUM OXIDE (MAG-OX)400 MG TAB PO SCH (08:43)
[2016-12-25] MEDS: CARVEDILOL 6.25 MG (COREG) TAB PO SCH (08:43)
[2016-12-25] MEDS ORDERED: FLUCONAZOLE 100 MG/50 ML 50 ML IV SCH (09:00)
--- NOTE | 2016-12-25 10:43 | Progress Note (SOAP) ---
Subjective Date Seen by Provider: Dec 25, 2016 Time Seen by Provider: 10:30 Subjective/Events-last exam Patient was seen with Dr. Hernandez. Patient reports that he is doing well. Denies any abdominal pain. No N/V. No fever/chills. Patient reports that he has been getting in bedside chair and would like to take a shower. Does report constipation and has not had a BM yet. Review of Systems General: No Chills, No Night Sweats Pulmonary: Dyspnea Gastrointestinal: No: Abdominal Pain, Nausea, Vomiting Objective Exam Vital Signs Date Time Temp Pulse Resp B/P (MAP) Pulse Ox O2 Delivery O2 Flow Rate FiO2 12/25/16 08:00 97.1 66 20 129/79 95 High Flow N/C 6.00 12/25/16 07:01 96 Nasal Cannula 5.00 12/25/16 02:08 94 High Flow N/C 6.00 12/25/16 00:00 97.2 101 19 133/79 95 High Flow N/C 6.00 12/24/16 22:05 95 High Flow N/C 6.00 12/24/16 20:00 Nasal Cannula 35 12/24/16 18:34 94 High Flow N/C 6.00 12/24/16 16:30 98.1 96 24 160/88 94 Vapotherm 30.00 13.00 12/24/16 16:30 98.1 96 24 160/88 94 Nasal Cannula 6.00 12/24/16 15:33 95 Nasal Cannula 10.00 12/24/16 10:43 95 Nasal Cannula 10.00 I & O 12/25/16 07:00 Intake Total 2880 ml Output Total 3670 ml Balance -790 ml Capillary Refill : Less Than 3 Seconds General Appearance: No Apparent Distress, WD/WN HEENT: PERRL/EOMI Neck: Full Range of Motion, Normal Inspection, Non Tender, Supple Respiratory: Chest Non Tender, Normal Breath Sounds Cardiovascular: Regular Rate, Rhythm, No Murmur Gastrointestinal: normal bowel sounds, non tender, soft, other (RUQ drain with Bilious drainage.) Extremity: Normal Capillary Refill, Normal Inspection, Normal Range of Motion, Non Tender, No Calf Tenderness, No Pedal Edema, Other (Right AKA) Neurologic/Psychiatric: Alert, Oriented x3 Skin: Normal Color, Warm/Dry, Other (Abdominal incision C/D/I) Lymphatic: No Adenopathy Results Lab Laboratory Tests 12/25/16 05:25: White Blood Count 10.2, Red Blood Count 3.53L, Hemoglobin 10.3L, Hematocrit 31L , Mean Corpuscular Volume 87, Mean Corpuscular Hemoglobin 29, Mean Corpuscular Hemoglobin Concent 34, Red Cell Distribution Width 13.6, Platelet Count 162, Mean Platelet Volume 10.7H, Neutrophils (%) (Auto) 86H, Lymphocytes (%) (Auto) 8L, Monocytes (%) (Auto) 7, Eosinophils (%) (Auto) 0, Basophils (%) (Auto) 0, Neutrophils # (Auto) 8.7H, Lymphocytes # (Auto) 0.8L, Monocytes # (Auto) 0.7, Eosinophils # (Auto) 0.0, Basophils # (Auto) 0.0, Sodium Level 141, Potassium Level 3.2L, Chloride Level 111H, Carbon Dioxide Level 22, Anion Gap 8, Blood Urea Nitrogen 25H, Creatinine 1.14, Estimat Glomerular Filtration Rate > 60, BUN /Creatinine Ratio 22, Glucose Level 133H, Calcium Level 8.0L, Magnesium Level 1.9, Total Bilirubin 0.8, Aspartate Amino Transf (AST/SGOT) 30, Alanine Aminotransferase (ALT/SGPT) 170H, Alkaline Phosphatase 107, Total Protein 5.0L, Albumin 2.5L Microbiology 12/23/16 Gram Stain - Final, Resulted 12/23/16 Sputum Culture - Preliminary, Resulted Yeast Species Assessment/Plan Assessment/Plan Assess & Plan/Chief Complaint s/p laparoscopic cholecystectomy and umbilical hernia repair. extensive chronic inflammation and scarring. 1500ml EBL intraop. development SOB most likely atelectasis or early pneumonia. will start zosyn. moderate LAVELL bile drainage which may be leaking duct of luschka or cytic stump leak. HIDA postitive for bile leak. no signs of biliary obstruction or cholangitis. Dr. Hernandez spoke with Dr. Guerra who feels most likely cystic duct stump leak and should be protected by stent. recommends continued monitor of drain and if decrease, should seal on own. if not then will need another ERCP and stent placed to completely divert stream of bile and allow to seal. has not had BM yet so will continue with miralax. LAVELL drainage decreasing. Will send home on O2 support. Patient to follow up in office on Tuesday. Ok to [place] home. Clinical Quality Measures DVT/VTE Risk/Contraindication: Risk Factor Score Per Nursin RFS Level Per Nursing on Admit: 4+=Very High Pneumonia: Pseudomonal Risk: No known risk RAVIN HERMOSILLO CHIEF AIRLINE RADIO OPERATOR Dec 25, 2016 10:43
--- NOTE | 2016-12-25 12:36 | Physical Therapy Daily Note ---
PT Daily Note-Current Subjective Pt. smiles and states he is going home today after RT does O2 test to qualify him for home O2. Pt. states he still has some edema but has gained enough strength to do his TRFs and w/c mobility Pain Numeric Pain Scale: 0-No Pain Appearance LE edema Mental Status Patient Orientation: Normal For Age Transfers Functional [place] Measure 0=Not Assessed/NA 4=Minimal Assistance 1=Total Assistance 5=Supervision or Setup 2=Maximal Assistance 6=Modified [place] 3=Moderate Assistance 7=Complete IndependenceIRFPAI Quality Coding Scale 6 Independent with activity with or without an assistive device 5 Patient requires set up or clean up by helper. Patient completes activity by themselves 4 Supervision or touching assist (CGA). [place] provide cues , steadying assist 3 The helper provides less than half the effort to complete the activity 2 The helper provides more than half the effort to complete the activity 1 Dependent. The helper does all the effort to complete an activity 7 Patient refused to complete or attempt activity 9 The patient did not perform the activity before the current illness or injury 88 Not attempted due to Medical conditions or safety concerns Transfers (B, C, W/C) (FIM): 5 pt. demonstrated Mod I for bed and SPT TRFs in out w/c. all on single leg. no LOB, good control Wheelchair Training Wheelchair (FIM): 6 Wheelchair Distance: 3=150 ft indep in w/c Assessment Current Status: Good Progress PT Plan Treatment/Plan Treatment Plan: Continue Plan of Care (vs DC) Treatment Plan: Bed Mobility, Education, Functional Activity Nikolai, Functional Strength, Gait, Safety, Therapeutic Exercise, Transfers Treatment Duration: Dec 31, 2016 Frequency: 6 times per week Estimated Hrs Per Day: .25 hour per day (15-30 min) Patient and/or Family Agrees t: Yes Safety Risks/Education Patient Education: Transfer Techniques Time/GCodes Time In: 1220 Time Out: 1230 Total Billed Treatment Time: 10 Total Billed Treatment 1,FA10m G Codes Necessary: No PT/OT Therapy GCodes Therapy Functional Limitation: Physical Therapy Test(s)/Tool used to determine: Level of Assistance Scale Functional Limitation-Current Charge Code: MOBCUR Modifier: CI Functional Limitation-Goal Charge Code: MOBGOAL Modifier: CI MADONNA HENLEY MOUNTER AUTOMATIC Dec 25, 2016 12:36
[2016-12-25] MEDS ORDERED: ALFU10TA PO (14:32)
[2016-12-25] MEDS ORDERED: AMOX-358 PO (14:32)
[2016-12-25 16:17] VITALS: BP 129/79
--- NOTE | 2017-01-05 11:06 | DISCHARGE SUMMARY ---
DATE OF ADMISSION: 12/22/2016. DATE OF DISCHARGE: 12/25/2016 ATTENDING PRIMARY CARE PHYSICIAN: Dr. Yan Leon. 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 OTHER DIAGNOSES: 1. Hypertension. 2. Osteoarthritis. PRINCIPAL PROCEDURE: 1. Laparoscopic cholecystectomy. 2. Incarcerated umbilical hernia repair with mesh. OTHER PROCEDURES: The patient was transferred to [facility] for an ERCP, papillotomy and stent placement. COMPLICATIONS: None. DISPOSITION: Home in stable condition. Mr. Gallito Garcia is a 75-year-old male who we had seen before in the past. He had pain in the left lower abdominal quadrant June 2016 and was treated for diverticulitis. He underwent a follow-up colonoscopy on 07/28/2016 which showed hemorrhoids as well as a moderate sigmoid diverticulosis; however, no active inflammation. 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 He presented to [facility] emergency department with pain in the right upper abdominal quadrant. He had reported that he had similar episodes before in the past as well. He stated pain was more severe. A CT scan was perform as well as an ultrasound, which did show gallbladder wall thickening, as well as gallstones, gallbladder sludge and dilated extrahepatic and intrahepatic bile ducts. He was also found to have elevated total bilirubin as well as pancreatic enzymes consistent with choledocholithiasis and gallstone pancreatitis. PAST MEDICAL HISTORY: 1. Hypertension. 2. Osteoarthritis. PAST SURGERIES: 1. Tonsillectomy. 2. Vasectomy. 3. Cataract surgery. 4. Right inguinal hernia repair. 5. Right carpal tunnel release. 6. Right total knee arthroplasty. 7. Left total knee arthroplasty. 8. 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 ALLERGIES: No known drug allergies. MEDICATIONS: 1. Carvedilol 6.25 mg b.i.d. 2. Losartan 25 mg daily. 3. Furosemide 80 mg daily. 4. Potassium 20 mEq daily. 5. Travatan eyedrops daily. 6. Magnesium 400 mg daily. 7. Aspirin 81 mg daily. 8. Prilosec 20 mg b.i.d. 9. Cetirzine 10 mg daily. 10. Fluticasone 850 mcg 3 sprays daily. 11. Oxycodone p.r.n. SOCIAL HISTORY: Negative smoke. Negative alcohol. FAMILY HISTORY: Brother lung cancer. Mother heart disease. The patient was admitted and initially treated conservatively with IV hydration, as well as bowel rest. His pancreatic enzymes had improved; however, did have elevation of total bilirubin. Gastroenterology at [facility] was consulted and he was transferred to [facility] to a hospitalist and route cdl driver and underwent ERCP, papillotomy, and stone removal as well as bile duct stent placement. He was admitted back to [facility] where his bilirubin had normalized. On 12/20/2016 he underwent diagnostic laparoscopy and found to have a chronic calculus cholecystitis as well as an incarcerated umbilical hernia. He then underwent a laparoscopic cholecystectomy as well as an open incarcerated umbilical hernia repair with mesh. There was a significant amount of the chronic inflammatory tissue and scarring resulting in approximately 1500 mL of blood loss. Because of the blood loss, a 19-Upper Sorbian Roby-Gerber was drained in the subhepatic space. The patient did well postoperatively; however, did have a significant amount of bilious drainage from the drain. Due to the extensive dissection, this might have been due to leaking ducts of Luschka, as well as drainage from the hepatic bed, as well as the cystic duct stump leak due to the dilated cystic duct. Gastroenterology was consulted by phone and because of the stent was already in place, the area most likely was protected with both of the drains and the recommendation was to monitor output from the Roby-Gerber drain. His lab work was followed and he did have normalization of total bilirubin as well as liver function enzymes. He was also started on a clear liquid diet and advanced to a low-fat diet without any difficulty and was having bowel movements. During his postoperative period he did develop urinary retention and urology was consulted and he did have a Parr catheter placed and started on VESIcare. The recommendation was to continue the VESIcare to allow for therapeutic levels and then remove the catheter as an outpatient. He also had adequate pain control and was ambulating well. His vital signs remained stable and he was afebrile. The patient was discharged home on 12/25/2016. HOME GOING INSTRUCTIONS: No activity restrictions; however, no heavy lifting or exertion for the next 2 weeks. Low-fat diet. MEDICATIONS: Resume all previous home medications. Percocet 10/325, q.4 hours p.r.n. He is to follow-up in the office with us in approximately 3 days to evaluate drainage as well as to follow-up with urology in approximately 1 week. Job ID: [id number] Dictated Date: 01/04/2017 14:33:12 Qa Engineer Date: 01/05/2017 10:41:14/tremayne
[2017-02-04] MEDS ORDERED: DAPT500V IV (15:19)
[2017-02-04] MEDS ORDERED: MICA100V IV (15:19)
[2017-02-04] MEDS ORDERED: ERTA1VIA IV (15:19)
== END 2016-12-25 15:30 | disposition home or self-care (01) | DRG 405 ==
LOC: EDUNIT# 22:24 → ER 22:26 → 4TH 12-17 02:47 → UNDOADMOB 12-17 02:47 → 4TH 12-17 04:00 → OBSVTOIN 12-22 11:06
PROVIDERS: ADMIT Surgery; ATTEND Surgery
PROC: 0FC90ZZ Extirpation of Matter from Common Bile Duct, Open Approach (ICD-10-PCS; principal; 2016-12-18)
PROC: 0F9900Z Drainage of Common Bile Duct with Drainage Device, Open Approach (ICD-10-PCS; 2016-12-18)
PROC: 0FT44ZZ Resection of Gallbladder, Percutaneous Endoscopic Approach (ICD-10-PCS; 2016-12-20)
PROC: 0FB04ZZ Excision of Liver, Percutaneous Endoscopic Approach (ICD-10-PCS; 2016-12-20)
PROC: 0WUF0JZ Supplement Abdominal Wall with Synthetic Substitute, Open Approach (ICD-10-PCS; 2016-12-20)
DX: K80.60 Calculus of gallbladder and bile duct with cholecystitis, unspecified, without obstruction (principal); K85.90 Acute pancreatitis without necrosis or infection, unspecified; K42.0 Umbilical hernia with obstruction, without gangrene; J18.9 Pneumonia, unspecified organism; J98.11 Atelectasis; N17.9 Acute kidney failure, unspecified; K73.9 Chronic hepatitis, unspecified; K57.30 Diverticulosis of large intestine without perforation or abscess without bleeding; I10 Essential (primary) hypertension; K64.1 Second degree hemorrhoids; R33.9 Retention of urine, unspecified; R06.00 Dyspnea, unspecified; K21.9 Gastro-esophageal reflux disease without esophagitis; M19.91 Primary osteoarthritis, unspecified site; H40.9 Unspecified glaucoma; H91.90 Unspecified hearing loss, unspecified ear; J30.2 Other seasonal allergic rhinitis; G47.00 Insomnia, unspecified; G54.6 Phantom limb syndrome with pain; Z89.611 Acquired absence of right leg above knee; Z96.652 Presence of left artificial knee joint; Z85.828 Personal history of other malignant neoplasm of skin; E87.6 Hypokalemia; E83.42 Hypomagnesemia
CPT/HCPCS: 36415; 71010; 74000; 74020; 74177; 76705; 78226; 80053; 81000; 82150; 82805; 82962; 83690; 83735; 85007; 85025; 85027; 86141; 86850; 86900; 86901; 87070; 87081; 87205; 88302; 88304; 94640; 94664; 94760; 94761; 96361; 96365; 96375; 96376; G0378

== ENCOUNTER 2017-01-05 18:14 | Inpatient (IN) | payer MEDICARE ==
[~2017-01-05] VITALS: Ht 180.3 cm; Wt 103.9 kg
[~2017-01-05 18:14] MED LIST changes: -CATHETER FLUSH 10 ML SYR IV PRN; -IOHEXOL 350 MG/ML 100 ML (OMNIPAQUE 350) VIAL IV ONE; -NS 100 ML (IVPB) BAG IV ONE
[2017-01-05 18:15] VITALS: BP 141/69
[2017-01-05] MEDS: NS IV 1000 ML 1,000 ML IV SCH (18:57)
[2017-01-05 19:00] VITALS: BP 141/69
[2017-01-05] MEDS ORDERED: PIPERACILLIN/TAZOBACTAM 4.5 GM/NS 100 ML IV NR ×2 (19:00)
[2017-01-05] MEDS ORDERED: ONDANSETRON 4 MG/2 ML (SDV) Z0FRAN IV PRN (19:00)
[2017-01-05] MEDS ORDERED: CATHETER FLUSH 10 ML SYR IV PRN (19:00)
[2017-01-05] MEDS ORDERED: fentaNYL INJECTION 100 MCG/2 ML AMP IV PRN (19:00)
[2017-01-05] MEDS: RT-ALBUTEROL SULF 2.5 MG/3 ML PRE-MIX VIAL IH SCH (19:43)
[2017-01-05] MEDS: PANTOPRAZOLE 40 MG/10 ML (PROTONIX) VIAL IV SCH (19:49)
[2017-01-05] MEDS: oxyCODONE/APAP 10/325MG (PERCOCET 10) TABLET PO PRN (20:51)
[2017-01-05 23:26] VITALS: BP 93/51
[2017-01-06] VITALS (14 sets, daily range): BP systolic 91–131; BP diastolic 46–72
[2017-01-06] MEDS: PIPERACILLIN/TAZOBACTAM 4.5 GM/NS 100 ML IVPB IV SCH ×6 (01:12→16:33)
[2017-01-06] MEDS: LORazepam 0.5 MG (ATIVAN) TABLET PO PRN (01:15)
[2017-01-06] MEDS: NS IV 1000 ML 1,000 ML IV SCH ×3 (03:30→16:33)
[2017-01-06 04:58] LABS: MEAN PLATELET VOLUME 10.8 FL (7.4-10.4); RED BLOOD COUNT 3.43 10^6/uL (4.35-5.85); RED CELL DISTRIBUTION WIDTH 13.4 % (10.0-14.5); WHITE BLOOD COUNT 6.4 10^3/uL (4.3-11.0)
[2017-01-06 05:16] LABS: ALBUMIN 2.5 GM/DL (3.2-4.5); CALCIUM 8.5 MG/DL (8.5-10.1); CREATININE SERUM 1.33 MG/DL (0.60-1.30); POTASSIUM 4.4 MMOL/L (3.6-5.0); TOTAL PROTEIN 6.1 GM/DL (6.4-8.2)
[2017-01-06] MEDS: RT-ALBUTEROL SULF 2.5 MG/3 ML PRE-MIX VIAL IH SCH ×3 (07:29→19:31)
[2017-01-06] MEDS ORDERED: LIDOCAINE 1% INJ 20 ML (XYLOCAINE) VIAL INJ ONE (07:45)
[2017-01-06] MEDS ORDERED: fentaNYL INJECTION 100 MCG/2 ML AMP ONE (07:52)
[2017-01-06] MEDS: PANTOPRAZOLE 40 MG/10 ML (PROTONIX) VIAL IV SCH (08:05)
[2017-01-06] MEDS: fentaNYL INJECTION 100 MCG/2 ML AMP IVP PRN ×2 (08:36→08:54)
--- NOTE | 2017-01-06 09:45 | HISTORY AND PHYSICAL ---
ATTENDING PRIMARY CARE PHYSICIAN: Dr. Yan Leon ADMITTING PHYSICIAN: Dr. Hernandez Mr. Gallito Garcia is a 75-year-old male who had presented with a left lower quadrant abdominal pain back in June of 2016 and was treated for diverticulitis. He underwent a follow-up colonoscopy on 07/28/2016 which showed hemorrhoids as well as a moderate sigmoid diverticulosis; however, no active diverticulitis. He was seen in the emergency department on 12/22/2016 for right upper abdominal quadrant pain. He had reported that he had had this pain before; however, this episode was more prolonged and more severe. A CT scan as well as an ultrasound was performed, which showed gallbladder wall thickening, as well as gallstones, gallbladder sludge and extrahepatic and intrahepatic bile duct dilatation. He was also found to have elevated total bilirubin as well as pancreatic enzymes consistent with choledocholithiasis and gallstone pancreatitis. The patient was treated conservatively initially with IV fluid hydration and bowel rest. His pancreatitis had improved; however, did have continued elevation in total bilirubin. He was transferred to gastroenterology at [facility] and underwent ERCP, papillotomy, stone extraction, as well as bile duct stent placement. He was admitted back to [facility] where his bilirubin had normalized. ON 12/20/2016 he underwent a diagnostic laparoscopy and found to have chronic calculus cholecystitis as well as an incarcerated umbilical hernia. He then underwent a laparoscopic cholecystectomy, as well as an open incarcerated umbilical hernia repair with mesh. There was significant amount of chronic inflammatory tissue and scarring resulting in approximately 1500 mL of blood loss, as well as partial wedge resection of the liver due to the chronic inflammatory change. A 19-Belarusian Roby-Gerber drain was placed in the subhepatic space. The patient did well postoperatively; however, did continue to have bilious drainage from the drain. His liver function enzymes did normalize. The draining was either from the dissected liver bed versus leaking ducts of Luschka, as well as drainage from the cystic duct stump due to dilated cystic duct. Gastroenterology was consulted by phone and because the stent was already in place, the recommendation was to continue to monitor drainage. He was eventually sent home; however, he states that in the past 2 days, he has not had any drainage out of the Roby-Gerber drain and he did feel a slight pain in the right upper abdominal quadrant, as well as a mild fever overnight. He underwent laboratory work, which showed normal white count, as well as normal liver function enzymes. CT scan was also performed, which did show a large fluid collection in the right subphrenic space consistent with either a loculated abscess versus a biloma. He is otherwise eating well and having normal bowel movements. PAST MEDICAL HISTORY: 1. Hypertension. 2. Osteoarthritis. 3. History of choledocholithiasis and gallstone pancreatitis. PAST SURGERIES: 1. Tonsillectomy. 2. Vasectomy. 3. Cataract surgery. 4. Right inguinal hernia repair. 5. Right carpal tunnel release. 6. Right total knee arthroplasty. 7. Left total knee arthroplasty. 8. 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 ALLERGIES: No known drug allergies. MEDICATIONS: 1. Carvedilol 6.25 mg b.i.d. 2. Losartan 25 mg daily. 3. Furosemide 80 mg daily. 4. Potassium 20 mEq daily. 5. Travatan eyedrops daily. 6. Magnesium 400 mg daily. 7. Aspirin 81 mg daily. 8. Prilosec 20 mg b.i.d. 9. Cetirzine 10 mg daily. 10. Fluticasone spray 850 mcg t.i.d. 11. Oxycodone 10/325 mg q.4 hours p.r.n. SOCIAL HISTORY: Negative smoke. Negative alcohol. FAMILY HISTORY: Brother lung cancer. Mother heart disease. VITAL SIGNS: Stable, afebrile. REVIEW OF SYSTEMS: This is a well-nourished male, currently in no acute distress. He is not experiencing shortness of breath or difficulty breathing. No chest pain, palpitations, or diaphoresis. No nausea, vomiting, diarrhea, or constipation. Mild pain in the right upper abdominal quadrant with mild fever and malaise starting last night. No recent inadvertent weight loss. All other review of systems negative. PHYSICAL EXAMINATION: CHEST: Clear. Good breath sounds bilaterally. HEART: Regular. No murmurs. EXTREMITIES: No lower extremity edema. Negative Laure sign. HEENT: No scleral icterus. No cervical lymphadenopathy. ABDOMEN: Soft, nondistended. There is a minimal amount of thick drainage from the Roby-Gerber drain. There is also mild discomfort in the right upper abdominal quadrant upon deep palpation with no peritoneal signs. SKIN: Warm and dry. ASSESSMENT AND PLAN: 76-year-old male with loculated right subphrenic abscess versus a biloma. We will admit him, start him on IV fluids, as well as IV antibiotics, as well as consult interventional radiology for image guided percutaneous drain placement. If he continues to have significant bilious drainage from either drain, we will consult gastroenterology for possible second stent placement for adequate drainage. Job ID: [id number] Dictated Date: 01/05/2017 18:02:11 [employer] Date: 01/06/2017 08:47:59/tremayne
--- NOTE | 2017-01-06 09:52 | Pre-Procedure Progress Note ---
Pre-Procedure Progress Note H&P Reviewed The H&P was reviewed, patient examined and no changes noted. Date H&P Reviewed: Jan 06, 2017 Time H&P Reviewed: 08:00 Pre-Procedure Diagnosis: RUQ abscess BIN PADILLA MD Jan 06, 2017 09:52
[2017-01-06] MEDS ORDERED: ALFU10TA PO (10:17)
[2017-01-06] MEDS ORDERED: AMOX-358 PO (10:17)
[2017-01-06] MEDS: oxyCODONE/APAP 10/325MG (PERCOCET 10) TABLET PO PRN ×2 (10:50→21:48)
--- NOTE | 2017-01-06 10:53 | Diagnostic Imaging Report ---
EXAMINATION: CT-guided drain placement. Liver. INDICATION: Perihepatic subcapsular fluid collection. The patient's vital signs, cardiac rhythm, and pulse oximetry with observed throughout the procedure by qualified nursing personnel. Sedation/medications: Fentanyl 50 mcg IV. CONSENT: Informed consent was obtained from the patient. The risks, benefits, potential complications and alternatives were reviewed and all questions answered to the patient's satisfaction. FINDINGS: Large the perihepatic fluid collection with air-fluid level is seen PROCEDURE: After maximal sterile barrier preparation and draping, 1% lidocaine was utilized for local anesthesia. With the patient in supine position, right lower lateral intercostal approach was selected. A 19-gauge Yueh sheathed needle was introduced utilizing CT guidance into the right perihepatic fluid collection. CT images confirm appropriate positioning. After standard over a guidewire exchange technique and after serial dilatation, a 14 [place] drain is placed and distal loop formed in the collection. A 60 ml of yellow thick fluid is aspirated and sent to microbiology. The drainage catheter is connected to suction type draining bag. The patient tolerated the procedure well with no immediate complications. IMPRESSION: Successful CT-guided, 14 [place], drain placement in right perihepatic abscess. The color of the fluid suggests possibility of bile content. Dictated by: Dictated on workstation # [id number]
--- NOTE | 2017-01-06 16:37 | Progress Note (SOAP) ---
Subjective Date Seen by Provider: Jan 06, 2017 Time Seen by Provider: 16:30 Subjective/Events-last exam doing better since drain placed. copious initial drainage however has decreased. appears bilious. tolerating diet. no fever/chills. Objective Exam Vital Signs Date Time Temp Pulse Resp B/P (MAP) Pulse Ox O2 Delivery O2 Flow Rate FiO2 01/06/17 15:29 97.8 76 20 120/58 96 Room Air 01/06/17 14:26 95 Room Air 01/06/17 14:00 99.1 82 20 91/46 98 Room Air 01/06/17 13:00 99.4 86 20 97/55 95 Room Air 01/06/17 12:26 99.7 88 20 102/58 94 Room Air 01/06/17 10:45 99.5 83 20 116/63 96 Room Air 01/06/17 10:30 99.1 82 20 117/67 95 Room Air 01/06/17 10:15 99.1 52 20 100/72 96 Room Air 01/06/17 10:00 99.0 44 20 110/62 97 Room Air 01/06/17 08:50 53 18 126/68 92 Room Air 01/06/17 08:40 62 18 110/57 90 Room Air 01/06/17 08:25 98.2 83 18 131/69 91 Room Air 01/06/17 08:05 Room Air 01/06/17 08:00 99.9 80 20 108/55 96 Room Air 01/06/17 07:29 94 Room Air 01/06/17 03:10 99.5 70 18 118/71 97 Room Air 01/05/17 23:26 99.9 86 18 93/51 95 Room Air 01/05/17 19:44 96 Room Air 01/05/17 19:00 98.9 92 18 141/69 96 Room Air 01/05/17 18:37 Room Air I & O 01/06/17 07:00 Intake Total 1170 ml Output Total 475 ml Balance 695 ml Capillary Refill : General Appearance: No Apparent Distress HEENT: PERRL/EOMI Neck: Full Range of Motion Respiratory: Chest Non Tender, Lungs Clear, Normal Breath Sounds Cardiovascular: Regular Rate, Rhythm Gastrointestinal: non tender, soft Extremity: Normal Capillary Refill Neurologic/Psychiatric: Alert, Oriented x3 Skin: Normal Color Lymphatic: No Adenopathy Results Lab Laboratory Tests 01/06/17 04:31: White Blood Count 6.4, Red Blood Count 3.43L, Hemoglobin 9.9L, Hematocrit 31L, Mean Corpuscular Volume 90, Mean Corpuscular Hemoglobin 29, Mean Corpuscular Hemoglobin Concent 32, Red Cell Distribution Width 13.4, Platelet Count 174, Mean Platelet Volume 10.8H, Sodium Level 135, Potassium Level 4.4, Chloride Level 105, Carbon Dioxide Level 22, Anion Gap 8, Blood Urea Nitrogen 20H, Creatinine 1.33H, Estimat Glomerular Filtration Rate 52, BUN/Creatinine Ratio 15 , Glucose Level 105, Calcium Level 8.5, Total Bilirubin 1.0, Aspartate Amino Transf (AST/SGOT) 57H, Alanine Aminotransferase (ALT/SGPT) 64H, Alkaline Phosphatase 159H, Total Protein 6.1L, Albumin 2.5L 01/06/17 08:50: Miscellaneous Test Result SEE FOOTNOTE Assessment/Plan Assessment/Plan Assess & Plan/Chief Complaint biloma and peristent biliary leak s/p lap bev. talked with gastroenterology. stated will need ERCP early next week to evaluate anyway for stent removal. since biloma developed, may still seal on own. patient does have risk factors for infection and will continue IV abx over weekend and IV fluid hydration. Clinical Quality Measures DVT/VTE Risk/Contraindication: Risk Factor Score Per Nursin RFS Level Per Nursing on Admit: 4+=Very High ROSA DOMINGUEZ MD Jan 06, 2017 4:37 pm
[2017-01-06] MEDS ORDERED: LORazepam INJ 2 MG/ML (ATIVAN) VIAL IVP PRN (16:45)
[2017-01-06] MEDS: CATHETER FLUSH 10 ML SYR IJ SCH (20:43)
--- NOTE | 2017-01-06 22:55 | Consultation ---
History of Present Illness History of Present Illness Patient Consulted On(lucia/time) 01/06/17 22:50 Date Seen by Provider: Jan 06, 2017 Time Seen by Provider: 22:45 Reason for Visit: RUQ pain, fever History of Present Illness 76yo male readmitted for suspected subphrenic loculated abscess vs biloma- Pt had a low grade fever at home and increasing pain as reason for direct admission by Dr. Hernandez with supporting CT results. Dr. Cruz place a second drain with significant bilious drainage. Pt was placed on IVF and antibiotics. Dr. Hernandez's H/P has a good synopsis of events leading up to his admission. I was consulted for medical management of comorbidities. Pt reports he ate roast and sides for supper tonight as 2 days ago he would have to force himself to eat. So resolution of his anorexia. Pt will be transferred to [place] TuesdayJanuary 10 for ERCP and biliary stent removal. Allergies and Home Medications Allergies Coded Allergies: No Known Drug Allergies (Unverified , 07/26/16) Home Medications Alfuzosin HCl 10 Mg Tab.sr.24h, 10 MG PO DAILY, (Reported) Amoxicillin/Potassium Clav 1 Each Tablet, 1 TAB PO BID for 10 Days, (Reported) 10 DAY SUPPLY FILLED 01-04-17 Ascorbic Acid 500 Mg Tab.chew, 1,000 MG PO HS, (Reported) Aspirin 81 Mg Tablet.dr, 81 MG PO DAILY, (Reported) Carvedilol 6.25 Mg Tablet, 6.25 MG PO BID, (Reported) Cetirizine HCl 10 Mg Tablet, 10 MG PO HS, (Reported) Cholecalciferol (Vitamin D3) 1,000 Unit Tablet, 1,000 UNIT PO HS, (Reported) Famotidine/Ca Carb/Mag Hydrox 1 Each Tab.chew, 1 TAB PO HS, (Reported) Fluticasone Propionate 9.9 Ml Orange.susp, 2 SPRAYS NS HS, (Reported) Furosemide 80 Mg Tablet, 80 MG PO UD PRN for SWELLING, (Reported) TAKES APPROXIMATELY TWICE WEEKLY WITH KLOR-CON AND MAGNESIUM / LAST FILLED #90 Ibuprofen 200 Mg Tablet, 400 MG PO BID PRN for PAIN-MILD, (Reported) TAKES 2 (200 MG) TABLETS Latanoprost 2.5 Ml Drops, 1 DROP OU HS, (Reported) Lorazepam 0.5 Mg Tablet, 0.5 MG PO HS PRN for INSOMNIA, (Reported) Losartan Potassium 25 Mg Tablet, 25 MG PO DAILY, (Reported) Magnesium Oxide 400 Mg Tablet, 400 MG PO UD PRN for WHEN TAKING FUROSEMIDE, ( Reported) TAKES APPROXIMATELY TWICE WEEKLY WITH FUROSEMIDE AND KLOR-CON Oxycodone HCl/Acetaminophen 1 Each Tablet, 1 TAB PO Q4H PRN for PAIN-MODERATE, ( Reported) Potassium Chloride 20 Meq Tab.er.prt, 20 MEQ PO UD PRN for WHEN TAKING FUROSEMIDE, (Reported) TAKES APPROXIMATELY 2 TIMES PER WEEK WITH FUROSEMIDE AND MAGNESIUM / LAST FILLED 05/2016 #25 Past Ecgvijd-Ljhfps-Rtadex Hx Patient Social History Alcohol Use: Denies Use Recreational Drug Use: No Smoking Status: Never a Smoker Recent Foreign Travel: No Contact w/Someone Who Travel: No Recent Infectious Disease Expo: No Recent Hopitalizations: No (2 weeks ago lap choley with hernia repair) Physical Abuse Screen: No Sexual Abuse: No Immunizations Up To Date Tetanus Booster (TDap): Less than 5yrs Date of Pneumonia Vaccine: Jun 01, 2016 Date of Influenza Vaccine: Mar 06, 2016 Seasonal Allergies Seasonal Allergies: Yes Surgeries HX Surgeries: Yes (ROSITA TOTAL KNEE, HERNIA, CATARACTS, R AKA) Surgeries: Abdominal, Amputation, Joint Replacement, Orthopedic, Tonsillectomy Respiratory Hx Respiratory Disorders: No Cardiovascular Hx Cardiac Disorders: Yes ("SKIPS A BEAT") Cardiac Disorders: Hypertension, Irregular Heartbeat Neurological Hx Neurological Disorders: No Reproductive System Hx Reproductive Disorders: No Sexually Transmitted Disease: No HIV/AIDS: No Genitourinary Hx Genitourinary Disorders: Yes (HX OF RENAL RELATED) Genitourinary Disorders: Prostate Problems Gastrointestinal Hx Gastrointestinal Disorders: No Gastrointestinal Disorders: Gastroesophageal Reflux, Diverticulosis, Hemorrhoids Musculoskeletal Hx Musculoskeletal Disorders: Yes (LEFT KNEE OSTEOARTHRITIS, 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) Musculoskeletal Disorders: Arthritis Endocrine Hx Endocrine Disorders: No HEENT HX ENT Disorders: Yes (READING GLASSES) HEENT Disorders: Glaucoma Loss of Vision: Bilateral Hearing Impairment: Hard of Hearing Cancer Hx Cancer: No Cancer: Skin Psychosocial Hx Psychiatric Problems: No Integumentary HX Skin/Integumentary Disorder: Yes (RED DRY AREAS ON NECK) Skin/Integumentary Disorders: Recent Skin Changes Blood Transfusions Hx Blood Disorders: No Adverse Reaction to a Blood Tr: No Family Medical History Family Medial History: Alcoholism 19 FATHER, , Age:48, Onset:Unknown Bone cancer G8 BROTHER, , Onset:Unknown Colon cancer G8 SISTER, Onset:Unknown Heart valve abnormality 19 MOTHER, , Age:95, Onset:Unknown G8 SISTER, Onset:Unknown No Family History of: AIDS Abdominal aortic aneurysm [place]'s disease Alzheimer's disease Aphasia Arthritis Asthma Cancer of mouth Cardiovascular disease Cataracts Completed stroke Congenital disease Congenital heart disease Coronary thrombosis Cystic fibrosis Deafness or hearing loss Dementia Diabetes mellitus Drug abuse Dysphasia Fibrocystic disease of breast Gastroenteritis Glaucoma Headache disorder Hypercholesterolemia Hypertension Infertility Kidney disease Myocardial infarction Neoplasm Not obtainable due to adoption Osteoporosis Parkinson's disease Prostate cancer Psychosocial problem Respiratory disorder Seizure disorder Severe allergy Thyroid disease Tuberculosis Visual disorder Review of Systems Review of Systems General: Chills, No Night Sweats, Fatigue, Malaise, Other (fever) HEENT: No Head Aches, No Visual Changes Pulmonary: No Dyspnea, No Cough Cardiovascular: No: Chest Pain, Palpitations Gastrointestinal: Abdominal Pain, Nausea, No: Diarrhea, Vomiting Genitourinary: No Dysuria, No Frequency Musculoskeletal: No: neck pain, shoulder pain Neurological: Weakness, No: Numbness Physical Exam Vital Signs Vital Sign - Last 12Hours 01/05/17 01/05/17 18:37 19:00 Temp 98.9 Pulse 92 Resp 18 B/P (MAP) 141/69 Pulse Ox 96 O2 Delivery Room Air Capillary Refill : General Appearance: No Apparent Distress, WD/WN HEENT: PERRL/EOMI Neck: Full Range of Motion, Normal Inspection, Non Tender, Supple Respiratory: Chest Non Tender, Lungs Clear, Normal Breath Sounds, No Accessory Muscle Use, No Respiratory Distress Cardiovascular: Regular Rate, Rhythm, No Edema Gastrointestinal: Normal Bowel Sounds, Tenderness (RUQ, drains noted with bilous drainage) Rectal: Deferred Back: Normal Inspection, No Vertebral Tenderness Extremity: Normal Range of Motion, Non Tender, No Calf Tenderness Neurologic/Psychiatric: Alert, Oriented x3, No Motor/Sensory Deficits, Normal Mood/Affect Skin: Warm/Dry Lymphatic: No Adenopathy Assessment/Plan Assessment/Plan Assessment/Plan 76 yo M biloma and persistent bilary leak s/p cholecystectomy- IR placed second drain- Dr. Hernandez monitoring- continue zosyn in interval acute abdominal pain, RUQ- secondary to choledocholithiasis- improved- continue IVFs. h/o choledocholithiasis- s/p stent placement 12/18/16 s/p lap bev 12/20/16 Dr. Hernandez umbilical hernia- repaired 12/20/16 Dr. Hernandez acute kidney injury- Cr 1.33 avoid nephrotoxic agents. Continue to monitor . IVF. PO hydration HTN- stable, good control- hold losartan and continue coreg- will resume losartan on discharge- right above knee amputation- keep stump clean elevated LFTs- acute, improved from last admission insomnia- has lorazepam prn qhs. Dispo: continue to monitor through the weekend likely Pt will likely be transferred to [place] TuesdayJanuary 10 for ERCP and biliary stent removal. Problems: Clinical Quality Measures DVT/VTE Risk/Contraindication: Risk Factor Score Per Nursin RFS Level Per Nursing on Admit: 4+=Very High SAMUEL FERNANDEZ MD Jan 06, 2017 22:55
[2017-01-06] MEDS ORDERED: MAGNESIUM OXIDE (MAG-OX)400 MG TAB PO PRN (23:00)
[2017-01-06] MEDS ORDERED: NON-FORMULARY MEDICATION 1 EA EA (Furosemide 80 MG) PO PRN (23:00)
[2017-01-07] VITALS (7 sets, daily range): BP systolic 104–136; BP diastolic 55–80
[2017-01-07] MEDS: LORazepam 0.5 MG (ATIVAN) TABLET PO PRN ×2 (00:45→20:06)
[2017-01-07] MEDS: NS IV 1000 ML 1,000 ML IV SCH ×3 (00:45→20:04)
[2017-01-07] MEDS: PIPERACILLIN/TAZOBACTAM 4.5 GM/NS 100 ML IVPB IV SCH ×6 (00:53→16:21)
[2017-01-07] MEDS ORDERED: FUROSEMIDE 40 MG (LASIX) TAB PO PRN (06:15)
[2017-01-07] MEDS: ENOXAPARIN 40 MG/0.4 ML (LOVENOX) SYR SQ SCH (08:24)
[2017-01-07] MEDS: PANTOPRAZOLE 40 MG/10 ML (PROTONIX) VIAL IV SCH (08:24)
[2017-01-07] MEDS: CATHETER FLUSH 10 ML SYR IJ SCH ×2 (08:25→20:05)
[2017-01-07] MEDS: ALFUZOSIN HCL 10 MG TAB (UROXATRAL) PO SCH (08:25)
[2017-01-07] MEDS: ASPIRIN E.C. 81 MG (ECOTRIN) TAB PO SCH (08:25)
[2017-01-07] MEDS: CARVEDILOL 6.25 MG (COREG) TAB PO SCH ×2 (08:25→20:06)
[2017-01-07] MEDS: RT-ALBUTEROL SULF 2.5 MG/3 ML PRE-MIX VIAL IH SCH ×3 (08:25→18:21)
--- NOTE | 2017-01-07 08:35 | Progress Note (SOAP) ---
Subjective Subjective Date Seen by Provider: Jan 07, 2017 Time Seen by Provider: 08:32 76 yo M no overnight events. Took a shower this AM. Bilious drainage still present- urine has cleared up. No new issues- feeling better- afebrile. Review of Systems General: No Chills, No Night Sweats, Fatigue, No Malaise HEENT: No Head Aches, No Visual Changes Pulmonary: No Dyspnea, No Cough Cardiovascular: No: Chest Pain, Palpitations Gastrointestinal: Abdominal Pain (improved), Nausea (improved), No: Diarrhea, Vomiting Genitourinary: No Dysuria, No Frequency Musculoskeletal: No: neck pain, shoulder pain Neurological: Weakness, No: Numbness Objective Exam Vital Signs Vital Signs Date Time Temp Pulse Resp B/P (MAP) Pulse Ox O2 Delivery O2 Flow Rate FiO2 01/07/17 08:25 97 Room Air 01/07/17 08:00 98.4 46 20 122/80 94 Room Air 01/07/17 04:48 98.2 58 18 136/63 95 Room Air 01/07/17 00:45 98.5 86 20 108/55 95 Room Air 01/06/17 19:32 97 Room Air 01/06/17 19:06 98.1 73 20 102/59 97 Room Air 01/06/17 15:29 97.8 76 20 120/58 96 Room Air 01/06/17 14:26 95 Room Air 01/06/17 14:00 99.1 82 20 91/46 98 Room Air 01/06/17 13:00 99.4 86 20 97/55 95 Room Air 01/06/17 12:26 99.7 88 20 102/58 94 Room Air 01/06/17 10:45 99.5 83 20 116/63 96 Room Air 01/06/17 10:30 99.1 82 20 117/67 95 Room Air 01/06/17 10:15 99.1 52 20 100/72 96 Room Air 01/06/17 10:00 99.0 44 20 110/62 97 Room Air 01/06/17 08:50 53 18 126/68 92 Room Air 01/06/17 08:40 62 18 110/57 90 Room Air I & O 01/07/17 07:00 Intake Total 4720 ml Output Total 2743 ml Balance 1977 ml General Appearance: No Apparent Distress, WD/WN HEENT: PERRL/EOMI Neck: Full Range of Motion, Normal Inspection, Non Tender, Supple Respiratory: Chest Non Tender, Lungs Clear, Normal Breath Sounds, No Accessory Muscle Use, No Respiratory Distress Cardiovascular: Regular Rate, Rhythm, No Edema Gastrointestinal: Normal Bowel Sounds, Tenderness (RUQ, drains noted with bilous drainage) Rectal: Deferred Back: Normal Inspection, No Vertebral Tenderness Extremity: Normal Range of Motion, Non Tender, No Calf Tenderness, Other ( right above knee amputation) Neurologic/Psychiatric: Alert, Oriented x3, No Motor/Sensory Deficits, Normal Mood/Affect Skin: Warm/Dry Lymphatic: No Adenopathy Results Lab Laboratory Tests 01/06/17 08:50: Miscellaneous Test Result SEE FOOTNOTE Microbiology 01/06/17 Gram Stain - Final, Resulted 01/06/17 Anaerobic Culture, Resulted Pending 01/06/17 Surgical Culture - Preliminary, Resulted Probable Enterococcus Species Assessment/Plan Assessment/Plan Assessment/Plan 76 yo M biloma and persistent bilary leak s/p cholecystectomy- IR placed second drain- Dr. Hernandez monitoring- continue zosyn in the interval acute abdominal pain, RUQ- secondary to biliary leak/biloma- improved- continue IVFs. h/o choledocholithiasis- s/p ERCP stent placement at [place] 12/18/16 s/p lap bev 12/20/16 Dr. Hernandez umbilical hernia- repaired 12/20/16 Dr. Hernandez acute kidney injury- Cr pending avoid nephrotoxic agents. Continue to monitor . IVF. PO hydration HTN- stable, good control- hold losartan and continue coreg- will resume losartan when Cr improves- right above knee amputation- keep stump clean elevated LFTs- acute, improved from last admission insomnia- has lorazepam prn qhs. Dispo: continue to monitor through the weekend likely Pt will likely be transferred to [place] TuesdayJanuary 10 for ERCP and biliary stent removal. Problems: Clinical Quality Measures DVT/VTE Risk/Contraindication: Risk Factor Score Per Nursin RFS Level Per Nursing on Admit: 4+=Very High SAMUEL FERNANDEZ MD Jan 07, 2017 08:35
[2017-01-07 09:43] LABS: BASOPHILS # (AUTO) 0.1 10^3/uL (0.0-0.1); BASOPHILS % (AUTO) 1 % (0-10); EOSINOPHILS # (AUTO) 0.2 10^3/uL (0.0-0.3); EOSINOPHILS % (AUTO) 4 % (0-10); LYMPHOCYTES # (AUTO) 0.6 X 10^3 (1.0-4.0); LYMPHOCYTES % (AUTO) 15 % (12-44); MEAN CORPUSCULAR HEMOGLOBIN 29 PG (25-34); MEAN CORPUSCULAR HGB CONC 32 G/DL (32-36); MEAN CORPUSCULAR VOLUME 89 FL (80-99); MEAN PLATELET VOLUME 10.5 FL (7.4-10.4); MONOCYTES # (AUTO) 0.4 X 10^3 (0.0-1.0); MONOCYTES % (AUTO) 9 % (0-12); NEUTROPHILS # (AUTO) 3.1 X 10^3 (1.8-7.8); NEUTROPHILS % (AUTO) 72 % (42-75); PLATELET COUNT 179 10^3/uL (130-400); RED BLOOD COUNT 3.69 10^6/uL (4.35-5.85); RED CELL DISTRIBUTION WIDTH 13.5 % (10.0-14.5); WHITE BLOOD COUNT 4.3 10^3/uL (4.3-11.0)
--- NOTE | 2017-01-07 10:01 | Physical Therapy Evaluation ---
PT Evaluation-General Medical Diagnosis Admission Date Jan 05, 2017 at 18:14 Medical Diagnosis: abdominal abscess Onset Date: Jan 05, 2017 Therapy Diagnosis Therapy Diagnosis: debility Height/Weight Height (Feet): 5 Height (Inches): 11.00 Weight (Pounds): 229 Weight (Ounces): 0.0 Precautions Precautions/Isolations: Standard Precautions Referral Physician: Edward Reason for Referral: Evaluation/Treatment Medical History Pertinent Medical History: Arthritis, HTN Additional Medical History right AKA 2 yrs ago Current History right upper quadrant pain Reviewed History: Yes Social History Home: Single Level Current Living Status: Alone Entry Into Home: Ramp Prior/Core FIM Prior Level of Function Functional [place] Measure 0=Not Assessed/NA 4=Minimal Assistance 1=Total Assistance 5=Supervision or Setup 2=Maximal Assistance 6=Modified [place] 3=Moderate Assistance 7=Complete [place] Bed Mobility: 7 Transfers (B,C,W/C) (FIM): 7 Gait: 6 PT Evaluation-Current Subjective Patient denies pain and agrees to PT. Pain Numeric Pain Scale: 0-No Pain Location: No Pain Reported Objective Patient Orientation: Normal For Age Problem Solving: Good Attachments: Drains, IV ROM/Strength ROM Lower Extremities bilateral LE WNL Strenght Lower Extremities left LE 5/5; right hip flexion/extension 4/5 Integumentary/Posture Integumentary refer to nursing notes Bowel Incontinence: No Bladder Incontinence: No Posture WNL Neuromuscular (Tone, Coordination, Reflexes) grossly intact Sensory Vision: Functional Hearing: Functional Sensation Right Lower Extremit: Intact Sensation Left Lower Extremity: Intact Transfers Functional [place] Measure 0=Not Assessed/NA 4=Minimal Assistance 1=Total Assistance 5=Supervision or Setup 2=Maximal Assistance 6=Modified [place] 3=Moderate Assistance 7=Complete [place] Transfers (B, C, W/C) (FIM): 6 Scootin Rollin Supine to/from Sit: 6 Sit to/from Stand: 6 Gait Mode of Locomotion: Walk Anticipated Mode of Locomotion: Walk Gait (FIM): 2 Distance (FIM): 6=477-60 ft Distance: 75' x 2 Gait Level of Assist: 6 Gait Assistive Device: FWW Comments/Gait Description Patient donns prosthetic independently and ambulates with FWW or cane PLOF Balance Sitting Static: Normal Sitting Dynamic: Normal Standing Static: Normal Standing Dynamic: Normal Assessment/Needs 76 y.o. male, will benefit from short term skilled PT to address functional strength and mobility to improve current LOF and to safely return to home at maximum LOF. Rehab Potential: Good PT Bus Info Consultant Goals Bus Info Consultant Goals PT Bus Info Consultant Goals Time Frame: Jan 14, 2017 Transfers (B,C,W/C) (FIM): 7 Gait (FIM): 6 Gait distance (FIM): 3=150 ft Gait Level of Assist: 6 Gait Assistive Device: None, FWW, Cane Single Point PT Plan Problem List Problem List: Activity Tolerance Treatment/Plan Treatment Plan: Continue Plan of Care Treatment Plan: Education, Functional Activity Nikolai, Functional Strength, Gait , Safety, Therapeutic Exercise Treatment Duration: Jan 14, 2017 Frequency: 6 times per week Estimated Hrs Per Day: .25 hour per day Patient and/or Family Agrees t: Yes Discharge Recommendations Therapy D/C Recommendations: Home Independently Time/GCodes Time In: 920 Time Out: 950 Total Billed Treatment Time: 30 [facility] LISSETH REED PT Jan 07, 2017 10:01
[2017-01-07 10:02] LABS: ALBUMIN 2.6 GM/DL (3.2-4.5); BILIRUBIN,TOTAL 0.6 MG/DL (0.1-1.0); CALCIUM 8.4 MG/DL (8.5-10.1); CREATININE SERUM 1.22 MG/DL (0.60-1.30); POTASSIUM 4.2 MMOL/L (3.6-5.0); TOTAL PROTEIN 6.2 GM/DL (6.4-8.2)
[2017-01-07] MEDS: metroNIDAZOLE 500MG/100ML IVPB 100 ML IV SCH (13:28)
--- NOTE | 2017-01-07 14:25 | Progress Note (SOAP) ---
Subjective Date Seen by Provider: Jan 07, 2017 Time Seen by Provider: 14:00 Subjective/Events-last exam doing ok. no fever/chills. no abdominal pain. moderate bilious drainage but decreased. Objective Exam Vital Signs Date Time Temp Pulse Resp B/P (MAP) Pulse Ox O2 Delivery O2 Flow Rate FiO2 01/07/17 11:30 98.0 68 20 110/64 94 Room Air 01/07/17 08:50 Room Air 01/07/17 08:25 97 Room Air 01/07/17 08:00 98.4 46 20 122/80 94 Room Air 01/07/17 04:48 98.2 58 18 136/63 95 Room Air 01/07/17 00:45 98.5 86 20 108/55 95 Room Air 01/06/17 19:32 97 Room Air 01/06/17 19:06 98.1 73 20 102/59 97 Room Air 01/06/17 15:29 97.8 76 20 120/58 96 Room Air 01/06/17 14:26 95 Room Air I & O 01/07/17 07:00 Intake Total 4720 ml Output Total 2743 ml Balance 1977 ml Capillary Refill : General Appearance: No Apparent Distress HEENT: PERRL/EOMI Neck: Full Range of Motion Respiratory: Chest Non Tender, Lungs Clear, Normal Breath Sounds Cardiovascular: Regular Rate, Rhythm Gastrointestinal: normal bowel sounds, non tender, soft Extremity: Normal Capillary Refill Neurologic/Psychiatric: Alert, Oriented x3 Skin: Normal Color Lymphatic: No Adenopathy Results Lab Laboratory Tests 01/07/17 09:30: White Blood Count 4.3, Red Blood Count 3.69L, Hemoglobin 10.6L, Hematocrit 33L, Mean Corpuscular Volume 89, Mean Corpuscular Hemoglobin 29, Mean Corpuscular Hemoglobin Concent 32, Red Cell Distribution Width 13.5, Platelet Count 179, Mean Platelet Volume 10.5H, Neutrophils (%) (Auto) 72, Lymphocytes (%) (Auto) 15 , Monocytes (%) (Auto) 9, Eosinophils (%) (Auto) 4, Basophils (%) (Auto) 1, Neutrophils # (Auto) 3.1, Lymphocytes # (Auto) 0.6L, Monocytes # (Auto) 0.4, Eosinophils # (Auto) 0.2, Basophils # (Auto) 0.1, Sodium Level 137, Potassium Level 4.2, Chloride Level 111H, Carbon Dioxide Level 17L, Anion Gap 9, Blood Urea Nitrogen 13, Creatinine 1.22, Estimat Glomerular Filtration Rate 57, BUN/ Creatinine Ratio 11, Glucose Level 97, Calcium Level 8.4L, Total Bilirubin 0.6, Aspartate Amino Transf (AST/SGOT) 38H, Alanine Aminotransferase (ALT/SGPT) 58H, Alkaline Phosphatase 153H, Total Protein 6.2L, Albumin 2.6L Microbiology 01/06/17 Gram Stain - Final, Resulted 01/06/17 Anaerobic Culture, Resulted Pending 01/06/17 Surgical Culture - Preliminary, Resulted Enterococcus Faecium Assessment/Plan Assessment/Plan Assess & Plan/Chief Complaint biloma and peristent biliary leak s/p lap bev. talked with gastroenterology. stated will need ERCP early next week to evaluate anyway for stent removal. since biloma developed, may still seal on own. patient does have risk factors for infection and will continue IV abx over weekend and IV fluid hydration. continue current care. will add flagyl for enterococcus. Clinical Quality Measures DVT/VTE Risk/Contraindication: Risk Factor Score Per Nursin RFS Level Per Nursing on Admit: 4+=Very High ROSA DOMINGUEZ MD Jan 07, 2017 14:25
--- NOTE | 2017-01-07 14:40 | Consultation-Cardiology ---
HPI-Cardiology Cardiology Consultation: Date of Consultation 01/07/17 Time Seen by Provider: 15:15 Date of Admission Attending Physician Corrie Hernandez MD Admitting Physician Yan Leon MD Consulting Physician Demond Hopkins MD HPI: Chief Complaint: PVC's Mr. Garcia is a 76 year old male admitted to [facility]. He reports he initially came into [facility] ED after having his GB removed a few days prior with abdominal discomfort. It was determined he had a biliary stone and leak. He underwent stenting with drain placement. He reports this morning they checked his v/s and his HR was irregular. He does not report any dizziness, chest pain, dyspnea , palpitations, syncope or near syncope. He does report some swelling in his left leg. Review of Systems-Cardiology Review of Systems Constitutional: As described under HPI, No As described under HPI, No no symptoms reported, No chills, No fever, No lightheadedness Eyes: No As described under HPI, No no symptoms reported, No blindness, No blurred vision, No contact lenses, No drainage, No decreased acuity, No foreign body sensation, No pain, No vision change Ears/Nose/Throat: No As described under HPI, No no symptoms reported, No chronic hearing loss, No ear discharge, No ear pain, No nasal drainage, No ulcerations Respiratory: As described under HPI Cardiovascular: As described under HPI Gastrointestinal: As described under HPI Genitourinary: No As described under HPI, No burning, No dysuria, No discharge , No frequency, No flank pain, No hematuria, No urgency Skin: No rash, No skin related problems, No ulcerations Psychiatric/Neurological: No anxiety, No depression, No focal weakness, No seizure, No syncope Hematologic: No bleeding abnormalities MNZ-[id number]-[id number] Hx Patient Social History Alcohol Use: Denies Use Recreational Drug Use: No Smoking Status: Never a Smoker Recent Foreign Travel: No Recent Infectious Disease Expo: No Hospitalization with Isolation: Denies Physical Abuse Screen: No Sexual Abuse: No Immunizations Up To Date Tetanus Booster (TDap): Less than 5yrs Date of Pneumonia Vaccine: Jun 01, 2016 Date of Influenza Vaccine: Mar 06, 2016 Past Medical History PMH As described under Assessment. Family Medical History Family History: 19 FATHER, , Age:48 Alcoholism, Onset:Unknown 19 MOTHER, , Age:95 Heart valve abnormality, Onset:Unknown G8 BROTHER, Bone cancer, Onset:Unknown G8 SISTER Colon cancer, Onset:Unknown Heart valve abnormality, Onset:Unknown Allergies and Home Medications Allergies Coded Allergies: No Known Drug Allergies (Unverified , 07/26/16) Home Medications Alfuzosin HCl 10 Mg Tab.sr.24h, 10 MG PO DAILY, (Reported) Amoxicillin/Potassium Clav 1 Each Tablet, 1 TAB PO BID for 10 Days, (Reported) 10 DAY SUPPLY FILLED 01-04-17 Ascorbic Acid 500 Mg Tab.chew, 1,000 MG PO HS, (Reported) Aspirin 81 Mg Tablet.dr, 81 MG PO DAILY, (Reported) Carvedilol 6.25 Mg Tablet, 6.25 MG PO BID, (Reported) Cetirizine HCl 10 Mg Tablet, 10 MG PO HS, (Reported) Cholecalciferol (Vitamin D3) 1,000 Unit Tablet, 1,000 UNIT PO HS, (Reported) Famotidine/Ca Carb/Mag Hydrox 1 Each Tab.chew, 1 TAB PO HS, (Reported) Fluticasone Propionate 9.9 Ml [place].susp, 2 SPRAYS NS HS, (Reported) Furosemide 80 Mg Tablet, 80 MG PO UD PRN for SWELLING, (Reported) TAKES APPROXIMATELY TWICE WEEKLY WITH KLOR-CON AND MAGNESIUM / LAST FILLED #90 Ibuprofen 200 Mg Tablet, 400 MG PO BID PRN for PAIN-MILD, (Reported) TAKES 2 (200 MG) TABLETS Latanoprost 2.5 Ml Drops, 1 DROP OU HS, (Reported) Lorazepam 0.5 Mg Tablet, 0.5 MG PO HS PRN for INSOMNIA, (Reported) Losartan Potassium 25 Mg Tablet, 25 MG PO DAILY, (Reported) Magnesium Oxide 400 Mg Tablet, 400 MG PO UD PRN for WHEN TAKING FUROSEMIDE, ( Reported) TAKES APPROXIMATELY TWICE WEEKLY WITH FUROSEMIDE AND KLOR-CON Oxycodone HCl/Acetaminophen 1 Each Tablet, 1 TAB PO Q4H PRN for PAIN-MODERATE, ( Reported) Potassium Chloride 20 Meq Tab.er.prt, 20 MEQ PO UD PRN for WHEN TAKING FUROSEMIDE, (Reported) TAKES APPROXIMATELY 2 TIMES PER WEEK WITH FUROSEMIDE AND MAGNESIUM / LAST FILLED 05/2016 #25 Physical Exam-Cardiology Physical Exam Vital Signs/I&O Vital Sign - Last 12Hours 01/07/17 01/07/17 01/07/17 01/07/17 08:00 08:25 08:50 11:30 Temp 98.4 98.0 Pulse 46 68 Resp 20 20 B/P (MAP) 122/80 110/64 Pulse Ox 94 97 94 O2 Delivery Room Air Room Air Room Air Room Air 01/07/17 01/07/17 14:39 15:49 Temp 98.9 Pulse 84 Resp 20 B/P (MAP) 104/58 Pulse Ox 96 95 O2 Delivery Room Air Room Air Intake and Output 01/07/17 00:00 Intake Total 2230 ml Output Total 1993 ml Balance 237 ml Capillary Refill : Constitutional: appears stated age, No apparent distress, well-developed, well- nourished HEENT: PERRL, No discharge, hearing is well preserved, oral hygience is good, No ulceration, No xanthelasmas are seen Neck: No carotid bruit, carotid pulses are 2 + bilaterally Respiratory: No accessory muscle use, No respiratory distress, lungs clear to auscultation Cardiovascular: irregularly irregular (SR with PVC's per EKG), No JVD, S1 and S2 Gastrointestinal: distended, audible bowel sounds, No spleenomegaly, other ( RLQ drain x 2) Rectal: deferred Extremities: other (R AKA), No clubbing, No cyanosis, significant edema (mod edema LLE) Neurologic/Psychiatric: alert, oriented x 3, power is 5/5 both on sides Skin: No rash, No ulcerations Data Review Labs Laboratory Tests 01/07/17 09:30: White Blood Count 4.3, Red Blood Count 3.69L, Hemoglobin 10.6L, Hematocrit 33L, Mean Corpuscular Volume 89, Mean Corpuscular Hemoglobin 29, Mean Corpuscular Hemoglobin Concent 32, Red Cell Distribution Width 13.5, Platelet Count 179, Mean Platelet Volume 10.5H, Neutrophils (%) (Auto) 72, Lymphocytes (%) (Auto) 15 , Monocytes (%) (Auto) 9, Eosinophils (%) (Auto) 4, Basophils (%) (Auto) 1, Neutrophils # (Auto) 3.1, Lymphocytes # (Auto) 0.6L, Monocytes # (Auto) 0.4, Eosinophils # (Auto) 0.2, Basophils # (Auto) 0.1, Sodium Level 137, Potassium Level 4.2, Chloride Level 111H, Carbon Dioxide Level 17L, Anion Gap 9, Blood Urea Nitrogen 13, Creatinine 1.22, Estimat Glomerular Filtration Rate 57, BUN/ Creatinine Ratio 11, Glucose Level 97, Calcium Level 8.4L, Total Bilirubin 0.6, Aspartate Amino Transf (AST/SGOT) 38H, Alanine Aminotransferase (ALT/SGPT) 58H, Alkaline Phosphatase 153H, Total Protein 6.2L, Albumin 2.6L Microbiology 01/06/17 Gram Stain - Final, Resulted 01/06/17 Anaerobic Culture, Resulted Pending 01/06/17 Surgical Culture - Preliminary, Resulted Enterococcus Faecium Laboratory Tests 01/06/17 04:31 01/07/17 09:30 ECG Impression ECG Comment SR with frequent PVC's A/P-Cardiology Assessment/Admission Diagnosis PVCs, 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 No symptoms reported Biloma and persistent biliary leak s/p lap bev. - management per surgical services MPI of Apr 2016 indicated basal inferior ischemia. Normal regional wall motion. LVEF 58%. Subsequent cardiac cath of 05-11-16 showed minimal coronary plaques. LVEF 50%. Normal LVEDP. Normal right heart pressures. No significant mitral regurg Non ischemic cardiomyopathy with an ejection fraction of 35% on echocardiography of 11/27/2012. Most recent echo of Apr 2016 showed LVEF 60%. Mild enlargement LV and mod enlargement of the LA. Mild diastolic dysfunction of LV. Mild TR. PASP 25mmHg. Venous duplex of 04-28-16 showed no evidence of DVT or reflux. 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 History of urolithiasis. Strong family history of dilated cardiomyopathy. Gastroesophageal reflux. Chronic joint discomfort Cardiomyopathy being followed by his internal medicine doctor, Dr Pereira, in [place], [place]. Dr Pereira has recommended against a defib since EF is 40% or greater Normal ferritin and transferrin, and low-normal ceruloplasmin on 09/18/13 Ac renal insuff on blood work of 04/01/15, likely due to vol depletion due to diuretic therapy CKD, stage 2-3 CT fo the chest from June 2016 showed stable 4 mm nodule in the right upper lobe. Given small size and stability, this is of benign etiology. No acute cardiopulmonary process. No intrathoracic lymphadenopathy. For which he is following with Dr. Rizzo Stable small hiatal hernia seen on CT of the chest of June 2016 Intolerance to RIVER-inhib (dyspnea). 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 Continue BB tx. LLE edema with positive fluid balance. He is taking oral intake. Advise reducing IVF to 75ml/hr to avoid fluid overload. Monitor lab. We would like to thank medical services for this consult. Further recommendations will be based on his hospital course. This consult is being scribed by Kevin Leslie APRN on behalf of Dr. Hopkins after discussion regarding plan of care. Clinical Quality Measures DVT/VTE Risk/Contraindication: Risk Factor Score Per Nursin RFS Level Per Nursing on Admit: 4+=Very High Physician Assessment Physician Assessment Lungs: good bilat air entry Cor: reg with intermittent irregularity Ext: no c/c/e A&R * As documented in our note above that I updated (italics) and as noted below * I spoke with and answered CV related questions * Monitor labs and correct lytes as needed JOEL LESLIE POWER PRESS OPERATOR Jan 07, 2017 14:40 DEMOND HOPKINS MD [facility] CCDS Jan 07, 2017 17:37
[2017-01-07] MEDS: LATANOPROST 0.005% (XALATAN) OPHTH SOLN 2.5 ML OU SCH (20:05)
[2017-01-08] MEDS: metroNIDAZOLE 500MG/100ML IVPB 100 ML IV SCH ×3 (00:03→21:10)
[2017-01-08] MEDS: PIPERACILLIN/TAZOBACTAM 4.5 GM/NS 100 ML IVPB IV SCH ×4 (01:08→09:13)
[2017-01-08 03:45] VITALS: BP 118/59
[2017-01-08 05:33] LABS: MEAN PLATELET VOLUME 10.3 FL (7.4-10.4); RED BLOOD COUNT 3.43 10^6/uL (4.35-5.85); RED CELL DISTRIBUTION WIDTH 13.2 % (10.0-14.5); WHITE BLOOD COUNT 3.3 10^3/uL (4.3-11.0)
[2017-01-08 06:22] LABS: CALCIUM 8.2 MG/DL (8.5-10.1); CREATININE SERUM 1.17 MG/DL (0.60-1.30); MAGNESIUM 1.8 MG/DL (1.8-2.4); POTASSIUM 3.9 MMOL/L (3.6-5.0)
[2017-01-08] MEDS: RT-ALBUTEROL SULF 2.5 MG/3 ML PRE-MIX VIAL IH SCH ×3 (07:46→20:29)
[2017-01-08 08:00] VITALS: BP 125/68
--- NOTE | 2017-01-08 09:10 | Physical Therapy Daily Note ---
PT Daily Note-Current Subjective Patient is in bed and agrees to PT. Pain Numeric Pain Scale: 0-No Pain Location: No Pain Reported Mental Status Patient Orientation: Normal For Age Attachments: Drains, IV Transfers Functional [place] Measure 0=Not Assessed/NA 4=Minimal Assistance 1=Total Assistance 5=Supervision or Setup 2=Maximal Assistance 6=Modified [place] 3=Moderate Assistance 7=Complete IndependenceIRFPAI Quality Coding Scale 6 Independent with activity with or without an assistive device 5 Patient requires set up or clean up by helper. Patient completes activity by themselves 4 Supervision or touching assist (CGA). [place] provide cues , steadying assist 3 The helper provides less than half the effort to complete the activity 2 The helper provides more than half the effort to complete the activity 1 Dependent. The helper does all the effort to complete an activity 7 Patient refused to complete or attempt activity 9 The patient did not perform the activity before the current illness or injury 88 Not attempted due to Medical conditions or safety concerns Transfers (B, C, W/C) (FIM): 6 Scootin Rollin Supine to/from Sit: 6 Sit to/from Stand: 6 Gait Training Gait (FIM): 5 Distance (FIM): 3=150 ft Distance: 150' x 1; 75' x 2 Gait Level of Assist: 5 Gait Persons Needed: 1 Gait Assistive Device: FWW Exercises Standin way Ex=Flex, Abd, Ext Standing Reps: 10 (bilaterally) Assessment Patient progressing with treatment plan and has increased in distance with ambulation. PT to increase activity as tolerated. Patient independently donns right prosthetic. PT Snf Goals Snf Goals PT Fpga Engineer Goals Time Frame: Jan 14, 2017 Transfers (B,C,W/C) (FIM): 7 Gait (FIM): 6 Gait distance (FIM): 3=150 ft Gait Level of Assist: 6 Gait Assistive Device: None, FWW, Cane Single Point PT Plan Treatment/Plan Treatment Plan: Continue Plan of Care Treatment Plan: Education, Functional Activity Nikolai, Functional Strength, Gait , Safety, Therapeutic Exercise Treatment Duration: Jan 14, 2017 Frequency: 6 times per week Estimated Hrs Per Day: .25 hour per day Patient and/or Family Agrees t: Yes Time/GCodes Time In: 835 Time Out: 900 Total Billed Treatment Time: 25 Total Billed Treatment 1 visit GT 15 min EX 10 min LISSETH REED PT Jan 08, 2017 09:10
[2017-01-08] MEDS: ENOXAPARIN 40 MG/0.4 ML (LOVENOX) SYR SQ SCH (09:12)
[2017-01-08] MEDS: ALFUZOSIN HCL 10 MG TAB (UROXATRAL) PO SCH (09:12)
[2017-01-08] MEDS: ASPIRIN E.C. 81 MG (ECOTRIN) TAB PO SCH (09:13)
[2017-01-08] MEDS: CARVEDILOL 6.25 MG (COREG) TAB PO SCH ×2 (09:13→21:10)
[2017-01-08] MEDS: NS IV 1000 ML 1,000 ML IV SCH (09:24)
[2017-01-08] MEDS ORDERED: FLUCONAZOLE 200 MG/100 ML 100 ML IV NR (10:30)
--- NOTE | 2017-01-08 10:31 | Progress Note (SOAP) ---
Subjective Date Seen by Provider: Jan 08, 2017 Time Seen by Provider: 10:20 Subjective/Events-last exam Patient seen with Dr. Hernandez. Patient reports doing well, just finished a shower. No nausea/vomiting. no diarrhea/constipation. no fever/chills. tolerating diet. reports minimal RUQ tenderness with breathing. Review of Systems General: No Chills, No Night Sweats Gastrointestinal: No: Constipation, Diarrhea, Nausea, Vomiting Objective Exam Vital Signs Date Time Temp Pulse Resp B/P (MAP) Pulse Ox O2 Delivery O2 Flow Rate FiO2 01/08/17 08:00 98.2 46 20 125/68 95 Room Air 01/08/17 07:47 96 Room Air 01/08/17 03:45 97.9 66 20 118/59 94 Room Air 01/07/17 23:45 98.9 42 14 116/56 95 Room Air 01/07/17 20:05 99.0 01/07/17 20:00 Room Air 01/07/17 19:30 99.0 44 18 119/61 95 Room Air 01/07/17 18:23 95 Room Air 01/07/17 15:49 98.9 84 20 104/58 95 Room Air 01/07/17 14:39 96 Room Air 01/07/17 11:30 98.0 68 20 110/64 94 Room Air I & O 01/08/17 07:00 Intake Total 3460 ml Output Total 3200 ml Balance 260 ml Capillary Refill : General Appearance: No Apparent Distress, WD/WN HEENT: PERRL/EOMI Neck: Full Range of Motion, Normal Inspection, Non Tender, Supple Respiratory: Chest Non Tender, Lungs Clear, Normal Breath Sounds, No Accessory Muscle Use, No Respiratory Distress Cardiovascular: Regular Rate, Rhythm Gastrointestinal: normal bowel sounds, soft, tenderness (RUQ ) Extremity: Normal Capillary Refill, Normal Inspection, Normal Range of Motion, Non Tender, No Calf Tenderness, No Pedal Edema, Other (Left AKA) Neurologic/Psychiatric: Alert, Oriented x3, Normal Mood/Affect Skin: Normal Color, Warm/Dry Results Lab Laboratory Tests 01/08/17 05:15: White Blood Count 3.3L, Red Blood Count 3.43L, Hemoglobin 9.7L, Hematocrit 30L, Mean Corpuscular Volume 89, Mean Corpuscular Hemoglobin 28, Mean Corpuscular Hemoglobin Concent 32, Red Cell Distribution Width 13.2, Platelet Count 158, Mean Platelet Volume 10.3, Sodium Level 140, Potassium Level 3.9, Chloride Level 112H, Carbon Dioxide Level 18L, Anion Gap 10, Blood Urea Nitrogen 12, Creatinine 1.17, Estimat Glomerular Filtration Rate 60, BUN/Creatinine Ratio 10 , Glucose Level 95, Calcium Level 8.2L, Magnesium Level 1.8 Microbiology 01/06/17 Gram Stain - Final, Resulted 01/06/17 Anaerobic Culture, Resulted Pending 01/06/17 Surgical Culture - Preliminary, Resulted Enterococcus Faecium Yeast Species Assessment/Plan Assessment/Plan Assess & Plan/Chief Complaint biloma and peristent biliary leak s/p lap bev. talked with gastroenterology. stated will need ERCP early next week to evaluate anyway for stent removal. since biloma developed, may still seal on own. patient does have risk factors for infection and will continue IV abx over weekend and IV fluid hydration. continue current care. will add flagyl for enterococcus. Culture did grow VRE. will start zyvox and cipro. Clinical Quality Measures DVT/VTE Risk/Contraindication: Risk Factor Score Per Nursin RFS Level Per Nursing on Admit: 4+=Very High RAVIN HERMOSILLO BUSINESS OFFICE MANAGER Jan 08, 2017 10:31 am
[2017-01-08] MEDS ORDERED: MILK OF MAGNESIA 400 MG/5 ML 30 ML UDC PO ONE (11:45)
[2017-01-08 12:00] VITALS: BP 112/63
[2017-01-08] MEDS: PANTOPRAZOLE 40 MG/10 ML (PROTONIX) VIAL IV SCH (12:10)
[2017-01-08] MEDS: CATHETER FLUSH 10 ML SYR IJ SCH ×2 (12:12→21:09)
[2017-01-08] MEDS: CIPROFLOXACIN IV 400MG/200ML 200 ML IV SCH ×2 (12:20→22:27)
--- NOTE | 2017-01-08 12:51 | Progress Note (SOAP) ---
Subjective Date Seen by Provider: Jan 08, 2017 Time Seen by Provider: 12:42 Subjective/Events-last exam Fwup biloma with ongoing biliary leak--surgical culture growing out Enterococcus faecium and yeast, Choledocholithiasis--S/P ERCP with stent placement and cholecystectomy, umbilical hernia--S/P repair, acute kidney injury , elevated LFTs. Feeling good--RUQ pain stable. Still with drainage from biliary drain. Having BMs. Objective Exam Vital Signs Date Time Temp Pulse Resp B/P (MAP) Pulse Ox O2 Delivery O2 Flow Rate FiO2 01/08/17 12:12 98.0 01/08/17 08:00 98.2 46 20 125/68 95 Room Air 01/08/17 07:47 96 Room Air 01/08/17 03:45 97.9 66 20 118/59 94 Room Air 01/07/17 23:45 98.9 42 14 116/56 95 Room Air 01/07/17 20:05 99.0 01/07/17 20:00 Room Air 01/07/17 19:30 99.0 44 18 119/61 95 Room Air 01/07/17 18:23 95 Room Air 01/07/17 15:49 98.9 84 20 104/58 95 Room Air 01/07/17 14:39 96 Room Air I & O 01/08/17 07:00 Intake Total 3460 ml Output Total 3200 ml Balance 260 ml Capillary Refill : General Appearance: No Apparent Distress Neck: Supple Respiratory: Lungs Clear Cardiovascular: Regular Rate, Rhythm Gastrointestinal: normal bowel sounds, non tender, soft, distended, other ( biliary drain in place) Extremity: Non Tender, No Calf Tenderness, No Pedal Edema Neurologic/Psychiatric: Alert, Oriented x3 Results Lab Laboratory Tests 01/08/17 05:15: White Blood Count 3.3L, Red Blood Count 3.43L, Hemoglobin 9.7L, Hematocrit 30L, Mean Corpuscular Volume 89, Mean Corpuscular Hemoglobin 28, Mean Corpuscular Hemoglobin Concent 32, Red Cell Distribution Width 13.2, Platelet Count 158, Mean Platelet Volume 10.3, Sodium Level 140, Potassium Level 3.9, Chloride Level 112H, Carbon Dioxide Level 18L, Anion Gap 10, Blood Urea Nitrogen 12, Creatinine 1.17, Estimat Glomerular Filtration Rate 60, BUN/Creatinine Ratio 10 , Glucose Level 95, Calcium Level 8.2L, Magnesium Level 1.8 Microbiology 01/06/17 Gram Stain - Final, Resulted 01/06/17 Anaerobic Culture, Resulted Pending 01/06/17 Surgical Culture - Preliminary, Resulted Enterococcus Faecium Yeast Species Assessment/Plan Assessment/Plan Assess & Plan/Chief Complaint 1. Biloma with ongoing biliary leak--drain in place, zyvox and diflucan added per surgery based on surgery culture results today 2. Choledocholithiasis--S/P ERCP with stent placement--plane is for repeat ERCP next week with Gastroenterology 3. Umbilical hernia--S/P repair 4. Acute Kidney Injury--Cr stable and improving 5. Elevated LFTs--repeat tomorrow Clinical Quality Measures DVT/VTE Risk/Contraindication: Risk Factor Score Per Nursin RFS Level Per Nursing on Admit: 4+=Very High CASSANDRA MONTELONGO DO Jan 08, 2017 12:51
[2017-01-08] MEDS: LINEZOLID IVPB 300 ML IV SCH (13:31)
[2017-01-08 15:50] VITALS: BP 122/69
[2017-01-08 17:59] VITALS: BP 122/69
[2017-01-08 19:45] VITALS: BP 114/70
[2017-01-08] MEDS: oxyCODONE/APAP 10/325MG (PERCOCET 10) TABLET PO PRN (21:09)
[2017-01-08] MEDS: LATANOPROST 0.005% (XALATAN) OPHTH SOLN 2.5 ML OU SCH (21:10)
[2017-01-09 00:30] VITALS: BP 127/70
[2017-01-09] MEDS: NS IV 1000 ML 1,000 ML IV SCH ×3 (02:01→16:45)
[2017-01-09] MEDS: LORazepam 0.5 MG (ATIVAN) TABLET PO PRN (02:01)
[2017-01-09] MEDS: LINEZOLID IVPB 300 ML IV SCH ×2 (02:01→12:52)
[2017-01-09 05:00] VITALS: BP 123/68
[2017-01-09 06:19] LABS: BASOPHILS % (AUTO) 1 % (0-10); EOSINOPHILS # (AUTO) 0.2 10^3/uL (0.0-0.3); EOSINOPHILS % (AUTO) 7 % (0-10); LYMPHOCYTES # (AUTO) 0.9 X 10^3 (1.0-4.0); LYMPHOCYTES % (AUTO) 31 % (12-44); MEAN CORPUSCULAR HEMOGLOBIN 28 PG (25-34); MEAN CORPUSCULAR HGB CONC 32 G/DL (32-36); MEAN CORPUSCULAR VOLUME 89 FL (80-99); MEAN PLATELET VOLUME 10.4 FL (7.4-10.4); MONOCYTES # (AUTO) 0.4 X 10^3 (0.0-1.0); MONOCYTES % (AUTO) 14 % (0-12); NEUTROPHILS # (AUTO) 1.3 X 10^3 (1.8-7.8); NEUTROPHILS % (AUTO) 47 % (42-75); PLATELET COUNT 157 10^3/uL (130-400); RED BLOOD COUNT 3.38 10^6/uL (4.35-5.85); RED CELL DISTRIBUTION WIDTH 13.1 % (10.0-14.5); WHITE BLOOD COUNT 2.8 10^3/uL (4.3-11.0)
[2017-01-09 06:36] LABS: ALANINE AMINOTRANSFERASE 36 U/L (0-55); ALBUMIN 2.5 GM/DL (3.2-4.5); ANION GAP 9 MMOL/L (5-14); ASPARTATE AMINO TRANSFERASE 24 U/L (5-34); BILIRUBIN,TOTAL 0.4 MG/DL (0.1-1.0); BLOOD UREA NITROGEN 12 MG/DL (7-18); BUN/CREATININE RATIO 11; CALCIUM 8.2 MG/DL (8.5-10.1); CARBON DIOXIDE 18 MMOL/L (21-32); CHLORIDE 111 MMOL/L (98-107); CREATININE SERUM 1.07 MG/DL (0.60-1.30); GFR ESTIMATED > 60; GLUCOSE 91 MG/DL (70-105); POTASSIUM 3.7 MMOL/L (3.6-5.0); SODIUM 138 MMOL/L (135-145); TOTAL PROTEIN 5.7 GM/DL (6.4-8.2)
[2017-01-09] MEDS: RT-ALBUTEROL SULF 2.5 MG/3 ML PRE-MIX VIAL IH SCH ×3 (07:38→20:59)
[2017-01-09 08:00] VITALS: BP 137/66
[2017-01-09] MEDS: metroNIDAZOLE 500MG/100ML IVPB 100 ML IV SCH ×2 (08:21→20:28)
[2017-01-09] MEDS: PANTOPRAZOLE 40 MG/10 ML (PROTONIX) VIAL IV SCH (08:22)
[2017-01-09] MEDS: ALFUZOSIN HCL 10 MG TAB (UROXATRAL) PO SCH (08:22)
[2017-01-09] MEDS: ASPIRIN E.C. 81 MG (ECOTRIN) TAB PO SCH (08:23)
[2017-01-09] MEDS: ENOXAPARIN 40 MG/0.4 ML (LOVENOX) SYR SQ SCH (08:24)
[2017-01-09] MEDS: CARVEDILOL 6.25 MG (COREG) TAB PO SCH ×2 (08:28→20:28)
[2017-01-09] MEDS: FLUCONAZOLE 100 MG/50 ML 50 ML IV SCH (08:28)
[2017-01-09] MEDS: CATHETER FLUSH 10 ML SYR IJ SCH ×2 (08:28→20:28)
--- NOTE | 2017-01-09 09:26 | Progress Note (SOAP) ---
Subjective Date Seen by Provider: Jan 09, 2017 Time Seen by Provider: 09:15 Subjective/Events-last exam Patient seen with Dr. Hernandez. Patient reports still doing well. No N/V. No Fever/ chills. No Diarrhea/Constipation. Minimal abdominal tenderness RUQ with breathing. Drains still producing bile colored drainage. Review of Systems General: No Chills, No Night Sweats, Malaise Gastrointestinal: No: Constipation, Diarrhea, Nausea, Vomiting Objective Exam Vital Signs Date Time Temp Pulse Resp B/P (MAP) Pulse Ox O2 Delivery O2 Flow Rate FiO2 01/09/17 08:00 97.7 68 20 137/66 96 Room Air 01/09/17 07:38 93 Room Air 01/09/17 05:00 98.7 56 20 123/68 97 Room Air 01/09/17 00:30 98.5 52 20 127/70 96 Room Air 01/08/17 21:09 98.1 01/08/17 20:30 93 Room Air 01/08/17 20:00 Room Air 01/08/17 19:45 98.8 78 20 114/70 95 Room Air 01/08/17 15:50 98.1 76 20 122/69 94 Room Air 01/08/17 14:42 96 Room Air 01/08/17 12:12 98.0 01/08/17 12:00 98.6 70 20 112/63 96 Room Air I & O 01/09/17 07:00 Intake Total 4490 ml Output Total 3015 ml Balance 1475 ml Capillary Refill : General Appearance: No Apparent Distress, WD/WN HEENT: PERRL/EOMI Neck: Full Range of Motion, Normal Inspection, Non Tender, Supple Respiratory: Chest Non Tender, Lungs Clear, Normal Breath Sounds, No Accessory Muscle Use, No Respiratory Distress Cardiovascular: Regular Rate, Rhythm, No JVD Gastrointestinal: normal bowel sounds, soft, tenderness (RUQ ) Extremity: Normal Capillary Refill, Normal Inspection, Normal Range of Motion, Non Tender, No Calf Tenderness, Swelling (Left lower ext 1+), Other (Right AKA) Neurologic/Psychiatric: Alert, Oriented x3, Normal Mood/Affect Skin: Normal Color, Warm/Dry Results Lab Laboratory Tests 01/09/17 05:30: White Blood Count 2.8L, Red Blood Count 3.38L, Hemoglobin 9.5L, Hematocrit 30L, Mean Corpuscular Volume 89, Mean Corpuscular Hemoglobin 28, Mean Corpuscular Hemoglobin Concent 32, Red Cell Distribution Width 13.1, Platelet Count 157, Mean Platelet Volume 10.4, Neutrophils (%) (Auto) 47, Lymphocytes (%) (Auto) 31 , Monocytes (%) (Auto) 14H, Eosinophils (%) (Auto) 7, Basophils (%) (Auto) 1, Neutrophils # (Auto) 1.3L, Lymphocytes # (Auto) 0.9L, Monocytes # (Auto) 0.4, Eosinophils # (Auto) 0.2, Basophils # (Auto) 0.0, Sodium Level 138, Potassium Level 3.7, Chloride Level 111H, Carbon Dioxide Level 18L, Anion Gap 9, Blood Urea Nitrogen 12, Creatinine 1.07, Estimat Glomerular Filtration Rate > 60, BUN/ Creatinine Ratio 11, Glucose Level 91, Calcium Level 8.2L, Total Bilirubin 0.4, Aspartate Amino Transf (AST/SGOT) 24, Alanine Aminotransferase (ALT/SGPT) 36, Alkaline Phosphatase 130, Total Protein 5.7L, Albumin 2.5L Microbiology 01/06/17 Gram Stain - Final, Resulted 01/06/17 Anaerobic Culture - Preliminary, Resulted No anaerobes isolated 01/06/17 Surgical Culture - Preliminary, Resulted Enterococcus Faecium Yeast Species Assessment/Plan Assessment/Plan Assess & Plan/Chief Complaint biloma and peristent biliary leak s/p lap bev. talked with gastroenterology. stated will need ERCP early next week to evaluate anyway for stent removal. since biloma developed, may still seal on own. patient does have risk factors for infection and will continue IV abx over weekend and IV fluid hydration. continue current care. will add flagyl for enterococcus. Culture did grow VRE. will Continue zyvox, cipro, and diflucan. Clinical Quality Measures DVT/VTE Risk/Contraindication: Risk Factor Score Per Nursin RFS Level Per Nursing on Admit: 4+=Very High RAVIN HERMOSILLO PLANT ELECTRICAL ENGINEER Jan 09, 2017 9:26 am
--- NOTE | 2017-01-09 11:12 | Progress Note (SOAP) ---
Subjective Date Seen by Provider: Jan 09, 2017 Time Seen by Provider: 11:00 Subjective/Events-last exam doing ok. no new issue. continue to have copious bilious drain outputs. tolerating diet. labs normal. no fever/chills. Objective Exam Vital Signs Date Time Temp Pulse Resp B/P (MAP) Pulse Ox O2 Delivery O2 Flow Rate FiO2 01/09/17 08:00 97.7 68 20 137/66 96 Room Air 01/09/17 07:38 93 Room Air 01/09/17 05:00 98.7 56 20 123/68 97 Room Air 01/09/17 00:30 98.5 52 20 127/70 96 Room Air 01/08/17 21:09 98.1 01/08/17 20:30 93 Room Air 01/08/17 20:00 Room Air 01/08/17 19:45 98.8 78 20 114/70 95 Room Air 01/08/17 15:50 98.1 76 20 122/69 94 Room Air 01/08/17 14:42 96 Room Air 01/08/17 12:12 98.0 01/08/17 12:00 98.6 70 20 112/63 96 Room Air I & O 01/09/17 07:00 Intake Total 4490 ml Output Total 3015 ml Balance 1475 ml Capillary Refill : General Appearance: No Apparent Distress HEENT: PERRL/EOMI Neck: Full Range of Motion Respiratory: Lungs Clear, Normal Breath Sounds Cardiovascular: Regular Rate, Rhythm Gastrointestinal: normal bowel sounds, soft Extremity: Normal Capillary Refill Neurologic/Psychiatric: Alert, Oriented x3 Skin: Normal Color Lymphatic: No Adenopathy Results Lab Laboratory Tests 01/09/17 05:30: White Blood Count 2.8L, Red Blood Count 3.38L, Hemoglobin 9.5L, Hematocrit 30L, Mean Corpuscular Volume 89, Mean Corpuscular Hemoglobin 28, Mean Corpuscular Hemoglobin Concent 32, Red Cell Distribution Width 13.1, Platelet Count 157, Mean Platelet Volume 10.4, Neutrophils (%) (Auto) 47, Lymphocytes (%) (Auto) 31 , Monocytes (%) (Auto) 14H, Eosinophils (%) (Auto) 7, Basophils (%) (Auto) 1, Neutrophils # (Auto) 1.3L, Lymphocytes # (Auto) 0.9L, Monocytes # (Auto) 0.4, Eosinophils # (Auto) 0.2, Basophils # (Auto) 0.0, Sodium Level 138, Potassium Level 3.7, Chloride Level 111H, Carbon Dioxide Level 18L, Anion Gap 9, Blood Urea Nitrogen 12, Creatinine 1.07, Estimat Glomerular Filtration Rate > 60, BUN/ Creatinine Ratio 11, Glucose Level 91, Calcium Level 8.2L, Total Bilirubin 0.4, Aspartate Amino Transf (AST/SGOT) 24, Alanine Aminotransferase (ALT/SGPT) 36, Alkaline Phosphatase 130, Total Protein 5.7L, Albumin 2.5L Microbiology 01/06/17 Gram Stain - Final, Resulted 01/06/17 Anaerobic Culture - Preliminary, Resulted No anaerobes isolated 01/06/17 Surgical Culture - Preliminary, Resulted Enterococcus Faecium Yeast Species Assessment/Plan Assessment/Plan Assess & Plan/Chief Complaint biloma and peristent biliary leak s/p lap bev. persistent copious bile drainage. no signs of obstruction. differential includes cystic stump leak, accessory hepatic duct leak, hepatic duct injury. spoke with dr. chatman and will plan for transfer and ERCP tomorrow(01/10). Clinical Quality Measures DVT/VTE Risk/Contraindication: Risk Factor Score Per Nursin RFS Level Per Nursing on Admit: 4+=Very High ROSA DOMINGUEZ MD Jan 09, 2017 11:12
[2017-01-09] MEDS ORDERED: LORazepam INJ 2 MG/ML (ATIVAN) VIAL IVP PRN (11:15)
[2017-01-09] MEDS: CIPROFLOXACIN IV 400MG/200ML 200 ML IV SCH ×2 (11:30→22:26)
--- NOTE | 2017-01-09 11:39 | Progress Note (SOAP) ---
Subjective Date Seen by Provider: Jan 09, 2017 Time Seen by Provider: 11:37 Subjective/Events-last exam Fwup biloma with ongoing biliary leak--surgical culture growing out Enterococcus faecium and yeast, Choledocholithiasis--S/P ERCP with stent placement and cholecystectomy, umbilical hernia--S/P repair, acute kidney injury , elevated LFTs. Feeling okay. Still with drainage in biliary drain but has slowed down some per patient. Objective Exam Vital Signs Date Time Temp Pulse Resp B/P (MAP) Pulse Ox O2 Delivery O2 Flow Rate FiO2 01/09/17 08:00 97.7 68 20 137/66 96 Room Air 01/09/17 07:38 93 Room Air 01/09/17 05:00 98.7 56 20 123/68 97 Room Air 01/09/17 00:30 98.5 52 20 127/70 96 Room Air 01/08/17 21:09 98.1 01/08/17 20:30 93 Room Air 01/08/17 20:00 Room Air 01/08/17 19:45 98.8 78 20 114/70 95 Room Air 01/08/17 15:50 98.1 76 20 122/69 94 Room Air 01/08/17 14:42 96 Room Air 01/08/17 12:12 98.0 01/08/17 12:00 98.6 70 20 112/63 96 Room Air I & O 01/09/17 07:00 Intake Total 4490 ml Output Total 3015 ml Balance 1475 ml Capillary Refill : General Appearance: No Apparent Distress Neck: Supple Respiratory: Lungs Clear Cardiovascular: Regular Rate, Rhythm Gastrointestinal: normal bowel sounds, non tender, soft, other (biliary/LAVELL drains in place with full biliary drain bag) Extremity: Non Tender, No Calf Tenderness, No Pedal Edema, Other (Left BKA) Neurologic/Psychiatric: Alert, Oriented x3 Results Lab Laboratory Tests 01/09/17 05:30: White Blood Count 2.8L, Red Blood Count 3.38L, Hemoglobin 9.5L, Hematocrit 30L, Mean Corpuscular Volume 89, Mean Corpuscular Hemoglobin 28, Mean Corpuscular Hemoglobin Concent 32, Red Cell Distribution Width 13.1, Platelet Count 157, Mean Platelet Volume 10.4, Neutrophils (%) (Auto) 47, Lymphocytes (%) (Auto) 31 , Monocytes (%) (Auto) 14H, Eosinophils (%) (Auto) 7, Basophils (%) (Auto) 1, Neutrophils # (Auto) 1.3L, Lymphocytes # (Auto) 0.9L, Monocytes # (Auto) 0.4, Eosinophils # (Auto) 0.2, Basophils # (Auto) 0.0, Sodium Level 138, Potassium Level 3.7, Chloride Level 111H, Carbon Dioxide Level 18L, Anion Gap 9, Blood Urea Nitrogen 12, Creatinine 1.07, Estimat Glomerular Filtration Rate > 60, BUN/ Creatinine Ratio 11, Glucose Level 91, Calcium Level 8.2L, Total Bilirubin 0.4, Aspartate Amino Transf (AST/SGOT) 24, Alanine Aminotransferase (ALT/SGPT) 36, Alkaline Phosphatase 130, Total Protein 5.7L, Albumin 2.5L Microbiology 01/06/17 Gram Stain - Final, Resulted 01/06/17 Anaerobic Culture - Preliminary, Resulted No anaerobes isolated 01/06/17 Surgical Culture - Preliminary, Resulted Enterococcus Faecium Yeast Species Assessment/Plan Assessment/Plan Assess & Plan/Chief Complaint 1. Biloma with ongoing biliary leak--drain in place, zyvox and diflucan added per surgery based on surgery culture results 2. Choledocholithiasis--S/P ERCP with stent placement--plan is for repeat ERCP hopefully tomorrow with Gastroenterology 3. Umbilical hernia--S/P repair 4. Acute Kidney Injury--Cr stable and improving 5. Elevated LFTs--improved Clinical Quality Measures DVT/VTE Risk/Contraindication: Risk Factor Score Per Nursin RFS Level Per Nursing on Admit: 4+=Very High CASSANDRA MONTELNOGO DO Jan 09, 2017 11:39
[2017-01-09 12:00] VITALS: BP 126/86
[2017-01-09 15:30] VITALS: BP 116/55
[2017-01-09] MEDS: NS IV 500 ML 500 ML IV SCH ×3 (16:43→20:29)
[2017-01-09 19:00] VITALS: BP 138/69
[2017-01-09] MEDS: LATANOPROST 0.005% (XALATAN) OPHTH SOLN 2.5 ML OU SCH (20:28)
[2017-01-10] VITALS: BP 137/66
[2017-01-10] MEDS: NS IV 500 ML 500 ML IV SCH (00:46)
[2017-01-10] MEDS: LINEZOLID IVPB 300 ML IV SCH ×2 (00:54→11:50)
[2017-01-10] MEDS: NS IV 1000 ML 1,000 ML IV SCH ×2 (00:54→05:56)
[2017-01-10 04:00] VITALS: BP 120/57
[2017-01-10 07:11] LABS: BASOPHILS % (AUTO) 1 % (0-10); EOSINOPHILS # (AUTO) 0.2 10^3/uL (0.0-0.3); EOSINOPHILS % (AUTO) 7 % (0-10); LYMPHOCYTES # (AUTO) 0.9 X 10^3 (1.0-4.0); LYMPHOCYTES % (AUTO) 27 % (12-44); MEAN CORPUSCULAR HEMOGLOBIN 28 PG (25-34); MEAN CORPUSCULAR HGB CONC 33 G/DL (32-36); MEAN CORPUSCULAR VOLUME 87 FL (80-99); MEAN PLATELET VOLUME 10.3 FL (7.4-10.4); MONOCYTES # (AUTO) 0.3 X 10^3 (0.0-1.0); MONOCYTES % (AUTO) 9 % (0-12); NEUTROPHILS # (AUTO) 1.8 X 10^3 (1.8-7.8); NEUTROPHILS % (AUTO) 56 % (42-75); PLATELET COUNT 172 10^3/uL (130-400); RED BLOOD COUNT 3.66 10^6/uL (4.35-5.85); RED CELL DISTRIBUTION WIDTH 13.1 % (10.0-14.5); WHITE BLOOD COUNT 3.2 10^3/uL (4.3-11.0)
[2017-01-10] MEDS: RT-ALBUTEROL SULF 2.5 MG/3 ML PRE-MIX VIAL IH SCH (07:26)
[2017-01-10 07:32] LABS: ALBUMIN 2.5 GM/DL (3.2-4.5); BILIRUBIN,TOTAL 0.5 MG/DL (0.1-1.0); CALCIUM 8.4 MG/DL (8.5-10.1); CREATININE SERUM 1.27 MG/DL (0.60-1.30); POTASSIUM 3.6 MMOL/L (3.6-5.0); TOTAL PROTEIN 5.9 GM/DL (6.4-8.2)
[2017-01-10 08:00] VITALS: BP 124/79
--- NOTE | 2017-01-10 08:43 | Progress Note (SOAP) ---
Subjective Subjective Date Seen by Provider: Jan 10, 2017 Time Seen by Provider: 08:39 CC: bilious drainage 76 yo M no overnight events. Afebrile. Doing alright except he is tired of the drains. He is keeping his right stump sleeve on so he will be able to get his prosthesis on. Tolerating diet until he was placed NPO last night. Pain noted with a deep breath or a hard swallow in his RUQ. Review of Systems General: No Chills, No Night Sweats, Malaise HEENT: No Head Aches, No Visual Changes Pulmonary: No Dyspnea, No Cough Cardiovascular: No: Chest Pain, Palpitations Gastrointestinal: Abdominal Pain, No: Constipation, Diarrhea, Nausea, Vomiting Genitourinary: No Dysuria, No Frequency Musculoskeletal: No: neck pain, shoulder pain Neurological: Weakness, No: Numbness Objective Exam Vital Signs Vital Signs Date Time Temp Pulse Resp B/P (MAP) Pulse Ox O2 Delivery O2 Flow Rate FiO2 01/10/17 08:00 98.5 94 20 124/79 96 01/10/17 07:26 94 Room Air 01/10/17 04:00 97.8 61 20 120/57 97 Room Air 01/10/17 00:00 97.1 60 20 137/66 97 Room Air 01/09/17 20:59 96 Room Air 01/09/17 19:00 97.2 47 20 138/69 96 Room Air 01/09/17 15:37 96 Room Air 01/09/17 15:30 97.1 67 20 116/55 96 Room Air 01/09/17 12:00 97.6 70 20 126/86 97 Room Air I & O 01/10/17 07:00 Intake Total 3920 ml Output Total 4705 ml Balance -785 ml General Appearance: No Apparent Distress HEENT: PERRL/EOMI Neck: Supple Respiratory: Lungs Clear Cardiovascular: Regular Rate, Rhythm Gastrointestinal: Normal Bowel Sounds, Soft, Tenderness (improved, drains noted with bilous drainage) Rectal: Deferred Back: Normal Inspection, No Vertebral Tenderness Extremity: Non Tender, No Calf Tenderness, Other (RIGHT ABOVE KNEE AMPUTATION) Neurologic/Psychiatric: Alert, Oriented x3 Skin: Normal Color Lymphatic: No Adenopathy Results Lab Laboratory Tests 01/10/17 06:47: White Blood Count 3.2L, Red Blood Count 3.66L, Hemoglobin 10.4L, Hematocrit 32L , Mean Corpuscular Volume 87, Mean Corpuscular Hemoglobin 28, Mean Corpuscular Hemoglobin Concent 33, Red Cell Distribution Width 13.1, Platelet Count 172, Mean Platelet Volume 10.3, Neutrophils (%) (Auto) 56, Lymphocytes (%) (Auto) 27 , Monocytes (%) (Auto) 9, Eosinophils (%) (Auto) 7, Basophils (%) (Auto) 1, Neutrophils # (Auto) 1.8, Lymphocytes # (Auto) 0.9L, Monocytes # (Auto) 0.3, Eosinophils # (Auto) 0.2, Basophils # (Auto) 0.0, Sodium Level 139, Potassium Level 3.6, Chloride Level 108H, Carbon Dioxide Level 22, Anion Gap 9, Blood Urea Nitrogen 12, Creatinine 1.27, Estimat Glomerular Filtration Rate 55, BUN/ Creatinine Ratio 9, Glucose Level 97, Calcium Level 8.4L, Total Bilirubin 0.5, Aspartate Amino Transf (AST/SGOT) 32, Alanine Aminotransferase (ALT/SGPT) 38, Alkaline Phosphatase 135, Total Protein 5.9L, Albumin 2.5L Microbiology 01/06/17 Gram Stain - Final, Resulted 01/06/17 Anaerobic Culture - Preliminary, Resulted No anaerobes isolated 01/06/17 Surgical Culture - Preliminary, Resulted Enterococcus Faecium Samanta Albicans Assessment/Plan Assessment/Plan Assessment/Plan 76 yo M biloma and persistent bilary leak s/p cholecystectomy- IR placed second drain- Dr. Hernandez monitoring- currently on fluconazole, linezolid, metronidazole, ciprofloxacin- abdominal culture + entercoccus faecium, samanta- -consider decreasing down to linezolid, fluconazole. acute abdominal pain, RUQ- secondary to biliary leak/biloma- improved- continue IVFs. h/o choledocholithiasis- s/p ERCP stent placement at [place] 12/18/16 s/p lap bev 12/20/16 Dr. Hernandez umbilical hernia- repaired 12/20/16 Dr. Hernandez acute kidney injury- improved; Cr normal avoid nephrotoxic agents. Continue to monitor . IVF. PO hydration HTN- stable, good control- continue coreg- holding losartan. 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 Dispo: Dr. Hernandez will be transferring pt to [facility] today January 10 for ERCP and biliary stent removal. Problems: Clinical Quality Measures DVT/VTE Risk/Contraindication: Risk Factor Score Per Nursin RFS Level Per Nursing on Admit: 4+=Very High SAMUEL FERNANDEZ MD Jan 10, 2017 08:43
[2017-01-10] MEDS: CARVEDILOL 6.25 MG (COREG) TAB PO SCH (08:57)
[2017-01-10] MEDS: CATHETER FLUSH 10 ML SYR IJ SCH (08:57)
[2017-01-10] MEDS: PANTOPRAZOLE 40 MG/10 ML (PROTONIX) VIAL IV SCH (08:57)
[2017-01-10] MEDS: FLUCONAZOLE 100 MG/50 ML 50 ML IV SCH (08:57)
[2017-01-10] MEDS: ASPIRIN E.C. 81 MG (ECOTRIN) TAB PO SCH (09:04)
[2017-01-10] MEDS: ALFUZOSIN HCL 10 MG TAB (UROXATRAL) PO SCH (09:05)
[2017-01-10] MEDS: ENOXAPARIN 40 MG/0.4 ML (LOVENOX) SYR SQ SCH (09:05)
[2017-01-10] MEDS: metroNIDAZOLE 500MG/100ML IVPB 100 ML IV SCH (09:30)
--- NOTE | 2017-01-10 10:46 | Physical Therapy Progress Note ---
Therapy Progress Note Patient to [facility] for procedure and will return to [facility] later in day. PT will resume in [facility]. LISSETH REED PT Jan 10, 2017 10:46
[2017-01-10] MEDS: CIPROFLOXACIN IV 400MG/200ML 200 ML IV SCH (10:55)
== END 2017-01-10 09:30 | disposition short-term general hospital (02) | DRG 863 ==
LOC: 4TH 18:14
PROVIDERS: ADMIT Surgery; ATTEND Surgery
PROC: 0W9G30Z Drainage of Peritoneal Cavity with Drainage Device, Percutaneous Approach (ICD-10-PCS; principal; 2017-01-06)
DX: T81.4XXA Infection following a procedure, initial encounter (principal); K91.89 Other postprocedural complications and disorders of digestive system; K83.8 Other specified diseases of biliary tract; N17.9 Acute kidney failure, unspecified; I12.9 Hypertensive chronic kidney disease with stage 1 through stage 4 chronic kidney disease, or unspecified chronic kidney disease; N18.3 Chronic kidney disease, stage 3 (moderate); K21.9 Gastro-esophageal reflux disease without esophagitis; K57.30 Diverticulosis of large intestine without perforation or abscess without bleeding; G47.00 Insomnia, unspecified; H40.9 Unspecified glaucoma; K64.9 Unspecified hemorrhoids; Z96.652 Presence of left artificial knee joint; Z89.611 Acquired absence of right leg above knee; I49.3 Ventricular premature depolarization; I42.9 Cardiomyopathy, unspecified; I50.22 Chronic systolic (congestive) heart failure; Z16.21 Resistance to vancomycin; B95.2 Enterococcus as the cause of diseases classified elsewhere
CPT/HCPCS: 36415; 77012; 80048; 80053; 83735; 85025; 85027; 87070; 87075; 87077; 87186; 87205; 93005; 94640; 94664; 94760

== ENCOUNTER → 2017-01-05 | Outpatient (CLI) | payer MEDICARE ==
[~2017-01-05] MED LIST changes: +ALFU10TA PO; +CATHETER FLUSH 10 ML SYR IV PRN; +HYDR-3816 PO; +IBUP-2055 PO; +IOHEXOL 350 MG/ML 100 ML (OMNIPAQUE 350) VIAL IV ONE; +NS 100 ML (IVPB) BAG IV ONE
[2017-01-05 16:43] LABS: MEAN PLATELET VOLUME 10.5 FL (7.4-10.4); RED BLOOD COUNT 3.67 10^6/uL (4.35-5.85); RED CELL DISTRIBUTION WIDTH 13.2 % (10.0-14.5); WHITE BLOOD COUNT 5.8 10^3/uL (4.3-11.0)
[2017-01-05 17:04] LABS: CREATININE SERUM 1.18 MG/DL (0.60-1.30); POTASSIUM 4.4 MMOL/L (3.6-5.0)
[2017-01-05 17:05] LABS: ALBUMIN 2.9 GM/DL (3.2-4.5); CALCIUM 8.9 MG/DL (8.5-10.1); TOTAL PROTEIN 6.8 GM/DL (6.4-8.2)
--- NOTE | 2017-01-05 17:56 | Diagnostic Imaging Report ---
PROCEDURE: CT abdomen and pelvis with contrast. TECHNIQUE: Multiple contiguous axial images were obtained through the abdomen and pelvis after administration of intravenous contrast. INDICATION: Right upper quadrant pain. FINDINGS: There is mild atelectasis in the right lung base. There is subcapsular liver fluid collection with air suggestive of an abscess measuring 16 x 8.5 x 15 cm extending along the lateral right margin of the liver and extending into the undersurface of the right hepatic lobe. This is concerning for an abscess. There is a surgical drain in the right flank region with no fluid around it. There is also a CBD stent seen in place. Multiple surgical clips are seen near the gallbladder bed. The spleen is enlarged at 15.9 cm in length. The pancreas, and adrenals appear unremarkable. The kidneys have symmetric enhancement and contrast excretion. Simple cysts up to 3 cm in the right kidney are seen. The abdominal aorta is normal in caliber. No para-aortic significantly enlarged lymph nodes seen. Small amount of pelvic free fluid is seen. The urinary bladder appears unremarkable. The prostate is 5 cm in transverse dimension. The sigmoid colon demonstrates significant thickening with multiple diverticula seen. The appendix is normal. There is a fluid collection measuring 4.4 x 4.1 cm in the umbilicus surrounding region along the subcutaneous fat probably a postoperative seroma. There is a fat-containing ventral hernia with an abdominal wall defect near the region of the internal ring. However, the hernia sac extends superiorly as opposed to inferiorly as is usually seen with inguinal hernia. The lumbar spine demonstrates age indeterminate compression fracture of L1. Prominent degenerative changes of the lumbar spine seen. IMPRESSION: 1. Large subcapsular perihepatic abscess. 2. Diverticulosis. No diverticulitis. 3. Mild splenomegaly. 4. Fat-containing ventral hernia in the left lower quadrant region with the hernia sac extending cephalad with a defect at the level of the internal ring. Dictated by: Dictated on workstation # [id number]
== END ==
LOC: RAD 16:24
PROVIDERS: ATTEND Surgery
DX: T81.4XXA Infection following a procedure, initial encounter (principal); K57.30 Diverticulosis of large intestine without perforation or abscess without bleeding; K43.9 Ventral hernia without obstruction or gangrene; Z90.49 Acquired absence of other specified parts of digestive tract
CPT/HCPCS: 36415; 74177; 80053; 82150; 83690; 85027

== ENCOUNTER → 2017-01-26 | Outpatient (CLI) | payer MEDICARE ==
[2017-01-26 11:04] LABS: MEAN PLATELET VOLUME 10.4 FL (7.4-10.4); RED BLOOD COUNT 3.59 10^6/uL (4.35-5.85); RED CELL DISTRIBUTION WIDTH 14.9 % (10.0-14.5)
[2017-01-26 11:40] LABS: ALBUMIN 2.8 GM/DL (3.2-4.5); BILIRUBIN,TOTAL 0.5 MG/DL (0.1-1.0); CALCIUM 8.9 MG/DL (8.5-10.1); CREATININE SERUM 1.2 MG/DL (0.60-1.30); MAGNESIUM 1.9 MG/DL (1.8-2.4); POTASSIUM 3.9 MMOL/L (3.6-5.0); TOTAL PROTEIN 6.5 GM/DL (6.4-8.2)
== END ==
LOC: HH 10:57
DX: S36.13XS Injury of bile duct, sequela (principal); N18.3 Chronic kidney disease, stage 3 (moderate)
CPT/HCPCS: 80053; 83735; 84100; 85027

== ENCOUNTER 2017-01-28 10:15 | Emergency (ER) | payer MEDICARE ==
[~2017-01-28] VITALS: Ht 180.3 cm; Wt 103.9 kg
[2017-01-28] MEDS ORDERED: CATHETER FLUSH 10 ML SYR IV PRN (11:30)
--- NOTE | 2017-01-28 11:36 | ED General ---
General Chief Complaint: Fever-Adult/Adol Stated Complaint: FEVER/SOME REDNESS AROUND OPENING LIVER DUCT Nursing Triage Note: PT STATES HAVING A FEVER LAST NIGHT UP TO 100.7. PT HAD SURGERY AT TWO WEEKS AGO AND HAD A DRAIN PUT IN FOR AN ABSCESS IN RUQ (3 DRAINS TOTAL), GALLBLADDER REMOVED BY DR. HERNANDEZ HERE IN DECEMBER 2016 WHICH LED TO ABDOMINAL COMPLICATIONS. PT WORRIED ABOUT POST OP INFECTION FROM SURGERY. PT SCHEDULED TO GO BACK TO ON THIS COMING TUESDAY. (DR. NICHOLAS.) Nursing Sepsis Screen: Possible Sepsis Risk Source of Information: Patient Exam Limitations: No Limitations History of Present Illness Time Seen by Provider: 11:36 Initial Comments 76 yo male patient presents tot he ED with c/o fever of 100.7 last night. Patient had Lap bev by Dr. Hernandez in 12/17/16 with subsequent Exp Lap 2wks ago by Dr. Nicholas at for abdominal abscess. ET was previously on Augmentin and is currently on Levaquin. 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 Denies nausea, vomiting, abdominal pain, diarrhea. Patient does have 1 pigtail and 2 LAVELL drains. Denies SOA, cough, or chest pain. Timing/Duration: 12-24 Hours Allergies and Home Medications Allergies Coded Allergies: No Known Drug Allergies (Unverified , 07/26/16) Home Medications Alfuzosin HCl 10 Mg Tab.sr.24h, 10 MG PO DAILY, (Reported) Amoxicillin/Potassium Clav 1 Each Tablet, 1 TAB PO BID for 10 Days, (Reported) 10 DAY SUPPLY FILLED 01-04-17 Ascorbic Acid 500 Mg Tab.chew, 1,000 MG PO HS, (Reported) Aspirin 81 Mg Tablet.dr, 81 MG PO DAILY, (Reported) Carvedilol 6.25 Mg Tablet, 6.25 MG PO BID, (Reported) Cetirizine HCl 10 Mg Tablet, 10 MG PO HS, (Reported) Cholecalciferol (Vitamin D3) 1,000 Unit Tablet, 1,000 UNIT PO HS, (Reported) Famotidine/Ca Carb/Mag Hydrox 1 Each Tab.chew, 1 TAB PO HS, (Reported) Fluticasone Propionate 9.9 Ml [place].susp, 2 SPRAYS NS HS, (Reported) Furosemide 80 Mg Tablet, 80 MG PO UD PRN for SWELLING, (Reported) TAKES APPROXIMATELY TWICE WEEKLY WITH KLOR-CON AND MAGNESIUM / LAST FILLED #90 Ibuprofen 200 Mg Tablet, 400 MG PO BID PRN for PAIN-MILD, (Reported) TAKES 2 (200 MG) TABLETS Latanoprost 2.5 Ml Drops, 1 DROP OU HS, (Reported) Lorazepam 0.5 Mg Tablet, 0.5 MG PO HS PRN for INSOMNIA, (Reported) Losartan Potassium 25 Mg Tablet, 25 MG PO DAILY, (Reported) Magnesium Oxide 400 Mg Tablet, 400 MG PO UD PRN for WHEN TAKING FUROSEMIDE, ( Reported) TAKES APPROXIMATELY TWICE WEEKLY WITH FUROSEMIDE AND KLOR-CON Oxycodone HCl/Acetaminophen 1 Each Tablet, 1 TAB PO Q4H PRN for PAIN-MODERATE, ( Reported) Potassium Chloride 20 Meq Tab.er.prt, 20 MEQ PO UD PRN for WHEN TAKING FUROSEMIDE, (Reported) TAKES APPROXIMATELY 2 TIMES PER WEEK WITH FUROSEMIDE AND MAGNESIUM / LAST FILLED 05/2016 #25 Constitutional: chills, fever, malaise EENTM: no symptoms reported Respiratory: No cough, No dyspnea on exertion, No phlegm, No short of breath Cardiovascular: No chest pain, No palpitations Gastrointestinal: see HPI Genitourinary: No dysuria, No frequency, No hematuria, No pain Musculoskeletal: no symptoms reported Skin: no symptoms reported Psychiatric/Neurological: No Symptoms Reported All Other Systems Reviewed Negative Unless Noted: Yes (Negative excepted noted.) Past Enmsyqd-Tlfvbo-Wcwpmb Hx Patient Social History Alcohol Use: Denies Use Recreational Drug Use: No Smoking Status: Never a Smoker Recent Foreign Travel: No Contact w/Someone Who Travel: No Recent Infectious Disease Expo: No Recent Hopitalizations: Yes (lap choley with hernia repair, DRAIN PLACEMENT 2016) Immunizations Up To Date Tetanus Booster (TDap): Unknown Date of Pneumonia Vaccine: Jun 01, 2016 Date of Influenza Vaccine: Mar 06, 2016 Seasonal Allergies Seasonal Allergies: Yes Surgeries History of Surgeries: Yes (bilateral total knee replacement. right above knee amputation) Surgeries: Abdominal (exploratory laparotomy for bile leak), Amputation, Gallbladder, Joint Replacement, Orthopedic, Tonsillectomy Respiratory History of Respiratory Disorde: No Currently Using CPAP: No Currently Using BIPAP: No Cardiovascular History of Cardiac Disorders: Yes ("SKIPS A BEAT") Cardiac Disorders: Hypertension, Irregular Heartbeat Neurological History of Neurological Disord: Yes (LT TOES AND LT HAND) Neurological Disorders: Neuropathy Reproductive System Hx Reproductive Disorders: No Sexually Transmitted Disease: No HIV/AIDS: No Genitourinary History of Genitourinary Disor: Yes Genitourinary Disorders: Prostate Problems Gastrointestinal History of Gastrointestinal Di: Yes Gastrointestinal Disorders: Gastroesophageal Reflux, Diverticulosis, Hemorrhoids Musculoskeletal History of Musculoskeletal Dis: Yes (LEFT KNEE OSTEOARTHRITIS, 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) Musculoskeletal Disorders: Arthritis Endocrine History of Endocrine Disorders: No HEENT History of HEENT Disorders: Yes HEENT Disorders: Cataract, Glaucoma Loss of Vision: Bilateral Hearing Impairment: Hard of Hearing Cancer History of Cancer: Yes Cancer: Skin Type of Tx Receive: Surgical Intervention Psychosocial History of Psychiatric Problem: Yes Behavioral Health Disorders: Anxiety Integumentary History of Skin or Integumenta: Yes (RED DRY AREAS ON NECK) Skin/Integumentary Disorders: Recent Skin Changes Blood Transfusions History of Blood Disorders: No Adverse Reaction to a Blood Tr: No Reviewed Nursing Assessment Reviewed/Agree w Nursing PMH: Yes Family Medical History Significant Family History: No Pertinent Family Hx Family Medial History: Alcoholism 19 FATHER, , Age:48, Onset:Unknown Bone cancer G8 BROTHER, , Onset:Unknown Colon cancer G8 SISTER, Onset:Unknown Heart valve abnormality 19 MOTHER, , Age:95, Onset:Unknown G8 SISTER, Onset:Unknown No Family History of: AIDS Abdominal aortic aneurysm La Vernia's disease Alzheimer's disease Aphasia Arthritis Asthma Cancer of mouth Cardiovascular disease Cataracts Completed stroke Congenital disease Congenital heart disease Coronary thrombosis Cystic fibrosis Deafness or hearing loss Dementia Diabetes mellitus Drug abuse Dysphasia Fibrocystic disease of breast Gastroenteritis Glaucoma Headache disorder Hypercholesterolemia Hypertension Infertility Kidney disease Myocardial infarction Neoplasm Not obtainable due to adoption Osteoporosis Parkinson's disease Prostate cancer Psychosocial problem Respiratory disorder Seizure disorder Severe allergy Thyroid disease Tuberculosis Visual disorder Physical Exam Vital Signs Vital Sign - Last 12Hours 01/28/17 10:50 Temp 98.3 Pulse 95 Resp 20 B/P (MAP) 125/80 Pulse Ox 96 O2 Delivery Room Air Capillary Refill : Less Than 3 Seconds General Appearance: No Apparent Distress, WD/WN HEENT: PERRL/EOMI, Pharynx Normal Neck: Normal Inspection, Supple Respiratory: Lungs Clear, No Accessory Muscle Use, No Respiratory Distress, Decreased Breath Sounds (bilateral bases) Cardiovascular: Regular Rate, Rhythm, No Murmur Gastrointestinal: Normal Bowel Sounds, No Organomegaly, Non Tender, Soft, Other (healing incision of the right abdomen with minimal serous drainage. 5x6 cm area of erythema and warmth noted on the lateral incision. [place] intact. 3 drains noted on the right abdomen with a small amount of serous drainage around the insertion site of the 2 inferior drains. Drain number 2 shows purulent drainage. Drain number 1 shows serous fluid.) Back: Normal Inspection Extremity: Normal Capillary Refill, Pedal Edema (2+ pedal edema of the LLE. ), Other (Rt AKA.) Neurologic/Psychiatric: Alert, Oriented x3, Normal Mood/Affect Skin: Normal Color, Warm/Dry, Other (healing incision of the right abdomen with minimal serous drainage. 5x6 cm area of erythema and warmth noted on the lateral incision. [place] intact. 3 drains noted on the right abdomen with a small amount of serous drainage around the insertion site of the 2 inferior drains. Drain number 2 shows purulent drainage. Drain number 1 shows serous fluid.) Progress/Results/Core Measures Results/Orders Lab Results Laboratory Tests Test 01/28/17 11:50 01/28/17 13:50 Range/Units White Blood Count 9.8 4.3-11.0 10^3/uL Red Blood Count 3.44 L 4.35-5.85 10^6/uL Hemoglobin 9.7 L 13.3-17.7 G/DL Hematocrit 31 L 40-54 % Mean Corpuscular Volume 90 80-99 FL Mean Corpuscular Hemoglobin 28 25-34 PG Mean Corpuscular Hemoglobin Concent 32 32-36 G/DL Red Cell Distribution Width 14.8 H 10.0-14.5 % Platelet Count 202 130-400 10^3/uL Mean Platelet Volume 10.1 7.4-10.4 FL Neutrophils (%) (Auto) 77 H 42-75 % Lymphocytes (%) (Auto) 11 L 12-44 % Monocytes (%) (Auto) 10 0-12 % Eosinophils (%) (Auto) 1 0-10 % Basophils (%) (Auto) 1 0-10 % Neutrophils # (Auto) 7.6 1.8-7.8 X 10^3 Lymphocytes # (Auto) 1.1 1.0-4.0 X 10^3 Monocytes # (Auto) 1.0 0.0-1.0 X 10^3 Eosinophils # (Auto) 0.1 0.0-0.3 10^3/uL Basophils # (Auto) 0.1 0.0-0.1 10^3/uL Sodium Level 134 L 135-145 MMOL/L Potassium Level 4.9 3.6-5.0 MMOL/L Chloride Level 102 98-107 MMOL/L Carbon Dioxide Level 26 21-32 MMOL/L Anion Gap 6 5-14 MMOL/L Blood Urea Nitrogen 19 H 7-18 MG/DL Creatinine 1.09 0.60-1.30 MG/DL Estimat Glomerular Filtration Rate > 60 BUN/Creatinine Ratio 17 Glucose Level 114 H 70-105 MG/DL Calcium Level 8.5 8.5-10.1 MG/DL Total Bilirubin 0.8 0.1-1.0 MG/DL Aspartate Amino Transf (AST/SGOT) 30 5-34 U/L Alanine Aminotransferase (ALT/SGPT) 14 0-55 U/L Alkaline Phosphatase 107 40-136 U/L Total Protein 6.5 6.4-8.2 GM/DL Albumin 2.6 L 3.2-4.5 GM/DL Lipase 8 8-78 U/L Urine Color YELLOW Urine Clarity CLEAR Urine pH 6 5-9 Urine Specific [place] 1.015 L 1.016-1.022 Urine Protein 2+ H NEGATIVE Urine Glucose (UA) NEGATIVE NEGATIVE Urine Ketones NEGATIVE NEGATIVE Urine Nitrite NEGATIVE NEGATIVE Urine Bilirubin NEGATIVE NEGATIVE Urine Urobilinogen NORMAL NORMAL MG/DL Urine Leukocyte Esterase 1+ H NEGATIVE Urine RBC (Auto) 1+ H NEGATIVE Urine RBC NONE /HPF Urine WBC 0-2 /HPF Urine Squamous Epithelial Cells 0-2 /HPF Urine Crystals PRESENT H /LPF Urine Calcium Oxalate Crystals RARE H /LPF Urine Bacteria NEGATIVE /HPF Urine Casts NONE /LPF Urine Mucus NEGATIVE /LPF Urine Culture Indicated NO My Orders Orders - GÓMEZ DENNIS PA Ct Abdomen/Pelvis W (01/28/17 11:09) Cbc With Automated Diff (01/28/17 11:09) Comprehensive Metabolic Panel (01/28/17 11:09) Lipase (01/28/17 11:09) Ua Culture If Indicated (01/28/17 11:09) Saline Lock/Iv-Start (01/28/17 11:09) Chest 1 View, Ap/Pa Only (01/28/17 11:09) Iohexol Injection (Omnipaque 350 Mg/Ml 1 (01/28/17 11:30) Sodium Chloride Flush (Catheter Flush Sy (01/28/17 11:30) Ns (Ivpb) (Sodium Chloride 0.9% Ivpb Bag (01/28/17 11:30) Hydromorphone Injection (Dilaudid Inject (01/28/17 11:57) Ns Iv 1000 Ml (Sodium Chloride 0.9%) (01/28/17 11:57) Ct Chest Wo (01/28/17 13:32) Wound Culture (01/28/17 14:51) Gentamicin (Adult) Injection (Garamycin (01/28/17 15:45) Ns Iv 1000 Ml (Sodium Chloride 0.9%) (01/28/17 15:48) Gentamicin Inj (For Compound) (Garamycin (01/29/17 16:30) Hydromorphone Injection (Dilaudid Inject (01/28/17 18:52) Medications Given in ED Current Medications Medications Dose Ordered Sig/Lillian Route Start Time Stop Time Status Last Admin Dose Admin Iohexol 100 ml ONCE ONCE IV 01/28/17 11:30 01/28/17 11:52 DC 01/28/17 13:25 85 ML Sodium Chloride 100 ml ONCE ONCE IV 01/28/17 11:30 01/28/17 11:52 DC 01/28/17 13:25 80 ML Sodium Chloride 1,000 ml @ 0 mls/hr Q0M ONCE IV 01/28/17 11:57 01/28/17 11:58 DC 01/28/17 12:23 1,000 MLS/HR Sodium Chloride 1,000 ml @ 0 mls/hr Q0M ONCE IV 01/28/17 15:48 01/28/17 15:49 DC 01/28/17 16:36 0 MLS/HR Vital Signs/I&O Vital Sign - Last 12Hours 01/28/17 01/28/17 01/28/17 10:50 12:22 19:05 Temp 98.3 98.3 99.0 Pulse 95 68 Resp 20 18 B/P (MAP) 125/80 Pulse Ox 96 93 O2 Delivery Room Air Room Air Blood Pressure Mean: 95 Diagnostic Imaging Diagonstic Imaging: Xray Plain Films/CT/US/NM/MRI: chest Comments FINDINGS: Right basilar heterogeneous consolidations have increased. No pleural effusion or pneumothorax. Stable cardiomegaly. Normal pulmonary vasculature. Right upper quadrant percutaneous drain likely represents a cholecystostomy tube. IMPRESSION: 1. Increased right basilar heterogeneous opacities can be seen with atelectasis, infection or aspiration. As patient's condition permits, consider further evaluation with PA and lateral chest radiographs. Dictated on workstation # [id number] Reviewed: Reviewed by Me (radiology report reviewed by me) Diagonstic Imaging: CT Plain Films/CT/US/NM/MRI: abdomen, pelvis Comments FINDINGS: Internal biliary drainage catheters have left and right lobe branches and there appears to be a catheter looped within the contracted gallbladder lumen, likely cholecystostomy. Having been placed since the previous study is a right upper quadrant sub-diaphragmatic drain associated with marked reduction in gas/fluid collection at that level. The residual fluid measures a transverse thickness of the about 3.2 cm, previously measuring a transverse dimension of about 9 cm. Some intrahepatic pneumobilia in the anti--dependent left lobe branches. No substantial biliary ductal dilatation. Increasing right-sided dependent pleural effusion of up to 8.1 cm with subjacent passive atelectasis of the dependent right lower lobe. The left lung base is negative. The spleen, adrenals and pancreas were unremarkable. The kidneys are unobstructed with a few simple renal cortical cysts stable. There is no ileus or bowel obstruction. There is a fatty left lower quadrant hernia at the junction of the rectus sheath and transverse abdominis also containing a small amount of peritoneal fluid. No herniated viscus. There is no free air or pneumatosis. IMPRESSION: Reduction in subhepatic gas/fluid collection following drainage catheter placement, internal biliary drainage catheters with presumed cholecystostomy. Pneumobilia without substantial bile duct dilatation. No ileus or urinary tract obstruction. Right pleural effusion increased, nonloculated with progressive passive atelectasis. Dictated on workstation # [id number] Reviewed: Reviewed by Me (radiology report reviewed by me) Diagonstic Imaging: CT Plain Films/CT/US/NM/MRI: chest Comments FINDINGS: Lungs and airway: No endoluminal lesion in the trachea or central bronchi. Subtotal relaxation atelectasis in the basilar segments of the right lower lobe secondary to moderate sized right pleural effusion. Minimal dependent atelectasis in the posterior aspect of the right upper lobe. Left lung is clear. Pleura: Moderate-sized right pleural effusion appears free flowing. No left pleural effusion. No pneumothorax. Heart and mediastinum: Visualized thyroid is normal. No supraclavicular or axillary lymphadenopathy. No mediastinal, discrete hilar or juxtaphrenic lymphadenopathy. Heart is on the upper limits of normal in size. No pericardial effusion. Normal caliber thoracic aorta. Upper abdomen: Please see the report for the CT abdomen and pelvis for details of visualized upper abdomen. Musculoskeletal: No concerning focal osseous lesions in the thorax. IMPRESSION: 1. Moderate sized right pleural effusion appears free flowing. This may be reactive in nature due to right sub-diaphragmatic process. Transdiaphragmatic extension intra-abdominal infection could also have this appearance. However, there are no imaging features that would suggest empyema. 2. Subtotal relaxation atelectasis in the basilar segments of the right lower lobe secondary to pleural effusion. Dictated on workstation # [id number] Reviewed: Reviewed by Me (radiology report reviewed by me) Departure Communication Progress Notes Patient seen and evaluated. Labs, wound culture, and CT abdomen and pelvis obtained. Patient was noted to have a large amount of fluid in the right lung base on CT abdomen and pelvis. CT was extended to include the chest. Patient was given 1 mg of Dilaudid with improvement in pain. Patient to be transferred to under the care of Dr. Nicholas (patient's surgeon) due to patient's complicated wounds (including VRE of the abdominal abscess), complicated recent surgical history, and recurrent purulent drainage from the abdominal drain. Patient case discussed with Dr. Nicole, he agrees with plan for transfer to for further surgical intervention and IV antibiotics. Patient case as well as plan for transfer discussed with Dr. Ye, he agrees with the plan of care. Patient was given 1 mg of Dilaudid prior to transfer. Impression Impression: Primary Impression: Abdominal abscess Additional Impressions: Pleural effusion, right Anemia Qualified Codes: D64.9 - Anemia, unspecified History of infection with vancomycin resistant Enterococcus (VRE) Disposition: 02 XFER SHT-TRM HOSP Condition: Stable Transfer Transfer Notes Dr. Nicholas Transfer Time: 15:58 Transfer Facility: Method of Transfer: EMS Departure-Patient Inst. Referrals: SAMUEL FERNANDEZ MD (PCP/Family) Primary Care Physician GÓMEZ DENNIS Jan 28, 2017 11:36
[2017-01-28 12:02] LABS: BASOPHILS # (AUTO) 0.1 10^3/uL (0.0-0.1); BASOPHILS % (AUTO) 1 % (0-10); EOSINOPHILS # (AUTO) 0.1 10^3/uL (0.0-0.3); EOSINOPHILS % (AUTO) 1 % (0-10); LYMPHOCYTES # (AUTO) 1.1 X 10^3 (1.0-4.0); LYMPHOCYTES % (AUTO) 11 % (12-44); MEAN CORPUSCULAR HEMOGLOBIN 28 PG (25-34); MEAN CORPUSCULAR HGB CONC 32 G/DL (32-36); MEAN CORPUSCULAR VOLUME 90 FL (80-99); MEAN PLATELET VOLUME 10.1 FL (7.4-10.4); MONOCYTES % (AUTO) 10 % (0-12); NEUTROPHILS # (AUTO) 7.6 X 10^3 (1.8-7.8); NEUTROPHILS % (AUTO) 77 % (42-75); PLATELET COUNT 202 10^3/uL (130-400); RED BLOOD COUNT 3.44 10^6/uL (4.35-5.85); RED CELL DISTRIBUTION WIDTH 14.8 % (10.0-14.5); WHITE BLOOD COUNT 9.8 10^3/uL (4.3-11.0)
[2017-01-28 12:22] LABS: ALANINE AMINOTRANSFERASE 14 U/L (0-55); ALBUMIN 2.6 GM/DL (3.2-4.5); ANION GAP 6 MMOL/L (5-14); ASPARTATE AMINO TRANSFERASE 30 U/L (5-34); BILIRUBIN,TOTAL 0.8 MG/DL (0.1-1.0); BLOOD UREA NITROGEN 19 MG/DL (7-18); BUN/CREATININE RATIO 17; CALCIUM 8.5 MG/DL (8.5-10.1); CARBON DIOXIDE 26 MMOL/L (21-32); CHLORIDE 102 MMOL/L (98-107); CREATININE SERUM 1.09 MG/DL (0.60-1.30); GFR ESTIMATED > 60; GLUCOSE 114 MG/DL (70-105); LIPASE 8 U/L (8-78); POTASSIUM 4.9 MMOL/L (3.6-5.0); SODIUM 134 MMOL/L (135-145); TOTAL PROTEIN 6.5 GM/DL (6.4-8.2)
[2017-01-28] MEDS: HYDROmorphone (DILAUDID) 2 MG/ML VIAL IVP STA ×2 (12:22→18:58)
[2017-01-28] MEDS: NS IV 1000 ML 1,000 ML IV ONE ×2 (12:23→16:36)
--- NOTE | 2017-01-28 12:28 | Diagnostic Imaging Report ---
INDICATION: Postoperative fever. COMPARISON: Chest radiograph of 12/24/2016. FINDINGS: Right basilar heterogeneous consolidations have increased. No pleural effusion or pneumothorax. Stable cardiomegaly. Normal pulmonary vasculature. Right upper quadrant percutaneous drain likely represents a cholecystostomy tube. IMPRESSION: 1. Increased right basilar heterogeneous opacities can be seen with atelectasis, infection or aspiration. As patient's condition permits, consider further evaluation with PA and lateral chest radiographs. Dictated by: Dictated on workstation # [id number]
[2017-01-28] MEDS: IOHEXOL 350 MG/ML 100 ML (OMNIPAQUE 350) VIAL IV ONE (13:25)
[2017-01-28] MEDS: NS 100 ML (IVPB) BAG IV ONE (13:25)
[2017-01-28 13:57] LABS: BILIRUBIN,URINE NEGATIVE (NEGATIVE); KETONES,URINE NEGATIVE (NEGATIVE); LEUKOCYTE ESTERASE ,URINE 1+ (NEGATIVE); NITRITE,URINE NEGATIVE (NEGATIVE); PH,URINE 6 (5-9); PROTEIN,URINE 2+ (NEGATIVE); UROBILINOGEN,URINE NORMAL (NORMAL)
[2017-01-28 14:10] LABS: WBC,URINE 0-2 /HPF
[2017-01-28 14:11] LABS: CALCIUM OXALATE CRYSTALS,UR RARE /LPF; SQUAMOUS EPITHELIAL CELL,UR 0-2 /HPF
--- NOTE | 2017-01-28 14:15 | Diagnostic Imaging Report ---
PROCEDURE: CT abdomen and pelvis with contrast. TECHNIQUE: Multiple contiguous axial images were obtained through the abdomen and pelvis after administration of intravenous contrast. INDICATION: Fever, malaise, biliary ductal reconstruction. COMPARISON: Exam compared with a study performed 01/05/2017. FINDINGS: Internal biliary drainage catheters have left and right lobe branches and there appears to be a catheter looped within the contracted gallbladder lumen, likely cholecystostomy. Having been placed since the previous study is a right upper quadrant sub-diaphragmatic drain associated with marked reduction in gas/fluid collection at that level. The residual fluid measures a transverse thickness of the about 3.2 cm, previously measuring a transverse dimension of about 9 cm. Some intrahepatic pneumobilia in the anti--dependent left lobe branches. No substantial biliary ductal dilatation. Increasing right-sided dependent pleural effusion of up to 8.1 cm with subjacent passive atelectasis of the dependent right lower lobe. The left lung base is negative. The spleen, adrenals and pancreas were unremarkable. The kidneys are unobstructed with a few simple renal cortical cysts stable. There is no ileus or bowel obstruction. There is a fatty left lower quadrant hernia at the junction of the rectus sheath and transverse abdominis also containing a small amount of peritoneal fluid. No herniated viscus. There is no free air or pneumatosis. IMPRESSION: Reduction in subhepatic gas/fluid collection following drainage catheter placement, internal biliary drainage catheters with presumed cholecystostomy. Pneumobilia without substantial bile duct dilatation. No ileus or urinary tract obstruction. Right pleural effusion increased, nonloculated with progressive passive atelectasis. Dictated by: Dictated on workstation # [id number]
--- NOTE | 2017-01-28 14:27 | Diagnostic Imaging Report ---
PROCEDURE: CT chest without contrast. TECHNIQUE: Multiple contiguous axial images were obtained through the chest without the use of intravenous contrast. INDICATION: Shortness of breath. Pleural effusion. COMPARISON: CT abdomen and pelvis performed 6 minutes prior. FINDINGS: Lungs and airway: No endoluminal lesion in the trachea or central bronchi. Subtotal relaxation atelectasis in the basilar segments of the right lower lobe secondary to moderate sized right pleural effusion. Minimal dependent atelectasis in the posterior aspect of the right upper lobe. Left lung is clear. Pleura: Moderate-sized right pleural effusion appears free flowing. No left pleural effusion. No pneumothorax. Heart and mediastinum: Visualized thyroid is normal. No supraclavicular or axillary lymphadenopathy. No mediastinal, discrete hilar or juxtaphrenic lymphadenopathy. Heart is on the upper limits of normal in size. No pericardial effusion. Normal caliber thoracic aorta. Upper abdomen: Please see the report for the CT abdomen and pelvis for details of visualized upper abdomen. Musculoskeletal: No concerning focal osseous lesions in the thorax. IMPRESSION: 1. Moderate sized right pleural effusion appears free flowing. This may be reactive in nature due to right sub-diaphragmatic process. Transdiaphragmatic extension intra-abdominal infection could also have this appearance. However, there are no imaging features that would suggest empyema. 2. Subtotal relaxation atelectasis in the basilar segments of the right lower lobe secondary to pleural effusion. Dictated by: Dictated on workstation # [id number]
[2017-01-28] MEDS ORDERED: GENTAMICIN IV SCH (15:45)
[2017-01-28] MEDS ORDERED: D5W IV SCH (15:45)
[2017-01-28] MEDS: DEXTROSE IV SCH ×2 (17:04)
[2017-01-28] MEDS: GENTAMICIN IV SCH ×2 (17:04)
[2017-01-28 19:05] VITALS: BP 131/78
== END 2017-01-28 19:05 | disposition short-term general hospital (02) ==
LOC: EDUNIT# 10:15 → ER 10:19
DX: L02.211 Cutaneous abscess of abdominal wall (principal); J90 Pleural effusion, not elsewhere classified; D64.9 Anemia, unspecified; F41.9 Anxiety disorder, unspecified; K21.9 Gastro-esophageal reflux disease without esophagitis; G62.9 Polyneuropathy, unspecified; M17.12 Unilateral primary osteoarthritis, left knee; I10 Essential (primary) hypertension; Z96.653 Presence of artificial knee joint, bilateral; Z90.89 Acquired absence of other organs; Z89.611 Acquired absence of right leg above knee; Z79.82 Long term (current) use of aspirin; Z86.19 Personal history of other infectious and parasitic diseases
CPT/HCPCS: 36415; 71010; 71250; 74177; 80053; 81000; 83690; 85025; 87070; 87205; 99285

== ENCOUNTER 2017-02-23 11:03 | Outpatient (RCR) | payer MEDICARE ==
[2017-02-04] MEDS: CATHETER FLUSH 10 ML SYR IV PRN ×3 (13:20→15:00)
[2017-02-04] MEDS: SODIUM CHLORIDE IV SCH ×2 (13:21)
[2017-02-04] MEDS: DAPTOMYCIN IV SCH ×2 (13:21)
[2017-02-04] MEDS: ANIDULAFUNGIN INJECTION 100 MG in NS (IVPB) 100 ML IV SCH (13:47)
[2017-02-04 15:05] VITALS: BP 114/79
[2017-02-05] MEDS: DAPTOMYCIN IV SCH ×2 (13:32)
[2017-02-05] MEDS: SODIUM CHLORIDE IV SCH ×2 (13:32)
[2017-02-05] MEDS: ERTAPENEM 1 GM/NS 50 ML IVPB IV SCH ×2 (13:32)
[2017-02-05 14:00] VITALS: BP 121/74
[2017-02-05] MEDS: ANIDULAFUNGIN INJECTION 100 MG in NS (IVPB) 100 ML IV SCH (14:33)
[2017-02-06] MEDS: ERTAPENEM 1 GM/NS 50 ML IVPB IV SCH ×2 (13:13)
[2017-02-06] MEDS: DAPTOMYCIN IV SCH ×2 (13:15)
[2017-02-06] MEDS: SODIUM CHLORIDE IV SCH ×2 (13:15)
[2017-02-06] MEDS: CATHETER FLUSH 10 ML SYR IV PRN (14:01)
[2017-02-06] MEDS: ANIDULAFUNGIN INJECTION 100 MG in NS (IVPB) 100 ML IV SCH (14:01)
[2017-02-06 15:12] VITALS: BP 131/73
[2017-02-07 12:50] VITALS: BP 129/63
[2017-02-07] MEDS: SODIUM CHLORIDE IV SCH ×2 (13:26)
[2017-02-07] MEDS: DAPTOMYCIN IV SCH ×2 (13:26)
[2017-02-07] MEDS: ERTAPENEM 1 GM/NS 50 ML IVPB IV SCH ×2 (13:34)
[2017-02-07] MEDS: ANIDULAFUNGIN INJECTION 100 MG in NS (IVPB) 100 ML IV SCH (14:49)
[2017-02-08] MEDS: SODIUM CHLORIDE IV SCH ×2 (12:31)
[2017-02-08] MEDS: DAPTOMYCIN IV SCH ×2 (12:31)
[2017-02-08] MEDS: ERTAPENEM 1 GM/NS 50 ML IVPB IV SCH ×2 (12:33)
[2017-02-08] MEDS: CATHETER FLUSH 10 ML SYR IV PRN ×3 (12:34→14:40)
[2017-02-08 12:41] LABS: BASOPHILS # (AUTO) 0.1 10^3/uL (0.0-0.1); BASOPHILS % (AUTO) 2 % (0-10); EOSINOPHILS # (AUTO) 0.7 10^3/uL (0.0-0.3); EOSINOPHILS % (AUTO) 14 % (0-10); LYMPHOCYTES # (AUTO) 1.2 X 10^3 (1.0-4.0); LYMPHOCYTES % (AUTO) 24 % (12-44); MEAN CORPUSCULAR HEMOGLOBIN 28 PG (25-34); MEAN CORPUSCULAR HGB CONC 31 G/DL (32-36); MEAN CORPUSCULAR VOLUME 88 FL (80-99); MEAN PLATELET VOLUME 10.1 FL (7.4-10.4); MONOCYTES # (AUTO) 0.3 X 10^3 (0.0-1.0); MONOCYTES % (AUTO) 6 % (0-12); NEUTROPHILS # (AUTO) 2.5 X 10^3 (1.8-7.8); NEUTROPHILS % (AUTO) 54 % (42-75); PLATELET COUNT 189 10^3/uL (130-400); RED BLOOD COUNT 3.78 10^6/uL (4.35-5.85); RED CELL DISTRIBUTION WIDTH 14.9 % (10.0-14.5); WHITE BLOOD COUNT 4.7 10^3/uL (4.3-11.0)
[2017-02-08 13:00] LABS: ALANINE AMINOTRANSFERASE 15 U/L (0-55); ALBUMIN 2.8 GM/DL (3.2-4.5); ANION GAP 9 MMOL/L (5-14); ASPARTATE AMINO TRANSFERASE 29 U/L (5-34); BILIRUBIN,TOTAL 0.3 MG/DL (0.1-1.0); BLOOD UREA NITROGEN 13 MG/DL (7-18); BUN/CREATININE RATIO 13; CARBON DIOXIDE 26 MMOL/L (21-32); CHLORIDE 107 MMOL/L (98-107); CREATINE KINASE 14 U/L (30-200); CREATININE SERUM 1.02 MG/DL (0.60-1.30); GFR ESTIMATED > 60; GLUCOSE 125 MG/DL (70-105); POTASSIUM 3.8 MMOL/L (3.6-5.0); SODIUM 142 MMOL/L (135-145); TOTAL PROTEIN 6.7 GM/DL (6.4-8.2)
[2017-02-08] MEDS: ANIDULAFUNGIN INJECTION 100 MG in NS (IVPB) 100 ML IV SCH (13:07)
[2017-02-08 13:10] VITALS: BP_SYST 121; BP_SYST 130; BP_DIAS 60; BP_DIAS 75
[2017-02-08 13:11] LABS: ANISOCYTOSIS SLIGHT; BAND NEUTROPHILS 0 %; BASOPHILS % (MANUAL) 2 %; EOSINOPHILS % (MANUAL) 20 %; HYPOCHROMASIA SLIGHT; LYMPHOCYTES % (MANUAL) 35 %; NEUTROPHILS % (MANUAL) 33 %
[2017-02-09] MEDS: SODIUM CHLORIDE IV SCH ×2 (12:27)
[2017-02-09] MEDS: DAPTOMYCIN IV SCH ×2 (12:27)
[2017-02-09] MEDS: CATHETER FLUSH 10 ML SYR IV PRN ×2 (12:27→13:54)
[2017-02-09] MEDS: ERTAPENEM 1 GM/NS 50 ML IVPB IV SCH ×2 (12:28)
[2017-02-09] MEDS: ANIDULAFUNGIN INJECTION 100 MG in NS (IVPB) 100 ML IV SCH (12:55)
[2017-02-09 14:00] VITALS: BP 127/55
[2017-02-10] MEDS: ERTAPENEM 1 GM/NS 50 ML IVPB IV SCH ×2 (12:07)
[2017-02-10] MEDS: SODIUM CHLORIDE IV SCH ×2 (12:16)
[2017-02-10] MEDS: DAPTOMYCIN IV SCH ×2 (12:16)
[2017-02-10] MEDS: ANIDULAFUNGIN INJECTION 100 MG in NS (IVPB) 100 ML IV SCH (12:46)
[2017-02-10] MEDS: CATHETER FLUSH 10 ML SYR IV PRN (14:10)
[2017-02-10 14:16] VITALS: BP 127/88
[2017-02-11] MEDS: SODIUM CHLORIDE IV SCH ×2 (12:22)
[2017-02-11] MEDS: DAPTOMYCIN IV SCH ×2 (12:22)
[2017-02-11] MEDS: ERTAPENEM 1 GM/NS 50 ML IVPB IV SCH ×2 (12:23)
[2017-02-11] MEDS: CATHETER FLUSH 10 ML SYR IV PRN ×3 (12:23→14:01)
[2017-02-11] MEDS: ANIDULAFUNGIN INJECTION 100 MG in NS (IVPB) 100 ML IV SCH (12:53)
[2017-02-11 14:15] VITALS: BP 101/77
[2017-02-12 12:50] VITALS: BP 128/74
[2017-02-12] MEDS: ERTAPENEM 1 GM/NS 50 ML IVPB IV SCH ×2 (13:00)
[2017-02-12] MEDS: CATHETER FLUSH 10 ML SYR IV PRN (13:00)
[2017-02-12] MEDS: DAPTOMYCIN IV SCH ×2 (13:14)
[2017-02-12] MEDS: SODIUM CHLORIDE IV SCH ×2 (13:14)
[2017-02-12] MEDS: ANIDULAFUNGIN INJECTION 100 MG in NS (IVPB) 100 ML IV SCH (13:49)
[2017-02-13 12:48] VITALS: BP 123/78
[2017-02-13] MEDS: DAPTOMYCIN IV SCH ×2 (13:12)
[2017-02-13] MEDS: SODIUM CHLORIDE IV SCH ×2 (13:12)
[2017-02-13] MEDS: ERTAPENEM 1 GM/NS 50 ML IVPB IV SCH ×2 (13:12)
[2017-02-13] MEDS: CATHETER FLUSH 10 ML SYR IV PRN (13:14)
[2017-02-13] MEDS: ANIDULAFUNGIN INJECTION 100 MG in NS (IVPB) 100 ML IV SCH (13:47)
[2017-02-15 11:47] VITALS: BP 126/70
[2017-02-15] MEDS: CATHETER FLUSH 10 ML SYR IV PRN ×4 (12:05→14:34)
[2017-02-15] MEDS: ERTAPENEM 1 GM/NS 50 ML IVPB IV SCH ×2 (12:05)
[2017-02-15] MEDS: SODIUM CHLORIDE IV SCH ×2 (12:34)
[2017-02-15] MEDS: DAPTOMYCIN IV SCH ×2 (12:34)
[2017-02-15] MEDS: ANIDULAFUNGIN INJECTION 100 MG in NS (IVPB) 100 ML IV SCH (13:11)
[2017-02-16] MEDS: CATHETER FLUSH 10 ML SYR IV PRN ×3 (12:04→14:18)
[2017-02-16] MEDS: ERTAPENEM 1 GM/NS 50 ML IVPB IV SCH ×2 (12:10)
[2017-02-16] MEDS: SODIUM CHLORIDE IV SCH ×2 (12:25)
[2017-02-16] MEDS: DAPTOMYCIN IV SCH ×2 (12:25)
[2017-02-16] MEDS: ANIDULAFUNGIN INJECTION 100 MG in NS (IVPB) 100 ML IV SCH (12:55)
[2017-02-16 14:18] VITALS: BP 127/72
[2017-02-17] MEDS: CATHETER FLUSH 10 ML SYR IV PRN ×3 (12:08→14:01)
[2017-02-17] MEDS: SODIUM CHLORIDE IV SCH ×2 (12:08)
[2017-02-17] MEDS: DAPTOMYCIN IV SCH ×2 (12:08)
[2017-02-17] MEDS: ERTAPENEM 1 GM/NS 50 ML IVPB IV SCH ×2 (12:09)
[2017-02-17] MEDS: ANIDULAFUNGIN INJECTION 100 MG in NS (IVPB) 100 ML IV SCH (12:37)
[2017-02-17 14:52] VITALS: BP 148/68
[2017-02-17 14:58] LABS: BASOPHILS # (AUTO) 0.1 10^3/uL (0.0-0.1); BASOPHILS % (AUTO) 2 % (0-10); EOSINOPHILS # (AUTO) 0.4 10^3/uL (0.0-0.3); EOSINOPHILS % (AUTO) 10 % (0-10); LYMPHOCYTES # (AUTO) 1.6 X 10^3 (1.0-4.0); LYMPHOCYTES % (AUTO) 41 % (12-44); MEAN CORPUSCULAR HEMOGLOBIN 28 PG (25-34); MEAN CORPUSCULAR HGB CONC 32 G/DL (32-36); MEAN CORPUSCULAR VOLUME 88 FL (80-99); MEAN PLATELET VOLUME 10.5 FL (7.4-10.4); MONOCYTES # (AUTO) 0.4 X 10^3 (0.0-1.0); MONOCYTES % (AUTO) 9 % (0-12); NEUTROPHILS # (AUTO) 1.5 X 10^3 (1.8-7.8); NEUTROPHILS % (AUTO) 38 % (42-75); PLATELET COUNT 142 10^3/uL (130-400); RED BLOOD COUNT 4.17 10^6/uL (4.35-5.85); RED CELL DISTRIBUTION WIDTH 15.2 % (10.0-14.5); WHITE BLOOD COUNT 3.9 10^3/uL (4.3-11.0)
[2017-02-17 15:21] LABS: ALANINE AMINOTRANSFERASE 20 U/L (0-55); ALBUMIN 3.2 GM/DL (3.2-4.5); ANION GAP 8 MMOL/L (5-14); ASPARTATE AMINO TRANSFERASE 35 U/L (5-34); BILIRUBIN,TOTAL 0.4 MG/DL (0.1-1.0); BLOOD UREA NITROGEN 15 MG/DL (7-18); BUN/CREATININE RATIO 15; CALCIUM 9.2 MG/DL (8.5-10.1); CARBON DIOXIDE 29 MMOL/L (21-32); CHLORIDE 108 MMOL/L (98-107); CREATINE KINASE 27 U/L (30-200); CREATININE SERUM 1.03 MG/DL (0.60-1.30); GFR ESTIMATED > 60; GLUCOSE 92 MG/DL (70-105); POTASSIUM 3.9 MMOL/L (3.6-5.0); SODIUM 145 MMOL/L (135-145); TOTAL PROTEIN 7.2 GM/DL (6.4-8.2)
[2017-02-18] MEDS: CATHETER FLUSH 10 ML SYR IV PRN (12:04)
[2017-02-18] MEDS: ERTAPENEM 1 GM/NS 50 ML IVPB IV SCH ×2 (12:05)
[2017-02-18] MEDS: ANIDULAFUNGIN INJECTION 100 MG in NS (IVPB) 100 ML IV SCH (12:35)
[2017-02-18] MEDS: DAPTOMYCIN IV SCH ×2 (12:39)
[2017-02-18] MEDS: SODIUM CHLORIDE IV SCH ×2 (12:39)
[2017-02-18 13:40] VITALS: BP 138/1
[2017-02-19 12:53] VITALS: BP 136/69
[2017-02-19] MEDS: ANIDULAFUNGIN INJECTION 100 MG in NS (IVPB) 100 ML IV SCH (13:37)
[2017-02-19] MEDS: CATHETER FLUSH 10 ML SYR IV PRN (13:39)
[2017-02-19] MEDS: DAPTOMYCIN IV SCH ×2 (15:14)
[2017-02-19] MEDS: SODIUM CHLORIDE IV SCH ×2 (15:14)
[2017-02-19] MEDS: ERTAPENEM 1 GM/NS 50 ML IVPB IV SCH ×2 (15:14)
[2017-02-19 15:50] VITALS: BP 136/69
[2017-02-20 12:50] VITALS: BP 134/76
[2017-02-20] MEDS: ANIDULAFUNGIN INJECTION 100 MG in NS (IVPB) 100 ML IV SCH (13:31)
[2017-02-20] MEDS: DAPTOMYCIN IV SCH ×2 (15:00)
[2017-02-20] MEDS: SODIUM CHLORIDE IV SCH ×2 (15:00)
[2017-02-20] MEDS: ERTAPENEM 1 GM/NS 50 ML IVPB IV SCH ×2 (15:00)
[2017-02-21 12:10] LABS: BASOPHILS % (AUTO) 1 % (0-10); EOSINOPHILS # (AUTO) 0.2 10^3/uL (0.0-0.3); EOSINOPHILS % (AUTO) 5 % (0-10); LYMPHOCYTES # (AUTO) 1.2 X 10^3 (1.0-4.0); LYMPHOCYTES % (AUTO) 26 % (12-44); MEAN CORPUSCULAR HEMOGLOBIN 27 PG (25-34); MEAN CORPUSCULAR HGB CONC 31 G/DL (32-36); MEAN CORPUSCULAR VOLUME 87 FL (80-99); MONOCYTES # (AUTO) 0.4 X 10^3 (0.0-1.0); MONOCYTES % (AUTO) 9 % (0-12); NEUTROPHILS # (AUTO) 2.8 X 10^3 (1.8-7.8); NEUTROPHILS % (AUTO) 59 % (42-75); PLATELET COUNT 147 10^3/uL (130-400); RED BLOOD COUNT 4.11 10^6/uL (4.35-5.85); RED CELL DISTRIBUTION WIDTH 14.9 % (10.0-14.5); WHITE BLOOD COUNT 4.7 10^3/uL (4.3-11.0)
[2017-02-21] MEDS: DAPTOMYCIN IV SCH ×2 (12:27)
[2017-02-21] MEDS: SODIUM CHLORIDE IV SCH ×2 (12:27)
[2017-02-21] MEDS: ERTAPENEM 1 GM/NS 50 ML IVPB IV SCH ×2 (12:27)
[2017-02-21] MEDS: CATHETER FLUSH 10 ML SYR IV PRN ×3 (12:28→14:20)
[2017-02-21 12:29] LABS: ALANINE AMINOTRANSFERASE 17 U/L (0-55); ANION GAP 6 MMOL/L (5-14); ASPARTATE AMINO TRANSFERASE 32 U/L (5-34); BILIRUBIN,TOTAL 0.5 MG/DL (0.1-1.0); BLOOD UREA NITROGEN 13 MG/DL (7-18); BUN/CREATININE RATIO 12; CARBON DIOXIDE 28 MMOL/L (21-32); CHLORIDE 107 MMOL/L (98-107); CREATINE KINASE 25 U/L (30-200); CREATININE SERUM 1.05 MG/DL (0.60-1.30); GFR ESTIMATED > 60; GLUCOSE 114 MG/DL (70-105); POTASSIUM 3.7 MMOL/L (3.6-5.0); SODIUM 141 MMOL/L (135-145); TOTAL PROTEIN 6.6 GM/DL (6.4-8.2)
[2017-02-21] MEDS: ANIDULAFUNGIN INJECTION 100 MG in NS (IVPB) 100 ML IV SCH (12:58)
[2017-02-21 13:08] VITALS: BP 125/72
[2017-02-22] MEDS: DAPTOMYCIN IV SCH ×2 (12:15)
[2017-02-22] MEDS: SODIUM CHLORIDE IV SCH ×2 (12:15)
[2017-02-22] MEDS: ERTAPENEM 1 GM/NS 50 ML IVPB IV SCH ×2 (12:15)
[2017-02-22] MEDS: CATHETER FLUSH 10 ML SYR IV PRN ×2 (12:15→14:10)
[2017-02-22] MEDS: ANIDULAFUNGIN INJECTION 100 MG in NS (IVPB) 100 ML IV SCH (12:50)
[2017-02-22 13:36] VITALS: BP 120/72
[~2017-02-23] VITALS: Ht 180.3 cm; Wt 99.8 kg
[2017-02-23 11:03] VITALS: BP 144/69
[~2017-02-23 11:03] MED LIST changes: +DAPT500V IV; +ERTA1VIA IV; +ERTAPENEM 1000 MG (INVanz) VIAL ONE; +MICA100V IV; +NS (IVPB) 50 ML ONE
[2017-02-23] MEDS: SODIUM CHLORIDE IV SCH ×2 (11:24)
[2017-02-23] MEDS: CATHETER FLUSH 10 ML SYR IV PRN (11:24)
[2017-02-23] MEDS: DAPTOMYCIN IV SCH ×2 (11:24)
[2017-02-23] MEDS: ERTAPENEM 1 GM/NS 50 ML IVPB IV SCH ×2 (11:26)
[2017-02-23] MEDS: ANIDULAFUNGIN INJECTION 100 MG in NS (IVPB) 100 ML IV SCH ×2 (12:02→15:53)
== END 2017-03-05 | disposition home or self-care (01) ==
LOC: SDC 11:03
PROVIDERS: ATTEND Family Medicine
DX: R50.9 Fever, unspecified (principal); T81.4XXA Infection following a procedure, initial encounter; I12.9 Hypertensive chronic kidney disease with stage 1 through stage 4 chronic kidney disease, or unspecified chronic kidney disease; N18.3 Chronic kidney disease, stage 3 (moderate)
CPT/HCPCS: 36415; 36592; 80053; 82550; 85007; 85025; 85027; 96365; 96366; 96368; 96375; 99211

== ENCOUNTER → 2017-03-10 | Outpatient (CLI) | payer MEDICARE ==
[~2017-03-10] MED LIST changes: -ERTAPENEM 1000 MG (INVanz) VIAL ONE; -NS (IVPB) 50 ML ONE
== END ==
LOC: CARD 11:48
PROVIDERS: ATTEND Internal Medicine Cardiovascular Disease
DX: I42.0 Dilated cardiomyopathy (principal); I25.10 Atherosclerotic heart disease of native coronary artery without angina pectoris; N18.3 Chronic kidney disease, stage 3 (moderate); I49.3 Ventricular premature depolarization
CPT/HCPCS: 93306

== ENCOUNTER → 2017-06-27 | Outpatient (CLI) | payer MEDICARE ==
--- NOTE | 2017-06-27 12:17 | Diagnostic Imaging Report ---
INDICATION: Shortness of breath. TIME OF EXAM: 12:03 p.m. COMPARISON: Correlation is made with prior study from 01/28/2017. FINDINGS: The heart size is normal. The pulmonary vascularity is normal. No infiltrates are detected. There is a suggestion of some blunting of the posterior sulcus on the lateral view, perhaps on the right. This may indicate minimal pleural fluid or pleural thickening. No other abnormalities are seen. IMPRESSION: Questionable minimal pleural fluid or pleural thickening. The study is otherwise unremarkable. Dictated by: Dictated on workstation # [id number]
== END ==
LOC: RAD 11:33
PROVIDERS: ATTEND Nurse Practitioner Family
DX: R06.02 Shortness of breath (principal)
CPT/HCPCS: 71046

== ENCOUNTER → 2017-08-10 | Outpatient (CLI) | payer MEDICARE ==
[~2017-08-10] MED LIST changes: -HYDR-3816 PO
== END ==
LOC: RT 10:44
PROVIDERS: ATTEND Nurse Practitioner Family
DX: G47.34 Idiopathic sleep related nonobstructive alveolar hypoventilation (principal); J30.9 Allergic rhinitis, unspecified; R06.02 Shortness of breath
CPT/HCPCS: 94060; 94726; 94729

== ENCOUNTER 2017-08-15 19:50 | Outpatient (CLI) | payer MEDICARE | END 2017-08-16 06:34 | disposition home or self-care (01) | LOC: SLEEP 19:50 | PROVIDERS: ATTEND Nurse Practitioner Family | DX: G47.10 Hypersomnia, unspecified (principal); G47.36 Sleep related hypoventilation in conditions classified elsewhere | CPT/HCPCS: 95810 ==

== ENCOUNTER 2017-09-12 13:13 | Outpatient (CLI) | payer MEDICARE ==
[~2017-09-12] VITALS: Ht 180.3 cm; Wt 112.5 kg
[2017-09-12 13:31] VITALS: BP 137/75
[2017-09-12] MEDS ORDERED: PANT40TA3 PO (13:35)
[2017-09-12] MEDS ORDERED: MULT-1056 PO (13:36)
[2017-09-15] MEDS ORDERED: OXYC-202 PO (10:09)
== END 2017-09-12 13:50 | disposition home or self-care (01) ==
LOC: PREOP 13:13
PROVIDERS: ATTEND Surgery
DX: Z01.818 Encounter for other preprocedural examination (principal); Z11.2 Encounter for screening for other bacterial diseases; L98.9 Disorder of the skin and subcutaneous tissue, unspecified
CPT/HCPCS: 87081

== ENCOUNTER 2017-09-15 07:56 | Day surgery (SDC) | payer MEDICARE ==
[~2017-09-15] VITALS: Ht 180.3 cm; Wt 112.5 kg
[~2017-09-15 07:56] MED LIST changes: +MULT-1056 PO; +PANT40TA3 PO
--- NOTE | 2017-09-15 08:02 | Progress Note-Pre Operative ---
Pre-Operative Progress Note H&P Reviewed The H&P was reviewed, patient examined and no changes noted. Date Seen by Provider: Sep 15, 2017 Time Seen by Provider: 08:00 Date H&P Reviewed: Sep 15, 2017 Time H&P Reviewed: 07:55 Pre-Operative Diagnosis: Symptomatic lesions right and left neck, right forehead RAVIN HERMOSILLO APRN Sep 15, 2017 8:02 am
[2017-09-15] MEDS ORDERED: BUP/EPI 0.5% 1:200,000 (SENSORCAINE) 30 ML VIAL ONE (08:15)
[2017-09-15] MEDS ORDERED: LIDOCAINE PF 2% 5 ML (XYLOCAINE) VIAL ONE (08:20)
[2017-09-15] MEDS ORDERED: fentaNYL INJECTION 100 MCG/2 ML AMP ONE (08:20)
[2017-09-15] MEDS ORDERED: DEXAMETHASONE 10 MG/ML (DECADRON) 1 ML VIAL ONE (08:20)
[2017-09-15] MEDS ORDERED: ONDANSETRON 4 MG/2 ML (SDV) Z0FRAN ONE (08:20)
[2017-09-15] MEDS ORDERED: SEVOFLURANE (ULTANE) 15 ML INHAL SOLN ONE ×2 (08:20→10:09)
[2017-09-15] MEDS ORDERED: proPOfol 200 MG/20 ML (DIPRIVAN) VIAL IV ONE (08:20)
[2017-09-15] MEDS ORDERED: LACTATED RINGERS 1,000 ML IV PRN ×2 (08:23→09:53)
[2017-09-15] MEDS ORDERED: ceFAZolin 2 GM IV Premixed 50 ML ONE (08:30)
[2017-09-15] MEDS ORDERED: FAMOTIDINE 20MG/2ML IV (PEPCID) IV ONE (08:30)
[2017-09-15] MEDS ORDERED: ceFAZolin 1,000 MG (ANCEF) VIAL ONE (08:31)
[2017-09-15] MEDS ORDERED: NS (IVPB) 50 ML ONE (08:31)
[2017-09-15 08:41] VITALS: BP 130/70
[2017-09-15] MEDS ORDERED: ONDANSETRON 4 MG/2 ML (SDV) Z0FRAN IVP PRN ×2 (08:45→10:15)
[2017-09-15] MEDS ORDERED: morphine INJ 10 MG/ML 1ML (SYR OR VIAL) IVP PRN ×2 (08:45→10:15)
--- NOTE | 2017-09-15 10:07 | Progress Note-Post Operative ---
Post-Operative Progess Note Surgeon (s)/Customer Agent (s) Surgeon ROSA DOMINGUEZ MD Customer Agent: hugo auguste [employer] OPERATOR Pre-Operative Diagnosis Symptomatic lesions right and left neck, right forehead Post-Operative Diagnosis skin lesion left neck(7x3cm), right neck(3x2cm), right forehead(4x2cm). Procedure & Operative Findings Date of Procedure 09/15/17 Procedure Performed/Findings excision skin lesion left neck(7x3cm), right neck(3x2cm), right forehead(4x2cm) with intermediate flap closure Anesthesia Type general LMA Estimated Blood Loss Estimated blood loss (mL): minimal Specimens/Packing Specimens Removed skin lesion left neck(7x3cm), right neck(3x2cm), right forehead(4x2cm). ROSA DOMINGUEZ MD Sep 15, 2017 10:07 am
[2017-09-15] MEDS ORDERED: OXYC-202 PO (10:09)
--- NOTE | 2017-09-15 10:11 | Discharge Inst-Surgical ---
D/C Lap Instructions-ANGELICA New, Converted, or Re-Newed RX: RX on Chart Follow Up Appt in 2 weeks Activity as tolerated Regular Diet Symptoms to Report: Fever over 101 degree F, Nausea/Vomiting Infection Signs and Symptoms to report: Increased redness, Foul odor of wound, Increased drainage Bathing instructions: May shower Operative Area Clean/Dry; Keep incision clean/dry If any problems/questions: Contact your physician or go to Emergency Room ROSA DOMINGUEZ MD Sep 15, 2017 10:11 am
[2017-09-15] MEDS ORDERED: ACETAMINOPHEN 325 MG TABLET PO PRN (10:15)
[2017-09-15] MEDS ORDERED: oxyCODONE/APAP 5/325MG (PERCOCET 5) TABLET PO PRN (10:15)
[2017-09-15 11:20] VITALS: BP 153/77
[2017-09-15 11:25] VITALS: BP 153/77
[2017-09-15 11:50] VITALS: BP 139/78
[2017-09-15 12:20] VITALS: BP 138/77
--- OUTSIDE RECORDS SUMMARY | 2017-09-15 13:00 | XMS REPORT | Clinical Summary ---
Author Author [facility] Organization [facility] Address Unknown Phone Unavailable Care Team Providers Care Personal Banker Name Role Phone Yan Leon MD PCP Source Comments Some departments are not documenting in the electronic medical record. If you do not see the information that you expected, contact Release of Information in the Health Information Management department at [phone] for further assistance in locating additional records.[facility] Allergies No Known Allergies Current Medications Prescription Sig. Disp. Refills Start End Date Status Date aspirin EC 81 mg tablet Take 81 mg by mouth Active daily. Take with food. carvedilol (COREG) 6.25 Take 6.25 mg by mouth Active mg tablet twice daily with meals. Take with food. latanoprost (XALATAN) Apply 1 Drop to both eyes Active 0.005 % ophthalmic at bedtime daily. solution magnesium oxide (MAG-OX) Take 400 mg by mouth as Active 400 mg tablet Needed (take with furosemide). polyethylene glycol 3350 Take 1 packet by mouth 12 each 01/20/20 Active (MIRALAX) 17 g packet daily. 17 senna (SENOKOT) 8.6 mg Take 2 tablets by mouth 90 tablet 3 01/20/20 Active tablet twice daily as needed. 17 oxyCODONE/acetaminophen Take 1-2 tablets by mouth 30 tablet 0 Active (PERCOCET; ENDOCET; every 6 hours as needed 17 ROXICET) 5/325 mg tablet melatonin 3 mg tab Take 1 tablet by mouth at 01/20/20 Active bedtime daily. [address] Take 1 tablet by mouth 30 tablet 5 01/20/20 Active (PROTONIX) 40 mg tablet twice daily. 17 acetaminophen (TYLENOL) Take 2 tablets by mouth 0 02/04/20 Active 325 mg tablet every 4 hours as needed. 17 lactobacillus rhamnosus Take 1 capsule by mouth 90 capsule 3 02/04/20 Active GG (CULTURELLE) 15 as directed twice daily 17 billion cell cpSP capsule with meals. micafungin (MYCAMINE) 100 Administer 100 mg through 02/04/20 Active mg/5 mL 100 mg in sodium vein every 24 hours. 17 chloride 0.9% (NS) 0.9 % 100 mL IVPB (MB+) ertapenem (INVANZ) 1 g/10 Administer 1 g through 02/04/20 Active mL 1 g in sodium chloride vein every 24 hours. 17 0.9% (NS) 0.9 % 100 mL IVPB (MB+) DAPTOmycin (CUBICIN) 500 Administer 435 mg through 02/04/20 Active mg/10 mL 435 mg in sodium vein every 24 hours. 17 chloride 0.9% (NS) 0.9 % 108.7 mL IVPB 0.9 % SODIUM CHLORIDE Administer 5-10 mL 60 Syringe 1 02/04/20 Active (SODIUM CHLORIDE PF 0.9%) through vein FLUSH TID. 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 Resolved Problems Problem Noted Date Resolved Date Bile leak 01/10/2017 01/31/2017 Overview: Added automatically from request for surgery [id number] Social History Tobacco Use Types Packs/Day Years Used Date Never Smoker Smokeless Tobacco: Never Used Alcohol Use Drinks/Week oz/Week Comments No Sex Assigned at Date Recorded Not on file Last Filed Vital Signs Vital Sign Reading Time Taken Blood Pressure 150/79 02/14/2017 3:14 PM CDT Pulse 70 02/14/2017 3:14 PM CDT Temperature 36.4 C (97.5 F) 02/14/2017 3:14 PM CDT Respiratory Rate - - Oxygen Saturation 99% 02/14/2017 12:18 PM CDT Inhaled Oxygen - - Concentration Weight 99 kg (218 lb 4.1 oz) 02/14/2017 3:14 PM CDT Height 180.3 cm (5' 10.98") 02/14/2017 3:14 PM CDT Body Mass Index 30.45 02/14/2017 3:14 PM CDT Plan of Treatment Health Maintenance Due Date Last Done Comments PHYSICAL (COMPREHENSIVE) 1947 EXAM PERTUSSIS VACCINE 1949 TETANUS VACCINE 12/25/1955 SHINGLES VACCINE 1998 PREVNAR/PNEUMOVAX (#1) 12/25/2003 INFLUENZA VACCINE 03/06/2018 Implants Implanted Type Area External Grinder Tool Device Expiration Model / Identifier Date Serial / Lot 8 Fr Feeding Tube N/A: Bile 07/07/2021 / Implanted: Qty: 1 on 01/13/2017 by Duct [id number] Seng Alexandra MD / [id number] Results Not on filefrom Last 3 Months
--- OUTSIDE RECORDS SUMMARY | 2017-09-15 13:00 | XMS REPORT | Continuity of Care Document ---
Author Author [employer] Organization [facility] Address Unknown Phone Unavailable Care Team Providers Care Incident Response Manager Name Role Phone [employer] Unavailable Unavailable Problems Medications Allergies, Adverse Reactions, Alerts Immunizations Results Vital Signs Encounters Location Location Details Encounter Type Encounter Number Reason For Visit Attending Provider ADM Date DC Date Status Source INPATIENT [id number] [facility] 01/28/2017 02/03/[address] [facility] OP SURGERY [id number] [facility] 01/31/2017 01/31/[address] [facility] O 01/31/[address] [facility] OUTPATIENT [id number] [facility] 02/14/2017[address] [facility] Procedures Plan of Care Social History Assessment and Plan Family History Advance Directives Functional Status
--- NOTE | 2017-09-15 13:17 | Anesthesia-General Post-Op ---
General Patient Condition Mental Status/LOC: Same as Preop Cardiovascular: Satisfactory Nausea/Vomiting: Absent Respiratory: Satisfactory Pain: Controlled Complications: Absent Post Op Complications Complications None Follow Up Care/Instructions Patient Instructions None needed. Anesthesia/Patient Condition Patient Condition Patient was seen prior to discharge to home and was doing well, no complaints, stable vital signs, no apparent adverse anesthesia problems. TIEN EDWARDS DO Sep 15, 2017 13:17
--- NOTE | 2017-09-15 15:53 | OPERATIVE REPORT ---
DATE OF SERVICE: 09/15/2017 ATTENDING PRIMARY CARE PHYSICIAN: Dr. Yan Leon. PREOPERATIVE DIAGNOSIS: Three symptomatic lesions, one at the right neck 3 x 2 cm in size. One at the left neck 7 x 3 cm in size and one at the right forehead 4 x 2 cm in size. All of these lesions have been around for 3 or more years; however, they would become symptomatic and grow larger in size, raise, hyperkeratotic and would also bleed. 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 DESCRIPTION OF PROCEDURE: The patient was brought to the operating room, laid supine on the table. After adequate IV pain and sedating medications and general laryngeal mask airway intubation, the face and neck were prepped and draped in standard surgical fashion. We first proceeded with excision of the larger lesion, which was of the left lateral neck just below the ear. The lesion was measured out to be 7 x 3 cm in size. The area was then anesthetized using 0.5% Marcaine with epinephrine. We then proceeded with full excision of the lesion using a 15 blade to the subcutaneous fat level. Good hemostasis was observed and the subcutaneous tissue was reapproximated using 4-0 Vicryl interrupted sutures. Skin edges were then reapproximated after flaps were created using 3-0 Prolene interrupted sutures. Wound was then cleaned and covered with sterile gauze. We then proceeded with excision of the right forehead lesion. This lesion was measured out to be 4 x 2 cm. The lesion was then fully excised using a 15 blade. We then proceeded to create superior and inferior flaps to be able to close the wound without any tension. Once this was performed, the skin was closed using interrupted 3-0 Prolene sutures. We then proceeded with excision of the right neck lesion. The lesion was measured out to be 3 x 2 cm in size. The lesion was anesthetized using 0.5% Marcaine with epinephrine. The lesion was then excised using a 15 blade. Good hemostasis was observed and the subcutaneous tissue was then reapproximated using 2-0 Vicryl interrupted sutures. Skin was closed using 4-0 Prolene interrupted sutures. Remaining wounds were then cleaned and covered with sterile gauze. The patient tolerated the procedure well. We will await the biopsy results and have him return in the office in approximately 10 days to reevaluate the wounds as well as to potentially remove the sutures. Job ID: [id number] DocumentID: [id number] Dictated Date: 09/15/2017 10:18:33 [employer] Emb[employer] Press Operator Date: 09/15/2017 15:32:34 Dictated By: ROSA DOMINGUEZ MD
== END 2017-09-15 11:25 | disposition home or self-care (01) ==
LOC: SDC 07:56
PROVIDERS: ATTEND Surgery
DX: C44.41 Basal cell carcinoma of skin of scalp and neck (principal); C44.310 Basal cell carcinoma of skin of unspecified parts of face; C44.42 Squamous cell carcinoma of skin of scalp and neck; I10 Essential (primary) hypertension; G47.33 Obstructive sleep apnea (adult) (pediatric); F41.9 Anxiety disorder, unspecified; K21.9 Gastro-esophageal reflux disease without esophagitis; Z79.82 Long term (current) use of aspirin; Z79.899 Other long term (current) drug therapy
CPT/HCPCS: 88305

== ENCOUNTER 2017-10-08 19:57 | Outpatient (CLI) | payer MEDICARE ==
[~2017-10-08 19:57] MED LIST changes: +OXYC-202 PO
== END 2017-10-09 06:30 | disposition home or self-care (01) ==
LOC: SLEEP 19:57
PROVIDERS: ATTEND Nurse Practitioner Family
DX: G47.33 Obstructive sleep apnea (adult) (pediatric) (principal); G47.34 Idiopathic sleep related nonobstructive alveolar hypoventilation
CPT/HCPCS: 95811

== ENCOUNTER 2017-11-11 15:04 | Emergency (ER) | payer MEDICARE ==
[~2017-11-11] VITALS: Ht 180.3 cm; Wt 104.3 kg
--- OUTSIDE RECORDS SUMMARY | 2017-11-11 15:08 | XMS REPORT | Clinical Summary ---
Author Author [facility] Organization [facility] Address Unknown Phone Unavailable Care Team Providers Care Mica Miner Blasting Name Role Phone Yan Leon MD PCP Source Comments Some departments are not documenting in the electronic medical record. If you do not see the information that you expected, contact Release of Information in the Health Information Management department at [phone] for further assistance in locating additional records.[facility] Allergies No Known Allergies Current [...] Overview: Added automatically from request for surgery [id number] Social History Tobacco Use Types Packs/Day Years [...] 1949 TETANUS VACCINE 12/25/1955 SHINGLES VACCINE 1998 PNEUMONIA (PCV13/PPSV23) 12/25/2003 VACCINES (1 of 2 - PCV13) INFLUENZA VACCINE 03/06/2018 05/25/2016, 03/17/2007, 03/09/1996 Implants Implanted Type Area Journeyman Welder Device Expiration Model / Identifier Date Serial / Lot 8 Fr Feeding Tube N/A: Bile 07/07/2021 / Implanted: Qty: 1 on 01/13/2017 by Duct [id number] Seng Alexandra MD / [id number] Results Not on filefrom Last 3 Months
[2017-11-11] MEDS ORDERED: ONDANSETRON 4 MG/2 ML (SDV) Z0FRAN ONE (16:08)
[2017-11-11] MEDS ORDERED: NS IV 1000 ML 1,000 ML IV STA (16:08)
[2017-11-11] MEDS ORDERED: ONDANSETRON 4 MG/2 ML (SDV) Z0FRAN IVP ONE (16:15)
--- NOTE | 2017-11-11 16:17 | ED GI ---
General Stated Complaint: COLD;BODY ACHES Source of Information: Patient Exam Limitations: No Limitations History of Present Illness Date Seen by Provider: Nov 11, 2017 Time Seen by Provider: 16:05 Initial Comments Here with report of nausea and vomiting today. Also had bodyaches. This is been going on over the last 2 days. Did take a Percocet today but that did not help significantly and ultimately he has vomited that after arrival here. Denies blood in his vomit or stool. Denies breathing problems. Timing/Duration: 1-2 Days Severity/Quality: Moderate, Cramping Location: Generalized Abdomen Radiation: No Radiation Modifying Factors: Worsens With Eating Associated Symptoms: No Back Pain, No Chest Pain; Fever/Chills, Fatigue, Nausea /Vomiting; No Shortness of Air; Weakness Allergies and Home Medications Allergies Coded Allergies: No Known Drug Allergies (Unverified , 07/26/16) Home Medications Alfuzosin HCl 10 Mg Tab.sr.24h, 10 MG PO DAILY, (Reported) Aspirin 81 Mg Tablet.dr, 81 MG PO DAILY, (Reported) Carvedilol 6.25 Mg Tablet, 6.25 MG PO BID, (Reported) Cetirizine HCl 10 Mg Tablet, 10 MG PO HS, (Reported) Fluticasone Propionate 9.9 Ml [place].susp, 2 SPRAYS NS HS, (Reported) Furosemide 80 Mg Tablet, 80 MG PO UD PRN for SWELLING, (Reported) TAKES APPROXIMATELY TWICE WEEKLY WITH KLOR-CON AND MAGNESIUM Ibuprofen 200 Mg Tablet, 400 MG PO BID PRN for PAIN-MILD, (Reported) TAKES 2 (200 MG) TABLETS Latanoprost 2.5 Ml Drops, 1 DROP OU HS, (Reported) Lorazepam 0.5 Mg Tablet, 0.5 MG PO HS PRN for INSOMNIA, (Reported) Losartan Potassium 25 Mg Tablet, 25 MG PO DAILY, (Reported) Magnesium Oxide 400 Mg Tablet, 400 MG PO UD PRN for WHEN TAKING FUROSEMIDE, ( Reported) TAKES APPROXIMATELY TWICE WEEKLY WITH FUROSEMIDE AND KLOR-CON Multivit-Min/FA/Lycopen/Lutein 1 Each Tablet, 1 EACH PO DAILY, (Reported) Ondansetron 4 Mg Tab.rapdis, 4 MG PO Q6H PRN for NAUSEA/VOMITING Prescribed by: GENA VELASCO on 11/11/17 4843 Oxycodone HCl/Acetaminophen 1 Each Tablet, 1 TAB PO Q4H PRN for PAIN-MODERATE, ( Reported) Oxycodone HCl/Acetaminophen 1 Each Tablet, 1 EACH PO Q4H Prescribed by: ROSA DOMINGUEZ on 09/15/17 1009 Pantoprazole Sodium 40 Mg Tablet.dr, 40 MG PO DAILY, (Reported) Potassium Chloride 20 Meq Tab.er.prt, 20 MEQ PO UD PRN for WHEN TAKING FUROSEMIDE, (Reported) TAKES APPROXIMATELY 2 TIMES PER WEEK WITH FUROSEMIDE AND MAGNESIUM / LAST FILLED 05/2016 #25 Patient Home Medication List Home Medication List Reviewed: Yes Review of Systems Constitutional: see HPI; No chills, No fever EENTM: No Symptoms Reported Respiratory: No Symptoms Reported Cardiovascular: Denies Chest Pain, Denies Edema Gastrointestinal: Abdominal Pain, Nausea, Vomiting Genitourinary: No Symptoms Reported Musculoskeletal: No muscle pain; muscle weakness Skin: change in color (pallor); No lesions, No rash Psychiatric/Neurological: No Symptoms Reported Endocrine: No Symptoms Reported All Other Systems Reviewed Negative Unless Noted: Yes Past Qtflpwf-Fjnpzw-Zbrfts Hx Past Med/Social Hx: Reviewed Nursing Past Med/Soc Hx Patient Social History Alcohol Use: Denies Use Recreational Drug Use: No Smoking Status: Never a Smoker Recent Foreign Travel: No Contact w/Someone Who Travel: No Recent Hopitalizations: No Immunizations Up To Date Tetanus Booster (TDap): Unknown Date of Pneumonia Vaccine: Jun 01, 2016 Date of Influenza Vaccine: Mar 06, 2016 Seasonal Allergies Seasonal Allergies: Yes Past Medical History Surgeries: Yes (bilateral total knee replacement. 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) Arthritis Endocrine: No HEENT: Yes Cataract, Glaucoma Loss of Vision: Bilateral Hearing Impairment: Hard of Hearing Cancer: Yes Skin What Type of Treatment Did You: Surgical Intervention Psychosocial: Yes Anxiety Integumentary: Yes (RED DRY AREAS ON NECK) Recent Skin Changes Blood Disorders: No Adverse Reaction/Blood Tranf: No Family Medical History Reviewed Nursing Family Hx Alcoholism 19 FATHER, , Age:48, Onset:Unknown Bone cancer G8 BROTHER, , Onset:Unknown Colon cancer G8 SISTER, Onset:Unknown Heart valve abnormality 19 MOTHER, , Age:95, Onset:Unknown G8 SISTER, Onset:Unknown No Family History of: AIDS Abdominal aortic aneurysm Custer's disease Alzheimer's disease Aphasia Arthritis Asthma Cancer of mouth Cardiovascular disease Cataracts Completed stroke Congenital disease Congenital heart disease Coronary thrombosis Cystic fibrosis Deafness or hearing loss Dementia Diabetes mellitus Drug abuse Dysphasia Fibrocystic disease of breast Gastroenteritis Glaucoma Headache disorder Hypercholesterolemia Hypertension Infertility Kidney disease Myocardial infarction Neoplasm Not obtainable due to adoption Osteoporosis Parkinson's disease Prostate cancer Psychosocial problem Respiratory disorder Seizure disorder Severe allergy Thyroid disease Tuberculosis Visual disorder No Pertinent Family Hx Physical Exam Vital Signs Vital Signs - First Documented 11/11/17 16:11 Temp 98.4 Pulse 103 Resp 20 B/P (MAP) 112/76 (88) Pulse Ox 92 O2 Delivery Room Air Capillary Refill : General Appearance: WD/WN, mild distress (nausea and vomiting) HEENT: PERRL/EOMI, pharynx normal Neck: full range of motion, supple Respiratory: lungs clear, normal breath sounds Cardiovascular: no murmur, tachycardia Gastrointestinal: non tender, soft, abnormal bowel sounds (active) Extremities: non-tender, normal inspection, other (right AKA) Back: normal inspection, no CVA tenderness, no vertebral tenderness Neurologic/Psychiatric: alert, oriented x 3 Skin: normal color, warm/dry Progress/Results/Core Measures Results/Orders Lab Results Laboratory Tests Test 11/11/17 16:11 Range/Units White Blood Count 8.4 4.3-11.0 10^3/uL Red Blood Count 4.93 4.35-5.85 10^6/uL Hemoglobin 14.4 13.3-17.7 G/DL Hematocrit 42 40-54 % Mean Corpuscular Volume 85 80-99 FL Mean Corpuscular Hemoglobin 29 25-34 PG Mean Corpuscular Hemoglobin Concent 34 32-36 G/DL Red Cell Distribution Width 13.9 10.0-14.5 % Platelet Count 115 L 130-400 10^3/uL Mean Platelet Volume 10.2 7.4-10.4 FL Neutrophils (%) (Auto) 93 H 42-75 % Lymphocytes (%) (Auto) 4 L 12-44 % Monocytes (%) (Auto) 1 0-12 % Eosinophils (%) (Auto) 1 0-10 % Basophils (%) (Auto) 0 0-10 % Neutrophils # (Auto) 7.8 1.8-7.8 X 10^3 Lymphocytes # (Auto) 0.4 L 1.0-4.0 X 10^3 Monocytes # (Auto) 0.1 0.0-1.0 X 10^3 Eosinophils # (Auto) 0.1 0.0-0.3 10^3/uL Basophils # (Auto) 0.0 0.0-0.1 10^3/uL Neutrophils % (Manual) 84 % Lymphocytes % (Manual) 8 % Monocytes % (Manual) 0 % Eosinophils % (Manual) 0 % Basophils % (Manual) 0 % Band Neutrophils 8 % Blood Morphology Comment NORMAL Sodium Level 138 135-145 MMOL/L Potassium Level 4.0 3.6-5.0 MMOL/L Chloride Level 107 98-107 MMOL/L Carbon Dioxide Level 22 21-32 MMOL/L Anion Gap 9 5-14 MMOL/L Blood Urea Nitrogen 23 H 7-18 MG/DL Creatinine 1.23 0.60-1.30 MG/DL Estimat Glomerular Filtration Rate 57 BUN/Creatinine Ratio 19 Glucose Level 146 H 70-105 MG/DL Calcium Level 9.4 8.5-10.1 MG/DL Total Bilirubin 2.2 H 0.1-1.0 MG/DL Aspartate Amino Transf (AST/SGOT) 73 H 5-34 U/L Alanine Aminotransferase (ALT/SGPT) 70 H 0-55 U/L Alkaline Phosphatase 267 H 40-136 U/L Total Protein 7.0 6.4-8.2 GM/DL Albumin 3.7 3.2-4.5 GM/DL My Orders Orders - GENA VELASCO MD Cbc With Automated Diff (11/11/17 16:08) Comprehensive Metabolic Panel (11/11/17 16:08) Ondansetron Injection (Zofran Injectio (11/11/17 16:15) Ns Iv 1000 Ml (Sodium Chloride 0.9%) (11/11/17 16:08) Saline Lock/Iv-Start (11/11/17 16:08) Ondansetron Injection (Zofran Injectio (11/11/17 16:08) Manual Differential (11/11/17 16:11) Saline Lock/Iv-Start (11/11/17 17:25) Ns Iv 500 Ml (Sodium Chloride 0.9%) (11/11/17 17:25) Medications Given in ED Current Medications Medications Dose Ordered Sig/Lillian Route Start Time Stop Time Status Last Admin Dose Admin Ondansetron HCl 4 mg ONCE ONCE IVP 11/11/17 16:15 11/11/17 16:16 DC 11/11/17 16:16 4 MG Sodium Chloride 500 ml @ 0 mls/hr Q0M ONCE IV 11/11/17 17:25 11/11/17 17:27 DC 11/11/17 17:34 0 MLS/HR Vital Signs/I&O 11/11/17 16:11 Temp 98.4 Pulse 103 Resp 20 B/P (MAP) 112/76 (88) Pulse Ox 92 O2 Delivery Room Air Progress Progress Note : Progress Note Seen and evaluated. IV, labs, normal saline 1 L bolus and Zofran 4 mg IV. Monitor patient. Patient markedly improved after fluids. Heart rate still near 100. We will repeat normal saline 500 mL bolus. Patient is trying sips of clear liquids now. Anticipate discharge home. Patient state he is feeling much better. Discussed with patient about liver enzymes being elevated. This is likely the result of the vomiting last but needs to be rechecked to ensure improved. Patient verbalize understanding and will follow up with his doctor next week. Discharged home with return precautions. Patient verbalize understanding instructions and agreement with plan. Departure Impression Primary Impression: Nausea and vomiting in adult Additional Impression: Viral syndrome Disposition: 01 HOME, SELF-CARE Condition: Improved Departure-Patient Inst. Decision time for Depature: 17:32 Referrals: SAMUEL FERNANDEZ MD (PCP/Family) Primary Care Physician Patient Instructions: Nausea and Vomiting, Adult (DC), Viral Syndrome (DC) Add. Discharge Instructions: You likely had viral syndrome causing the nausea and vomiting. You should stick to clear liquid diet for the next 12-24 hours and then advance as tolerated with light diet of crackers, toast etc. Follow-up with your doctor early next week for recheck and further evaluation. Your liver enzymes are elevated today which may be from the nausea and vomiting but we want to make sure that that has improved. You will need for recheck of that and you can do this through your doctor's office. Return for worse pain, fever, vomiting, weakness, breathing problems or other concerns as needed. Scripts Ondansetron (Ondansetron Odt) 4 Mg Tab.rapdis 4 MG PO Q6H PRN for NAUSEA/VOMITING, #8 TAB 0 Refills Prov: GENA VELASCO MD 11/11/17 Copy Copies To 1: SAMUEL FERNANDEZ MD, TIMOTHY D MD Nov 11, 2017 16:17
[2017-11-11 16:22] LABS: BASOPHILS % (AUTO) 0 % (0-10); EOSINOPHILS # (AUTO) 0.1 10^3/uL (0.0-0.3); EOSINOPHILS % (AUTO) 1 % (0-10); HEMATOCRIT 42 % (40-54); HEMOGLOBIN 14.4 G/DL (13.3-17.7); LYMPHOCYTES # (AUTO) 0.4 X 10^3 (1.0-4.0); LYMPHOCYTES % (AUTO) 4 % (12-44); MEAN CORPUSCULAR HEMOGLOBIN 29 PG (25-34); MEAN CORPUSCULAR HGB CONC 34 G/DL (32-36); MEAN CORPUSCULAR VOLUME 85 FL (80-99); MEAN PLATELET VOLUME 10.2 FL (7.4-10.4); MONOCYTES # (AUTO) 0.1 X 10^3 (0.0-1.0); MONOCYTES % (AUTO) 1 % (0-12); NEUTROPHILS # (AUTO) 7.8 X 10^3 (1.8-7.8); NEUTROPHILS % (AUTO) 93 % (42-75); PLATELET COUNT 115 10^3/uL (130-400); RED BLOOD COUNT 4.93 10^6/uL (4.35-5.85); RED CELL DISTRIBUTION WIDTH 13.9 % (10.0-14.5); WHITE BLOOD COUNT 8.4 10^3/uL (4.3-11.0)
[2017-11-11 16:38] LABS: BAND NEUTROPHILS 8 %; BASOPHILS % (MANUAL) 0 %; EOSINOPHILS % (MANUAL) 0 %; LYMPHOCYTES % (MANUAL) 8 %; MONOCYTES % (MANUAL) 0 %; NEUTROPHILS % (MANUAL) 84 %; RBC MORPH NORMAL
[2017-11-11 16:43] LABS: ALBUMIN 3.7 GM/DL (3.2-4.5); BILIRUBIN,TOTAL 2.2 MG/DL (0.1-1.0); CALCIUM 9.4 MG/DL (8.5-10.1); CREATININE SERUM 1.23 MG/DL (0.60-1.30)
[2017-11-11] MEDS ORDERED: NS IV 500 ML 500 ML IV ONE (17:25)
[2017-11-11] MEDS ORDERED: ONDA4TAB11 PO (17:34)
[2017-11-11 19:26] VITALS: BP 125/68
== END 2017-11-11 19:24 | disposition home or self-care (01) ==
LOC: EDUNIT# 15:04 → ER 15:05
DX: B34.9 Viral infection, unspecified (principal); R11.2 Nausea with vomiting, unspecified; I10 Essential (primary) hypertension; G62.9 Polyneuropathy, unspecified; K21.9 Gastro-esophageal reflux disease without esophagitis; M17.12 Unilateral primary osteoarthritis, left knee; F41.9 Anxiety disorder, unspecified; Z87.19 Personal history of other diseases of the digestive system; Z90.89 Acquired absence of other organs; Z96.652 Presence of left artificial knee joint; Z96.651 Presence of right artificial knee joint; Z98.52 Vasectomy status; Z87.2 Personal history of diseases of the skin and subcutaneous tissue; Z89.512 Acquired absence of left leg below knee; Z79.82 Long term (current) use of aspirin
CPT/HCPCS: 36415; 80053; 85007; 85027; 96361; 96374

== ENCOUNTER → 2017-11-15 | Outpatient (CLI) | payer MEDICARE ==
[~2017-11-15] MED LIST changes: +ONDA4TAB11 PO
[2017-11-15 10:55] LABS: BASOPHILS % (AUTO) 1 % (0-10); EOSINOPHILS # (AUTO) 0.1 10^3/uL (0.0-0.3); EOSINOPHILS % (AUTO) 1 % (0-10); HEMATOCRIT 39 % (40-54); HEMOGLOBIN 13.6 G/DL (13.3-17.7); LYMPHOCYTES # (AUTO) 1.1 X 10^3 (1.0-4.0); LYMPHOCYTES % (AUTO) 22 % (12-44); MEAN CORPUSCULAR HEMOGLOBIN 30 PG (25-34); MEAN CORPUSCULAR HGB CONC 35 G/DL (32-36); MEAN CORPUSCULAR VOLUME 85 FL (80-99); MEAN PLATELET VOLUME 9.9 FL (7.4-10.4); MONOCYTES # (AUTO) 0.5 X 10^3 (0.0-1.0); MONOCYTES % (AUTO) 11 % (0-12); NEUTROPHILS # (AUTO) 3.1 X 10^3 (1.8-7.8); NEUTROPHILS % (AUTO) 65 % (42-75); PLATELET COUNT 121 10^3/uL (130-400); RED BLOOD COUNT 4.58 10^6/uL (4.35-5.85); RED CELL DISTRIBUTION WIDTH 13.7 % (10.0-14.5); WHITE BLOOD COUNT 4.8 10^3/uL (4.3-11.0)
[2017-11-15 11:14] LABS: ALANINE AMINOTRANSFERASE 54 U/L (0-55); ALBUMIN 3.3 GM/DL (3.2-4.5); ALKALINE PHOSPHATASE 305 U/L (40-136); BILIRUBIN,TOTAL 1.7 MG/DL (0.1-1.0); BUN/CREATININE RATIO 19; CALCIUM 9.3 MG/DL (8.5-10.1); CARBON DIOXIDE 21 MMOL/L (21-32); CHLORIDE 110 MMOL/L (98-107); CREATININE SERUM 0.99 MG/DL (0.60-1.30); GFR ESTIMATED > 60; GLUCOSE 101 MG/DL (70-105); LIPASE 15 U/L (8-78); SODIUM 140 MMOL/L (135-145); TOTAL PROTEIN 6.7 GM/DL (6.4-8.2)
== END ==
LOC: LAB 10:32
PROVIDERS: ATTEND Family Medicine
DX: R10.11 Right upper quadrant pain (principal); R74.8 Abnormal levels of other serum enzymes; D69.6 Thrombocytopenia, unspecified
CPT/HCPCS: 36415; 80053; 83690; 85025

== ENCOUNTER 2018-01-02 09:48 | Emergency (ER) | payer MEDICARE ==
[~2018-01-02] VITALS: Ht 180.3 cm; Wt 104.3 kg
--- OUTSIDE RECORDS SUMMARY | 2018-01-02 09:56 | XMS REPORT | Clinical Summary ---
Author Author [facility] Organization [facility] Address Unknown Phone Unavailable Care Team Providers Care Proof Carrier Name Role Phone Yan Leon MD PCP Source Comments Some departments are not documenting in the electronic medical record. 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 Resolved Problems Problem Noted Date Resolved Date Bile leak 01/10/2017 01/31/2017 Overview: Added automatically from request for surgery [id number] Social History Tobacco Use Types Packs/Day Years [...] PERTUSSIS VACCINE 1949 TETANUS VACCINE 12/25/1955 SHINGLES RECOMBINANT 1988 VACCINE (1 of 2) PNEUMONIA (PCV13/PPSV23) 12/25/2003 VACCINES (1 of 2 - PCV13) INFLUENZA VACCINE 03/06/2018 05/25/2016, 03/17/2007, 03/09/1996 Implants Implanted Type Area Trimming Press Operator Device Expiration Model / Identifier Date Serial / Lot 8 Fr Feeding Tube N/A: Bile 07/07/2021 / Implanted: Qty: 1 on 01/13/2017 by Duct [id number] Seng Alexandra MD / [id number] Results Not on filefrom Last 3 Months
[2018-01-02 11:58] VITALS: BP 144/83
[2018-01-02 11:58] LABS: BASOPHILS % (AUTO) 0 % (0-10); EOSINOPHILS % (AUTO) 0 % (0-10); HEMATOCRIT 41 % (40-54); HEMOGLOBIN 14.3 G/DL (13.3-17.7); LYMPHOCYTES # (AUTO) 0.7 X 10^3 (1.0-4.0); LYMPHOCYTES % (AUTO) 9 % (12-44); MEAN CORPUSCULAR HEMOGLOBIN 30 PG (25-34); MEAN CORPUSCULAR HGB CONC 35 G/DL (32-36); MEAN CORPUSCULAR VOLUME 85 FL (80-99); MEAN PLATELET VOLUME 10.1 FL (7.4-10.4); MONOCYTES # (AUTO) 0.8 X 10^3 (0.0-1.0); MONOCYTES % (AUTO) 10 % (0-12); NEUTROPHILS # (AUTO) 5.8 X 10^3 (1.8-7.8); NEUTROPHILS % (AUTO) 80 % (42-75); PLATELET COUNT 116 10^3/uL (130-400); RED BLOOD COUNT 4.79 10^6/uL (4.35-5.85); WHITE BLOOD COUNT 7.2 10^3/uL (4.3-11.0)
[2018-01-02 12:16] LABS: ALBUMIN 3.6 GM/DL (3.2-4.5); BILIRUBIN,TOTAL 2.3 MG/DL (0.1-1.0); CALCIUM 9.5 MG/DL (8.5-10.1); CREATININE SERUM 1.19 MG/DL (0.60-1.30); POTASSIUM 3.8 MMOL/L (3.6-5.0)
[2018-01-02 12:29] LABS: BILIRUBIN,URINE NEGATIVE (NEGATIVE); CLARITY,URINE CLEAR; COLOR,URINE YELLOW; GLUCOSE, URINE (UA) NEGATIVE (NEGATIVE); KETONES,URINE NEGATIVE (NEGATIVE); LEUKOCYTE ESTERASE ,URINE NEGATIVE (NEGATIVE); NITRITE,URINE NEGATIVE (NEGATIVE); PH,URINE 6 (5-9); PROTEIN,URINE NEGATIVE (NEGATIVE); UROBILINOGEN,URINE NORMAL (NORMAL)
[2018-01-02 12:41] LABS: BACTERIA,URINE NEGATIVE /HPF; SQUAMOUS EPITHELIAL CELL,UR 0-2 /HPF
[2018-01-02] MEDS ORDERED: NS 250 ML (IVPB) BAG IV ONE (13:30)
[2018-01-02] MEDS ORDERED: RECEIVED CONTRAST (Hold Metformin) IV SCH (13:30)
[2018-01-02] MEDS ORDERED: IOHEXOL 350 MG/ML 100 ML (OMNIPAQUE 350) VIAL IV ONE (13:30)
--- NOTE | 2018-01-02 13:41 | Diagnostic Imaging Report ---
INDICATION: Fever, nausea, and chills since Tuesday. TIME OF EXAMINATION: 1:27 PM. FINDINGS: The heart and mediastinal silhouette are normal in appearance. The lungs are clear. There is no pneumothorax or pleural fluid. IMPRESSION: Negative chest. No change from 06/27/2017. Dictated by: Dictated on workstation # [id number]
[2018-01-02] MEDS ORDERED: IBUPROFEN TABLET 200 MG TAB PO ONE (14:15)
--- NOTE | 2018-01-02 14:19 | Diagnostic Imaging Report ---
PROCEDURE: CT abdomen and pelvis with contrast. TECHNIQUE: Multiple contiguous axial images were obtained through the abdomen and pelvis after administration of intravenous contrast. INDICATION: Fever, chills with nausea. Patient has prior history of abdominal abscesses. Correlation is made with prior CTs from 01/05/17 and 01/28/2017. FINDINGS: The lung bases are clear. There appeared to be biliary drains within the liver and gallbladder. There is some pneumobilia present. There is liver parenchymal heterogeneity seen. Right and left intrahepatic biliary ducts are mildly prominent. The previously seen percutaneous drain draining the large subhepatic collection has been removed. No perihepatic or subhepatic fluid collection is seen on today's study. The pancreas and spleen are unremarkable. There is no adrenal mass. Renal low-density masses are seen and appear stable and suggestive of cysts. Aorta is heavily calcified but nonaneurysmal. Small and large bowel loops are normal caliber. There is no ascites. There is significant sigmoid diverticulosis but no evidence of acute diverticulitis. The bladder and prostate are unremarkable. IMPRESSION: 1. Indwelling biliary drains remain. Minimal intrahepatic biliary ductal dilatation is seen. Previously noted percutaneous drain has been removed. No residual or recurrent fluid collection is detected. 2. Right renal cyst. 3. Uncomplicated sigmoid diverticulosis. Dictated by: Dictated on workstation # [id number]
[2018-01-02] MEDS ORDERED: DOXY100T2 PO (15:03)
--- NOTE | 2018-01-02 15:03 | ED General ---
General Chief Complaint: Fever-Adult/Adol Stated Complaint: FEVER,N,CHILLS Nursing Triage Note: Pt reports episode of vomiting on 12/30. Pt states he has felt feverish with chills since. Pt denies n/v/d or any pain at this time. Nursing Sepsis Screen: No Definite Risk Source of Information: Patient, Old Records Exam Limitations: No Limitations History of Present Illness Date Seen by Provider: Jan 02, 2018 Time Seen by Provider: 10:52 Initial Comments This 77-year-old gentleman presents to the emergency room with complaints of intermittent fevers and chills of unknown cause. He has had some episodes of nausea and vomiting as well. Patient notes that he was not feeling well about a month ago as well. He denies any cough, rash, shortness of air, urinary changes, or diarrhea. He has had some mild headaches. He has some concern about an abdominal source of infection. He has history of an open cholecystectomy complicated by intra-abdominal abscesses. He has some intermittent mild pain in the right upper quadrant since his surgery last year. He is afebrile on presentation. Allergies and Home Medications Allergies Coded Allergies: No Known Drug Allergies (Unverified , 07/26/16) Home Medications Alfuzosin HCl 10 Mg Tab.sr.24h, 10 MG PO DAILY, (Reported) Aspirin 81 Mg Tablet.dr, 81 MG PO DAILY, (Reported) Carvedilol 6.25 Mg Tablet, 6.25 MG PO BID, (Reported) Cetirizine HCl 10 Mg Tablet, 10 MG PO HS, (Reported) Doxycycline Hyclate 100 Mg Tablet, 100 MG PO BID Prescribed by: JENIFER ALEJANDRE on 01/02/18 1503 Fluticasone Propionate 9.9 Ml Ribera.susp, 2 SPRAYS NS HS, (Reported) Furosemide 80 Mg Tablet, 80 MG PO UD PRN for SWELLING, (Reported) TAKES APPROXIMATELY TWICE WEEKLY WITH KLOR-CON AND MAGNESIUM Ibuprofen 200 Mg Tablet, 400 MG PO BID PRN for PAIN-MILD, (Reported) TAKES 2 (200 MG) TABLETS Latanoprost 2.5 Ml Drops, 1 DROP OU HS, (Reported) Lorazepam 0.5 Mg Tablet, 0.5 MG PO HS PRN for INSOMNIA, (Reported) Losartan Potassium 25 Mg Tablet, 25 MG PO DAILY, (Reported) Magnesium Oxide 400 Mg Tablet, 400 MG PO UD PRN for WHEN TAKING FUROSEMIDE, ( Reported) TAKES APPROXIMATELY TWICE WEEKLY WITH FUROSEMIDE AND KLOR-CON Multivit-Min/FA/Lycopen/Lutein 1 Each Tablet, 1 EACH PO DAILY, (Reported) Ondansetron 4 Mg Tab.rapdis, 4 MG PO Q6H PRN for NAUSEA/VOMITING Prescribed by: GENA VELASCO on 11/11/17 1734 Oxycodone HCl/Acetaminophen 1 Each Tablet, 1 TAB PO Q4H PRN for PAIN-MODERATE, ( Reported) Oxycodone HCl/Acetaminophen 1 Each Tablet, 1 EACH PO Q4H Prescribed by: ROSA DOMINGUEZ on 09/15/17 1009 Pantoprazole Sodium 40 Mg Tablet.dr, 40 MG PO DAILY, (Reported) Potassium Chloride 20 Meq Tab.er.prt, 20 MEQ PO UD PRN for WHEN TAKING FUROSEMIDE, (Reported) TAKES APPROXIMATELY 2 TIMES PER WEEK WITH FUROSEMIDE AND MAGNESIUM / LAST FILLED 05/2016 #25 Patient Home Medication List Home Medication List Reviewed: Yes Review of Systems Constitutional: see HPI EENTM: no symptoms reported Respiratory: no symptoms reported Cardiovascular: no symptoms reported Gastrointestinal: see HPI Genitourinary: no symptoms reported Musculoskeletal: no symptoms reported Skin: no symptoms reported Psychiatric/Neurological: See HPI Hematologic/Lymphatic: No Symptoms Reported Immunological/Allergic: no symptoms reported Past Pzichxw-Knpupb-Wjrujq Hx Past Med/Social Hx: Reviewed and Corrections made Patient Social History Alcohol Use: Denies Use Recreational Drug Use: No Smoking Status: Never a Smoker Recent Foreign Travel: No Contact w/Someone Who Travel: No Recent Infectious Disease Expo: No Recent Hopitalizations: No Physical Abuse: No Sexual Abuse: No Mistreated: No Fear: No Immunizations Up To Date Tetanus Booster (TDap): Unknown Date of Pneumonia Vaccine: Jun 01, 2016 Date of Influenza Vaccine: Mar 06, 2016 Seasonal Allergies Seasonal Allergies: Yes Past Medical History Surgeries: Yes (BILAT TKR, RIGHT ABOVE KNEE AMPUTATION, R CTR, UMB HERNIA REPAIR, ) Abdominal, Amputation, Gallbladder (Open), Joint Replacement, Orthopedic, Tonsillectomy, Vasectomy Respiratory: Yes (WEARS OXYGEN AT HS, RECENT SLEEP STUDY DONE) Currently Using CPAP: No Currently Using BIPAP: No Cardiac: Yes (HX OF PVC) Hypertension Neurological: Yes (LT TOES AND LT HAND) Neuropathy Reproductive Disorders: No Sexually Transmitted Disease: No HIV/AIDS: No Genitourinary: Yes Prostate Problems Gastrointestinal: Yes Gastroesophageal Reflux, Diverticulosis, Hemorrhoids Musculoskeletal: Yes (LEFT KNEE OSTEOARTHRITIS, RT AKA 07/23/14) Arthritis Endocrine: No HEENT: Yes Cataract, Glaucoma Loss of Vision: Bilateral Hearing Impairment: Hard of Hearing Cancer: Yes Skin What Type of Treatment Did You: Surgical Intervention Psychosocial: Yes Anxiety Nursing Suicide Risk Score: 0 Integumentary: Yes (LESION TO BOTH SIDES OF NECK) Recent Skin Changes Blood Disorders: No Adverse Reaction/Blood Tranf: No Family Medical History Reviewed Nursing Family Hx Alcoholism 19 FATHER, , Age:48, Onset:Unknown Bone cancer G8 BROTHER, , Onset:Unknown Colon cancer G8 SISTER, Onset:Unknown Heart valve abnormality 19 MOTHER, , Age:95, Onset:Unknown G8 SISTER, Onset:Unknown No Family History of: AIDS Abdominal aortic aneurysm Sekou's disease Alzheimer's disease Aphasia Arthritis Asthma Cancer of mouth Cardiovascular disease Cataracts Completed stroke Congenital disease Congenital heart disease Coronary thrombosis Cystic fibrosis Deafness or hearing loss Dementia Diabetes mellitus Drug abuse Dysphasia Fibrocystic disease of breast Gastroenteritis Glaucoma Headache disorder Hypercholesterolemia Hypertension Infertility Kidney disease Myocardial infarction Neoplasm Not obtainable due to adoption Osteoporosis Parkinson's disease Prostate cancer Psychosocial problem Respiratory disorder Seizure disorder Severe allergy Thyroid disease Tuberculosis Visual disorder No Pertinent Family Hx Physical Exam Vital Signs Vital Signs - First Documented 01/02/18 10:46 Temp 98.7 Pulse 55 Resp 18 B/P (MAP) 140/79 (99) Pulse Ox 99 O2 Delivery Room Air Capillary Refill : Less Than 3 Seconds Height, Weight, BMI Height: 5'11.00" Weight: 230lbs. 0.0oz. 104.339146aq; 34.6 BMI Method:Stated General Appearance: No Apparent Distress, WD/WN HEENT: PERRL/EOMI, Pharynx Normal, Other (There is no damage to the skin of the left ear canal with dried blood in the canal) Neck: Normal Inspection Respiratory: Lungs Clear, Normal Breath Sounds, No Accessory Muscle Use, No Respiratory Distress Cardiovascular: Regular Rate, Rhythm, No Edema, No Murmur Gastrointestinal: Normal Bowel Sounds, Soft, Tenderness (Minimal in the right upper quadrant) Extremity: Normal Inspection, No Pedal Edema Neurologic/Psychiatric: Alert, Oriented x3, No Motor/Sensory Deficits, Normal Mood/Affect, hair colorist II-XII Norm as Tested Skin: Normal Color, Warm/Dry Progress/Results/Core Measures Suspected Sepsis Recent Fever Within 48 Hours: Yes Infection Criteria Present: None New/Unexplained Altered Menta: No Sepsis Screen: No Definite Risk SIRS Temperature:101.7 Pulse: 86 Respiratory Rate: 16 Laboratory Tests 01/02/18 11:50: White Blood Count 7.2 Blood Pressure 144 /83 Mean: 103 Laboratory Tests 01/02/18 11:50: Creatinine 1.19, Platelet Count 116L, Total Bilirubin 2.3H Results/Orders Lab Results Laboratory Tests Test 01/02/18 11:50 01/02/18 12:25 Range/Units White Blood Count 7.2 4.3-11.0 10^3/uL Red Blood Count 4.79 4.35-5.85 10^6/uL Hemoglobin 14.3 13.3-17.7 G/DL Hematocrit 41 40-54 % Mean Corpuscular Volume 85 80-99 FL Mean Corpuscular Hemoglobin 30 25-34 PG Mean Corpuscular Hemoglobin Concent 35 32-36 G/DL Red Cell Distribution Width 14.0 10.0-14.5 % Platelet Count 116 L 130-400 10^3/uL Mean Platelet Volume 10.1 7.4-10.4 FL Neutrophils (%) (Auto) 80 H 42-75 % Lymphocytes (%) (Auto) 9 L 12-44 % Monocytes (%) (Auto) 10 0-12 % Eosinophils (%) (Auto) 0 0-10 % Basophils (%) (Auto) 0 0-10 % Neutrophils # (Auto) 5.8 1.8-7.8 X 10^3 Lymphocytes # (Auto) 0.7 L 1.0-4.0 X 10^3 Monocytes # (Auto) 0.8 0.0-1.0 X 10^3 Eosinophils # (Auto) 0.0 0.0-0.3 10^3/uL Basophils # (Auto) 0.0 0.0-0.1 10^3/uL Sodium Level 137 135-145 MMOL/L Potassium Level 3.8 3.6-5.0 MMOL/L Chloride Level 105 98-107 MMOL/L Carbon Dioxide Level 23 21-32 MMOL/L Anion Gap 9 5-14 MMOL/L Blood Urea Nitrogen 17 7-18 MG/DL Creatinine 1.19 0.60-1.30 MG/DL Estimat Glomerular Filtration Rate 59 BUN/Creatinine Ratio 14 Glucose Level 115 H 70-105 MG/DL Calcium Level 9.5 8.5-10.1 MG/DL Total Bilirubin 2.3 H 0.1-1.0 MG/DL Aspartate Amino Transf (AST/SGOT) 56 H 5-34 U/L Alanine Aminotransferase (ALT/SGPT) 73 H 0-55 U/L Alkaline Phosphatase 359 H 40-136 U/L C-Reactive Protein High Sensitivity 12.71 H 0.00-0.50 MG/DL Total Protein 7.0 6.4-8.2 GM/DL Albumin 3.6 3.2-4.5 GM/DL Hepatitis A IgM Antibody Non-Reactive Non-Reactive Hepatitis B Surface Antigen Non-Reactive Non-Reactive Hepatitis B Core IgM Antibody Non-Reactive Non-Reactive Hepatitis C Antibody Non-Reactive Non-Reactive Urine Color YELLOW Urine Clarity CLEAR Urine pH 6 5-9 Urine Specific [place] 1.010 L 1.016-1.022 Urine Protein NEGATIVE NEGATIVE Urine Glucose (UA) NEGATIVE NEGATIVE Urine Ketones NEGATIVE NEGATIVE Urine Nitrite NEGATIVE NEGATIVE Urine Bilirubin NEGATIVE NEGATIVE Urine Urobilinogen NORMAL NORMAL MG/DL Urine Leukocyte Esterase NEGATIVE NEGATIVE Urine RBC (Auto) 1+ H NEGATIVE Urine RBC NONE /HPF Urine WBC NONE /HPF Urine Squamous Epithelial Cells 0-2 /HPF Urine Crystals NONE /LPF Urine Bacteria NEGATIVE /HPF Urine Casts NONE /LPF Urine Mucus NEGATIVE /LPF Urine Culture Indicated NO My Orders Orders - JENIFER DOBSON MD Cbc With Automated Diff (01/02/18 10:52) Comprehensive Metabolic Panel (01/02/18 10:52) Ua Culture If Indicated (01/02/18 10:52) Saline Lock/Iv-Start (01/02/18 10:52) Hs C Reactive Protein (01/02/18 12:33) Chest Pa/Lat (2 View) (01/02/18 12:55) Ct Abdomen/Pelvis W (01/02/18 13:18) Iohexol Injection (Omnipaque 350 Mg/Ml 1 (01/02/18 13:30) Ns (Ivpb) (Sodium Chloride 0.9%) (01/02/18 13:30) Pharmacy Communication (Pharmacy Communi (01/02/18 13:20) Contrast Received (Contrast Received) (01/02/18 13:30) Ibuprofen Tablet (Motrin Tablet) (01/02/18 14:15) Hepatitis Panel Acute (01/02/18 14:55) Medications Given in ED Vital Signs/I&O Capillary Refill : Less Than 3 Seconds Blood Pressure Mean: 103 Progress Note : Progress Note After initial labs, urinalysis, and chest x-ray, no infection was found. However, patient did have an elevated CRP and did develop a fever of 100.7 in the ER accompanied by chills. Patient is worried about the potential for persistent lingering abscess in the abdomen. Options were discussed for further evaluation. Patient would like to proceed with CT scan after discussion of risks and benefits. He was given ibuprofen for the fever. CT was unremarkable for revealing source of fever. Due to patient's rising liver enzymes, hepatitis screening was performed. Patient was asked about taken insect bites. There are none that he is aware of but with his symptoms tickborne illness is a concern. We discussed performing a tick panel. Patient does not wish to perform the tick panel at this time due to possible cost. However, he would like to be empirically treated with doxycycline. A prescription was provided. Diagnostic Imaging Diagonstic Imaging: Xray Plain Films/CT/US/NM/MRI: chest Comments Chest x-ray viewed by me and report reviewed. See report below: NAME: JENNA ORTEGA [facility] REC#: [id number] PT STATUS: REG ER : 1940 PHYSICIAN: JENIFER DOBSON MD ADMIT DATE: 01/02/18/ER Signed Date of Exam: 01/02/18 CHEST PA/LAT (2 VIEW) INDICATION: Fever, nausea, and chills since Tuesday. TIME OF EXAMINATION: 1:27 PM. FINDINGS: The heart and mediastinal silhouette are normal in appearance. The lungs are clear. There is no pneumothorax or pleural fluid. IMPRESSION: Negative chest. No change from 06/27/2017. Dictated by: Dictated on workstation # [id number] Dict: 01/02/18 1330 Trans: 01/02/18 1402 Interpreted by: RON MCCAIN MD Electronically signed by: RON MCCAIN MD 01/02/18 1403 Diagonstic Imaging: CT Plain Films/CT/US/NM/MRI: abdomen, pelvis Comments CT abdomen and pelvis viewed by me and report reviewed. See report below: NAME: JENNA ORTEGA REC#: [id number] PT STATUS: DEP ER : 1940 PHYSICIAN: JENIFER DOBSON MD ADMIT DATE: 01/02/18/ER Signed Date of Exam: 01/02/18 CT ABDOMEN/PELVIS W PROCEDURE: CT abdomen and pelvis with contrast. TECHNIQUE: Multiple contiguous axial images were obtained through the abdomen and pelvis after administration of intravenous contrast. INDICATION: Fever, chills with nausea. Patient has prior history of abdominal abscesses. Correlation is made with prior CTs from 01/05/17 and 01/28/2017. FINDINGS: The lung bases are clear. There appeared to be biliary drains within the liver and gallbladder. There is some pneumobilia present. There is liver parenchymal heterogeneity seen. Right and left intrahepatic biliary ducts are mildly prominent. The previously seen percutaneous drain draining the large subhepatic collection has been removed. No perihepatic or subhepatic fluid collection is seen on today's study. The pancreas and spleen are unremarkable. There is no adrenal mass. Renal low-density masses are seen and appear stable and suggestive of cysts. Aorta is heavily calcified but nonaneurysmal. Small and large bowel loops are normal caliber. There is no ascites. There is significant sigmoid diverticulosis but no evidence of acute diverticulitis. The bladder and prostate are unremarkable. IMPRESSION: 1. Indwelling biliary drains remain. Minimal intrahepatic biliary ductal dilatation is seen. Previously noted percutaneous drain has been removed. No residual or recurrent fluid collection is detected. 2. Right renal cyst. 3. Uncomplicated sigmoid diverticulosis. Dictated by: Dictated on workstation # [id number] Dict: 01/02/18 1407 Trans: 01/02/18 1531 Interpreted by: NAOMI SUE MD Electronically signed by: NAOMI SUE MD 01/02/18 1531 Departure Impression Primary Impression: Fever of unknown origin Additional Impressions: Elevated liver enzymes Trauma of ear canal Qualified Codes: S09.91XA - Unspecified injury of ear, initial encounter Abdominal discomfort Disposition: 01 HOME, SELF-CARE Condition: Stable Departure-Patient Inst. Decision time for Depature: 15:01 Referrals: SAMUEL FERNANDEZ MD (PCP/Family) Primary Care Physician Patient Instructions: Fever, Adult (DC), Tickborne Encephalitis Add. Discharge Instructions: You may take ibuprofen up to 600 mg every 6 hours as needed for pain or fever. Avoid frequent use of Tylenol because of your elevated liver markers. A hepatitis panel was ordered at the hospital. Please follow-up on the results of this test with Dr. Fernandez next week. Complete the entire course of doxycycline as prescribed. Return to the emergency room if symptoms are worsening. Stay well-hydrated. All discharge instructions reviewed with patient and/or family. Voiced understanding. Scripts Doxycycline Hyclate (Doxycycline Hyclate) 100 Mg Tablet 100 MG PO BID, #20 TAB Prov: JENIFER DOBSON MD 01/02/18 Copy Copies To 1: SAMUEL FERNANDEZ MD, JOSHUA T MD Jan 02, 2018 15:03
[2018-01-02 15:10] VITALS: BP 152/89
[2018-01-03 07:36] LABS: HEPATITIS C ANTIBODY C Non-Reactive (Non-Reactive)
== END 2018-01-02 15:14 | disposition home or self-care (01) ==
LOC: EDUNIT# 09:48 → ER 09:51
DX: S09.302A Unspecified injury of left middle and inner ear, initial encounter (principal); R50.9 Fever, unspecified; R10.11 Right upper quadrant pain; R94.5 Abnormal results of liver function studies; I10 Essential (primary) hypertension; K21.9 Gastro-esophageal reflux disease without esophagitis; F41.9 Anxiety disorder, unspecified; Z90.49 Acquired absence of other specified parts of digestive tract; Z79.82 Long term (current) use of aspirin; Z79.52 Long term (current) use of systemic steroids; Z96.653 Presence of artificial knee joint, bilateral; Z98.890 Other specified postprocedural states; Z89.611 Acquired absence of right leg above knee; Z90.89 Acquired absence of other organs; Z98.52 Vasectomy status; Z87.19 Personal history of other diseases of the digestive system; Z85.828 Personal history of other malignant neoplasm of skin; Z80.8 Family history of malignant neoplasm of other organs or systems; X58.XXXA Exposure to other specified factors, initial encounter
CPT/HCPCS: 36415; 71046; 74177; 80053; 80074; 81000; 85025; 86141

== ENCOUNTER 2018-02-20 10:15 | Outpatient (CLI) | payer MEDICARE ==
[~2018-02-20] VITALS: Ht 180.3 cm; Wt 116.8 kg
[~2018-02-20 10:15] MED LIST changes: +DOXY100T2 PO; -OXYC-202 PO; +OXYC1TAB12 PO
[2018-02-20] MEDS ORDERED: OXYC-464 PO (10:30)
[2018-02-20 10:38] VITALS: BP 146/91
[2018-02-20] MEDS ORDERED: TRAM50TA2 PO (11:06)
[2018-02-20 11:27] LABS: BASOPHILS % (AUTO) 1 % (0-10); EOSINOPHILS # (AUTO) 0.1 10^3/uL (0.0-0.3); EOSINOPHILS % (AUTO) 4 % (0-10); HEMATOCRIT 42 % (40-54); HEMOGLOBIN 14.3 G/DL (13.3-17.7); LYMPHOCYTES % (AUTO) 29 % (12-44); MEAN CORPUSCULAR HEMOGLOBIN 29 PG (25-34); MEAN CORPUSCULAR HGB CONC 34 G/DL (32-36); MEAN CORPUSCULAR VOLUME 85 FL (80-99); MEAN PLATELET VOLUME 10.6 FL (7.4-10.4); MONOCYTES # (AUTO) 0.4 X 10^3 (0.0-1.0); MONOCYTES % (AUTO) 11 % (0-12); NEUTROPHILS # (AUTO) 1.9 X 10^3 (1.8-7.8); NEUTROPHILS % (AUTO) 56 % (42-75); PLATELET COUNT 129 10^3/uL (130-400); RED BLOOD COUNT 4.95 10^6/uL (4.35-5.85); WHITE BLOOD COUNT 3.3 10^3/uL (4.3-11.0)
[2018-02-20 11:48] LABS: PROTHROMBIN TIME PATIENT 13.5 SEC (12.2-14.7)
[2018-02-20 11:52] LABS: ALBUMIN 3.6 GM/DL (3.2-4.5); BILIRUBIN,DIRECT 0.3 MG/DL (0.0-0.3); BILIRUBIN,INDIRECT 0.4 MG/DL; BILIRUBIN,TOTAL 0.7 MG/DL (0.1-1.0); CALCIUM 9.4 MG/DL (8.5-10.1); CREATININE SERUM 1.19 MG/DL (0.60-1.30); POTASSIUM 3.8 MMOL/L (3.6-5.0); TOTAL PROTEIN 6.7 GM/DL (6.4-8.2)
== END 2018-02-20 13:34 | disposition home or self-care (01) ==
LOC: PREOP 10:15
PROVIDERS: ATTEND Otolaryngology Otolaryngology/Facial Plastic Surgery
DX: Z01.810 Encounter for preprocedural cardiovascular examination (principal); Z01.812 Encounter for preprocedural laboratory examination; Z11.2 Encounter for screening for other bacterial diseases; J34.2 Deviated nasal septum; J34.3 Hypertrophy of nasal turbinates
CPT/HCPCS: 36415; 80048; 80076; 85025; 85610; 85730; 87081; 93005

== ENCOUNTER 2018-02-23 07:31 | Day surgery (SDC) | payer MEDICARE ==
[~2018-02-23] VITALS: Ht 180.3 cm; Wt 116.8 kg
[2018-02-23 07:30] VITALS: BP 115/75
[~2018-02-23 07:31] MED LIST changes: +OXYC-464 PO; +TRAM50TA2 PO
--- OUTSIDE RECORDS SUMMARY | 2018-02-23 07:33 | XMS REPORT | Clinical Summary ---
Author Author [facility] Organization [facility] Address Unknown Phone Unavailable Care Team Providers Care Community Health Outreach Worker Name Role Phone Yan Leon MD PCP Source Comments Some departments are not documenting in the electronic medical record. If you do not see the information that you expected, contact Release of Information in the Health Information Management department at [phone] for further assistance in locating additional records.[facility] Allergies No Known Allergies Current Medications Prescription [...] Overview: Added automatically from request for surgery [id number] Social History Tobacco Use Types Packs/Day Years [...] 05/25/2016, 03/17/2007, 03/09/1996 Implants Implanted Type Area Snow Fence Erector Device Expiration Model / Identifier Date Serial / Lot 8 Fr Feeding Tube N/A: Bile 07/07/2021 / Implanted: Qty: 1 on 01/13/2017 by [employer] [id number] Seng Alexandra MD / [id number] Results Not on filefrom Last 3 Months
[2018-02-23] MEDS: LACTATED RINGERS 1,000 ML IV PRN ×2 (07:40→10:28)
[2018-02-23] MEDS ORDERED: FAMOTIDINE 20MG/2ML IV (PEPCID) ONE (07:44)
[2018-02-23] MEDS ORDERED: FAMOTIDINE 20MG/2ML IV (PEPCID) IVP ONE (08:15)
[2018-02-23] MEDS ORDERED: PHENYLEPHRINE 0.5% NASAL SPR (NEO-SYNEPHRINE) REG ONE (09:22)
[2018-02-23] MEDS ORDERED: LIDOCAINE/EPI 1%-1:200,000 (XYLOCAINE) 10 ML VIAL ONE (09:22)
--- NOTE | 2018-02-23 09:44 | Progress Note-Pre Operative ---
Pre-Operative Progress Note H&P Reviewed The H&P was reviewed, patient examined and no changes noted. Date Seen by Provider: Feb 23, 2018 Time Seen by Provider: : Date H&P Reviewed: Feb 23, 2018 Time H&P Reviewed: : Pre-Operative Diagnosis: Deviated nasal septum, Bilat hyper of Inf turbs PIPER RENEE MD Feb 23, 2018 9:43 am
[2018-02-23] MEDS ORDERED: ROCURONIUM 10 MG/ML 5 ML SYRINGE IV ONE (09:48)
[2018-02-23] MEDS ORDERED: ONDANSETRON 4 MG/2 ML (SDV) Z0FRAN ONE (09:48)
[2018-02-23] MEDS ORDERED: proPOfol 200 MG/20 ML (DIPRIVAN) VIAL IV ONE (09:48)
[2018-02-23] MEDS ORDERED: SEVOFLURANE (ULTANE) 15 ML INHAL SOLN ONE ×4 (09:48→11:02)
[2018-02-23] MEDS ORDERED: LIDOCAINE PF 2% 2 ML (XYLOCAINE) VIAL ONE (09:48)
[2018-02-23] MEDS ORDERED: fentaNYL INJECTION 100 MCG/2 ML AMP ONE (09:49)
[2018-02-23] MEDS ORDERED: COCAINE HCL 4% 2 ML SYR ONE (09:59)
[2018-02-23] MEDS ORDERED: ceFAZolin 1,000 MG/10 ML (ANCEF) VIAL ONE (10:34)
[2018-02-23] MEDS ORDERED: NITROGLYCERIN 2% OINT 1 GM UNIT DOSE PACKET ONE (10:42)
[2018-02-23] MEDS ORDERED: LABETALOL HCL 20 MG/4 ML VIAL ONE (10:48)
[2018-02-23] MEDS ORDERED: ATROPINE INJ 0.4 MG/ML SDV ONE (10:48)
[2018-02-23] MEDS ORDERED: PHENYLEPHRINE INJ 10 MG/ML (NEO-SYNEPHRINE 1%) ONE (10:54)
[2018-02-23] MEDS ORDERED: D5 1/2 NS W/KCL 20 MEQ/L 1,000 ML IV SCH (11:06)
--- NOTE | 2018-02-23 11:06 | Progress Note-Post Operative ---
Post-Operative Progess Note Surgeon (s)/Commercial Green Building Designer (s) Surgeon PIPER RENEE MD Commercial Green Building Designer n/a Pre-Operative Diagnosis Deviated nasal septum, Bilat hyper of Inf turbs Post-Operative Diagnosis same Post-Op Procedure Note Date of Procedure: Feb 23, 2018 Name of Procedure Performed: Nasal Septoplasty, Bilat REd of Inf Turbs Description & Findings Description and Findings: n/a Anesthesia Type get Estimated Blood Loss minimal Packing none. Specimen(s) collected/removed septum PIPER RENEE MD Feb 23, 2018 11:06 am
[2018-02-23] MEDS ORDERED: HYDROcodone/APAP 5 MG/325 MG (LORTAB) TAB PO PRN (11:15)
[2018-02-23] MEDS ORDERED: ACETAMINOPHEN 325 MG TABLET PO PRN (11:15)
[2018-02-23] MEDS ORDERED: PROMETHAZINE INJ 25 MG/ML (PHENERGAN) AMP IVP PRN (11:15)
[2018-02-23 12:15] VITALS: BP 112/75
[2018-02-23 12:45] VITALS: BP 129/76
[2018-02-23] MEDS ORDERED: HYDR-3812 PO (12:53)
[2018-02-23] MEDS ORDERED: AMOX-355 PO (12:53)
[2018-02-23 13:15] VITALS: BP 118/79
[2018-02-23 13:35] VITALS: BP 118/79
--- NOTE | 2018-02-23 14:18 | Anesthesia-General Post-Op ---
General Patient Condition Mental Status/LOC: Same as Preop Cardiovascular: Satisfactory Nausea/Vomiting: Absent Respiratory: Satisfactory Pain: Controlled Complications: Absent Post Op Complications Complications None Follow Up Care/Instructions Patient Instructions None needed. Anesthesia/Patient Condition Patient Condition Patient is doing well, no complaints, stable vital signs, no apparent adverse anesthesia problems. No complications reported per nursing. FLAKITA MAE CRNA Feb 23, 2018 14:18
== END 2018-02-23 13:35 | disposition home or self-care (01) ==
LOC: SDC 07:31
PROVIDERS: ATTEND Otolaryngology Otolaryngology/Facial Plastic Surgery
DX: J34.2 Deviated nasal septum (principal); J34.3 Hypertrophy of nasal turbinates; J34.89 Other specified disorders of nose and nasal sinuses; I12.9 Hypertensive chronic kidney disease with stage 1 through stage 4 chronic kidney disease, or unspecified chronic kidney disease; N18.3 Chronic kidney disease, stage 3 (moderate); G47.33 Obstructive sleep apnea (adult) (pediatric); G62.9 Polyneuropathy, unspecified; K21.9 Gastro-esophageal reflux disease without esophagitis; I49.3 Ventricular premature depolarization; E66.9 Obesity, unspecified; Z68.35 Body mass index [BMI] 35.0-35.9, adult; Z79.82 Long term (current) use of aspirin; Z79.899 Other long term (current) drug therapy

== ENCOUNTER → 2018-04-19 | Outpatient (CLI) | payer MEDICARE ==
[~2018-04-19] MED LIST changes: +AMOX-355 PO; +HYDR-3812 PO; -RANI-425 PO; +RANI-591 PO
[2018-04-19 15:54] LABS: ABG BASE EXCESS 0.6 MMOL/L (-2.5-2.5); ABG OXYGEN SATURATION 91 % (94-100); ABG PCO2 37 MMHG (35-45); ABG PH 7.43 (7.37-7.43); ABG PO2 55 MMHG (79-93); ABG TCO2 25.6 MMOL/L (21.0-31.0)
[2018-04-19 15:55] LABS: ALLENS TEST YES-POS; INSPIRED O2 ROOM AIR; PATIENT TEMP 98.2; VENTILATOR NO
== END ==
LOC: RT 15:15
PROVIDERS: ATTEND Nurse Practitioner Family
DX: J44.9 Chronic obstructive pulmonary disease, unspecified (principal); G47.33 Obstructive sleep apnea (adult) (pediatric); R06.02 Shortness of breath; J30.9 Allergic rhinitis, unspecified; R09.02 Hypoxemia
CPT/HCPCS: 36600; 82805

== ENCOUNTER → 2018-06-22 | Outpatient (CLI) | payer MEDICARE ==
[2018-06-22 13:27] LABS: HEMOGLOBIN 13.3 G/DL (13.3-17.7); MEAN PLATELET VOLUME 10.9 FL (7.4-10.4); RED BLOOD COUNT 4.68 10^6/uL (4.35-5.85); RED CELL DISTRIBUTION WIDTH 14.6 % (10.0-14.5); WHITE BLOOD COUNT 10.8 10^3/uL (4.3-11.0)
[2018-06-22 14:01] LABS: ALBUMIN 3.4 GM/DL (3.2-4.5); BILIRUBIN,TOTAL 1.9 MG/DL (0.1-1.0); CALCIUM 8.9 MG/DL (8.5-10.1); CREATININE SERUM 2.05 MG/DL (0.60-1.30); POTASSIUM 3.8 MMOL/L (3.6-5.0); TOTAL PROTEIN 6.9 GM/DL (6.4-8.2)
[2018-06-22 17:11] LABS: CLARITY,URINE CLEAR; COLOR,URINE AMBER; GLUCOSE, URINE (UA) NEGATIVE (NEGATIVE); KETONES,URINE NEGATIVE (NEGATIVE); LEUKOCYTE ESTERASE ,URINE 1+ (NEGATIVE); NITRITE,URINE NEGATIVE (NEGATIVE); PH,URINE 5 (5-9); PROTEIN,URINE 1+ (NEGATIVE); UROBILINOGEN,URINE 8 MG/DL (NORMAL)
[2018-06-22 17:27] LABS: BILIRUBIN,URINE 2+ (NEGATIVE)
[2018-06-22 17:31] LABS: BACTERIA,URINE TRACE /HPF
[2018-06-22 17:32] LABS: CALCIUM OXALATE CRYSTALS,UR MODERATE /LPF
== END ==
LOC: LAB 12:46
PROVIDERS: ATTEND Family Medicine
DX: R50.9 Fever, unspecified (principal); R11.2 Nausea with vomiting, unspecified
CPT/HCPCS: 36415; 80053; 81000; 85027; 87040

== ENCOUNTER 2018-07-26 19:41 | Outpatient (CLI) | payer MEDICARE | END 2018-07-27 06:30 | disposition home or self-care (01) | LOC: SLEEP 19:41 | PROVIDERS: ATTEND Nurse Practitioner Family | DX: G47.33 Obstructive sleep apnea (adult) (pediatric) (principal) | CPT/HCPCS: 95811 ==

== ENCOUNTER → 2021-09-24 | Outpatient (CLI) | payer MEDICARE ==
[~2021-09-24] MED LIST changes: -ACET-2469 PO; +ACET-3075 PO; -ASCO500T5 PO; +ASCO500T71 PO; +ASPI-1238 PO; -ASPI-983 PO; -CETI10TA20 PO; +CETI10TA49 PO; -HYDR-3812 PO; -IBUP-2055 PO; +IBUP-2473 PO; -OXYC-464 PO; -OXYC-465 PO; +OXYC-556 PO; +OXYC1TAB15 PO; -PANT40TA3 PO; +PANT40TA52 PO; +POTA-169 PO; -POTA20TA8 PO; -RANI-591 PO; +RANI-603 PO; -TRAM50TA2 PO; +TRM50T PO
== END ==
LOC: CARD 15:00
PROVIDERS: ATTEND Nurse Practitioner Family
DX: I42.0 Dilated cardiomyopathy (principal); I51.7 Cardiomegaly
CPT/HCPCS: 93306

== ENCOUNTER → 2022-05-13 | Outpatient (CLI) | payer MEDICARE ==
--- NOTE | 2022-05-13 13:01 | Diagnostic Imaging Report ---
PROCEDURE: CT abdomen and pelvis without contrast. TECHNIQUE: Multiple contiguous axial images were obtained through the abdomen and pelvis without the use of intravenous contrast. Auto Exposure Controls were utilized during the CT exam to meet ALARA standards for radiation dose reduction. INDICATION: Prostate carcinoma. Correlation is made prior CT from 01/02/2018. FINDINGS: Lung bases are clear. Pneumobilia persists. Previously noted biliary drains have been removed. The pancreas and spleen are unremarkable. No adrenal mass is detected. Left kidney is unremarkable. There is a right renal cyst in the upper pole. There are calculi that have developed in the right kidney. There appears to be a staghorn type calculus within the right renal pelvis measuring approximately 3.0 x 0.7 cm. There are small calculi in the lower pole right kidney as well. There appears to some hydronephrosis on the right. The right ureter is unremarkable. Bladder is decompressed. Prostate is unremarkable. Aorta is calcified but nonaneurysmal. Bowel loops do show diverticulosis of the descending and sigmoid colon but no evidence of acute diverticulitis. There is no obstruction. No free fluid or fluid collection identified. The bony structures are without evidence of an osteoblastic lesion. IMPRESSION: 1. Pneumobilia likely owing to an competent sphincter versus postsurgical change. 2. Right-sided renal calculi, largest appears to be a staghorn in the renal pelvis. There is a moderate amount of inflammation surrounding the right renal pelvis and there is moderate hydronephrosis. No definite ureteral or bladder calculi are seen. 3. Uncomplicated diverticulosis. 4. No evidence of abdominal or pelvic lymphadenopathy or metastatic disease. Dictated by: Dictated on workstation # [id number]
--- NOTE | 2022-05-13 16:07 | Diagnostic Imaging Report ---
INDICATION: Newly diagnosed prostate carcinoma. TECHNIQUE: Patient was administered 25.5 mCi of technetium-99m MDP intravenously, and whole-body imaging was performed after a three-hour delay. COMPARISON: No prior bone scans are available for comparison. FINDINGS: Postop changes of right lower extremity above-knee amputation are noted. There are postop changes of left knee arthroplasty. There is some uptake in both kidneys. There does appear to be hydronephrosis of the right kidney, correlating with the findings noted on CT study the same day. There appears to be some degenerative uptake in bilateral shoulders. No foci are identified to suggest osseous metastatic disease. IMPRESSION: 1. No scintigraphic evidence of osseous metastatic disease. 2. Right-sided hydronephrosis. Dictated by: Dictated on workstation # [id number]
== END ==
LOC: CARD 11:31
PROVIDERS: ATTEND Urology
DX: N20.0 Calculus of kidney (principal); K57.90 Diverticulosis of intestine, part unspecified, without perforation or abscess without bleeding; C61 Malignant neoplasm of prostate; N13.30 Unspecified hydronephrosis
CPT/HCPCS: 74176; 78306; A9503

== ENCOUNTER 2022-05-25 09:30 | Outpatient (RCR) | payer MEDICARE ==
[2022-05-25] MEDS ORDERED: LEUPROLIDE 22.5 MG SYRINGE (ELIGARD) SQ SCH (10:30)
== END 2022-06-05 | disposition home or self-care (01) ==
LOC: ONC 09:30
PROVIDERS: ATTEND Internal Medicine Hematology & Oncology
DX: C61 Malignant neoplasm of prostate (principal); I12.9 Hypertensive chronic kidney disease with stage 1 through stage 4 chronic kidney disease, or unspecified chronic kidney disease; N18.30 Chronic kidney disease, stage 3 unspecified; J44.9 Chronic obstructive pulmonary disease, unspecified; I25.10 Atherosclerotic heart disease of native coronary artery without angina pectoris; K21.9 Gastro-esophageal reflux disease without esophagitis; E66.9 Obesity, unspecified
CPT/HCPCS: 96402; G0463

== ENCOUNTER 2022-06-09 08:46 | Outpatient (RCR) | payer MEDICARE | END 2022-07-06 | disposition home or self-care (01) | LOC: ONC 08:46 | PROVIDERS: ATTEND Internal Medicine Hematology & Oncology | DX: C61 Malignant neoplasm of prostate (principal); I12.9 Hypertensive chronic kidney disease with stage 1 through stage 4 chronic kidney disease, or unspecified chronic kidney disease; N18.30 Chronic kidney disease, stage 3 unspecified; J44.9 Chronic obstructive pulmonary disease, unspecified; I25.10 Atherosclerotic heart disease of native coronary artery without angina pectoris; K21.9 Gastro-esophageal reflux disease without esophagitis; E66.9 Obesity, unspecified | CPT/HCPCS: 99205 ==

== ENCOUNTER 2022-07-20 09:37 | Outpatient (RCR) | payer MEDICARE ==
[2022-07-20 09:57] LABS: HEMOGLOBIN 15.3 g/dL (13.3-17.7)
[2022-07-20 09:59] LABS: BASOPHILS # (AUTO) 0.1 10^3/uL (0.0-0.1); BASOPHILS % (AUTO) 1 % (0-10); EOSINOPHILS # (AUTO) 0.1 10^3/uL (0.0-0.3); EOSINOPHILS % (AUTO) 3 % (0-10); HEMATOCRIT 46 % (40-54); LYMPHOCYTES # (AUTO) 1.1 10^3/uL (1.0-4.0); LYMPHOCYTES % (AUTO) 25 % (12-44); MEAN CORPUSCULAR HEMOGLOBIN 30 pg (25-34); MEAN CORPUSCULAR HGB CONC 34 g/dL (32-36); MEAN CORPUSCULAR VOLUME 90 fL (80-99); MEAN PLATELET VOLUME 10.7 fL (9.0-12.2); MONOCYTES # (AUTO) 0.4 10^3/uL (0.0-1.0); MONOCYTES % (AUTO) 9 % (0-12); NEUTROPHILS # (AUTO) 2.6 10^3/uL (1.8-7.8); NEUTROPHILS % (AUTO) 62 % (42-75); PLATELET COUNT 129 10^3/uL (130-400); WHITE BLOOD COUNT 4.2 10^3/uL (4.3-11.0)
[2022-07-20 10:12] LABS: ALBUMIN 3.7 GM/DL (3.2-4.5); POTASSIUM 4.3 MMOL/L (3.6-5.0)
[2022-07-20 10:13] LABS: CALCIUM 9.2 MG/DL (8.5-10.1)
[2022-07-20 10:14] LABS: TOTAL PROTEIN 7.2 GM/DL (6.4-8.2)
[2022-07-20 10:16] LABS: BILIRUBIN,TOTAL 0.7 MG/DL (0.1-1.0)
[2022-07-20 10:18] LABS: CREATININE SERUM 1.47 MG/DL (0.60-1.30)
== END 2022-08-03 | disposition home or self-care (01) ==
LOC: ONC 09:37
PROVIDERS: ATTEND Internal Medicine Hematology & Oncology
DX: C61 Malignant neoplasm of prostate (principal); I12.9 Hypertensive chronic kidney disease with stage 1 through stage 4 chronic kidney disease, or unspecified chronic kidney disease; N18.30 Chronic kidney disease, stage 3 unspecified; J44.9 Chronic obstructive pulmonary disease, unspecified; I25.10 Atherosclerotic heart disease of native coronary artery without angina pectoris; K21.9 Gastro-esophageal reflux disease without esophagitis; E66.9 Obesity, unspecified
CPT/HCPCS: 36415; 80053; 84153; 85025

== ENCOUNTER 2022-08-17 09:45 | Outpatient (RCR) | payer MEDICARE ==
[~2022-08-17 09:45] MED LIST changes: +LEUPROLIDE 22.5 MG SYRINGE (ELIGARD) SQ SCH
== END 2022-09-03 | disposition home or self-care (01) ==
LOC: ONC 09:45
PROVIDERS: ATTEND Internal Medicine Hematology & Oncology
DX: C61 Malignant neoplasm of prostate (principal); I12.9 Hypertensive chronic kidney disease with stage 1 through stage 4 chronic kidney disease, or unspecified chronic kidney disease; N18.30 Chronic kidney disease, stage 3 unspecified; J44.9 Chronic obstructive pulmonary disease, unspecified; I25.10 Atherosclerotic heart disease of native coronary artery without angina pectoris; K21.9 Gastro-esophageal reflux disease without esophagitis; E66.9 Obesity, unspecified
CPT/HCPCS: 96402

== ENCOUNTER 2022-09-08 05:32 | Outpatient (CLI) | payer MEDICARE ==
[~2022-09-08] VITALS: Ht 180.3 cm; Wt 125.0 kg
[~2022-09-08 05:32] MED LIST changes: -LEUPROLIDE 22.5 MG SYRINGE (ELIGARD) SQ SCH
[2022-09-08] MEDS ORDERED: FLUT9.9S NS (12:58)
[2022-09-08] MEDS ORDERED: IBUP-2473 PO (12:58)
[2022-09-08] MEDS ORDERED: DICL20GE TP (12:58)
[2022-09-08] MEDS ORDERED: ASPI-999 PO (13:06)
[2022-09-08] MEDS ORDERED: CEFD300C3 PO (13:06)
[2022-09-08] MEDS ORDERED: CIPR-225 PO (13:06)
[2022-09-08] MEDS ORDERED: RT-ALBUINH INH (13:27)
[2022-09-08] MEDS ORDERED: ALB0.5V INH (13:27)
[2022-09-08] MEDS ORDERED: BUDE10.2 IH (13:27)
== END 2022-09-08 13:54 | disposition home or self-care (01) ==
LOC: PREOP 05:32
PROVIDERS: ATTEND Radiology Radiation Oncology
DX: Z01.818 Encounter for other preprocedural examination (principal)

== ENCOUNTER 2022-09-15 06:52 | Day surgery (SDC) | payer MEDICARE ==
[~2022-09-15] VITALS: Ht 180.3 cm; Wt 125.0 kg
[2022-09-15] VITALS (10 sets, daily range): BP systolic 125–162; BP diastolic 74–87
[~2022-09-15 06:52] MED LIST changes: +ALB0.5V INH; +ASPI-999 PO; +BUDE10.2 IH; +CEFD300C3 PO; +CIPR-225 PO; +DICL20GE TP; +RT-ALBUINH INH
[2022-09-15] MEDS ORDERED: LACTATED RINGERS 1,000 ML IV PRN (07:00)
--- NOTE | 2022-09-15 07:02 | Progress Note-Pre Operative ---
Pre-Operative Progress Note Date of Available H&P: Sep 06, 2022 Date H&P Reviewed: Sep 15, 2022 Time H&P Reviewed: 07:01 History & Physical: H&P Reviewed, No changes noted Pre-Operative Diagnosis: Prostate cancer cT2b, PSA 4.7, Arti 9-10 / GG 5 SHAYAN GUDINO MD Sep 15, 2022 07:02
--- NOTE | 2022-09-15 07:07 | Discharge Inst-Simple/Standard ---
Discharge Inst-Standard Reconcile Patient Problems Problems Reviewed?: Yes Discharge Medications New, Converted or Re-Newed RX: Other (Patient has antibiotic at home - take as directed.) Patient Instructions/Follow Up Plan of Care/Instructions/FU: 1) Treatment planning scan at [facility] [facility] on 09/29/22 at 1:00 p.m. Please drink 1/2 bottle of oral contrast at 12:30 p.m. prior to your appointment. Activity as Tolerated: Yes Discharge Diet: No Restrictions SHAYAN GUDINO MD Sep 15, 2022 07:07
[2022-09-15] MEDS ORDERED: fentaNYL INJ 100 MCG/2 ML AMP ONE (08:18)
[2022-09-15] MEDS ORDERED: LIDOCAINE PF 2% 5 ML (XYLOCAINE) VIAL ONE (09:05)
[2022-09-15] MEDS ORDERED: proPOfol 200 MG/20 ML (DIPRIVAN) VIAL IV ONE (09:05)
[2022-09-15] MEDS ORDERED: SEVOFLURANE (ULTANE) 15 ML INHAL SOLN ONE (09:05)
[2022-09-15] MEDS ORDERED: ONDANSETRON 4 MG/2 ML (SDV) Z0FRAN ONE (09:05)
--- NOTE | 2022-09-15 09:21 | Progress Note-Post Operative ---
Post-Operative Progess Note Surgeon (s)/Personal Lines Account Manager (s) Surgeon SHAYAN GUDINO MD Personal Lines Account Manager: N/A Pre-Operative Diagnosis Prostate cancer cT2b, PSA 4.7, [place] 9-10 / GG 5 Post-Operative Diagnosis Same as preop Procedure & Operative Findings Date of Procedure 09/15/22 Procedure Performed/Findings (1) Placement of fiducial gold seed markers under ultrasound guidance (2) Injection of biodegradable hydrogel prostate-rectal spacer utilizing the [employer] Brendan system. Anesthesia Type General Estimated Blood Loss Estimated blood loss (mL): Minimal Specimens/Packing Specimens Removed None Packing: None SHAYAN GUDINO MD Sep 15, 2022 09:21
--- NOTE | 2022-09-15 10:16 | Anesthesia-General Post-Op ---
General Patient Condition Mental Status/LOC: Same as Preop Cardiovascular: Satisfactory Nausea/Vomiting: Absent Respiratory: Satisfactory Pain: Controlled Complications: Absent Post Op Complications Complications None Follow Up Care/Instructions Patient Instructions None needed. Anesthesia/Patient Condition Patient Condition Patient is doing well, no complaints, stable vital signs, no apparent adverse anesthesia problems. No complications reported per nursing. ROX BUCHANAN CRNA Sep 15, 2022 10:16
== END 2022-09-15 11:00 ==
LOC: SDC 06:52
PROVIDERS: ATTEND Radiology Radiation Oncology
DX: C61 Malignant neoplasm of prostate (principal); N40.0 Benign prostatic hyperplasia without lower urinary tract symptoms; G47.33 Obstructive sleep apnea (adult) (pediatric); E66.01 Morbid (severe) obesity due to excess calories; Z99.81 Dependence on supplemental oxygen; Z79.899 Other long term (current) drug therapy; Z68.38 Body mass index [BMI] 38.0-38.9, adult
CPT/HCPCS: 55874; 55876; 87081; A4648; C1889

== ENCOUNTER 2022-09-29 12:47 | Outpatient (RCR) | payer MEDICARE | END 2022-10-03 | disposition home or self-care (01) | LOC: ONC 12:47 | PROVIDERS: ATTEND Internal Medicine Hematology & Oncology | DX: C61 Malignant neoplasm of prostate (principal); I12.9 Hypertensive chronic kidney disease with stage 1 through stage 4 chronic kidney disease, or unspecified chronic kidney disease; N18.30 Chronic kidney disease, stage 3 unspecified; I42.0 Dilated cardiomyopathy; I65.23 Occlusion and stenosis of bilateral carotid arteries; J44.9 Chronic obstructive pulmonary disease, unspecified; I25.10 Atherosclerotic heart disease of native coronary artery without angina pectoris; K21.9 Gastro-esophageal reflux disease without esophagitis; G47.33 Obstructive sleep apnea (adult) (pediatric); E66.9 Obesity, unspecified | CPT/HCPCS: 77334 ==

== ENCOUNTER → 2022-11-03 | Outpatient (RCR) | payer MEDICARE ==
[2022-10-12 10:32] LABS: BASOPHILS % (AUTO) 1 % (0-10); EOSINOPHILS # (AUTO) 0.1 10^3/uL (0.0-0.3); HEMOGLOBIN 13.9 g/dL (13.3-17.7); MEAN PLATELET VOLUME 10.6 fL (9.0-12.2); MONOCYTES % (AUTO) 7 % (0-12)
[2022-10-12 10:33] LABS: EOSINOPHILS % (AUTO) 3 % (0-10); HEMATOCRIT 41 % (40-54); LYMPHOCYTES # (AUTO) 0.7 10^3/uL (1.0-4.0); LYMPHOCYTES % (AUTO) 20 % (12-44); MEAN CORPUSCULAR HEMOGLOBIN 30 pg (25-34); MEAN CORPUSCULAR HGB CONC 34 g/dL (32-36); MEAN CORPUSCULAR VOLUME 88 fL (80-99); MONOCYTES # (AUTO) 0.2 10^3/uL (0.0-1.0); NEUTROPHILS # (AUTO) 2.4 10^3/uL (1.8-7.8); NEUTROPHILS % (AUTO) 69 % (42-75); PLATELET COUNT 97 10^3/uL (130-400); WHITE BLOOD COUNT 3.5 10^3/uL (4.3-11.0)
[2022-10-12 10:53] LABS: ALBUMIN 3.7 GM/DL (3.2-4.5); BILIRUBIN,TOTAL 0.7 MG/DL (0.1-1.0); CALCIUM 8.8 MG/DL (8.5-10.1); CREATININE SERUM 1.28 MG/DL (0.60-1.30); POTASSIUM 4.2 MMOL/L (3.6-5.0); TOTAL PROTEIN 6.5 GM/DL (6.4-8.2)
== END | disposition home or self-care (01) ==
LOC: ONC 10-05 10:25
PROVIDERS: ATTEND Internal Medicine Hematology & Oncology
DX: Z51.0 Encounter for antineoplastic radiation therapy (principal); C61 Malignant neoplasm of prostate; I13.0 Hypertensive heart and chronic kidney disease with heart failure and stage 1 through stage 4 chronic kidney disease, or unspecified chronic kidney disease; N18.30 Chronic kidney disease, stage 3 unspecified; I42.0 Dilated cardiomyopathy; I65.23 Occlusion and stenosis of bilateral carotid arteries; J44.9 Chronic obstructive pulmonary disease, unspecified; I25.10 Atherosclerotic heart disease of native coronary artery without angina pectoris; K21.9 Gastro-esophageal reflux disease without esophagitis; G47.33 Obstructive sleep apnea (adult) (pediatric); E66.9 Obesity, unspecified
CPT/HCPCS: 36415; 77300; 77301; 77336; 77338; 77385; 80053; 84153; 85025

== ENCOUNTER → 2022-12-03 | Outpatient (RCR) | payer MEDICARE ==
[~2022-12-03] MED LIST changes: +LEUPROLIDE 22.5 MG SYRINGE (ELIGARD) SQ SCH
== END | disposition home or self-care (01) ==
LOC: ONC 11-04 10:10
PROVIDERS: ATTEND Internal Medicine Hematology & Oncology
DX: Z51.0 Encounter for antineoplastic radiation therapy (principal); C61 Malignant neoplasm of prostate; J44.9 Chronic obstructive pulmonary disease, unspecified; I12.9 Hypertensive chronic kidney disease with stage 1 through stage 4 chronic kidney disease, or unspecified chronic kidney disease; N18.30 Chronic kidney disease, stage 3 unspecified; I42.0 Dilated cardiomyopathy; I25.10 Atherosclerotic heart disease of native coronary artery without angina pectoris; G47.33 Obstructive sleep apnea (adult) (pediatric); E66.9 Obesity, unspecified
CPT/HCPCS: 77300; 77336; 77385; 96401

== ENCOUNTER 2022-12-13 09:29 | Outpatient (RCR) | payer MEDICARE ==
[~2022-12-13 09:29] MED LIST changes: -LEUPROLIDE 22.5 MG SYRINGE (ELIGARD) SQ SCH
== END 2023-01-03 | disposition home or self-care (01) ==
LOC: ONC 09:29
PROVIDERS: ATTEND Internal Medicine Hematology & Oncology
DX: Z51.0 Encounter for antineoplastic radiation therapy (principal); C61 Malignant neoplasm of prostate; J44.9 Chronic obstructive pulmonary disease, unspecified; I12.9 Hypertensive chronic kidney disease with stage 1 through stage 4 chronic kidney disease, or unspecified chronic kidney disease; N18.30 Chronic kidney disease, stage 3 unspecified; I42.0 Dilated cardiomyopathy; I25.10 Atherosclerotic heart disease of native coronary artery without angina pectoris; G47.33 Obstructive sleep apnea (adult) (pediatric); E66.9 Obesity, unspecified
CPT/HCPCS: 77385; G0463; 77336

== ENCOUNTER 2023-02-01 11:14 | Outpatient (RCR) | payer MEDICARE ==
[2023-01-04 10:23] LABS: MEAN CORPUSCULAR VOLUME 88 fL (80-99); MEAN PLATELET VOLUME 10.2 fL (9.0-12.2)
[2023-01-04 10:24] LABS: BASOPHILS % (AUTO) 1 % (0-10); EOSINOPHILS # (AUTO) 0.1 10^3/uL (0.0-0.3); EOSINOPHILS % (AUTO) 4 % (0-10); HEMATOCRIT 40 % (40-54); HEMOGLOBIN 13.6 g/dL (13.3-17.7); LYMPHOCYTES # (AUTO) 0.4 10^3/uL (1.0-4.0); LYMPHOCYTES % (AUTO) 17 % (12-44); MEAN CORPUSCULAR HEMOGLOBIN 30 pg (25-34); MEAN CORPUSCULAR HGB CONC 34 g/dL (32-36); MONOCYTES # (AUTO) 0.2 10^3/uL (0.0-1.0); MONOCYTES % (AUTO) 9 % (0-12); NEUTROPHILS # (AUTO) 1.6 10^3/uL (1.8-7.8); NEUTROPHILS % (AUTO) 68 % (42-75); PLATELET COUNT 91 10^3/uL (130-400); WHITE BLOOD COUNT 2.3 10^3/uL (4.3-11.0)
[2023-01-04 10:48] LABS: ALBUMIN 3.7 GM/DL (3.2-4.5); BILIRUBIN,TOTAL 0.6 MG/DL (0.1-1.0); CALCIUM 9.2 MG/DL (8.5-10.1); CREATININE SERUM 1.17 MG/DL (0.60-1.30); TOTAL PROTEIN 6.3 GM/DL (6.4-8.2)
[~2023-02-01 11:14] MED LIST changes: +LEUPROLIDE 22.5 MG SYRINGE (ELIGARD) SQ SCH
== END 2023-02-03 | disposition home or self-care (01) ==
LOC: ONC 11:14
PROVIDERS: ATTEND Internal Medicine Hematology & Oncology
DX: C61 Malignant neoplasm of prostate (principal); J44.9 Chronic obstructive pulmonary disease, unspecified; I12.9 Hypertensive chronic kidney disease with stage 1 through stage 4 chronic kidney disease, or unspecified chronic kidney disease; N18.30 Chronic kidney disease, stage 3 unspecified; I42.0 Dilated cardiomyopathy; I25.10 Atherosclerotic heart disease of native coronary artery without angina pectoris; E66.9 Obesity, unspecified
CPT/HCPCS: 80053; 84153; 85025; G0463; 36415; 96402; 99214

== ENCOUNTER 2023-04-26 09:38 | Outpatient (RCR) | payer MEDICARE ==
[2023-04-21 10:09] LABS: BASOPHILS % (AUTO) 1 % (0-10); EOSINOPHILS # (AUTO) 0.1 10^3/uL (0.0-0.3); EOSINOPHILS % (AUTO) 2 % (0-10)
[2023-04-21 10:15] LABS: HEMATOCRIT 42 % (40-54); LYMPHOCYTES # (AUTO) 0.6 10^3/uL (1.0-4.0); LYMPHOCYTES % (AUTO) 24 % (12-44); MEAN CORPUSCULAR HEMOGLOBIN 30 pg (25-34); MEAN CORPUSCULAR HGB CONC 34 g/dL (32-36); MEAN CORPUSCULAR VOLUME 89 fL (80-99); MONOCYTES # (AUTO) 0.2 10^3/uL (0.0-1.0); MONOCYTES % (AUTO) 8 % (0-12); NEUTROPHILS # (AUTO) 1.7 10^3/uL (1.8-7.8); NEUTROPHILS % (AUTO) 64 % (42-75); PLATELET COUNT 101 10^3/uL (130-400); WHITE BLOOD COUNT 2.6 10^3/uL (4.3-11.0)
[2023-04-21 10:27] LABS: ALBUMIN 3.8 GM/DL (3.2-4.5); BILIRUBIN,TOTAL 0.6 MG/DL (0.1-1.0); CALCIUM 9.3 MG/DL (8.5-10.1); CREATININE SERUM 1.34 MG/DL (0.60-1.30); POTASSIUM 3.8 MMOL/L (3.6-5.0); TOTAL PROTEIN 6.7 GM/DL (6.4-8.2)
[~2023-04-26 09:38] MED LIST changes: +LOSA-414 PO; -LOSA25TA2 PO
== END 2023-05-05 | disposition home or self-care (01) ==
LOC: ONC 09:38
PROVIDERS: ATTEND Internal Medicine Hematology & Oncology
DX: C61 Malignant neoplasm of prostate (principal); J44.9 Chronic obstructive pulmonary disease, unspecified; I12.9 Hypertensive chronic kidney disease with stage 1 through stage 4 chronic kidney disease, or unspecified chronic kidney disease; N18.30 Chronic kidney disease, stage 3 unspecified; I42.0 Dilated cardiomyopathy; I25.10 Atherosclerotic heart disease of native coronary artery without angina pectoris; E66.9 Obesity, unspecified
CPT/HCPCS: 36415; 80053; 84153; 85025; 96402; 99214